=== PATIENT | female | born 1965 | race Caucasian/White ===

== ENCOUNTER 2020-03-31 13:23 | Outpatient (REF) | payer OTHER, SELFPAY ==
--- NOTE | 2020-03-31 13:31 | MM_ITS ---
EXAMINATION: MM DIAGNOSTIC DIGITAL BREAST TOMOSYNTHESIS, BILATERAL CLINICAL INFORMATION: Left breast cancer status post lumpectomy 03/06/2018. Radiation completed in 2019. Due for yearly. COMPARISON: Mammography: 03/27/2019, 04/05/2018, 03/16/2018 TECHNIQUE: Digital breast tomosynthesis is performed in both the craniocaudal and mediolateral oblique views along with computer-aided detection (CAD). Synthesized 2D images are generated from the tomosynthesis. Additional magnification left CC and magnification left ML views are obtained. FINDINGS: There are scattered areas of fibroglandular density (ACR BI-RADS breast composition Category b). There are post therapy changes on the left with mild reduced breast size and scarring similar to prior study. Neither breast shows interval mass or architectural abnormality or abnormal calcifications. No significant changes. Results are provided to the patient at time of visit by the technologist. IMPRESSION: No mammographic evidence of malignancy. Post therapy changes left breast. ASSESSMENT: BI-RADS 2: Benign RECOMMENDATION: Annual bilateral mammography. This patient's information was entered into a reminder system with a target due date for their next mammogram.
== END 2020-03-31 13:24 | disposition home or self-care (01) ==
LOC: HO.MAMMO 13:23
PROVIDERS: PCP Internal Medicine; Visit Provider Surgery
DX: C50.912 Malignant neoplasm of unspecified site of left female breast (principal); Z92.3 Personal history of irradiation
CPT/HCPCS: 77062; 77066

== ENCOUNTER → 2020-04-08 13:05 | Outpatient (BNVA) | payer OTHER, SELFPAY | PROVIDERS: PCP Internal Medicine; Referring Provider Internal Medicine; Visit Provider Surgery | DX: Z85.3 Personal history of malignant neoplasm of breast (principal); Z92.21 Personal history of antineoplastic chemotherapy; Z92.3 Personal history of irradiation | CPT/HCPCS: 99213 ==

== ENCOUNTER → 2020-04-09 13:30 | Outpatient (BNV) | payer MEDICARE, OTHER, MEDICAID, SELFPAY | PROVIDERS: PCP Internal Medicine; Visit Provider Internal Medicine | DX: Z85.3 Personal history of malignant neoplasm of breast (principal); I89.0 Lymphedema, not elsewhere classified | CPT/HCPCS: 99212; 99213; 99214; G2211 ==

== ENCOUNTER 2020-07-24 11:19 | Outpatient (REF) | payer OTHER, SELFPAY ==
[2020-07-24 11:47] LABS: MANUAL DIFF FLAG NO
[2020-07-24 11:52] LABS: Basophils Percent Auto 0.5 % (0-2); Eosinophils Absolute Auto 0.1 X10*3/uL (0.0-0.4); Eosinophils Percent Auto 1.3 % (0-4); Hematocrit 40.7 % (37-47); Hemoglobin 13.3 g/dl (12.0-16.0); Imm Gran Abs Auto 0.02 X10*3/uL (0.00-0.03); Imm Gran Pct Auto 0.3 % (0.0-0.4); Lymphocytes Absolute Auto 1.4 X10*3/uL (1.2-4.9); Lymphocytes Percent Auto 21.5 % (20-40); Mean Corpuscular HGB Conc 32.7 g/dl (31.0-35.0); Mean Corpuscular Hemoglobin 30.6 pg (27.0-33.0); Mean Corpuscular Volume 93.8 fL (80-98); Mean Platelet Volume 10.8 fL (9.4-12.3); Monocytes Absolute Auto 0.4 X10*3/uL (0.1-1.2); Monocytes Percent Auto 6.9 % (2-11); Neutrophils Absolute Auto 4.4 X10*3/uL (2.0-8.3); Neutrophils Percent Auto 69.5 % (45-73); Platelet Count 272 X10*3/uL (160-400); Red Blood Count 4.34 X10*6/uL (4.20-5.50); Red Cell Distribution Width 12.8 % (11.0-16.0); White Blood Count 6.4 X10*3/uL (4.8-10.8)
[2020-07-24 12:30] LABS: Alanine Aminotransferase 29 U/L (0-31); Albumin Level 4.4 g/dL (3.5-5.0); Alkaline Phosphatase 90 U/L (39-117); Anion Gap 12 (12-20); Aspartate Amino Transferase 19 U/L (5-31); Bilirubin Total 0.8 mg/dL (0.0-1.0); Blood Urea Nitrogen 20 mg/dL (9-16); Calcium 9.7 mg/dL (8.4-10.2); Carbon Dioxide 31 mmol/L (22-29); Chloride 101 mmol/L (96-108); Cholesterol 186 mg/dL; Estimated Glomerular Filt Rate > 60; Glucose Fasting 95 mg/dL (60-99); HDL Cholesterol 64 mg/dL; LDL Cholesterol Calculated 101 mg/dl; Potassium 4.9 mmol/L (3.3-5.1); Sodium 139 mmol/L (135-145); Total Protein 7.1 g/dL (6.5-8.0); Triglycerides 106 mg/dL
[2020-07-24 12:31] LABS: Glucose Urine UA NEG (NEG); Leukocyte Esterase Urine TRACE (NEG); Nitrite Urine NEG (NEG); UACC Culture Trigger YES; Urine Blood 2+ (NEG); Urine Ketones NEG (NEG); Urine Protein NEG (NEG-TRACE)
[2020-07-24 12:46] LABS: TSH reflex Free T4 1.37 uIU/mL (0.32-4.0)
[2020-07-24 12:46] LABS: Appearance Urine HAZY; Color Urine YELLOW
[2020-07-24 14:22] LABS: Renal Epithelial Cells Urine 1+ /LPF; Squamous Epithelial Cell Urine 1+ /LPF
== END 2020-07-24 11:20 | disposition home or self-care (01) ==
LOC: HO.LAB 11:19
PROVIDERS: PCP Internal Medicine; Visit Provider Internal Medicine
DX: I10 Essential (primary) hypertension (principal); C50.912 Malignant neoplasm of unspecified site of left female breast; Z17.0 Estrogen receptor positive status [ER+]; D64.9 Anemia, unspecified; E78.00 Pure hypercholesterolemia, unspecified; E66.9 Obesity, unspecified
CPT/HCPCS: 36415; 80053; 80061; 81001; 81003; 84443; 85025; 87086

== ENCOUNTER 2020-07-28 16:36 | Outpatient (REF) | payer OTHER, SELFPAY ==
--- NOTE | ~2020-07-28 | XR_ITS ---
EXAMINATION: XR HIP, RIGHT CLINICAL INFORMATION: Right hip COMPARISON: CT abdomen pelvis 05/08/2018 TECHNIQUE: Two views of the right hip. FINDINGS: Severe degenerative changes are noted involving the right hip joint with severe superior narrowing sclerosis and osteophyte formation. There is some mild deformity of the superior femoral head which could even represent some possible osteonecrosis. No fractures are seen. XR/XR hip RT min 2V IMPRESSION: Severe degenerative changes right hip.
== END 2020-07-28 16:37 | disposition home or self-care (01) ==
LOC: HO.XRAY 16:36
PROVIDERS: PCP Internal Medicine; Visit Provider Internal Medicine
DX: M25.551 Pain in right hip (principal)
CPT/HCPCS: 73502

== ENCOUNTER → 2020-09-23 13:19 | Outpatient (BNVA) | payer MEDICARE, MEDICAID, SELFPAY | PROVIDERS: PCP Internal Medicine; Visit Provider Surgery | DX: C50.912 Malignant neoplasm of unspecified site of left female breast (principal) | CPT/HCPCS: 99212 ==

== ENCOUNTER 2020-10-06 07:36 | Outpatient (REF) | payer MEDICARE, MEDICAID, SELFPAY ==
--- NOTE | ~2020-10-06 | XR_ITS ---
EXAMINATION: XR PELVIS CLINICAL INFORMATION: Right hip osteoarthritis. COMPARISON: 07/28/2020 TECHNIQUE: AP view of the pelvis. FINDINGS: There is no evidence of acute fracture or diastasis of the pelvis. There is loss of the superior joint space of the right hip with marginal sclerosis and some flattening of the femoral head. No acute fractures identified on this single view. There is severe narrowing of the superior joint space of the left hip without fracture or flattening of the femoral head. There is some mild spurring seen involving the sacroiliac joints bilaterally. Facet arthropathy is seen at the L5-S1 level bilaterally, left greater than right. XR/XR pelvis 1-2V IMPRESSION: Bilateral degenerative change of the hips, right greater than left.
== END 2020-10-06 07:37 | disposition home or self-care (01) ==
LOC: HO.HOSX 07:36
PROVIDERS: Visit Provider Physician Assistant
DX: M16.11 Unilateral primary osteoarthritis, right hip (principal)
CPT/HCPCS: 72170; 99202

== ENCOUNTER → 2020-10-21 14:06 | Outpatient (BNVA) | payer MEDICARE, MEDICAID, SELFPAY | PROVIDERS: Visit Provider Orthopaedic Surgery | DX: M16.11 Unilateral primary osteoarthritis, right hip (principal) | CPT/HCPCS: 99212 ==

== ENCOUNTER 2020-11-18 10:59 | Outpatient (REF) | payer MEDICARE, MEDICAID, SELFPAY ==
[2020-11-18 12:01] LABS: MANUAL DIFF FLAG NO
[2020-11-18 12:08] LABS: Basophils Percent Auto 0.6 % (0-2); Eosinophils Absolute Auto 0.1 X10*3/uL (0.0-0.4); Eosinophils Percent Auto 2.3 % (0-4); Hematocrit 38.6 % (37-47); Hemoglobin 12.6 g/dl (12.0-16.0); Imm Gran Abs Auto 0.01 X10*3/uL (0.00-0.03); Imm Gran Pct Auto 0.2 % (0.0-0.4); Lymphocytes Absolute Auto 1.3 X10*3/uL (1.2-4.9); Lymphocytes Percent Auto 21.2 % (20-40); Mean Corpuscular HGB Conc 32.6 g/dl (31.0-35.0); Mean Corpuscular Hemoglobin 30.7 pg (27.0-33.0); Mean Corpuscular Volume 93.9 fL (80-98); Mean Platelet Volume 11.1 fL (9.4-12.3); Monocytes Absolute Auto 0.5 X10*3/uL (0.1-1.2); Monocytes Percent Auto 7.6 % (2-11); Neutrophils Absolute Auto 4.2 X10*3/uL (2.0-8.3); Neutrophils Percent Auto 68.1 % (45-73); Platelet Count 227 X10*3/uL (160-400); Red Blood Count 4.11 X10*6/uL (4.20-5.50); White Blood Count 6.2 X10*3/uL (4.8-10.8)
[2020-11-18 12:26] LABS: Glucose Urine UA NEG (NEG); Leukocyte Esterase Urine NEG (NEG); Nitrite Urine NEG (NEG); Specific Gravity - Urine 1.025 (1.005-1.025); Urine Blood 1+ (NEG); Urine Ketones NEG (NEG); Urine Protein NEG (NEG-TRACE)
[2020-11-18 12:28] LABS: Appearance Urine CLEAR; Color Urine YELLOW
[2020-11-18 12:44] LABS: TSH reflex Free T4 1.03 uIU/mL (0.32-4.0)
[2020-11-18 13:10] LABS: RBC Urine 0 /HPF (0); Squamous Epithelial Cell Urine TRACE /LPF; WBC Urine 0-2 /HPF (0-4)
[2020-11-18 13:16] LABS: Alanine Aminotransferase 28 U/L (0-31); Albumin Level 4.3 g/dL (3.5-5.0); Alkaline Phosphatase 76 U/L (39-117); Anion Gap 13 (12-20); Aspartate Amino Transferase 21 U/L (5-31); Bilirubin Total 0.9 mg/dL (0.0-1.0); Blood Urea Nitrogen 19 mg/dL (9-16); Calcium 9.4 mg/dL (8.4-10.2); Carbon Dioxide 26 mmol/L (22-29); Chloride 105 mmol/L (96-108); Cholesterol 188 mg/dL; Estimated Glomerular Filt Rate > 60; Glucose Fasting 95 mg/dL (60-99); HDL Cholesterol 64 mg/dL; LDL Cholesterol Calculated 98 mg/dl; Potassium 4.6 mmol/L (3.3-5.1); Sodium 139 mmol/L (135-145); Total Protein 6.8 g/dL (6.5-8.0); Triglycerides 131 mg/dL
== END 2020-11-18 11:00 | disposition home or self-care (01) ==
LOC: HO.LAB 10:59
PROVIDERS: PCP Internal Medicine; Visit Provider Internal Medicine
DX: I10 Essential (primary) hypertension (principal); D64.9 Anemia, unspecified; E78.00 Pure hypercholesterolemia, unspecified; E66.9 Obesity, unspecified
CPT/HCPCS: 36415; 80053; 80061; 81001; 84443; 85025

== ENCOUNTER → 2020-11-26 13:01 | Outpatient (BNVA) | payer MEDICARE, MEDICAID, SELFPAY | PROVIDERS: PCP Internal Medicine; Visit Provider Orthopaedic Surgery ==

== ENCOUNTER → 2020-12-17 13:43 | Outpatient (BNVA) | payer MEDICARE, MEDICAID, SELFPAY | PROVIDERS: PCP Internal Medicine; Visit Provider Physician Assistant | DX: M16.11 Unilateral primary osteoarthritis, right hip (principal) | CPT/HCPCS: 99212 ==

== ENCOUNTER 2020-12-22 06:40 | Inpatient (IN) | payer MEDICARE, MEDICAID, SELFPAY ==
--- NOTE | 2020-11-26 14:46 | ECG_ITS ---
Test Reason : PREOP Blood Pressure : / mmHG Vent. Rate : 066 BPM Atrial Rate : 066 BPM P-R Int : 168 ms QRS Dur : 072 ms QT Int : 404 ms P-R-T Axes : 033 -03 027 degrees QTc Int : 423 ms Normal sinus rhythm cannot exclude old Inferior infarct , age undetermined ; possible normal variant. otherwise normal EKG No previous ECGs available Referred By: Brijesh Pineda Electronically Signed By:CHERYL MORRIS
--- NOTE | 2020-12-18 12:01 | HO.ANESPROP2 ---
Documented by User: Yun Galdamez 12/19/20 09:07 HPI - Anesthesia Eval Consult details Narrative: 55yo F for Right Hip Total Replacement PONV and N/V with opioids. Did well with Fentanyl for hernia surgery. [facility] Active Problems Active Problems: All Active Problems (Updated 12/17/20 @ 16:28 by Pauly Saldivar) Invasive ductal carcinoma of left breast (Acute) Pre-op evaluation (Acute) Osteoarthritis of right hip (Acute) Right hip pain (Acute) Insomnia (Acute) Obesity (BMI 30-39.9) (Acute) Depression (Acute) Secondary and unspecified malignant neoplasm of axilla and upper limb lymph nodes (Acute) Anemia (Acute) Malignant neoplasm of left breast (Chronic) Pure hypercholesterolemia (Acute) Benign essential hypertension (Acute) Past Medical History Medical History Anemia Arthritis Benign essential hypertension Chronic osteoarthritis Depression Hx of cardiac murmur Insomnia Malignant neoplasm of left breast Numbness of fingers of both hands Obesity (BMI 30-39.9) Osteoarthritis of right hip PONV (postoperative nausea and vomiting) Pure hypercholesterolemia Right hip pain Secondary and unspecified malignant neoplasm of axilla and upper limb lymph nodes Family History Family History Father Diabetes Cancer Mother Cancer Chronic mental illness Maternal Grandmother Stomach cancer Maternal Grandfather Stomach cancer Other Mental health problem Substance abuse Family history of problems with anesthesia: No Surgical History Surgical History History of axillary surgery History of hernia surgery History of left breast biopsy History of left mastectomy Hx of colonoscopy History of Problems with Anesthesia: No (PONV) Social History Social History Housing: House Are you a primary care trainer to a significant other at home: No Do you presently have visiting nurse or other home services: No Alcohol intake: current Alcohol intake frequency: holidays/special occasions only Alcohol type: wine Patient Tobacco Use Status: Never used Tobacco e-Cigarette/Vaping Use: Never Used Second Hand Smoke Exposure: Yes Use of substances other than those prescribed or required for medical reasons: No Have you been hit, kicked, punched, or otherwise hurt by someone within the past year? If so, by whom?: No Spiritual Healthcare Practices: none Restorationist Healthcare Practices: Buddhist Cultural Healthcare Practices: None Are you DNR?: No Advance Directives: No Advance Directives Information Provided: No Advance Directives on File: No Recently lost weight without trying: No Patient : No : No Poor oral hygiene: No service: No Current occupational status: unemployed Gender identity: female Meds Allergies Allergy/AdvReac Type Severity Reaction Status Date / Time Penicillins [PENICILLINS] Allergy Unknown CHILDHOOD Verified 12/17/20 16:23 RXN codeine [CODEINE] AdvReac Intermediate NAUSEA & Verified 12/17/20 16:23 VOMITING morphine [MORPHINE] AdvReac Intermediate Bad Verified 12/17/20 16:23 headache, N/V oxycodone [From PERCOCET] AdvReac Intermediate NAUSEA & Verified 12/17/20 16:23 VOMITING Home Medications Medication Instructions Recorded Confirmed Last Taken Type fluoxetine 40 mg PO BEDTIME 12/17/20 12/17/20 Unknown History metoprolol tartrate 50 mg PO BEDTIME 12/17/20 12/17/20 Unknown History Exam Exam Date and Time: December 18, 2020 1201 Pertinent Lab Results Pertinent Lab Results: Laboratory Tests 11/18/20 11/18/20 11:18 11:18 WBC 6.2 Hgb 12.6 Hct 38.6 Plt Count 227 Sodium 139 Potassium 4.6 Chloride 105 Carbon Dioxide 26 BUN 19 H Creatinine 0.72 Laboratory Tests 12/18/20 13:05 Blood Type A Positive Antibody Screen NEGATIVE Narrative Narrative: EKG 11/2020 Vent. Rate : 066 BPM Atrial Rate : 066 BPM P-R Int : 168 ms QRS Dur : 072 ms QT Int : 404 ms P-R-T Axes : 033 -03 027 degrees QTc Int : 423 ms Normal sinus rhythm cannot exclude old Inferior infarct , age undetermined ; possible normal variant. otherwise normal EKG No previous ECGs available Airway Mallampati Class: II TM Dist: >3cm Neck ROM: Full Loose/Missing/Broken Teeth: No (Crowned molars) Heart: RRR Lungs: CTAB Assessment and Plan Assessment Anesthesia Assessment: Anesthesia Plan Discussed and PAT Visit Documented by User: Erum Mast 12/22/20 07:21 [facility] Past Medical History Medical History Anemia Arthritis Benign essential hypertension Chronic osteoarthritis Depression Hx of cardiac murmur Insomnia Malignant neoplasm of left breast Numbness of fingers of both hands Obesity (BMI 30-39.9) Osteoarthritis of right hip PONV (postoperative nausea and vomiting) Pure hypercholesterolemia Right hip pain Secondary and unspecified malignant neoplasm of axilla and upper limb lymph nodes Family History Family History Father Diabetes Cancer Mother Cancer Chronic mental illness Maternal Grandmother Stomach cancer Maternal Grandfather Stomach cancer Other Mental health problem Substance abuse Surgical History Surgical History History of axillary surgery History of hernia surgery History of left breast biopsy History of left mastectomy Hx of colonoscopy Social History Social History Housing: House Are you a primary care trainer to a significant other at home: No Do you presently have visiting nurse or other home services: No Alcohol intake: current Alcohol intake frequency: holidays/special occasions only Alcohol type: wine Patient Tobacco Use Status: Never used Tobacco e-Cigarette/Vaping Use: Never Used Second Hand Smoke Exposure: Yes Use of substances other than those prescribed or required for medical reasons: No Have you been hit, kicked, punched, or otherwise hurt by someone within the past year? If so, by whom?: No Spiritual Healthcare Practices: none Restorationist Healthcare Practices: Buddhist Cultural Healthcare Practices: None Are you DNR?: No Advance Directives: No Advance Directives Information Provided: No Advance Directives on File: No Recently lost weight without trying: No Patient : No : No Poor oral hygiene: No service: No Current occupational status: unemployed Gender identity: female Meds Allergies Allergy/AdvReac Type Severity Reaction Status Date / Time Penicillins [PENICILLINS] Allergy Unknown CHILDHOOD Verified 12/17/20 16:23 RXN codeine [CODEINE] AdvReac Intermediate NAUSEA & Verified 12/17/20 16:23 VOMITING morphine [MORPHINE] AdvReac Intermediate Bad Verified 12/17/20 16:23 headache, N/V oxycodone [From PERCOCET] AdvReac Intermediate NAUSEA & Verified 12/17/20 16:23 VOMITING Home Medications Medication Instructions Recorded Confirmed Last Taken Type fluoxetine 40 mg PO BEDTIME 12/17/20 12/17/20 Unknown History metoprolol tartrate 50 mg PO BEDTIME 12/17/20 12/17/20 Unknown History Assessment and Plan Assessment Anesthesia Assessment: Anesthesia Plan Discussed and Chart Reviewed Final Anesthetic Review NPO: Yes ASA Class: III Final Preanesthetic Review: No Changes in Pt Med Stat, Meds/Allgs Chart Reviewed, Consent Obtained/Reviewed and Anes Risks/Benef Reviewed Patient Risk: Intermediate Procedure Risk: Intermediate Assessment/Block/Sedation in SS: Assess/Block/Sedation-SS Anesthetic Plan Anesthetic Plan: GA Disposition: Standard PACU
[2020-12-18 12:08] VITALS: BP 132/72; PULSE 80; RESP 16; O2SAT 97; BMI 39.4
[2020-12-18 14:12] LABS: MRSA Nasal PCR NEGATIVE (Negative); SA Nasal PCR NEGATIVE (Negative)
[2020-12-22] VITALS (19 sets, daily range): BP systolic 134–190; BP diastolic 65–96; PULSE 68–100; RESP 14–20; TEMP 36.2–36.8; O2SAT 95–100
--- NOTE | ~2020-12-22 | XR_ITS ---
EXAMINATION: XR HIP, RIGHT CLINICAL INFORMATION: Postop COMPARISON: Previous x-ray September 2020 TECHNIQUE: One view of the pelvis and 2 views of the right hip of the right hip. FINDINGS: There is a new right hip replacement in satisfactory position. No fracture or dislocation is seen. There is arthritis at the left hip joint. There are postoperative changes to the soft tissues. XR/XR hip RT w PEL1V IMPRESSION: Satisfactory appearance of right hip replacement.
[2020-12-22] MEDS: Scopolamine 1.5 MG PATCH.TD.3 TRANSDERMA (06:40)
[2020-12-22 07:00] LABS: COVID-19 Test Negative (Negative)
[2020-12-22] MEDS: Lactated Ringers 1,000 ML 80 ML IVCONT ×2 (07:07→13:45)
--- NOTE | 2020-12-22 07:24 | MHC.SHP ---
Pre-Procedural Eval Section A Date of Service: 12/22/20 The patient is an INPATIENT: No Changes since office visit: No Cold of Flu in the past 2 weeks, No New Medical Problems, No Changes in Medication and No Patient answered all questions The History & Physical has been completed within 30 days and I have reviewed it.: Yes Section B Chief Complaint: Right Hip Osteoarthritis Allergies: Allergies Allergy/AdvReac Type Severity Reaction Status Date / Time Penicillins [PENICILLINS] Allergy Unknown CHILDHOOD Verified 12/17/20 16:23 RXN codeine [CODEINE] AdvReac Intermediate NAUSEA & Verified 12/17/20 16:23 VOMITING morphine [MORPHINE] AdvReac Intermediate Bad Verified 12/17/20 16:23 headache, N/V oxycodone [From PERCOCET] AdvReac Intermediate NAUSEA & Verified 12/17/20 16:23 VOMITING Plan I have reviewed the history and physical and performed a pertinent physical examination on my patient. No changes have occurred unless specified.
--- NOTE | 2020-12-22 09:28 | W.PM.OPN ---
Operative Note Operative Note Date of Service: 12/22/20 Narrative: OPERATIVE PROCEDURE SURGEON: Dr Kelley(Claudine) [employer] CORPORATE TRAVEL COORDINATOR: Kashmir Ruiz PAC PREOP DIAGNOSIS: osteoarthritis right hip POSTOP DIAGNOSIS: Same OPERATIVE PROCEDURE: right Total hip arthroplasty- Accolade II size 3 x 132 degree, 52 mm trident acetabular component, 0 degree x 36 mm acetabular liner, 36 x 2.5 mm Biolox head CLINICAL NOTE: This very pleasant individual comes in today in regards to their right hip. That evidence of osteoarthritis. This failed operative management. Therefore after explaining the risks benefits and alternatives and answering all the questions it was mutually agreed upon to carry following procedure. OPERATIVE DETAILS Under a general anesthetic the patient was placed in the left lateral decubitus position. The leg was then prepped and draped in standard fashion. Surgical time-out was then performed. Patient is identified. Procedure confirmed. Site confirmed. Medical and allergy history was reviewed. Preoperative antibiotics were given. Standard DVT prophylaxis in place. Trans E make acid was given as well. All was discussed and agreed upon. Standard anterolateral approach to the hip was carried out. Hemostasis was achieved along the way at all points with electrocautery. This brought us down to the level of the fascia marcia. This was divided along the length of the incision. The abductor musculature was identified. The anterior 2/3 were divided through tendon directly onto the greater trochanter. Muscle was then elevated off the capsule down to the level of the acetabulum. At this point a capsulectomy was then performed. The hip was then dislocated. Obvious evidence of osteoarthritis. The head and neck was then resected according to preoperative templating. We then turned our attention to the acetabulum. The remainder of the capsule and acetabular look labrum was removed. The soft tissue within the fovea was excised as well. the bowl curette was used to remove any remaining cartilage. Starting with the 50 mm Reamer the acetabulum was sequentially reamed up to a size 52 mm. The trial acetabulum was placed at this point. It demonstrated appropriate fit fill and alignment. Therefore the 52 mm acetabulum was selected and brought up the table. The acetabulum was then thoroughly irrigated. The permanent component was brought up on the table. It was then Press-Fit into place with excellent fit and alignment. A trial liner for the 36 mm head was selected. It was placed and we turned our attention to the femur. Box osteotome was used to lateralize the canal. T Reamer was then used to sound the canal. The canal was then sequentially broached from a 0 to a size 3. It had excellent medial lateral fit and rotational stability. A trial reduction was then performed using the 132 degree collar and the 2.5 mm x 36 mm head. The hip was reduced. It was placed through range of motion. It demonstrated excellent leg lengths. Full range of motion. Stable in all positions. And therefore the Accolade II, size 3 femoral component along with the 0 degree by 36 mm acetabular liner, and the 2.5 mm x 36 mm a head were selected and brought up to the table. The hip was redislocated. The trial components were then all removed. The acetabular was thoroughly irrigated. The permanent liner was tapped into place. Turning our attention back to the femur, it was thoroughly irrigated. The permanent component was brought up to the table. It was then tapped into place with the same fit and fill as the broach had been. The head was brought up. The Handley taper was cleaned and dried. The head tapped into place. Final reduction was then performed which again demonstrated excellent leg length is. Full range of motion. And excellent stability. Therefore proceeded closure. The wound was thoroughly irrigated. The abductor musculature was repaired with 2. Dexon. The fascia marcia was closed with 2. Quill suture. The skin was approximated using interrupted 2-0 Dexon. The skin was then closed with randall. Sterile dressing was then applied. The patient then had the anesthesia reversed. They were transferred supine to the room bed then taken to recovery room in good condition. Intraoperatively a 2nd unit trans of mac acid was given. There was approximately 100 cc of blood loss. No intraop transfusions or complications.
[2020-12-22] MEDS: fentaNYL citrate/PF 100 MCG/2 ML VIAL 50 MCG IVPUSH ×2 (09:53→10:12)
[2020-12-22] MEDS: HYDROmorphone HCl 2 MG TABLET PO (10:10)
--- NOTE | 2020-12-22 13:56 | P.CONIM_ITS ---
History of Present Illness Data of Consult Service Date: 12/22/20 Primary Care Provider: Brijesh Pineda MD HPI Reason for consult: htn 55F presented for elective left hip arthroplasty. patient has been having right hip pain for a couple of years, no longer manageable with pain medications, xray showed bone on bone OA. patient has some pain currently at surgical site, denies shortness of breath, chest pain, fever, chills. Review of Systems Cardiovascular: Cardiovascular: Reports no additional cardiovascular complaints Respiratory: Respiratory: Reports no additional respiratory complaints Gastrointestinal: Gastrointestinal: Reports no additional gastrointestinal complaints [facility] Medical History Anemia Arthritis Benign essential hypertension Chronic osteoarthritis Depression Hx of cardiac murmur Insomnia Malignant neoplasm of left breast Numbness of fingers of both hands Obesity (BMI 30-39.9) Osteoarthritis of right hip PONV (postoperative nausea and vomiting) Pure hypercholesterolemia Right hip pain Secondary and unspecified malignant neoplasm of axilla and upper limb lymph nodes Family History Father Diabetes Cancer Mother Cancer Chronic mental illness Maternal Grandmother Stomach cancer Maternal Grandfather Stomach cancer Other Mental health problem Substance abuse Surgical History History of axillary surgery History of hernia surgery History of left breast biopsy History of left mastectomy Hx of colonoscopy Social History Housing: House Are you a primary career services manager to a significant other at home: No Do you presently have visiting nurse or other home services: No Alcohol intake: current Alcohol intake frequency: holidays/special occasions only Alcohol type: wine Patient Tobacco Use Status: Never used Tobacco e-Cigarette/Vaping Use: Never Used Second Hand Smoke Exposure: Yes Use of substances other than those prescribed or required for medical reasons: No Have you been hit, kicked, punched, or otherwise hurt by someone within the past year? If so, by whom?: No Spiritual Healthcare Practices: none Evangelical Healthcare Practices: Temple Cultural Healthcare Practices: None Are you DNR?: No Advance Directives: No Advance Directives Information Provided: No Advance Directives on File: No Recently lost weight without trying: No Patient : No : No Poor oral hygiene: No service: No Current occupational status: unemployed Gender identity: female Meds Allergies Allergy/AdvReac Type Severity Reaction Status Date / Time Penicillins [PENICILLINS] Allergy Unknown CHILDHOOD Verified 12/17/20 16:23 RXN codeine [CODEINE] AdvReac Intermediate NAUSEA & Verified 12/17/20 16:23 VOMITING morphine [MORPHINE] AdvReac Intermediate Bad Verified 12/17/20 16:23 headache, N/V oxycodone [From PERCOCET] AdvReac Intermediate NAUSEA & Verified 12/17/20 16:23 VOMITING Active Medications: Current Medications Generic Name Dose Route Start Last Admin Trade Name Freq PRN Reason Stop Dose Admin Acetaminophen 650 mg 12/22/20 13:43 Acetaminophen 325 Mg Tablet PO Q6H [facility] Anastrozole 1 mg 12/23/20 09:00 Anastrozole 1 Mg Tablet PO DAILY [facility] Aspirin 325 mg 12/23/20 10:00 Aspirin 325 Mg Tablet PO BID [facility] Atorvastatin Calcium 80 mg 12/23/20 09:00 Atorvastatin Calcium 80 Mg Tablet PO DAILY [facility] Ezetimibe 10 mg 12/23/20 09:00 Ezetimibe 10 Mg Tablet PO DAILY [facility] Fluoxetine HCl 40 mg 12/22/20 21:00 Fluoxetine Hcl 20 Mg Capsule PO BEDTIME [facility] Cefazolin Sodium/Dextrose 2 gm in 50 mls @ 100 mls/hr 12/22/20 13:40 Ancef IV 12/22/20 14:09 POSTOP ONE Ketorolac Tromethamine 15 mg 12/22/20 13:43 Ketorolac Tromethamine 15 Mg/Ml Vial IVPUSH Q6H [facility] Metoprolol Tartrate 50 mg 12/22/20 21:00 Metoprolol Tartrate 50 Mg Tablet PO BEDTIME [facility] Protocol Morphine Sulfate 2 mg 12/22/20 13:43 Morphine Sulfate 2 Mg/Ml Cartridge IVPUSH Q2H PRN Pain, Severe (Pain Scale 7-10) Naloxone HCl 0.2 mg 12/22/20 13:43 Naloxone Hcl 0.4 Mg/Ml Vial IVPUSH Q2M PRN Excessive sedation or RR < 8 Ondansetron HCl 4 mg 12/22/20 13:43 Ondansetron Hcl 4 Mg/2 Ml Vial IVPUSH Q8H PRN Nausea and Vomiting Oxycodone HCl 10 mg 12/22/20 13:43 Oxycodone Hcl Immed Release 5 Mg Tablet PO Q6H [facility] Sodium Chloride 3 ml 12/22/20 16:00 0.9 % Sodium Chloride Flush 3 Ml Syringe IVFLUSH QSHIFT [facility] Home Medications Medication Instructions Recorded Confirmed Last Taken Type fluoxetine 40 mg PO BEDTIME 12/17/20 12/17/20 Unknown History metoprolol tartrate 50 mg PO BEDTIME 12/17/20 12/17/20 Unknown History Physical Exam Vital Signs and Narrative: Vital Signs: Last Vital Signs Temp 98 F 12/22/20 13:43 Pulse 68 12/22/20 13:43 Resp 18 12/22/20 13:43 BP 190/96 H 12/22/20 13:43 Pulse Ox 98 12/22/20 13:43 Body Mass Index 39.4 General: AO X 3, no acute distress Resp: CTA bilateral CVS: S1,S2,RRR GI: soft, non tender, non distended Neuro: motor grossly intact Psych: appropriate affect Results Labs Labs: Laboratory Results - last 24 hr 12/22/20 06:15 COVID-19 ([facility]) Negative COVID-19 Clin Com See Note Assessment and Plan (1) Right hip pain: Status: Acute 55F presented for right hip arthroplasty s/p right hip arhtroplasty management per ortho HTN metoprolol currently elevated, likely due to pain, monitor for now, if persistently elevated will add more antihypertensives hld statin, ezetimibe history of breast ca anastrazole mood disorder fluoexitine
[2020-12-22] MEDS: ceFAZolin Sodium/Dextrose,Iso 2 GM/50 ML PIGGYBACK IV (13:58)
[2020-12-22] MEDS: Ketorolac Tromethamine 15 MG/ML VIAL IVPUSH ×2 (14:05→20:52)
[2020-12-22] MEDS: Acetaminophen 325 MG TABLET 650 MG PO ×2 (14:05→20:51)
[2020-12-22] MEDS: Metoprolol Tartrate 50 MG TABLET PO (20:51)
[2020-12-22] MEDS: FLUoxetine HCl 20 MG CAPSULE 40 MG PO (20:52)
[2020-12-22] MEDS: 0.9 % Sodium Chloride Flush 3 ML SYRINGE IVFLUSH (20:52)
[2020-12-23] VITALS (9 sets, daily range): BP systolic 96–128; BP diastolic 50–68; PULSE 71–84; RESP 15–18; TEMP 36.1–36.7; O2SAT 95–98
[2020-12-23] MEDS: Ketorolac Tromethamine 15 MG/ML VIAL IVPUSH ×4 (03:43→20:08)
[2020-12-23] MEDS: HYDROcodone Bit/Acetam 5/325 TABLET 2 TAB PO ×3 (03:43→22:27)
[2020-12-23 06:47] LABS: Hematocrit 33.3 % (37-47); Hemoglobin 10.9 g/dl (12.0-16.0)
[2020-12-23] MEDS: 0.9 % Sodium Chloride Flush 3 ML SYRINGE IVFLUSH ×3 (08:11→20:08)
[2020-12-23] MEDS: Ezetimibe 10 MG TABLET PO (09:31)
[2020-12-23] MEDS: Atorvastatin Calcium 80 MG TABLET PO (09:31)
[2020-12-23] MEDS: Anastrozole 1 MG TABLET PO (09:32)
[2020-12-23] MEDS: Aspirin 325 MG TABLET PO ×2 (09:33→20:07)
--- NOTE | 2020-12-23 09:33 | HO.PM.IMPN ---
Subjective Subjective Date of Service: 12/23/20 Interval History: pian at surgical site Cardiovascular Cardiovascular: Reports no additional cardiovascular complaints Respiratory Respiratory: Reports no additional respiratory complaints Physical Exam Vital Signs: Vital Signs: Last Vital Signs Temp 98.0 F 12/23/20 08:00 Pulse 73 12/23/20 08:07 Resp 17 12/23/20 08:00 BP 125/64 12/23/20 08:07 Pulse Ox 95 12/23/20 08:07 Body Mass Index 39.4 General: AO X 3, no acute distress Resp: CTA bilateral CVS: S1,S2,RRR GI: soft, non tender, non distended Neuro: motor grossly intact Psych: appropriate affect Objective Data Current Medications Generic Name Dose Route Start Last Admin Trade Name Freq PRN Reason Stop Dose Admin Hydrocodone Bitart/Acetaminophen 2 tab 12/22/20 21:46 12/23/20 03:43 Hydrocodone Bit/Acetam 5/325 Tablet PO 2 tab Q6H PRN Administration Pain, Moderate (Pain Scale 4-6 Anastrozole 1 mg 12/23/20 09:00 Anastrozole 1 Mg Tablet PO DAILY JASWANT Aspirin 325 mg 12/23/20 10:00 Aspirin 325 Mg Tablet PO BID [facility] Atorvastatin Calcium 80 mg 12/23/20 09:00 Atorvastatin Calcium 80 Mg Tablet PO DAILY JASWANT Ezetimibe 10 mg 12/23/20 09:00 Ezetimibe 10 Mg Tablet PO DAILY JASWANT Fluoxetine HCl 40 mg 12/22/20 21:00 12/22/20 20:52 Fluoxetine Hcl 20 Mg Capsule PO 40 mg BEDTIME JASWANT Administration Ketorolac Tromethamine 15 mg 12/22/20 13:43 12/23/20 08:08 Ketorolac Tromethamine 15 Mg/Ml Vial IVPUSH 15 mg Q6H JASWANT Administration Metoprolol Tartrate 50 mg 12/22/20 21:00 12/22/20 20:51 Metoprolol Tartrate 50 Mg Tablet PO 50 mg BEDTIME JASWANT Administration Protocol Naloxone HCl 0.2 mg 12/22/20 13:43 Naloxone Hcl 0.4 Mg/Ml Vial IVPUSH Q2M PRN Excessive sedation or RR < 8 Ondansetron HCl 4 mg 12/22/20 13:43 Ondansetron Hcl 4 Mg/2 Ml Vial IVPUSH Q8H PRN Nausea and Vomiting Sodium Chloride 3 ml 12/22/20 16:00 12/23/20 08:11 0.9 % Sodium Chloride Flush 3 Ml Syringe IVFLUSH 3 ml QSHIFT JASWANT Administration Labs CBC & Chem 7: 12/23/20 06:38 Labs: Laboratory Results - last 24 hr 12/23/20 06:38 Hgb 10.9 L Hct 33.3 L Quality Stroke Does the patient have a stroke diagnosis?: No VTE Prior VTE?: No VTE Risk Level:: Surgical - very high VTE Device Contraindication: N/A - Device Ordered VTE Drug Contraindication: N/A - Med Ordered Assessment and Plan (1) Right hip pain: Status: Acute Assessment and Plan: 55F presented for right hip arthroplasty s/p right hip arthroplasty POD 1 management per ortho HTN metoprolol much improved today hld statin, ezetimibe history of breast ca anastrazole mood disorder fluoexitine
--- NOTE | 2020-12-23 11:37 | HO.POSTANES ---
Post Anesthesia Evaluation Post Anesthesia Evaluation Vital Signs: Vital Signs Temp Pulse Resp BP Pulse Ox 12/23/20 11:15 97.9 F 84 18 124/66 96 12/23/20 08:07 73 125/64 95 12/23/20 08:00 98.0 F 73 17 125/64 95 12/23/20 04:21 97.9 F 81 16 128/65 96 12/23/20 00:08 97 F 84 15 120/68 96 Anesthesia: General Mental Status: Awake Pain Control: Satisfactory Nausea/Vomiting: None Hydration: Adequate Anesthesia-Related Issues: No Anes. Related Issues
--- NOTE | 2020-12-23 11:45 | P.PNOP_ITS ---
Subjective Subjective Date of Service: 12/23/20 Interval history: POD 1 s/p RT LYDIA No overnight events Resting in bed, has been out of bed to use commode Denies cp, sob, palpitations Physical Exam Vital Signs: Vital Signs: Last Vital Signs Temp 97.9 F 12/23/20 11:15 Pulse 84 12/23/20 11:15 Resp 18 12/23/20 11:15 BP 124/66 12/23/20 11:15 Pulse Ox 96 12/23/20 11:15 Body Mass Index 39.4 Const: General: cooperative, healthy appearing and no acute distress Resp: Effort & Inspection: normal respiratory effort and able to speak in complete sentences Cardio: Rate: regular rate Peripheral pulses: Peripheral pulses 2+ throughout GI: Palpation (GI): Soft to palpation Skin: General skin exam: no rashes or lesions noted Extrem: Other: incision clean dry and intact. Iván intact. No erythema or effusion. Calf supple nontender. Neurovascularly intact. Progress Note: A&P Assessment and plan (1) History of total right hip replacement: Status: Acute Assessment and Plan: * Continue pain mgmnt * Begin Aspirin for dvt ppx * begin PT for RT LYDIA * Dispo planning-Pending PT eval, pain mgmnt Fall Risk Details Current Medications: Current Medications Generic Name Dose Route Start Last Admin Trade Name Freq PRN Reason Stop Dose Admin Hydrocodone Bitart/Acetaminophen 2 tab 12/22/20 21:46 12/23/20 03:43 Hydrocodone Bit/Acetam 5/325 Tablet PO 2 tab Q6H PRN Administration Pain, Moderate (Pain Scale 4-6 Anastrozole 1 mg 12/23/20 09:00 12/23/20 09:32 Anastrozole 1 Mg Tablet PO 1 mg DAILY JASWANT Administration Aspirin 325 mg 12/23/20 10:00 12/23/20 09:33 Aspirin 325 Mg Tablet PO 325 mg BID JASWANT Administration Atorvastatin Calcium 80 mg 12/23/20 09:00 12/23/20 09:31 Atorvastatin Calcium 80 Mg Tablet PO 80 mg DAILY JASWANT Administration Ezetimibe 10 mg 12/23/20 09:00 12/23/20 09:31 Ezetimibe 10 Mg Tablet PO 10 mg DAILY JASWANT Administration Fluoxetine HCl 40 mg 12/22/20 21:00 12/22/20 20:52 Fluoxetine Hcl 20 Mg Capsule PO 40 mg BEDTIME JASWANT Administration Ketorolac Tromethamine 15 mg 12/22/20 13:43 12/23/20 08:08 Ketorolac Tromethamine 15 Mg/Ml Vial IVPUSH 15 mg Q6H JASWANT Administration Metoprolol Tartrate 50 mg 12/22/20 21:00 12/22/20 20:51 Metoprolol Tartrate 50 Mg Tablet PO 50 mg BEDTIME JASWANT Administration Protocol Naloxone HCl 0.2 mg 12/22/20 13:43 Naloxone Hcl 0.4 Mg/Ml Vial IVPUSH Q2M PRN Excessive sedation or RR < 8 Ondansetron HCl 4 mg 12/22/20 13:43 Ondansetron Hcl 4 Mg/2 Ml Vial IVPUSH Q8H PRN Nausea and Vomiting Sodium Chloride 3 ml 12/22/20 16:00 12/23/20 08:11 0.9 % Sodium Chloride Flush 3 Ml Syringe IVFLUSH 3 ml QSHIFT JASWANT Administration Time Spent With Patient Time: Total time spent is greater than 50% in coordination of care (as documented) at patient's floor/unit and/or counseling patient: Time with patient: less than 15 minutes Procedures Date of Service Date of Service: 12/23/20 Quality Stroke Does the patient have a stroke diagnosis?: No VTE Prior VTE?: No VTE Risk Level:: Surgical - high VTE Device Contraindication: N/A - Device Ordered VTE Drug Contraindication: N/A - Med Ordered
--- NOTE | 2020-12-23 12:02 | MHC.CLN ---
ADDED LEXIS PER PT REQUEST
--- NOTE | 2020-12-23 12:41 | MHC.CM.PN ---
PATIENT LIVES ALONE AND IS INDEPENDENT WITH HER ADLS. HER BROTHER HAS A WALKER THAT HE WILL GIVE TO HER, AND PATIENT ALSO HAS A WALKER READY AT [facility] HCP ON FILE AND VERIFIED. [facility] IMM 12/23 IN CHART.
[2020-12-23] MEDS: Metoprolol Tartrate 50 MG TABLET PO (20:07)
[2020-12-23] MEDS: FLUoxetine HCl 20 MG CAPSULE 40 MG PO (20:07)
[2020-12-24] MEDS: Ketorolac Tromethamine 15 MG/ML VIAL IVPUSH ×2 (00:36→07:45)
[2020-12-24 03:36] VITALS: BP 114/60; PULSE 64; RESP 15; TEMP 36.6; O2SAT 98
[2020-12-24 06:57] LABS: Hematocrit 33.7 % (37-47); Hemoglobin 10.6 g/dl (12.0-16.0)
[2020-12-24] MEDS: Atorvastatin Calcium 80 MG TABLET PO (07:46)
[2020-12-24] MEDS: Aspirin 325 MG TABLET PO (07:46)
[2020-12-24] MEDS: Ezetimibe 10 MG TABLET PO (07:47)
[2020-12-24] MEDS: Anastrozole 1 MG TABLET PO (07:47)
[2020-12-24] MEDS: 0.9 % Sodium Chloride Flush 3 ML SYRINGE IVFLUSH (07:48)
[2020-12-24 07:59] VITALS: BP 125/58; PULSE 67; RESP 17; TEMP 36.4; O2SAT 99
--- NOTE | 2020-12-24 08:13 | PM.DS ---
DS: Providers Provider Date of Service: 12/24/20 Date of admission: 12/22/20 06:40 Primary care physician: Brijesh Pineda MD Consults: 12/22/20 13:43 Consult to Hospitalist Routine Consulting Provider: Hospitalist Reason For Exam: medical issues DS: Diagnosis Discharge Diagnosis (1) Right hip pain: Status: Acute DS: Medications Discharge Medications Home Medications: Home Medications Medication Instructions Recorded Confirmed fluoxetine 40 mg PO BEDTIME 12/17/20 12/17/20 metoprolol tartrate 50 mg PO BEDTIME 12/17/20 12/17/20 Previous Rx's Medication Instructions Recorded anastrozole 1 mg PO DAILY #90 tab 09/10/20 atorvastatin 80 mg PO DAILY #30 tab 09/12/20 ezetimibe 10 mg tablet 10 mg PO DAILY 90 Days #90 tab 09/12/20 walker #1 ea 12/17/20 aspirin 325 mg PO BID 42 Days #84 tab 12/24/20 docusate sodium [Colace] 100 mg PO BID 30 Days #60 cap 12/24/20 hydrocodone-acetaminophen 2 tab PO Q6H PRN 7 Days #56 tab 12/24/20 DS: Summary Hospital Course Hospital Course: The patient underwent a successful right total hip arthroplasty, they were transferred to PACU and then to the floor to recover. During their stay, their vitals were stable, afebrile at 97.8. Labs were unremarkable, H/H 10.6/33.7. POD 1 they were started on Aspirin 325mg po bid for DVT ppx, they also received Physical Therapy services twice a day. Prior to discharge, their dressing was changed, incision clean dry and intact, new Aquacel dressing applied and the plan was to be discharged home with VNA services. Time Spent with Patient Time attestation: Total time spent providing and/or coordinating discharge services: Discharge coordination time: Less than 30 minutes Quality: Stroke Does the patient have a stroke diagnosis?: No Physical Exam Vital Signs: Vital Signs: Last Vital Signs Temp 97.5 F 12/24/20 07:59 Pulse 67 12/24/20 07:59 Resp 17 12/24/20 07:59 BP 125/58 L 12/24/20 07:59 Pulse Ox 99 12/24/20 07:59 Body Mass Index 39.4 Const: General: cooperative, healthy appearing and no acute distress Resp: Effort & Inspection: normal respiratory effort and able to speak in complete sentences Cardio: Rate: regular rate Peripheral pulses: Peripheral pulses 2+ throughout GI: Palpation (GI): Soft to palpation Skin: Lesions: no lesions Rashes: no rashes Extrem: Other: Right hip no ecchymosis, redness, drainage. Aquacel dressing was clean dry and intact however a new 1 was applied. Iván are intact. Wound is well approximated. NVI. DS: Data Data Completed and Pending Pending studies at discharge: Pending at discharge 12/22/20 09:00 Surgical [PTH] Routine Labs on day of discharge: Laboratory Results - last 24 hr 12/24/20 06:22 Hgb 10.6 L Hct 33.7 L Discharge Plan Discharge Patient Disposition: Home Health Service Discharge Diagnosis: s/p rt total hip arthroplasty Referrals: Mehran CARRILLO [Outside] - 1 Week Kashmir Ruiz PA-C [Physician [employer]] - 2 Weeks (01/07/21 at 2:30 ) Discharge Medications: New aspirin 325 mg Tablet 325 mg PO BID 42 Days Qty: 84 RF: 0 hydrocodone-acetaminophen 5-325 mg Tablet 2 tab PO Q6H PRN (Reason: Pain, Moderate (Pain Scale 4-6) 7 Days Qty: 56 RF: 0 docusate sodium [Colace] 100 mg capsule 100 mg PO BID 30 Days Qty: 60 RF: 0 Continued ezetimibe 10 mg tablet 10 mg PO DAILY 90 Days Qty: 90 RF: 1 atorvastatin 80 mg tablet 80 mg PO DAILY Qty: 30 RF: 11 fluoxetine 40 mg capsule 40 mg PO BEDTIME RF: 0 metoprolol tartrate 50 mg tablet 50 mg PO BEDTIME RF: 0 anastrozole 1 mg tablet 1 mg PO DAILY Qty: 90 RF: 3 (DME) walker Misc See Rx Instructions .MEDSUPPLY Qty: 1 RF: 0 Discharge Orders: Discharge Order (Routine); Ordered 12/24/20 Ordered By: Jaky Neff Diet: regular diet Activity on Discharge: Use cane or walker Stand Alone Forms: Patient Portal Discharge page Care Plan Goals: Restore fxn or right hip Health Concerns: none Plan of Treatment: Physical Therapy for total hip arthroplasty: posterior precautions, gait training, ROM, strength Limit stair climbing No showering, no tub bath-keep dressing clean, dry and intact No driving x6 weeks Continue ASA tabs once a day x 6 weeks Follow up with [facility] Orth[facility]ics in 2 weeks Assessment: stable for discharge
[2020-12-24 08:22] VITALS: BP 125/58; PULSE 67; O2SAT 99
--- NOTE | 2020-12-24 08:33 | MHC.CM.PN ---
PATIENT IS DISCHARGING HOME WITH [facility] FOR P.T. AND O.T. FAMILY TO TRANSPORT. RN AWARE OF PLAN.
--- NOTE | 2020-12-24 08:36 | P.F2F_ITS ---
Service Date Service Date: 12/24/20 Reasons for Services Reason for physical therapy: home safety and mobility, therapeutic exercises, restore joint function, gait/transfer training and ADL training Reason for occupational therapy: home safety and mobility, therapeutic exercises, restore joint function, gait/transfer training and ADL training Homebound: Leaving the home is medically contraindicated at this time without the asist of a device and/or another person due th the listed conditions above and below. Homebound supporting statement: Pt. is considered homebound due to recent surgery. Unable to drive, poor balance, poor gait mechanics. Certification: Based on the above findings, I certify that this patient is confined to the home and needs intermittent half-way care, physical therapy and/or speech therapy, or continues to need occupational therapy. The patient is under my care, and I have initiated the establishment of the plan of care. The patient will be followed by a physician who will periodically review the plan of care.
--- NOTE | 2020-12-24 09:33 | P.PNIM_ITS ---
Subjective Subjective Date of Service: 12/30/20 Interval History: pian at surgical site Cardiovascular Cardiovascular: Reports no additional cardiovascular complaints Respiratory Respiratory: Reports no additional respiratory complaints Gastrointestinal Gastrointestinal: Reports no additional gastrointestinal complaints Physical Exam Vital Signs: Vital Signs: Last Vital Signs Temp 97.5 F 12/24/20 07:59 Pulse 67 12/24/20 08:22 Resp 17 12/24/20 07:59 BP 125/58 L 12/24/20 08:22 Pulse Ox 99 12/24/20 08:22 Body Mass Index 39.4 Const: General: cooperative, healthy appearing and no acute distress Limitations: No language barrier Resp: Effort & Inspection: normal respiratory effort and able to speak in complete sentences Cardio: Rate: regular rate Peripheral pulses: Peripheral pulses 2+ throughout GI: Palpation (GI): Soft to palpation Skin: General skin exam: no rashes or lesions noted Lesions: no lesions Rashes: no rashes Extrem: Other: Right hip no ecchymosis, redness, drainage. Aquacel dressing was clean dry and intact however a new 1 was applied. Ferguson are intact. Wound is well approximated. NVI. Objective Data Current Medications Generic Name Dose Route Start Last Admin Trade Name Freq PRN Reason Stop Dose Admin Hydrocodone Bitart/Acetaminophen 2 tab 12/22/20 21:46 12/23/20 22:27 Hydrocodone Bit/Acetam 5/325 Tablet PO 2 tab Q6H PRN Administration Pain, Moderate (Pain Scale 4-6 Anastrozole 1 mg 12/23/20 09:00 12/24/20 07:47 Anastrozole 1 Mg Tablet PO 1 mg DAILY JASWANT Administration Aspirin 325 mg 12/23/20 10:00 12/24/20 07:46 Aspirin 325 Mg Tablet PO 325 mg BID JASWANT Administration Atorvastatin Calcium 80 mg 12/23/20 09:00 12/24/20 07:46 Atorvastatin Calcium 80 Mg Tablet PO 80 mg DAILY JASWANT Administration Ezetimibe 10 mg 12/23/20 09:00 12/24/20 07:47 Ezetimibe 10 Mg Tablet PO 10 mg DAILY JASWANT Administration Fluoxetine HCl 40 mg 12/22/20 21:00 12/23/20 20:07 Fluoxetine Hcl 20 Mg Capsule PO 40 mg BEDTIME JASWANT Administration Ketorolac Tromethamine 15 mg 12/22/20 13:43 12/24/20 07:45 Ketorolac Tromethamine 15 Mg/Ml Vial IVPUSH 15 mg Q6H JASWANT Administration Metoprolol Tartrate 50 mg 12/22/20 21:00 12/23/20 20:07 Metoprolol Tartrate 50 Mg Tablet PO 50 mg BEDTIME JASWANT Administration Protocol Naloxone HCl 0.2 mg 12/22/20 13:43 Naloxone Hcl 0.4 Mg/Ml Vial IVPUSH Q2M PRN Excessive sedation or RR < 8 Ondansetron HCl 4 mg 12/22/20 13:43 Ondansetron Hcl 4 Mg/2 Ml Vial IVPUSH Q8H PRN Nausea and Vomiting Sodium Chloride 3 ml 12/22/20 16:00 12/24/20 07:48 0.9 % Sodium Chloride Flush 3 Ml Syringe IVFLUSH 3 ml QSHIFT JASWANT Administration Labs CBC & Chem 7: 12/24/20 06:22 Labs: Laboratory Results - last 24 hr 12/24/20 06:22 Hgb 10.6 L Hct 33.7 L Quality Stroke Does the patient have a stroke diagnosis?: No VTE Prior VTE?: No VTE Risk Level:: Surgical - very high VTE Device Contraindication: N/A - Device Ordered VTE Drug Contraindication: N/A - Med Ordered Assessment and Plan (1) Right hip pain: Assessment and Plan: 55F presented for right hip arthroplasty s/p right hip arthroplasty POD 2 management per ortho HTN--controlled, continue Metoproll hld statin, ezetimibe history of breast ca anastrazole mood disorder fluoexitine PT/OT DVT with ASA
== END 2020-12-24 14:50 | disposition home health service (06) | DRG 470 ==
LOC: HO.SSSA 08:20 → HO.S3 12:13
PROVIDERS: Admitting Provider Physician Assistant; PCP Internal Medicine; Visit Provider Orthopaedic Surgery
PROC: 0SR90JA Replacement of Right Hip Joint with Synthetic Substitute, Uncemented, Open Approach (ICD-10-PCS; CPT 27130; principal; 2020-12-22 07:30)
DX: M16.11 Unilateral primary osteoarthritis, right hip (principal); E78.5 Hyperlipidemia, unspecified; F39 Unspecified mood [affective] disorder; I10 Essential (primary) hypertension; C50.919 Malignant neoplasm of unspecified site of unspecified female breast; Z20.822 Contact with and (suspected) exposure to COVID-19; Z88.0 Allergy status to penicillin; Z88.5 Allergy status to narcotic agent; Z79.82 Long term (current) use of aspirin; Z79.899 Other long term (current) drug therapy
CPT/HCPCS: 27130; 36415; 73502; 85014; 85018; 86850; 86900; 86901; 87635; 87640; 87641; 88304; 88307; 88311; 93005; 97110; 97116; 97162; 97166; 97535; C1729; C1776; J0131; J0690; J1100; J1170; J1885; J2250; J2405; J3010

== ENCOUNTER → 2021-01-07 14:30 | Outpatient (BNVA) | payer MEDICARE, MEDICAID, SELFPAY | PROVIDERS: PCP Internal Medicine; Visit Provider Physician Assistant | DX: Z47.1 Aftercare following joint replacement surgery (principal); Z96.641 Presence of right artificial hip joint | CPT/HCPCS: 99212 ==

== ENCOUNTER → 2021-02-04 13:10 | Outpatient (BNVA) | payer MEDICARE, MEDICAID, SELFPAY | PROVIDERS: Visit Provider Orthopaedic Surgery | DX: Z96.641 Presence of right artificial hip joint (principal); M16.11 Unilateral primary osteoarthritis, right hip; I10 Essential (primary) hypertension; E66.9 Obesity, unspecified; Z88.5 Allergy status to narcotic agent; Z88.0 Allergy status to penicillin; Z88.8 Allergy status to other drugs, medicaments and biological substances | CPT/HCPCS: 99212 ==

== ENCOUNTER → 2021-03-04 12:25 | Outpatient (BNVA) | payer MEDICARE, MEDICAID, SELFPAY | PROVIDERS: Visit Provider Physician Assistant | DX: Z47.1 Aftercare following joint replacement surgery (principal); M16.12 Unilateral primary osteoarthritis, left hip; Z96.641 Presence of right artificial hip joint | CPT/HCPCS: 99212 ==

== ENCOUNTER 2021-03-05 13:00 | Outpatient (RCR) | payer MEDICARE, MEDICAID, SELFPAY ==
--- NOTE | 2021-01-16 15:23 | MHC.PT.EP ---
[facility] Office [place] Office [place] Office [address] Esperanza Haines [address] [phone] F: [phone] F: [phone] F: [phone] F: [phone] Physical Therapy Plan of Care Date of Evaluation: Date of Surgery: 12/22/2020 Diagnosis: This is a 55 yo female presenting to skilled PT with a script for s/p R LYDIA Assessment: This is a 55 yo female presenting to skilled PT with a script for s/p R LYDIA. The patient underwent an anterolateral R LYDIA with Dr. Clark after failed conservative management of hip OA on 12/22/20. Following surgery she was DC'd home from [facility] inpatient on 12/24/20. From there she had home PT until 01/09. At her last ortho appointment the randall were removed and steri strips applied (01/07). Today at her outpatient eval pain is located at the incision and described as achy. She continues to have difficulties with housework, walking, LB adls and stairs. Assessment reveals pain that ranges up to a 3/10. She demos decreased ROM, decreased strength, impaired gait, TTP along ITB and incision as well as gross functional decline with ambulation, stairs and general housework/ADLs. She is a good candidate for skilled PT 2x/wk for 6wks. Frequency and Duration: The patient will be seen 2x/wk for 6wks Short Term Goals: I in HEP Demo good squat mechanics without cuing from PT Demo I gait without AD Fpc Goals: Demos functional ROM and strength Improve LEFs by at least 10 points. Improve pain at the worst to no more than 1/10 Demo proper lifting techniques without increase in pain or radiating symptoms Patient will report sleeping through the night without waking from pain Treatment Plan: Modalities to reduce pain, spasms and effusion. Manual therapy to restore motion and function. Therapeutic exercise to improve strength and flexibility. Neuromuscular re-education for posture and balance. Therapeutic activities to return to functional activities of daily living. Electronically signed by: Kristin De La Cruz, PT Please sign and return to therapist. Thank you for your referral.
--- NOTE | 2021-03-06 08:31 | MHC.PT.DC ---
[facility] [place] Office [place] Office [place] Office [address] Esperanza Haines [address] [phone] F: [phone] F: [phone] F: [phone] F: [phone] Physical Therapy Discharge Report Diagnosis: This is a 55 yo female presenting to skilled PT with a script for s/p R LYDIA Date of Surgery: 12/22/2020 Date of Evaluation: 01/16/21 Date of Discharge: 03/05/21 Treatments to Date: 15 Cancellations to Date: 0 No Shows to Date: 0 Discharge Status: Achieved Goals Improved Function Independent with HEP Discharge Summary: 03/05: Patient has progressed well with therapy. She has a good HEP to continue on own, provided her another heel lift as well. She has no R hip pain anymore and demos good strength and ROM. She does complain of L hip pain now and has plans to have this assessed by an orthopedic soon. DC to HEP. Electronically signed by: Kristin De La Cruz PT Please sign and return to therapist. Thank you for your referral.
== END 2021-03-06 08:31 | disposition home or self-care (01) ==
LOC: HO.PTCHIC 13:00
PROVIDERS: PCP Internal Medicine; Visit Provider Physician Assistant
DX: Z96.641 Presence of right artificial hip joint (principal)
CPT/HCPCS: 97110; 97112; 97140; 97163; 97530

== ENCOUNTER 2021-03-23 11:23 | Outpatient (REF) | payer MEDICARE, MEDICAID, SELFPAY ==
[2021-03-23 11:31] LABS: MANUAL DIFF FLAG NO
[2021-03-23 12:15] LABS: Basophils Percent Auto 0.6 % (0-2); Eosinophils Absolute Auto 0.1 X10*3/uL (0.0-0.4); Eosinophils Percent Auto 2.7 % (0-4); Hematocrit 39.4 % (37-47); Hemoglobin 12.5 g/dl (12.0-16.0); Imm Gran Abs Auto 0.01 X10*3/uL (0.00-0.03); Imm Gran Pct Auto 0.2 % (0.0-0.4); Lymphocytes Absolute Auto 1.3 X10*3/uL (1.2-4.9); Lymphocytes Percent Auto 26.2 % (20-40); Mean Corpuscular HGB Conc 31.7 g/dl (31.0-35.0); Mean Corpuscular Hemoglobin 29.2 pg (27.0-33.0); Mean Corpuscular Volume 92.1 fL (80-98); Mean Platelet Volume 10.9 fL (9.4-12.3); Monocytes Absolute Auto 0.6 X10*3/uL (0.1-1.2); Monocytes Percent Auto 11.3 % (2-11); Neutrophils Absolute Auto 2.9 X10*3/uL (2.0-8.3); Platelet Count 229 X10*3/uL (160-400); Red Blood Count 4.28 X10*6/uL (4.20-5.50); Red Cell Distribution Width 13.5 % (11.0-16.0); White Blood Count 4.9 X10*3/uL (4.8-10.8)
[2021-03-23 12:34] LABS: Alanine Aminotransferase 24 U/L (0-31); Albumin Level 4.3 g/dL (3.5-5.0); Alkaline Phosphatase 83 U/L (39-117); Anion Gap 12 (12-20); Aspartate Amino Transferase 19 U/L (5-31); Bilirubin Total 0.6 mg/dL (0.0-1.0); Blood Urea Nitrogen 19 mg/dL (9-16); Calcium 9.5 mg/dL (8.4-10.2); Carbon Dioxide 26 mmol/L (22-29); Chloride 107 mmol/L (96-108); Cholesterol 177 mg/dL; Estimated Glomerular Filt Rate > 60; Glucose Fasting 92 mg/dL (60-99); HDL Cholesterol 64 mg/dL; LDL Cholesterol Calculated 91 mg/dl; Potassium 4.8 mmol/L (3.3-5.1); Sodium 140 mmol/L (135-145); Total Protein 6.8 g/dL (6.5-8.0); Triglycerides 114 mg/dL
[2021-03-23 12:55] LABS: TSH reflex Free T4 1.47 uIU/mL (0.32-4.0); Vitamin D 25-OH Total 31.6 ng/mL (>30)
[2021-03-23 13:57] LABS: Appearance Urine CLEAR; Color Urine YELLOW; Glucose Urine UA NEG (NEG); Leukocyte Esterase Urine NEG (NEG); Nitrite Urine NEG (NEG); PH 5.5 (5.0-8.0); Specific Gravity - Urine 1.015 (1.005-1.025); UACC Culture Trigger NO; Urine Blood 1+ (NEG); Urine Ketones NEG (NEG); Urine Protein NEG (NEG-TRACE)
[2021-03-23 14:19] LABS: RBC Urine 0-2 /HPF (0); Squamous Epithelial Cell Urine TRACE /LPF; WBC Urine 0 /HPF (0-4)
== END 2021-03-23 11:24 | disposition home or self-care (01) ==
LOC: HO.LAB 11:23
PROVIDERS: PCP Internal Medicine; Visit Provider Internal Medicine
DX: I10 Essential (primary) hypertension (principal); E78.00 Pure hypercholesterolemia, unspecified; E66.9 Obesity, unspecified; D64.9 Anemia, unspecified; E55.9 Vitamin D deficiency, unspecified
CPT/HCPCS: 36415; 80053; 80061; 81001; 81003; 82306; 84443; 85025

== ENCOUNTER 2021-03-30 13:01 | Outpatient (REF) | payer MEDICARE, MEDICAID, SELFPAY ==
--- NOTE | ~2021-03-30 | XR_ITS ---
EXAMINATION: XR SHOULDER, LEFT CLINICAL INFORMATION: Left shoulder pain. COMPARISON: None TECHNIQUE: Three views of the left shoulder. FINDINGS: Mild left acromioclavicular and glenohumeral degenerative joint changes are seen. A tiny spur seen at the insertion of the rotator cuff. There is no acute fracture or dislocation. The soft tissues are unremarkable. XR/XR shoulder LT min 2V IMPRESSION: Mild degenerative changes without acute fracture.
--- NOTE | ~2021-03-30 | XR_ITS ---
EXAMINATION: XR PELVIS CLINICAL INFORMATION: Pelvic and right hip pain. COMPARISON: 10/06/2020 pelvic radiograph. TECHNIQUE: AP view of the pelvis. FINDINGS: The patient is status post right hip arthroplasty showing good anatomic alignment and no evidence for hardware malfunction. Moderate to severe left hip degenerative joint changes are seen. There is no acute fracture or dislocation. The soft tissues are unremarkable. XR/XR pelvis 1-2V IMPRESSION: 1. No right hip hardware abnormality. No acute fracture. 2. Moderate to severe left hip osteoarthritis without significant change.
== END 2021-03-30 13:02 | disposition home or self-care (01) ==
LOC: HO.HOSX 13:01
PROVIDERS: Visit Provider Orthopaedic Surgery
DX: M75.102 Unspecified rotator cuff tear or rupture of left shoulder, not specified as traumatic (principal); M16.12 Unilateral primary osteoarthritis, left hip; Z96.641 Presence of right artificial hip joint
CPT/HCPCS: 20610; 72170; 73030; 99212; J1100

== ENCOUNTER 2021-04-02 13:02 | Outpatient (REF) | payer MEDICARE, MEDICAID, SELFPAY ==
--- NOTE | ~2021-04-02 | MM_ITS ---
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 Radiation completed 04/01/2019. Due for yearly exam. COMPARISON: Mammography: 03/31/2020, 03/27/2019, 04/05/2018, 03/16/2018 TECHNIQUE: Digital breast tomosynthesis is performed in both the craniocaudal and mediolateral oblique views along with computer-aided detection (CAD). Synthesized 2D images are generated from the tomosynthesis. Additional magnification left CC and magnification left ML views are obtained. FINDINGS: There are scattered areas of fibroglandular density (ACR BI-RADS breast composition Category b). Left breast post therapy changes are similar to prior exams. There is scarring upper outer breast and mild reduced breast size. Neither breast shows interval mass or architectural abnormality or abnormal calcifications the axilla are unremarkable. There are no significant changes. Results are provided to the patient at time of visit by the technologist. MM/MM tomosynthesis diagnostic BI IMPRESSION: No mammographic evidence of malignancy. Post therapy changes left breast. ASSESSMENT: BI-RADS 2: Benign RECOMMENDATION: Annual bilateral mammography. This patient's information was entered into a reminder system with a target due date for their next mammogram.
== END 2021-04-02 13:03 | disposition home or self-care (01) ==
LOC: HO.MAMMO 13:02
PROVIDERS: PCP Internal Medicine; Visit Provider Surgery
DX: Z85.3 Personal history of malignant neoplasm of breast (principal); Z92.3 Personal history of irradiation; Z98.890 Other specified postprocedural states
CPT/HCPCS: 77062; 77066

== ENCOUNTER → 2021-04-14 14:00 | Outpatient (BNVA) | payer MEDICARE, MEDICAID, SELFPAY | PROVIDERS: PCP Internal Medicine; Referring Provider Internal Medicine; Visit Provider Surgery | DX: C50.912 Malignant neoplasm of unspecified site of left female breast (principal); Z87.19 Personal history of other diseases of the digestive system | CPT/HCPCS: 99212 ==

== ENCOUNTER 2021-05-04 11:04 | Outpatient (REF) | payer MEDICARE, MEDICAID, SELFPAY ==
--- NOTE | ~2021-05-04 | XR_ITS ---
EXAMINATION: XR KNEES, STANDING AP XR KNEE, LEFT CLINICAL INFORMATION: M25.562 - Pain in left knee COMPARISON: Radiographs left knee 11/08/2018 TECHNIQUE: Standing AP view of both knees is performed along with lateral and axial patella views of the left knee. FINDINGS: Left: No fracture, dislocation, or destructive process. No suprapatellar effusion. No definite joint space narrowing and no erosive change or chondrocalcinosis. Patellofemoral joint shows no narrowing or erosive change. No lateralization patella. Serpiginous soft tissue densities are consistent with varicose veins. Right: No fracture or dislocation. There is mild narrowing medial knee joint compartment. No erosive change or chondrocalcinosis. There are some scattered surgical clips medial soft tissues proximal lower leg. Serpiginous soft tissue densities are consistent with varicose veins. XR/XR knee standing BI IMPRESSION: 1. Bilateral varicose veins. 2. No fracture or dislocation. Mild narrowing right medial knee joint compartment.
--- NOTE | ~2021-05-04 | XR_ITS ---
EXAMINATION: XR KNEES, STANDING AP XR KNEE, LEFT CLINICAL INFORMATION: M25.562 - Pain in left knee COMPARISON: Radiographs left knee 11/08/2018 TECHNIQUE: Standing AP view of both knees is performed along with lateral and axial patella views of the left knee. FINDINGS: Left: No fracture, dislocation, or destructive process. No suprapatellar effusion. No definite joint space narrowing and no erosive change or chondrocalcinosis. Patellofemoral joint shows no narrowing or erosive change. No lateralization patella. Serpiginous soft tissue densities are consistent with varicose veins. Right: No fracture or dislocation. There is mild narrowing medial knee joint compartment. No erosive change or chondrocalcinosis. There are some scattered surgical clips medial soft tissues proximal lower leg. Serpiginous soft tissue densities are consistent with varicose veins. XR/XR knee LT 2V IMPRESSION: 1. Bilateral varicose veins. 2. No fracture or dislocation. Mild narrowing right medial knee joint compartment.
== END 2021-05-04 11:05 | disposition home or self-care (01) ==
LOC: HO.HOSX 11:04
PROVIDERS: Visit Provider Physician Assistant
DX: M25.561 Pain in right knee (principal); M25.562 Pain in left knee
CPT/HCPCS: 73560; 73565; J1040

== ENCOUNTER 2021-05-04 13:26 | Outpatient (REF) | payer MEDICARE, MEDICAID, SELFPAY ==
--- NOTE | ~2021-05-04 | CT_ITS ---
EXAMINATION: CT ABDOMEN AND PELVIS WITH CONTRAST CLINICAL INFORMATION: Incisional hernia without obstruction COMPARISON: Previous CT of the abdomen and pelvis April 2018 TECHNIQUE: Multidetector volumetric images were obtained from the superior aspect of the liver through the pubic symphysis following administration 85 mL of Omnipaque 350 intravenous contrast. Sagittal and coronal reformatted images were obtained on the technologist's workstation. Oral contrast: Yes This CT examination was performed using dose optimization techniques as appropriate, variously including the following: *Automated exposure control *Adjustment of mA and/or kV according to patient size (this includes techniques or standardized protocols for targeted exams where dose is matched to indication/reason for exam; i.e. extremities or head) *Use of iterative reconstruction technique DLP: 1081 mGy-cm FINDINGS: LUNG BASES: The visualized lung bases are unremarkable. LIVER, GALLBLADDER, AND BILIARY TREE: There is a 2.2 x 3 Cm low-attenuation lesion in the left lobe of the liver. Hounsfield units following contrast measure less than 10 suggestive of a cyst. This is increased in size from 1 x 1.5 cm April 2018 exam. There is a 4 mm low-attenuation lesion in the right lobe axial image 18 series 3 and 6 mm low-attenuation lesion in the posterior segment of the right lobe axial image 29 series 3 that are too small to adequately characterize but are stable. The gallbladder is normal. There is no biliary duct dilatation. PANCREAS: Unremarkable. SPLEEN: Unremarkable. ADRENAL GLANDS: Unremarkable. KIDNEYS AND URETERS: The kidneys are normal in size, shape, and attenuation. No hydronephrosis, hydroureter, or calculi seen. No perinephric stranding. BLADDER: Unremarkable. GASTROINTESTINAL TRACT: There is diverticulosis of the colon. There is a ventral hernia containing transverse colon. There is no evidence of obstruction. Small and large bowel are otherwise unremarkable. The appendix is unremarkable. The stomach is unremarkable. ABDOMINAL WALL: There is a large ventral or supraumbilical hernia measuring 5 x 7 cm in longitudinal and transverse dimension that has a wide neck. There are 2 adjacent more lateral left abdominal wall hernias containing fat measuring approximately 2.5 cm and 5 x 6 cm. Along the right side of the hernia and along the bordering right abdominal wall there is likely a piece of buckled mesh with peripheral calcification. There is a small umbilical hernia containing fat. This does not appear appreciably changed from April 2018 exam.. LYMPH NODES: Normal. VASCULAR: Unremarkable. PELVIC VISCERA: There is right hip replacement. There is severe arthritis at the left hip joint. There are degenerative changes of the spine. OSSEOUS STRUCTURES: Unremarkable. CT/CT abdomen pelvis w con IMPRESSION: Complex ventral or supraumbilical hernias containing transverse colon and fat and mesh. Small umbilical hernia containing fat. Findings are similar to 2018 exam. Diverticulosis of the colon. 3 small liver lesions, largest lesion compatible with a cyst. Fleischner guidelines were followed.
[2021-05-04] MEDS: iohexoL 350 MG/ML 100 ML INFUS..BTL 85 ML IV (16:10)
== END 2021-05-04 13:27 | disposition home or self-care (01) ==
LOC: HO.CT 13:26
PROVIDERS: PCP Internal Medicine; Visit Provider Surgery
DX: K43.2 Incisional hernia without obstruction or gangrene (principal)
CPT/HCPCS: 20610; 74177; 99212; Q9967

== ENCOUNTER → 2021-06-11 11:02 | Outpatient (BNVA) | payer MEDICARE, MEDICAID, SELFPAY | PROVIDERS: Visit Provider Physician Assistant | DX: Z01.818 Encounter for other preprocedural examination (principal); M16.12 Unilateral primary osteoarthritis, left hip | CPT/HCPCS: 99212 ==

== ENCOUNTER 2021-06-17 06:06 | Day surgery (SDC) | payer MEDICARE, MEDICAID, SELFPAY ==
--- NOTE | 2021-05-22 14:33 | ECG_ITS ---
Test Reason : cardiac evaluation Blood Pressure : / mmHG Vent. Rate : 064 BPM Atrial Rate : 064 BPM P-R Int : 166 ms QRS Dur : 072 ms QT Int : 388 ms P-R-T Axes : 015 -03 022 degrees QTc Int : 400 ms Normal sinus rhythm Normal ECG When compared with ECG of 26-NOV-2020 14:50, No significant change was found Referred By: Abhay Pulido Electronically Signed By:Jeb Greene
[2021-05-22 14:35] LABS: MANUAL DIFF FLAG NO
[2021-05-22 15:01] LABS: Basophils Percent Auto 0.5 % (0-2); Eosinophils Absolute Auto 0.2 X10*3/uL (0.0-0.4); Eosinophils Percent Auto 1.9 % (0-4); Hematocrit 39.9 % (37.0-47.0); Hemoglobin 12.8 g/dl (12.0-16.0); Imm Gran Abs Auto 0.03 X10*3/uL (0.00-0.03); Imm Gran Pct Auto 0.4 % (0.0-0.4); Lymphocytes Absolute Auto 1.6 X10*3/uL (1.2-4.9); Lymphocytes Percent Auto 20.7 % (20-40); Mean Corpuscular HGB Conc 32.1 g/dl (31.0-35.0); Mean Corpuscular Hemoglobin 29.7 pg (27.0-33.0); Mean Corpuscular Volume 92.6 fL (80.0-98.0); Mean Platelet Volume 10.7 fL (9.4-12.3); Monocytes Absolute Auto 0.6 X10*3/uL (0.1-1.2); Monocytes Percent Auto 7.2 % (2-11); Neutrophils Absolute Auto 5.5 x10*3/uL (2.0-8.3); Neutrophils Percent Auto 69.3 % (45-73); Platelet Count 238 X10*3/uL (160-400); Red Blood Count 4.31 X10*6/uL (4.20-5.50); Red Cell Distribution Width 14.5 % (11.0-16.0); White Blood Count 7.9 X10*3/uL (4.8-10.8)
[2021-05-22 15:20] LABS: Anion Gap 15 (12-20); Blood Urea Nitrogen 20 mg/dL (9-16); Carbon Dioxide 26 mmol/L (22-29); Chloride 102 mmol/L (96-108); Estimated Glomerular Filt Rate > 60; Glucose Random 82 mg/dL (60-115); Potassium 4.9 mmol/L (3.3-5.1); Sodium 138 mmol/L (135-145)
[2021-05-28 15:29] VITALS: BMI 39.8
[2021-06-01 13:10] VITALS: BP 136/74; PULSE 71; RESP 16; O2SAT 97
--- NOTE | 2021-06-01 13:26 | HO.ANESPROP2 ---
Documented by User: Yun Galdamez NP 06/01/21 13:36 HPI - Anesthesia Eval Consult details Narrative: 56yo F for Left Hip Total Replacement PCP cleared s/p Right LYDIA 12/2020 with GA-ETT 7 - did well PONV - scop patch works well PMFSH Active Problems Active Problems: All Active Problems (Updated 06/01/21 @ 13:21 by Pauly Saldivar, RN) Invasive ductal carcinoma of left breast (Acute) Pre-op evaluation (Acute) History of total right hip replacement (Acute) Acute sinusitis (Acute) Osteoarthritis of left hip (Acute) Respiratory tract infection (Acute) Painful arc syndrome of left shoulder (Acute) Incisional hernia (Acute) Osteoarthritis of left knee (Acute) Preoperative examination (Acute) Impacted cerumen of both ears (Acute) Osteoarthritis of right hip (Acute) Insomnia (Acute) Obesity (BMI 30-39.9) (Acute) Depression (Acute) Secondary and unspecified malignant neoplasm of axilla and upper limb lymph nodes (Acute) Anemia (Acute) Malignant neoplasm of left breast (Chronic) Pure hypercholesterolemia (Acute) Benign essential hypertension (Acute) Past Medical History Medical History Anemia Anxiety Arthritis Benign essential hypertension Chronic osteoarthritis Depression Hx of cardiac murmur Impacted cerumen of both ears Insomnia Low back pain Malignant neoplasm of left breast Numbness of fingers of both hands Obesity (BMI 30-39.9) Osteoarthritis of right hip PONV (postoperative nausea and vomiting) Pure hypercholesterolemia Right hip pain Secondary and unspecified malignant neoplasm of axilla and upper limb lymph nodes Family History Family History Father Diabetes Cancer Mother Cancer Chronic mental illness Maternal Grandmother Stomach cancer Maternal Grandfather Stomach cancer Other Mental health problem Substance abuse Family history of problems with anesthesia: No Surgical History Surgical History History of axillary surgery History of hernia surgery History of left breast biopsy History of left mastectomy History of total right hip replacement Hx of colonoscopy History of Problems with Anesthesia: No Social History Social History Household Members: None Housing: House Are you a primary child care center assistant director to a significant other at home: No Do you presently have visiting nurse or other home services: No Alcohol intake: current Alcohol intake frequency: holidays/special occasions only Alcohol type: wine Patient Tobacco Use Status: Never used Tobacco e-Cigarette/Vaping Use: Never Used Second Hand Smoke Exposure: Yes Use of substances other than those prescribed or required for medical reasons: No Have you been hit, kicked, punched, or otherwise hurt by someone within the past year? If so, by whom?: No Advance Directives: Yes Advance Directives Information Provided: No Advance Directives on File: Yes Advance Directives Date on File: 12/22/20 Recently lost weight without trying: No service: No Current occupational status: unemployed Gender identity: Female Narrative Narrative: No recent illness No chest pain/SOB within limits of pain Meds Allergies Allergy/AdvReac Type Severity Reaction Status Date / Time Penicillins [PENICILLINS] Allergy Unknown CHILDHOOD Verified 06/17/21 06:08 RXN codeine [CODEINE] AdvReac Intermediate NAUSEA & Verified 06/17/21 06:08 VOMITING morphine [MORPHINE] AdvReac Intermediate Bad Verified 06/17/21 06:08 headache, N/V oxycodone [From PERCOCET] AdvReac Intermediate NAUSEA & Verified 06/17/21 06:08 VOMITING Home Medications Medication Instructions Recorded Confirmed Last Taken Type metoprolol tartrate 50 mg tablet 50 mg PO .QEVENING 12/17/20 06/01/21 Unknown History multivitamin 1 tab PO DAILY 01/09/21 05/28/21 Unknown History acetaminophen 325 mg tablet 650 mg PO Q6H PRN 05/28/21 05/28/21 Unknown History ferrous sulfate 325 mg (65 mg 325 mg PO DAILY 06/01/21 06/01/21 Unknown History iron) tablet (Iron (ferrous sulfate)) ibuprofen 600 mg tablet 600 mg PO BID PRN 06/01/21 06/01/21 Unknown History Exam Exam Date and Time: June 01, 2021 132 Height,Weight and Vital Signs: Height 5 ft 4 in Weight 105.233 kg Last Vital Signs Pulse 71 06/01/21 13:10 Resp 16 06/01/21 13:10 BP 136/74 06/01/21 13:10 Pulse Ox 97 06/01/21 13:10 Pertinent Lab Results Pertinent Lab Results: Laboratory Tests 05/22/21 05/22/21 14:33 14:33 WBC 7.9 RBC 4.31 Hgb 12.8 Hct 39.9 MCV 92.6 MCH 29.7 MCHC 32.1 RDW 14.5 Plt Count 238 MPV 10.7 Immature Gran % (Auto) 0.4 Neut % (Auto) 69.3 Lymph % (Auto) 20.7 [place] % (Auto) 7.2 Eos % (Auto) 1.9 Baso % (Auto) 0.5 Lymph # (Auto) 1.6 [place] # (Auto) 0.6 Eos # (Auto) 0.2 Baso # (Auto) 0.0 Abs Immat Gran (auto) 0.03 Absolute Neuts (auto) 5.5 Absolute Nucleated RBC 0.000 Nucleated RBC % (auto) 0.0 Sodium 138 Potassium 4.9 Chloride 102 Carbon Dioxide 26 Anion Gap 15 BUN 20 H Creatinine 0.83 Estim Creat Clear Calc TNP Estimated GFR > 60 Random Glucose 82 Calcium 10.0 Narrative Narrative: EKG 05/2021 Vent. Rate : 064 BPM ? ? Atrial Rate : 064 BPM ?? P-R Int : 166 ms? QRS Dur : 072 ms ? ? QT Int : 388 ms ? ? ? P-R-T Axes : 015 -03 022 degrees ?? QTc Int : 400 ms ? Normal sinus rhythm Normal ECG When compared with ECG of 26-NOV-2020 14:50, No significant change was found Airway Mallampati Class: I TM Dist: >3cm Neck ROM: Full Loose/Missing/Broken Teeth: No (Multiple crowns in molars) Heart: RRR Lungs: CTAB Assessment and Plan Assessment Anesthesia Assessment: Anesthesia Plan Discussed and PAT Visit Final Anesthetic Review Family History of Problems with Anesthesia: No History of Problems with Anesthesia: No Documented by User: Harman Radfodr MD 06/17/21 07:09 [facility] Past Medical History Medical History Anemia Anxiety Arthritis Benign essential hypertension Chronic osteoarthritis Depression Hx of cardiac murmur Impacted cerumen of both ears Insomnia Low back pain Malignant neoplasm of left breast Numbness of fingers of both hands Obesity (BMI 30-39.9) Osteoarthritis of right hip PONV (postoperative nausea and vomiting) Pure hypercholesterolemia Right hip pain Secondary and unspecified malignant neoplasm of axilla and upper limb lymph nodes Family History Family History Father Diabetes Cancer Mother Cancer Chronic mental illness Maternal Grandmother Stomach cancer Maternal Grandfather Stomach cancer Other Mental health problem Substance abuse Surgical History Surgical History History of axillary surgery History of hernia surgery History of left breast biopsy History of left mastectomy History of total right hip replacement Hx of colonoscopy Social History Social History Household Members: None Housing: House Are you a primary child care center assistant director to a significant other at home: No Do you presently have visiting nurse or other home services: No Alcohol intake: current Alcohol intake frequency: holidays/special occasions only Alcohol type: wine Patient Tobacco Use Status: Never used Tobacco e-Cigarette/Vaping Use: Never Used Second Hand Smoke Exposure: Yes Use of substances other than those prescribed or required for medical reasons: No Have you been hit, kicked, punched, or otherwise hurt by someone within the past year? If so, by whom?: No Advance Directives: Yes Advance Directives Information Provided: No Advance Directives on File: Yes Advance Directives Date on File: 12/22/20 Recently lost weight without trying: No service: No Current occupational status: unemployed Gender identity: Female Meds Allergies Allergy/AdvReac Type Severity Reaction Status Date / Time Penicillins [PENICILLINS] Allergy Unknown CHILDHOOD Verified 06/17/21 06:08 RXN codeine [CODEINE] AdvReac Intermediate NAUSEA & Verified 06/17/21 06:08 VOMITING morphine [MORPHINE] AdvReac Intermediate Bad Verified 06/17/21 06:08 headache, N/V oxycodone [From PERCOCET] AdvReac Intermediate NAUSEA & Verified 06/17/21 06:08 VOMITING Home Medications Medication Instructions Recorded Confirmed Last Taken Type metoprolol tartrate 50 mg tablet 50 mg PO .QEVENING 12/17/20 06/01/21 Unknown History multivitamin 1 tab PO DAILY 01/09/21 05/28/21 Unknown History acetaminophen 325 mg tablet 650 mg PO Q6H PRN 05/28/21 05/28/21 Unknown History ferrous sulfate 325 mg (65 mg 325 mg PO DAILY 06/01/21 06/01/21 Unknown History iron) tablet (Iron (ferrous sulfate)) ibuprofen 600 mg tablet 600 mg PO BID PRN 06/01/21 06/01/21 Unknown History Exam Airway Mallampati Class: II Assessment and Plan Final Anesthetic Review NPO: Yes ASA Class: III Final Preanesthetic Review: No Changes in Pt Med Stat, Meds/Allgs Chart Reviewed, Consent Obtained/Reviewed and Anes Risks/Benef Reviewed Patient Risk: Intermediate Procedure Risk: Intermediate Assessment/Block/Sedation in SS: Assess/Block/Sedation-SS Anesthetic Plan Anesthetic Plan: GA and Agree w/ Assess. and Plan Disposition: Standard PACU
[2021-06-01 15:51] LABS: MRSA Nasal PCR NEGATIVE (Negative); SA Nasal PCR NEGATIVE (Negative)
[2021-06-17] VITALS (20 sets, daily range): BP systolic 114–147; BP diastolic 53–78; PULSE 66–99; RESP 16–19; TEMP 36–36.9; O2SAT 90–100
--- NOTE | ~2021-06-17 | XR_ITS ---
EXAMINATION: XR PELVIS CLINICAL INFORMATION: Post left hip replacement COMPARISON: Previous pelvic x-ray March 2021 TECHNIQUE: AP view of the pelvis. FINDINGS: There are bilateral hip replacements in satisfactory position. No fracture, dislocation or x-ray evidence of loosening is seen. Left hip replacement is new in the interval from March 2021 exam. There are soft tissue surgical clips inferior to the left pubic ramus. Soft tissues are otherwise unremarkable. Bones of the pelvis are unremarkable. XR/XR pelvis 1-2V IMPRESSION: Satisfactory appearance of bilateral hip replacements.
[2021-06-17] MEDS: Scopolamine 1.5 MG PATCH.TD.3 TRANSDERMA (06:40)
[2021-06-17 06:49] LABS: COVID-19 Test Negative (Negative); IDNOW Serial# 9DD0AD1C
[2021-06-17] MEDS: Lactated Ringers 1,000 ML 100 ML IVCONT (06:56)
--- NOTE | 2021-06-17 07:34 | MHC.SHP ---
Pre-Procedural Eval Section A Date of Service: 06/17/21 The patient is an INPATIENT: No Changes since office visit: Yes Patient answered all questions; No Cold of Flu in the past 2 weeks, No New Medical Problems and No Changes in Medication The History & Physical has been completed within 30 days and I have reviewed it.: Yes Section B Chief Complaint: S/p LT LYDIA Allergies: Allergies Allergy/AdvReac Type Severity Reaction Status Date / Time Penicillins [PENICILLINS] Allergy Unknown CHILDHOOD Verified 06/17/21 06:08 RXN codeine [CODEINE] AdvReac Intermediate NAUSEA & Verified 06/17/21 06:08 VOMITING morphine [MORPHINE] AdvReac Intermediate Bad Verified 06/17/21 06:08 headache, N/V oxycodone [From PERCOCET] AdvReac Intermediate NAUSEA & Verified 06/17/21 06:08 VOMITING Plan I have reviewed the history and physical and performed a pertinent physical examination on my patient. No changes have occurred unless specified.
[2021-06-17] MEDS: ceFAZolin Sodium/Dextrose,Iso 2 GM/50 ML PIGGYBACK IV ×2 (07:50→14:37)
--- NOTE | 2021-06-17 10:08 | P.BOP_ITS ---
Brief Operative Note Date of Service: 06/17/21 Pre-op diagnosis: left hip OA Post-op diagnosis: same Procedure: Left LYDIA Implants: [place] trident 2 52/ 20 deg liner Tyler accolade 2 #3 132 deg with + 5 36 ceramic Surgeon: Abhay Pulido MD Anesthesia: GETA and local Was an Hospice Executive Director used for this Procedure?: Yes Hospice Executive Director: Jaky Neff Estimated blood loss (mL): 250 IV fluids (mL): 1,000 Pathology: other Condition: stable Disposition: PACU
[2021-06-17] MEDS: HYDROmorphone HCl 0.5 MG/0.5 ML SYRINGE IVPUSH ×2 (10:15→13:04)
--- NOTE | 2021-06-17 10:38 | W.PM.OPN ---
Operative Note Operative Note Date of Service: 06/17/21 Narrative: Date of Service: 06/17/21 Pre-op diagnosis: left hip OA Post-op diagnosis: same Procedure: Left LYDIA Implants: [place] trident 2 52/ 20 deg liner Cesar accolade 2 #3 132 deg with + 5 36 ceramic Surgeon: Abhay Pulido MD Anesthesia: GETA and local Was an Professor Of Communication And Writing used for this Procedure?: Yes Professor Of Communication And Writing: Jaky Neff Estimated blood loss (mL): 250 IV fluids (mL): 1,000 Pathology: other Condition: stable Disposition: PACU Procedure in detail: Patient was brought into the operating room and placed in the left lateral decubitus position. All bony prominences were well padded and the limb was prepped and draped in standard sterile fashion. Time-out was called to identify proper site procedure proper surgeon IV antibiotics and 1 g of transaxemic acid were administered. I began by making a curvilinear incision over the posterolateral aspect of the greater trochanter. Dissection was taken down to the tensor fascia which was incised in line with the incision and a Charnley retractor was placed. Cautery was used to maintain hemostasis. A werewolf device was also used. The hip was internally rotated and the external rotators were identified. The vessels were cauterized and a full-thickness capsular/external rotator layer was developed starting just proximal to the piriformis. This layer was tagged and a dull Hohmann retractor was placed underneath the neck in the hip was dislocated. The head was eburnated. A neck cut was made 1 cm proximal to the lesser trochanter and the head and neck were removed and measured as a 49mm on the back table. I started with a 45 and sequentially reamed up to a size 51 and impacted a 52mm cep at approximately 45 degrees of inclination and 25 degrees of version. I then placed a 20 deg posterior lipped liner and turned my attention to the femur. I identified the piriformis insertion and used this as a starting point for my staciaie cutter. The medius tendon was protected with a Hibs retractor. I then used a Charnley awl to identify the canal and a curved curette to remove the lateral bone. I irrigated copiously. I then sequentially broached in the patient's natural version to a size #3 and placed my trial implants. Using a trail head I took the hip through range of motion. I was very satisfied with the stability and length. The contralateral hip was approximately 8 mm long so I placed a +5 mm head and re-trialted. Again I was satisfied with the stability and range. Therefore I removed all instrumentation and copiously irrigated. I placed my final femoral implant and + 5 mm ceramic head and again took the hip through range of motion and was satisfied with the stability and length. I then irrigated for 3 minutes with iodine and placed 1 g of local tranaxemic acid. I then performed a capsular closure with 2.0 fiberwire, Gab's fascia with 0 Vicryl, subcuticular with 2-0 Vicryl and the skin with randall. Patient was placed into a sterile dressing. Radiographs were obtained at the completion of the case and I was satisfied with the component position. Patient was extubated brought to the recovery room in stable condition.
[2021-06-17] MEDS: Dextrose 5 % and 0.45 % NaCl 1,000 ML 80 ML IVCONT (14:35)
[2021-06-17] MEDS: FLUoxetine HCl 20 MG CAPSULE 40 MG PO (16:54)
[2021-06-17] MEDS: Atorvastatin Calcium 80 MG TABLET PO (16:54)
[2021-06-17] MEDS: Metoprolol Tartrate 50 MG TABLET PO (16:54)
[2021-06-17] MEDS: Ezetimibe 10 MG TABLET PO (16:54)
[2021-06-17] MEDS: oxyCODONE HCl ER 10 MG TAB.ER.12H PO (16:54)
[2021-06-17] MEDS: Celecoxib 200 MG CAPSULE PO (16:54)
--- NOTE | 2021-06-17 16:58 | P.CONIM_ITS ---
History of Present Illness Data of Consult Service Date: 06/17/21 Primary Care Provider: Brijesh Pineda MD HPI Reason for consult: hld 56-year-old female presented for elective left hip arthroplasty. She has been having bilateral hip osteoarthritis for several years not managed with conservative management. She underwent right hip arthroplasty in December 2020, and left hip arthroplasty today. Medicine consulted for comorbidities of history of breast cancer, hyperlipidemia, hypertension, mood disorder. Patient is feeling well postop, denies chest pain, shortness of breath, fever, chills. Review of Systems Review of Systems: Constitutional: Denies fever, denies Chills Eyes: denies blurry vision ENT: denies sore throat CVS: denies chest pain Respiratory: Denies dyspnea GI: no abdominal pain : denies dysuria MSK: denies neck pain Skin: denies rash Neuro: denies specific motor weakness Psych: denies suicidal ideation Endocrine: denies heat/cold intolerance Hematologic: denies easy bleeding Allergy: denies hives [facility] Medical History Anemia Anxiety Arthritis Benign essential hypertension Chronic osteoarthritis Depression Hx of cardiac murmur Impacted cerumen of both ears Insomnia Low back pain Malignant neoplasm of left breast Numbness of fingers of both hands Obesity (BMI 30-39.9) Osteoarthritis of right hip PONV (postoperative nausea and vomiting) Pure hypercholesterolemia Right hip pain Secondary and unspecified malignant neoplasm of axilla and upper limb lymph nod es Family History Father Diabetes Cancer Mother Cancer Chronic mental illness Maternal Grandmother Stomach cancer Maternal Grandfather Stomach cancer Other Mental health problem Substance abuse Surgical History History of axillary surgery History of hernia surgery History of left breast biopsy History of left mastectomy History of total right hip replacement Hx of colonoscopy Social History Household Members: None Housing: House Are you a primary critical care educator to a significant other at home: No Do you presently have visiting nurse or other home services: No Alcohol intake: current Alcohol intake frequency: holidays/special occasions only Alcohol type: wine Patient Tobacco Use Status: Never used Tobacco e-Cigarette/Vaping Use: Never Used Second Hand Smoke Exposure: Yes Use of substances other than those prescribed or required for medical reasons: No Have you been hit, kicked, punched, or otherwise hurt by someone within the past year? If so, by whom?: No Advance Directives: Yes Advance Directives Information Provided: No Advance Directives on File: Yes Advance Directives Date on File: 12/22/20 Recently lost weight without trying: No service: No Current occupational status: unemployed Gender identity: Female Meds Allergies Allergy/AdvReac Type Severity Reaction Status Date / Time Penicillins [PENICILLINS] Allergy Unknown CHILDHOOD Verified 06/17/21 06:08 RXN codeine [CODEINE] AdvReac Intermediate NAUSEA & Verified 06/17/21 06:08 VOMITING morphine [MORPHINE] AdvReac Intermediate Bad Verified 06/17/21 06:08 headache, N/V oxycodone [From PERCOCET] AdvReac Intermediate NAUSEA & Verified 06/17/21 06:08 VOMITING Active Medications: Current Medications Acetaminophen (Acetaminophen 325 Mg Tablet) 650 mg PO Q6H PRN PRN Reason: Pain, Mild (Pain Scale 1-3) Anastrozole (Anastrozole 1 Mg Tablet) 1 mg PO DAILY COUNTS INCLUDE 234 BEDS AT THE [facility] Last Admin: 06/17/21 16:53 Dose: Not Given Documented by: Atorvastatin Calcium (Atorvastatin Calcium 80 Mg Tablet) 80 mg PO DAILY COUNTS INCLUDE 234 BEDS AT THE [facility] Last Admin: 06/17/21 16:54 Dose: 80 mg Documented by: Celecoxib (Celecoxib 200 Mg Capsule) 200 mg PO BID COUNTS INCLUDE 234 BEDS AT THE [facility] Last Admin: 06/17/21 16:54 Dose: 200 mg Documented by: Ezetimibe (Ezetimibe 10 Mg Tablet) 10 mg PO DAILY COUNTS INCLUDE 234 BEDS AT THE [facility] Last Admin: 06/17/21 16:54 Dose: 10 mg Documented by: Ferrous Sulfate (Ferrous Sulfate 324 Mg Tablet.Dr) 324 mg PO DAILY COUNTS INCLUDE 234 BEDS AT THE [facility] Fluoxetine HCl (Fluoxetine Hcl 20 Mg Capsule) 40 mg PO DAILY COUNTS INCLUDE 234 BEDS AT THE [facility] Last Admin: 06/17/21 16:54 Dose: 40 mg Documented by: Hydromorphone HCl (Hydromorphone Hcl 0.5 Mg/0.5 Ml Syringe) 0.25 mg IVPUSH Q4H PRN; Protocol PRN Reason: Pain, Severe (Pain Scale 7-10) Dextrose/Sodium Chloride (D51/2ns) 1,000 mls @ 80 mls/hr IVCONT .[id number] COUNTS INCLUDE 234 BEDS AT THE [facility] Last Admin: 06/17/21 14:35 Dose: 80 mls/hr Documented by: Cefazolin Sodium/Dextrose (Ancef) 2 gm in 50 mls @ 100 mls/hr IV POSTOP COUNTS INCLUDE 234 BEDS AT THE [facility] Last Infusion: 06/17/21 16:12 Dose: Infused Documented by: Metoprolol Tartrate (Metoprolol Tartrate 50 Mg Tablet) 50 mg PO DAILY@1800 JASWANT; Protocol Last Admin: 06/17/21 16:54 Dose: 50 mg Documented by: Oxycodone HCl (Oxycodone Hcl Immed Release 5 Mg Tablet) 5 mg PO Q4H PRN PRN Reason: Pain, Moderate (Pain Scale 4-6 Oxycodone HCl (Oxycodone Hcl Er 10 Mg Tab.Er.12h) 10 mg PO BID COUNTS INCLUDE 234 BEDS AT THE [facility] Last Admin: 06/17/21 16:54 Dose: 10 mg Documented by: Sodium Chloride (0.9 % Sodium Chloride Flush 3 Ml Syringe) 3 ml IVFLUSH QSHIFT COUNTS INCLUDE 234 BEDS AT THE [facility] Last Admin: 06/17/21 16:47 Dose: Not Given Documented by: Home Medications Medication Instructions Recorded Confirmed Last Taken Type metoprolol tartrate 50 mg tablet 50 mg PO .QEVENING 12/17/20 06/01/21 Unknown History multivitamin 1 tab PO DAILY 01/09/21 05/28/21 Unknown History acetaminophen 325 mg tablet 650 mg PO Q6H PRN 05/28/21 05/28/21 Unknown History ferrous sulfate 325 mg (65 mg 325 mg PO DAILY 06/01/21 06/01/21 Unknown History iron) tablet (Iron (ferrous sulfate)) ibuprofen 600 mg tablet 600 mg PO BID PRN 06/01/21 06/01/21 Unknown History Physical Exam Vital Signs and Narrative: Vital Signs: Last Vital Signs Temp 97.0 F 06/17/21 16:33 Pulse 96 06/17/21 16:33 Resp 16 06/17/21 16:33 BP 132/78 06/17/21 16:33 Pulse Ox 97 06/17/21 16:33 BMI result Body Mass Index 39.8 General: no acute distress HEENT: atraumatic Neck: normal to visual inspection CVS: S1, S2, RRR Resp: CTA bilateral Chest: non tender GI: soft, non tender, non distended : no CVA tenderness Skin: no rashes Extremities: no edema Neuro: Oriented X3, grossly intact Psych: cooperative Results Labs CBC and Chem 7: 05/22/21 14:33 05/22/21 14:33 Labs: Laboratory Results - last 24 hr 06/17/21 06:10 COVID-19 (BRITTANY) Negative COVID-19 Clin Com See Note Imaging Radiologist's Impressions: Impressions Pelvis X-Ray 06/17/21 09:45 IMPRESSION: Satisfactory appearance of bilateral hip replacements. Assessment and Plan (1) Osteoarthritis of left hip: Qualifiers: Osteoarthritis type: primary Qualified Code(s): M16.12 - Unilateral primary osteoarthritis, left hip Status: Acute 56F presented for left hip arthroplasty s/p left hip arhtroplasty management per ortho HTN metoprolol hld statin, ezetimibe history of breast ca anastrazole mood disorder fluoexitine
[2021-06-17] MEDS: HYDROmorphone HCl 0.5 MG/0.5 ML SYRINGE 0.25 MG IVPUSH (17:53)
[2021-06-17] MEDS: Acetaminophen 325 MG TABLET 650 MG PO (20:24)
[2021-06-17] MEDS: oxyCODONE HCl Immed Release 5 MG TABLET PO (20:24)
[2021-06-17] MEDS: 0.9 % Sodium Chloride Flush 3 ML SYRINGE IVFLUSH (20:24)
[2021-06-18] MEDS: Acetaminophen 325 MG TABLET 650 MG PO (03:12)
[2021-06-18] MEDS: oxyCODONE HCl Immed Release 5 MG TABLET PO ×3 (03:13→15:53)
[2021-06-18 03:16] VITALS: BP 114/58; PULSE 69; RESP 18; TEMP 36.4; O2SAT 92
[2021-06-18] MEDS: Dextrose 5 % and 0.45 % NaCl 1,000 ML 80 ML IVCONT (05:43)
[2021-06-18 05:56] LABS: MANUAL DIFF FLAG NO
[2021-06-18 06:15] LABS: Anion Gap 11 (12-20); Blood Urea Nitrogen 22 mg/dL (9-16); Carbon Dioxide 28 mmol/L (22-29); Chloride 103 mmol/L (96-108); Creatinine Clr Calc Pharmacy 90.6; Estimated Glomerular Filt Rate > 60; Glucose Fasting 131 mg/dL (60-99); Potassium 4.8 mmol/L (3.3-5.1); Sodium 137 mmol/L (135-145)
[2021-06-18 06:38] LABS: Basophils Percent Auto 0.1 % (0-2); Hematocrit 33.1 % (37.0-47.0); Hemoglobin 10.7 g/dl (12.0-16.0); Imm Gran Abs Auto 0.07 X10*3/uL (0.00-0.03); Imm Gran Pct Auto 0.6 % (0.0-0.4); Mean Corpuscular HGB Conc 32.3 g/dl (31.0-35.0); Mean Corpuscular Hemoglobin 30.3 pg (27.0-33.0); Mean Corpuscular Volume 93.8 fL (80.0-98.0); Mean Platelet Volume 10.6 fL (9.4-12.3); Monocytes Absolute Auto 1.5 X10*3/uL (0.1-1.2); Monocytes Percent Auto 11.6 % (2-11); Neutrophils Percent Auto 79.7 % (45-73); Platelet Count 214 X10*3/uL (160-400); Red Blood Count 3.53 X10*6/uL (4.20-5.50); Red Cell Distribution Width 14.6 % (11.0-16.0); White Blood Count 12.5 X10*3/uL (4.8-10.8)
[2021-06-18 08:00] VITALS: BP 109/51; PULSE 76; RESP 18; TEMP 36.6; O2SAT 95
[2021-06-18] MEDS: Ezetimibe 10 MG TABLET PO (08:41)
[2021-06-18] MEDS: Atorvastatin Calcium 80 MG TABLET PO (08:41)
[2021-06-18] MEDS: oxyCODONE HCl ER 10 MG TAB.ER.12H PO (08:42)
[2021-06-18] MEDS: Celecoxib 200 MG CAPSULE PO (08:42)
[2021-06-18] MEDS: Multivitamin TABLET 1 TAB PO (08:42)
[2021-06-18] MEDS: Anastrozole 1 MG TABLET PO (08:42)
[2021-06-18] MEDS: Ferrous Sulfate 324 MG TABLET.DR PO (08:42)
[2021-06-18] MEDS: FLUoxetine HCl 20 MG CAPSULE 40 MG PO (08:42)
--- NOTE | 2021-06-18 09:03 | P.PNOP_ITS ---
Subjective Subjective Date of Service: 06/18/21 Interval history: POD1 s/p LTHA with Dr. Pulido. No overnight events. Pain is well managed. No additional complaints. Physical Exam Vital Signs: Vital Signs: Last Vital Signs Temp 97.8 F 06/18/21 08:00 Pulse 76 06/18/21 08:00 Resp 18 06/18/21 08:00 BP 109/51 L 06/18/21 08:00 Pulse Ox 95 06/18/21 08:00 BMI result Body Mass Index 39.8 Const: General: cooperative, healthy appearing and no acute distress Resp: Effort & Inspection: normal respiratory effort and able to speak in complete sentences Cardio: Rate: regular rate Peripheral pulses: Peripheral pulses 2+ throughout GI: Palpation (GI): Soft to palpation Skin: Lesions: no lesions Rashes: no rashes Extrem: Other: Left hip dressing is clean, dry, and intact. Patient is able to dorsiflex and plantarflex. NVI. Procedures Date of Service Date of Service: 06/18/21 Progress Note: A&P Assessment and plan (1) History of total left hip arthroplasty: Status: Acute Assessment and Plan: Continue pain mgmnt Begin ASA for dvt ppx begin PT for LTHA Dispo planning-Pending PT eval, pain mgmnt Fall Risk Details Current Medications: Current Medications Acetaminophen (Acetaminophen 325 Mg Tablet) 650 mg PO Q6H PRN PRN Reason: Pain, Mild (Pain Scale 1-3) Last Admin: 06/18/21 03:12 Dose: 650 mg Documented by: Anastrozole (Anastrozole 1 Mg Tablet) 1 mg PO DAILY [facility] Last Admin: 06/18/21 08:42 Dose: 1 mg Documented by: Aspirin (Aspirin 325 Mg Tablet) 325 mg PO BID [facility] Atorvastatin Calcium (Atorvastatin Calcium 80 Mg Tablet) 80 mg PO DAILY [facility] Last Admin: 06/18/21 08:41 Dose: 80 mg Documented by: Celecoxib (Celecoxib 200 Mg Capsule) 200 mg PO BID [facility] Last Admin: 06/18/21 08:42 Dose: 200 mg Documented by: Ezetimibe (Ezetimibe 10 Mg Tablet) 10 mg PO DAILY [facility] Last Admin: 06/18/21 08:41 Dose: 10 mg Documented by: Ferrous Sulfate (Ferrous Sulfate 324 Mg Tablet.) 324 mg PO DAILY [facility] Last Admin: 06/18/21 08:42 Dose: 324 mg Documented by: Fluoxetine HCl (Fluoxetine Hcl 20 Mg Capsule) 40 mg PO DAILY [facility] Last Admin: 06/18/21 08:42 Dose: 40 mg Documented by: Hydromorphone HCl (Hydromorphone Hcl 0.5 Mg/0.5 Ml Syringe) 0.25 mg IVPUSH Q4H PRN; Protocol PRN Reason: Pain, Severe (Pain Scale 7-10) Last Admin: 06/17/21 17:53 Dose: 0.25 mg Documented by: Dextrose/Sodium Chloride (D51/2ns) 1,000 mls @ 80 mls/hr IVCONT .[id number] [facility] Last Admin: 06/18/21 05:43 Dose: 80 mls/hr Documented by: Cefazolin Sodium/Dextrose (Ancef) 2 gm in 50 mls @ 100 mls/hr IV POSTOP [facility] Last Infusion: 06/17/21 16:12 Dose: Infused Documented by: Metoprolol Tartrate (Metoprolol Tartrate 50 Mg Tablet) 50 mg PO DAILY@1800 JASWANT; Protocol Last Admin: 06/17/21 16:54 Dose: 50 mg Documented by: Multivitamins/Vitamin C (Multivitamin Tablet) 1 tab PO DAILY [facility] Last Admin: 06/18/21 08:42 Dose: 1 tab Documented by: Oxycodone HCl (Oxycodone Hcl Immed Release 5 Mg Tablet) 5 mg PO Q4H PRN PRN Reason: Pain, Moderate (Pain Scale 4-6 Last Admin: 06/18/21 03:13 Dose: 5 mg Documented by: Oxycodone HCl (Oxycodone Hcl Er 10 Mg Tab.Er.12h) 10 mg PO BID [facility] Last Admin: 06/18/21 08:42 Dose: 10 mg Documented by: Sodium Chloride (0.9 % Sodium Chloride Flush 3 Ml Syringe) 3 ml IVFLUSH QSHIFT [facility] Last Admin: 06/18/21 08:45 Dose: Not Given Documented by: Time Spent With Patient Time: Total time spent is greater than 50% in coordination of care (as documented) at patient's floor/unit and/or counseling patient: Time with patient: less than 15 minutes Quality Stroke Does the patient have a stroke diagnosis?: No VTE Prior VTE?: No VTE Risk Level:: Surgical - very high VTE Device Contraindication: N/A - Device Ordered VTE Drug Contraindication: N/A - Med Ordered
[2021-06-18] MEDS: Aspirin 325 MG TABLET PO (09:54)
[2021-06-18 11:26] VITALS: BP 124/64; PULSE 75; RESP 20; TEMP 36.5; O2SAT 94
--- NOTE | 2021-06-18 11:41 | P.PNIM_ITS ---
Subjective Subjective Date of Service: 06/18/21 Interval History: cc: hip pain interval history: Cardiovascular Cardiovascular: Reports no additional cardiovascular complaints Respiratory Respiratory: Reports no additional respiratory complaints Physical Exam Vital Signs: Vital Signs: Last Vital Signs Temp 97.7 F 06/18/21 11:26 Pulse 75 06/18/21 11:26 Resp 20 06/18/21 11:26 BP 124/64 06/18/21 11:26 Pulse Ox 94 06/18/21 11:26 BMI result Body Mass Index 39.8 General: AO X 3, no acute distress Resp: CTA bilateral, no accessory muscles used CVS: S1,S2,RRR GI: soft, non tender, non distended Neuro: motor grossly intact, alert Psych: appropriate affect, appropriate insight Objective Data Active Medications Acetaminophen (Acetaminophen 325 Mg Tablet) 650 mg PO Q6H PRN PRN Reason: Pain, Mild (Pain Scale 1-3) Last Admin: 06/18/21 03:12 Dose: 650 mg Documented by: SERENE Anastrozole (Anastrozole 1 Mg Tablet) 1 mg PO DAILY [facility] Last Admin: 06/18/21 08:42 Dose: 1 mg Documented by: DANIEL Aspirin (Aspirin 325 Mg Tablet) 325 mg PO BID [facility] Last Admin: 06/18/21 09:54 Dose: 325 mg Documented by: DANIEL Atorvastatin Calcium (Atorvastatin Calcium 80 Mg Tablet) 80 mg PO DAILY [facility] Last Admin: 06/18/21 08:41 Dose: 80 mg Documented by: DANIEL Celecoxib (Celecoxib 200 Mg Capsule) 200 mg PO BID [facility] Last Admin: 06/18/21 08:42 Dose: 200 mg Documented by: DANIEL Ezetimibe (Ezetimibe 10 Mg Tablet) 10 mg PO DAILY [facility] Last Admin: 06/18/21 08:41 Dose: 10 mg Documented by: DANIEL Ferrous Sulfate (Ferrous Sulfate 324 Mg Tablet.) 324 mg PO DAILY [facility] Last Admin: 06/18/21 08:42 Dose: 324 mg Documented by: DANIEL Fluoxetine HCl (Fluoxetine Hcl 20 Mg Capsule) 40 mg PO DAILY [facility] Last Admin: 06/18/21 08:42 Dose: 40 mg Documented by: DANIEL Hydromorphone HCl (Hydromorphone Hcl 0.5 Mg/0.5 Ml Syringe) 0.25 mg IVPUSH Q4H PRN; Protocol PRN Reason: Pain, Severe (Pain Scale 7-10) Last Admin: 06/17/21 17:53 Dose: 0.25 mg Documented by: DANIEL Dextrose/Sodium Chloride (D51/2ns) 1,000 mls @ 80 mls/hr IVCONT .[id number] [facility] Last Admin: 06/18/21 05:43 Dose: 80 mls/hr Documented by: SERENE Cefazolin Sodium/Dextrose (Ancef) 2 gm in 50 mls @ 100 mls/hr IV POSTOP [facility] Last Infusion: 06/17/21 16:12 Dose: 0 mls/hr Documented by: DANIEL Metoprolol Tartrate (Metoprolol Tartrate 50 Mg Tablet) 50 mg PO DAILY@1800 [facility]; Protocol Last Admin: 06/17/21 16:54 Dose: 50 mg Documented by: DANIEL Multivitamins/Vitamin C (Multivitamin Tablet) 1 tab PO DAILY [facility] Last Admin: 06/18/21 08:42 Dose: 1 tab Documented by: DANIEL Oxycodone HCl (Oxycodone Hcl Immed Release 5 Mg Tablet) 5 mg PO Q4H PRN PRN Reason: Pain, Moderate (Pain Scale 4-6 Last Admin: 06/18/21 09:54 Dose: 5 mg Documented by: DANIEL Oxycodone HCl (Oxycodone Hcl Er 10 Mg Tab.Er.12h) 10 mg PO BID [facility] Last Admin: 06/18/21 08:42 Dose: 10 mg Documented by: DANIEL Sodium Chloride (0.9 % Sodium Chloride Flush 3 Ml Syringe) 3 ml IVFLUSH QSHIFT [facility] Last Admin: 06/18/21 08:45 Dose: Not Given Documented by: DANIEL Non-Admin Reason: No Access Labs CBC & Chem 7: 06/18/21 05:25 06/18/21 05:25 Labs: Laboratory Results - last 24 hr 06/18/21 06/18/21 05:25 05:25 MCV 93.8 MCH 30.3 MCHC 32.3 RDW 14.6 Plt Count 214 MPV 10.6 Immature Gran % (Auto) 0.6 H Neut % (Auto) 79.7 H Lymph % (Auto) 8.0 L [place] % (Auto) 11.6 H Eos % (Auto) 0.0 Baso % (Auto) 0.1 Lymph # (Auto) 1.0 L [place] # (Auto) 1.5 H Eos # (Auto) 0.0 Baso # (Auto) 0.0 Abs Immat Gran (auto) 0.07 H Absolute Neuts (auto) 10.0 H Absolute Nucleated RBC 0.000 Nucleated RBC % (auto) 0.0 Anion Gap 11 L Estim Creat Clear Calc 90.6 Estimated GFR > 60 Fasting Glucose 131 H Calcium 9.0 D Assessment and Plan (1) Right hip pain: Assessment and Plan: 55F presented for right hip arthroplasty s/p left hip arthroplasty POD 1 management per ortho HTN--controlled, continue Metoprolol hld statin, ezetimibe history of breast ca anastrazole mood disorder fluoexitine will sign off, please recall if needed Quality Stroke Does the patient have a stroke diagnosis?: No VTE Prior VTE?: No VTE Risk Level:: Surgical - very high VTE Device Contraindication: N/A - Device Ordered VTE Drug Contraindication: N/A - Med Ordered
--- NOTE | 2021-06-18 12:23 | MHC.CM.PN ---
NURSE CASE MANAGEMENT NOTE ELECTRONIC MEDICAL RECORD REVIEWED ALONG WITH CASE DISCUSSED WITH STAFF NURSE MET WITH PATIENT SHE IS ACTIVE INDEPENDENT IN HER ADLS AND MOBILITY SHE HAS A CAN , WALKER FROM OTHER ORTHOPEDIC SURGERIES AT HOME , [place] SHE DOES NOT FEEL SHE WILL NEED ANY VNA FOR NURSING BUT ACCEPTING FOR HOME PHYSICAL THERAPY , INIATED REFERRALS TO [facility] FOR HOME PT DISCHARGE PLAN HOME WITH NEW REFERRAL TO THE [facility] FOR HOME PHYSICAL THERPAY-THEY WILL CALL WITH START DATE TRANSPORTATION FAMILY PCP DR CHINTAN FAJARDO PATIENT INSTRUCTED TO CALL FOR POST HOSPTIAL DISCHARGE FOLLOW UP SR DEEJAY DEMPSEY UP PER DISCHARGE INSTRUCTIONS HEALTH CARE PROXY COPY REQUESTED MEDICARE IMMM COMPLETED
--- NOTE | 2021-06-18 13:33 | P.F2F_ITS ---
Service Date Service Date: 06/18/21 Encounter Date of encounter: 06/18/21 Reasons for Services Signs and symptoms assessed: Pt. is considered homebound due to recent surgery. Unable to drive, poor balance, poor gait mechanics. Reason for senior living: medication management Reason for physical therapy: home safety and mobility, therapeutic exercises, r estore joint function, gait/transfer training and ADL training Homebound: Leaving the home is medically contraindicated at this time without the asist of a device and/or another person due th the listed conditions above and below. Reason homebound: unsteady gait / fall risk, leg weakness, pain with ambulation, pain with transfers, poor balance / fall risk and unable to drive Homebound supporting statement: Pt. is considered homebound due to recent surgery. Unable to drive, poor balance, poor gait mechanics. Certification: Based on the above findings, I certify that this patient is confined to the home and needs intermittent senior living care, physical therapy and/or speech therapy, or continues to need occupational therapy. The patient is under my care, and I have initiated the establishment of the plan of care. The patient will be followed by a physician who will periodically review the plan of care.
--- NOTE | 2021-06-18 13:34 | P.DS_ITS ---
DS: Providers Provider Date of Service: 06/18/21 Primary care physician: Brijesh Pineda MD Consults: 06/17/21 16:11 Consult to Hospitalist Routine Consulting Provider: Hospitalist Reason For Exam: Routine Medical management DS: Summary Hospital Course Hospital Course: The patient underwent a successful left total hip arthroplasty, they were transferred to PACU and then to the floor to recover. During their stay, their vitals were stable, afebrile at 97.5. Labs were unremarkable, H/H 10.7/33.1. POD 1 they were started on Aspirin 325mg po bid for DVT ppx, they also received Physical Therapy services. Prior to discharge, their dressing and incision was clean dry and intact, and the plan was to be discharged home with VNA services. Time Spent with Patient Time attestation: Total time spent providing and/or coordinating discharge services: Discharge coordination time: Less than 30 minutes Quality: Stroke Does the patient have a stroke diagnosis?: No Physical Exam Vital Signs: Vital Signs: Last Vital Signs Temp 97.7 F 06/18/21 11:26 Pulse 75 06/18/21 11:26 Resp 20 06/18/21 11:26 BP 124/64 06/18/21 11:26 Pulse Ox 94 06/18/21 11:26 BMI result Body Mass Index 39.8 Const: General: cooperative, healthy appearing and no acute distress Resp: Effort & Inspection: normal respiratory effort and able to speak in complete sentences Cardio: Rate: regular rate Peripheral pulses: Peripheral pulses 2+ throughout GI: Palpation (GI): Soft to palpation Skin: Lesions: no lesions Rashes: no rashes Extrem: Other: Left hip dressing is clean, dry, and intact. Patient is able to dorsiflex and plantarflex. NVI. DS: Data Data Completed and Pending Completed studies during hospitalization [Text1]: Procedures Replacement of Right Hip Joint with Synthetic Substitute, Uncemented, Open Approach (12/22/20) Pending studies at discharge: Pending at discharge 06/17/21 09:18 Surgical [PTH] Routine Labs on day of discharge: Laboratory Results - last 24 hr 06/18/21 06/18/21 05:25 05:25 WBC 12.5 H RBC 3.53 L Hgb 10.7 L Hct 33.1 L MCV 93.8 MCH 30.3 MCHC 32.3 RDW 14.6 Plt Count 214 MPV 10.6 Immature Gran % (Auto) 0.6 H Neut % (Auto) 79.7 H Lymph % (Auto) 8.0 L [place] % (Auto) 11.6 H Eos % (Auto) 0.0 Baso % (Auto) 0.1 Lymph # (Auto) 1.0 L [place] # (Auto) 1.5 H Eos # (Auto) 0.0 Baso # (Auto) 0.0 Abs Immat Gran (auto) 0.07 H Absolute Neuts (auto) 10.0 H Absolute Nucleated RBC 0.000 Nucleated RBC % (auto) 0.0 Sodium 137 Potassium 4.8 Chloride 103 Carbon Dioxide 28 Anion Gap 11 L BUN 22 H Creatinine 0.81 Estim Creat Clear Calc 90.6 Estimated GFR > 60 Fasting Glucose 131 H Calcium 9.0 D Discharge Plan Discharge Patient Disposition: Home Health Service Referrals: [facility] [Outside[facility] THEY WILL CALL YOU WITH START NATE PCP PATIENT TO CALL FOR POST HOSPITAL DISCAHRGE FIOLLOW UP DR VILLALBA FOLLOW UP PER DISCHARGE INSTRUCTIONS TRANSPORTATION FAMILY ) Kashmir Ruiz PA-C [Physician [employer] Project Manager] - 1 Week (07/02/20 at 12:30) Discharge Medications: New celecoxib 200 mg Capsule 200 mg PO BID 30 Days Qty: 60 RF: 0 aspirin 325 mg Tablet 325 mg PO BID 42 Days Qty: 84 RF: 0 oxycodone 5 mg Tablet 5 mg PO Q4H PRN (Reason: Pain, Moderate (Pain Scale 4-6) 7 Days Qty: 42 RF: 0 Continued fluoxetine 40 mg capsule 40 mg PO DAILY Qty: 90 RF: 3 clindamycin HCl 300 mg capsule 600 mg PO ONCE 1 Days Qty: 2 RF: 0 atorvastatin 80 mg tablet 80 mg PO DAILY Qty: 30 RF: 11 multivitamin Tablet 1 tab PO DAILY RF: 0 metoprolol tartrate 50 mg tablet 50 mg PO .QEVENING RF: 0 ferrous sulfate [Iron (ferrous sulfate)] 325 mg (65 mg iron) Tablet 325 mg PO DAILY RF: 0 acetaminophen 325 mg Tablet 650 mg PO Q6H PRN (Reason: Pain) 30 Days Qty: 240 RF: 0 anastrozole 1 mg tablet 1 mg PO DAILY Qty: 90 RF: 4 ezetimibe 10 mg tablet 10 mg PO DAILY 90 Days Qty: 90 RF: 3 Discontinued ibuprofen 600 mg Tablet 600 mg PO BID PRN (Reason: Pain) RF: 0 Discharge Orders: Discharge Order (Routine); Ordered 06/18/21 Ordered By: Jaky Neff Activity Restrictions/Additional Instructions: Physical Therapy for total hip arthroplasty: posterior precautions, gait training, ROM, strength Limit stair climbing No showering, no tub bath-keep dressing clean, dry and intact No driving x6 weeks Continue Aspirin tabs tiwce a day x 6 weeks Follow up with [facility] in 2 weeks
--- NOTE | 2021-06-18 14:25 | P.F2F_ITS ---
Service Date Service Date: 06/18/21 Encounter Date of encounter: 06/18/21 Reasons for Services Signs and symptoms assessed: Pt. is considered homebound due to recent surgery. Unable to drive, poor balance, poor gait mechanics. Reason for physical therapy: home safety and mobility, therapeutic exercises, restore joint function, gait/transfer training, assess need for DME and ADL training Homebound: Leaving the home is medically contraindicated at this time without the asist of a device and/or another person due th the listed conditions above and below. Reason homebound: unsteady gait / fall risk, leg weakness, pain with transfers, poor balance / fall risk and unable to drive Homebound supporting statement: Pt. is considered homebound due to recent surgery. Unable to drive, poor balance, poor gait mechanics. Certification: Based on the above findings, I certify that this patient is confined to the home and needs intermittent [facility] care, physical therapy and/or speech therapy, or continues to need occupational therapy. The patient is under my care, and I have initiated the establishment of the plan of care. The patient will be followed by a physician who will periodically review the plan of care.
--- NOTE | 2021-06-18 16:27 | HO.POSTANES ---
Post Anesthesia Evaluation Post Anesthesia Evaluation Vital Signs: Vital Signs Temp Pulse Resp BP Pulse Ox 06/18/21 11:26 97.7 F 75 20 124/64 94 06/18/21 08:00 97.8 F 76 18 109/51 L 95 Anesthesia: General Mental Status: Awake Pain Control: Satisfactory Nausea/Vomiting: None Hydration: Adequate Anesthesia-Related Issues: No Anes. Related Issues
== END 2021-06-18 16:07 | disposition home health service (06) ==
LOC: HO.S3 06-18 07:26 → HO.SSS 06-18 08:39 → HO.S3 06-18 08:40
PROVIDERS: Nurse Practitioner; Physician Assistant; PCP Internal Medicine; Visit Provider Orthopaedic Surgery
PROC: (CPT 27130; principal; 2021-06-17 07:30)
DX: M16.12 Unilateral primary osteoarthritis, left hip (principal); M25.552 Pain in left hip; Z96.641 Presence of right artificial hip joint; F41.1 Generalized anxiety disorder; I10 Essential (primary) hypertension; D64.9 Anemia, unspecified; E78.5 Hyperlipidemia, unspecified; C50.912 Malignant neoplasm of unspecified site of left female breast; Z79.811 Long term (current) use of aromatase inhibitors; Z79.899 Other long term (current) drug therapy; G47.00 Insomnia, unspecified; M54.50 Low back pain, unspecified; Z20.822 Contact with and (suspected) exposure to COVID-19; Z88.0 Allergy status to penicillin; Z88.8 Allergy status to other drugs, medicaments and biological substances
CPT/HCPCS: 27130; 36415; 72170; 80048; 85025; 86850; 86900; 86901; 87635; 87640; 87641; 88304; 88311; 93005; 97110; 97116; 97161; 97165; C1776; J0131; J0690; J1100; J1170; J2250; J2405; J3010

== ENCOUNTER → 2021-06-25 11:08 | Outpatient (BNVA) | payer MEDICARE, MEDICAID, SELFPAY | PROVIDERS: PCP Internal Medicine; Visit Provider Orthopaedic Surgery ==

== ENCOUNTER → 2021-07-02 12:32 | Outpatient (BNVA) | payer MEDICARE, MEDICAID, SELFPAY | PROVIDERS: PCP Internal Medicine; Visit Provider Physician Assistant | DX: Z47.1 Aftercare following joint replacement surgery (principal); Z96.642 Presence of left artificial hip joint | CPT/HCPCS: 99212 ==

== ENCOUNTER 2021-07-23 11:10 | Outpatient (REF) | payer MEDICARE, MEDICAID, SELFPAY ==
[2021-07-23 11:39] LABS: MANUAL DIFF FLAG NO
[2021-07-23 13:02] LABS: Basophils Absolute Auto 0.1 X10*3/uL (0.0-0.2); Basophils Percent Auto 0.7 % (0-2); Eosinophils Absolute Auto 0.4 X10*3/uL (0.0-0.4); Eosinophils Percent Auto 5.2 % (0-4); Hematocrit 38.1 % (37.0-47.0); Hemoglobin 12.1 g/dl (12.0-16.0); Imm Gran Abs Auto 0.02 X10*3/uL (0.00-0.03); Imm Gran Pct Auto 0.3 % (0.0-0.4); Lymphocytes Absolute Auto 1.3 X10*3/uL (1.2-4.9); Lymphocytes Percent Auto 18.9 % (20-40); Mean Corpuscular HGB Conc 31.8 g/dl (31.0-35.0); Mean Corpuscular Hemoglobin 30.1 pg (27.0-33.0); Mean Corpuscular Volume 94.8 fL (80.0-98.0); Mean Platelet Volume 10.8 fL (9.4-12.3); Monocytes Absolute Auto 0.6 X10*3/uL (0.1-1.2); Monocytes Percent Auto 9.1 % (2-11); Neutrophils Absolute Auto 4.4 x10*3/uL (2.0-8.3); Neutrophils Percent Auto 65.8 % (45-73); Platelet Count 262 X10*3/uL (160-400); Red Blood Count 4.02 X10*6/uL (4.20-5.50); Red Cell Distribution Width 13.9 % (11.0-16.0); White Blood Count 6.7 X10*3/uL (4.8-10.8)
[2021-07-23 13:08] LABS: Appearance Urine CLEAR; Color Urine YELLOW; Glucose Urine UA NEG (NEG); Leukocyte Esterase Urine NEG (NEG); Nitrite Urine NEG (NEG); UACC Culture Trigger NO; Urine Blood 1+ (NEG); Urine Ketones NEG (NEG); Urine Protein NEG (NEG-TRACE)
[2021-07-23 13:33] LABS: Alanine Aminotransferase 21 U/L (0-31); Albumin Level 4.3 g/dL (3.5-5.0); Alkaline Phosphatase 93 U/L (39-117); Anion Gap 14 (12-20); Aspartate Amino Transferase 18 U/L (5-31); Bilirubin Total 0.6 mg/dL (0.0-1.0); Blood Urea Nitrogen 19 mg/dL (9-16); Calcium 9.9 mg/dL (8.4-10.2); Carbon Dioxide 28 mmol/L (22-29); Chloride 101 mmol/L (96-108); Cholesterol 202 mg/dL; Estimated Glomerular Filt Rate > 60; Glucose Fasting 91 mg/dL (60-99); HDL Cholesterol 72 mg/dL; Sodium 138 mmol/L (135-145)
[2021-07-23 13:36] LABS: LDL Cholesterol Calculated 106 mg/dl; Triglycerides 122 mg/dL
[2021-07-23 13:55] LABS: Vitamin D 25-OH Total 31.3 ng/mL (>30)
[2021-07-23 14:07] LABS: Squamous Epithelial Cell Urine TRACE /LPF; WBC Urine 0 /HPF (0-4)
== END 2021-07-23 11:11 | disposition home or self-care (01) ==
LOC: HO.LAB 11:10
PROVIDERS: PCP Internal Medicine; Visit Provider Internal Medicine
DX: E78.00 Pure hypercholesterolemia, unspecified (principal); E55.9 Vitamin D deficiency, unspecified; I10 Essential (primary) hypertension
CPT/HCPCS: 36415; 80053; 80061; 81001; 81003; 82306; 84443; 85025

== ENCOUNTER → 2021-07-31 12:58 | Outpatient (BNVA) | payer MEDICARE, MEDICAID, SELFPAY | PROVIDERS: PCP Internal Medicine; Visit Provider Physician Assistant | DX: Z47.1 Aftercare following joint replacement surgery (principal); Z96.642 Presence of left artificial hip joint | CPT/HCPCS: 99212 ==

== ENCOUNTER → 2021-08-04 14:59 | Outpatient (REF) | payer MEDICARE, MEDICAID, SELFPAY ==
--- NOTE | 2021-08-04 15:01 | HM_ITS ---
Conclusion: 1. Patient was monitored for total period of 2 days and 23 hours 2. Baseline was normal sinus with average heart rate 72 beats per minute 3. No significant bradycardia or pauses noted 4. Total of 9835 PVCs accounting for 3.14% of total burden account for frequent PVCs 5. Occasional PACs noted 6. No patient reported events MTDD
== END ==
LOC: HO.CARD 14:59
PROVIDERS: PCP Internal Medicine; Visit Provider Internal Medicine
DX: R00.2 Palpitations (principal)
CPT/HCPCS: 93242

== ENCOUNTER 2021-08-07 14:00 | Outpatient (RCR) | payer MEDICARE, MEDICAID, SELFPAY ==
--- NOTE | 2021-07-02 14:56 | MHC.PT.EP ---
[facility] [place] Office [place] Office [place] Office [address] Esperanza Haines [address] [phone] F: [phone] F: [phone] F: [phone] F: [phone] Physical Therapy Plan of Care Date of Evaluation: Date of Surgery: 06/17/21 Diagnosis: LEFT LYDIA Assessment: 56 YO FEMALE REF TO PT S/P LEFT POSTERIOR THR ON 06/17/21 (HOME PT THRU 07/01/21) AND Rt ANTERIOR APPROACH THR (APPROX 12/22/2020)- SHE IS CURRENTLY AMB W A STRAIGHT CANE, SHE RESIDES ALONE IN A RANCH HOME W LAUNDRY ON MAIN FLOOR- HER SHEFALI WERE REMOVED 07/02/21. OBJECTIVE FINDINGS: HEALING INCISION Lt LAT HIP, ROM DEFICITS IN TRUNK/ HIP/ EXT/ ANKLE; MUSCLE/ SOFT TISSUE IMBALANCE CREATING ASSYM IN LUMBOPELVIC COMPLEX -> LLI, AND WEAKNESS IN HER PROX LEs/ CORE REGION-(H/O SEVERAL HERNIA REPAIRS AND SHE NOTES CURRENT ABDOMINAL HERNIA). FUNCTIONAL LIMITIATIONS INCLUDE DIFFIC W INCR AMB, STANDING, SLEEPING- SHE DEMON INCR UEs EFFORT W TRANSFERS AND COMPENSATORY GAIT. Pt IS A WONDERFUL PT CANDIDATE S/P THR WITHIN 6 MOS AND ADDRESSING ABOVE FINDINGS AND SOFT TISSUE IMBALANCE , WELL DEV A HEP AND GUIDING Pt TO IMPROVE HER FUNCTIONAL INDEP IN HER POST OP COURSEAS SHE RESIDES ALONE. Frequency and Duration: The patient will be seen 2 x WK x 5 WKS Short Term Goals: Pt DEMON PROPER GLUTE AND QUAD SETTING W/O COMPENSATORY VALSALVA STRESS ON ABDOMINALS -> Pt DEMON MORE NEUTRAL / SYMM STANDING POSTURE IN 1 WK Pt'S LEFT HIP COMPLEX PAIN DECREASED TO 2-3/10 IN 2 WKS Pt DEMON WFL AROM HIP (EXT) AND ANKLE DF/PF W RESPECT TO HIP PRECAUTIONS IN 3 WKS Pt DEMO IMPROVED GAIT MECH W LEAST REST AD (CURRENTLY A CANE) ON LEVEL GROUND AND STAIRS IN 2 WKS Retirement Goals: Pt INDEP W HEP PROGRESSION AND SELF-SX MGMT STRATEGIES IN 5 WKS Pt RESUME REG ADLs EVIDENT W IMPROVED LEFI SCORE BY 8-10 POINTS (AT EVAL 31/50 ) IN 5 WKS Pt INCR LEFT LE STRENGTH BY 1 GRADE IN 5 WKS Treatment Plan: Modalities to reduce pain, spasms and effusion. Manual therapy to restore motion and function. Therapeutic exercise to improve strength and flexibility. Neuromuscular re-education for posture and balance. Therapeutic activities to return to functional activities of daily living. Electronically signed by: Claudine Lock,PT Please sign and return to therapist. Thank you for your referral.
--- NOTE | 2022-03-04 08:27 | MHC.PT.DC ---
[facility] [place] Office [place] Office [place] Office [address] Esperanza Haines [address] [phone] F: [phone] F: [phone] F: [phone] F: [phone] Physical Therapy Discharge Report Diagnosis: LEFT LYDIA Date of Surgery: 06/17/21 Date of Evaluation: 07/02/21 Date of Discharge: 09/25/21 Treatments to Date: 10 Cancellations to Date: 0 No Shows to Date: 0 Discharge Status: Improved Function Independent with HEP Discharge Summary: Pt has progressed wonderfully over the course of physical therapy. She is amb symmetrical without AD. She has improved strength and function. LEFS is 52/80 on discharge. She is I with HEP and motivated to continued exclusively with HEP. All of her questions have been answered and I encouraged her to call and ask should any more questions arise. She is appropriate to d/c to HEP at this time. Electronically signed by: Patrick Rodríguez PT Please sign and return to therapist. Thank you for your referral.
== END 2022-03-04 08:27 | disposition home or self-care (01) ==
LOC: HO.PTCHIC 14:00
PROVIDERS: Visit Provider Physician Assistant
DX: Z96.642 Presence of left artificial hip joint (principal)
CPT/HCPCS: 97110; 97112; 97162; 97530

== ENCOUNTER → 2021-09-08 12:59 | Outpatient (REF) | payer MEDICARE, MEDICAID, SELFPAY ==
--- NOTE | 2021-09-08 13:03 | CA_ITS ---
Transthoracic Echocardiogram Patient (Last, First, Middle): Keyana De Jesus, Gender: Female Date of : 1965 Age: 56 Procedure Date: 09/08/2021 Procedure Type: Transthoracic Echocardiogram Location: OP Height: 162.56 cm Weight: 104.33 kg BSA: 2.08 m2 Heart Rate: bpm BP: 120 / 80 mmHg Deportation Examiner: GEORGE Referring MD: Brijesh Pineda MD Symptoms: R00.2 - Palpitations Study Quality: Good ECG Rhythm: Sinus Conclusions: - The left ventricular systolic function is normal. The calculated ejection fraction is 62% by biplane method. - There is mild septal and mild basal asymmetric hypertrophy. - No obvious valvular pathology seen on this study. Findings Left Ventricle Normal left ventricular cavity size. The left ventricular systolic function is normal. The calculated ejection fraction is 62% by biplane method. There is no evidence of regional wall motion abnormalities. Diastolic function is normal for age. There is mild septal and mild basal asymmetric hypertrophy. Right Ventricle Normal right ventricular cavity size and systolic function. Atria Both atria are normal in size. Aortic Valve There is a normal trileaflet aortic valve. There is no aortic valve stenosis. There is no aortic valve regurgitation. Mitral Valve The mitral valve appears normal. There is trace mitral valve regurgitation. There is no mitral valve stenosis. Pulmonic Valve The pulmonic valve was not well visualized. Tricuspid Valve There is trace tricuspid valve regurgitation. The pulmonary artery systolic pressure is normal. Great Vessels The aortic annulus, sinuses of valsalva, asc aorta, and aortic arch are normal in size. Venous The inferior vena cava is normal in size and collapses greater than 50% with inspiration. Pericardium/Pleural There is no evidence of pericardial effusion. Prior Study Comparison No prior study available for comparison. Recommendations, Care & Conclusions No obvious valvular pathology seen on this study. Measurements 2D Linear Measurements IVSd: 1.11 0.6-0.9/0.6-1.0 cm LVIDd: 4.80 3.9-5.3/4.2-5.9 cm LVIDd Index: 2.31 2.4-3.2/2.2-3.1 cm/m2 LVIDs: 3.23 2.0-3.6 cm LVPWd: 0.96 0.7-1.1 cm LA Diam: 3.40 2.7-3.8/3.0-4.0 cm LAIDs Index: 1.63 1.5-2.3 cm/m2 LV Mass: 222.79 67-162/88-224 g LV Mass Index: 107.11 43-95/49-115 g/m2 LVOT Diam: 2.10 3.0+(-)1.3 cm 2D Systolic Function EF 4C: 65.60 >55% EF 2C: 59.10 >55% EF BiP: 61.80 >55% Mitral Valve MV Pk E: 0.71 MV PK A: 0.99 MV Decel Time: 147.00 E/A: 0.70 E'Lateral: 9.36 E'Medial: 7.29 E/E' Med: 9.70 E/E' Lat: 7.60 PHT: 43.00 MVA PHT: 5.12 Decel [place]: 4.81 Aortic Valve AoV Pk David: 1.26 AoV Pk Grad: 6.00 LVOT LVOT Pk David: 1.06 LVOT Mn David: 0.79 LVOT VTI: 0.26 LVOT Pk Grad: 4.00 LVOT Mn Grad: 3.00 LVOT Diam: 2.10 LVOT Area: 3.46 Diastolic Function MV Pk E: 0.71 MV Pk A: 0.99 E/A: 0.70 E'Medial: 7.29 E/E' Med: 9.70 E' Laterial: 9.36 E/E' Lat: 7.60 Right Ventricle TAPSE (mm): 2.24 TVS' David: 13.40 Tricuspid Valve TR Pk David: 2.04 TR Pk Grad: 17.00 Great Vessels Aorta Ao Annulus: 2.94 1.4-2.6 cm Ao Asc: 3.50 2.1-3.4 cm Ao Arch: 3.00 Updated in Other Vendor System with Status of Final Alonso Verdugo MD electronically signed on 09/09/2021 11:33:33 AM with status of Final
== END ==
LOC: HO.CARD 12:59
PROVIDERS: Visit Provider Internal Medicine
DX: R00.2 Palpitations (principal)
CPT/HCPCS: 93306

== ENCOUNTER 2021-09-14 12:14 | Outpatient (REF) | payer MEDICARE, MEDICAID, SELFPAY ==
--- NOTE | ~2021-09-14 | XR_ITS ---
EXAMINATION: XR PELVIS CLINICAL INFORMATION: Pain in the hip. COMPARISON: 06/17/2021 TECHNIQUE: AP view of the pelvis. FINDINGS: Bilateral total hip arthroplasties are noted. The femoral head components articulate appropriately with the acetabular components. No periprosthetic lucency or fracture. Surgical clips in the left inguinal region. The pelvic rim is intact. The sacroiliac joints and pubic symphysis are intact. Normal bowel gas pattern. Evidence of prior ventral hernia repair. XR/XR pelvis 1-2V IMPRESSION: Bilateral total hip arthroplasties in typical positioning and alignment.
== END 2021-09-14 12:15 | disposition home or self-care (01) ==
LOC: HO.HOSX 12:14
PROVIDERS: Visit Provider Orthopaedic Surgery
DX: Z46.1 Encounter for fitting and adjustment of hearing aid (principal); Z96.642 Presence of left artificial hip joint
CPT/HCPCS: 72170; 99212

== ENCOUNTER → 2021-10-15 13:47 | Outpatient (BNVA) | payer MEDICARE, MEDICAID, SELFPAY | PROVIDERS: PCP Internal Medicine; Referring Provider Internal Medicine; Visit Provider Surgery | DX: C50.212 Malignant neoplasm of upper-inner quadrant of left female breast (principal) | CPT/HCPCS: 99212 ==

== ENCOUNTER 2021-10-20 11:36 | Outpatient (REF) | payer MEDICARE, MEDICAID, SELFPAY ==
[2021-10-20 13:13] LABS: Alanine Aminotransferase 21 U/L (0-31); Albumin Level 4.1 g/dL (3.5-5.0); Alkaline Phosphatase 86 U/L (39-117); Anion Gap 13 (12-20); Aspartate Amino Transferase 19 U/L (5-31); Bilirubin Total 0.6 mg/dL (0.0-1.0); Blood Urea Nitrogen 18 mg/dL (9-16); Calcium 9.7 mg/dL (8.4-10.2); Carbon Dioxide 28 mmol/L (22-29); Chloride 102 mmol/L (96-108); Cholesterol 165 mg/dL; Estimated Glomerular Filt Rate > 60; Glucose Fasting 92 mg/dL (60-99); HDL Cholesterol 70 mg/dL; LDL Cholesterol Calculated 72 mg/dl; Sodium 138 mmol/L (135-145); Total Protein 6.7 g/dL (6.5-8.0); Triglycerides 119 mg/dL
== END 2021-10-20 11:37 | disposition home or self-care (01) ==
LOC: HO.LAB 11:36
PROVIDERS: PCP Internal Medicine; Visit Provider Internal Medicine
DX: E78.00 Pure hypercholesterolemia, unspecified (principal)
CPT/HCPCS: 36415; 80053; 80061

== ENCOUNTER 2021-10-26 10:58 | Outpatient (REF) | payer MEDICARE, MEDICAID, SELFPAY ==
--- NOTE | ~2021-10-26 | MM_ITS ---
EXAMINATION: MM DIAGNOSTIC DIGITAL BREAST TOMOSYNTHESIS, RIGHT US DIAGNOSTIC ULTRASOUND BREAST, RIGHT CLINICAL INFORMATION: Intermittent outer right breast pain with questionable palpable area noted by patient. 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 COMPARISON: Mammography: 04/02/2021, 03/31/2020, 03/27/2019 TECHNIQUE: Digital breast tomosynthesis is performed in both the craniocaudal and mediolateral oblique views along with computer-aided detection (CAD). Synthesized 2D images are generated from the tomosynthesis. Ultrasound right breast is targeted to the area of clinical concern 7:00 through 11:00 position. Grayscale imaging and color Doppler are performed without and with harmonics. FINDINGS: There are scattered areas of fibroglandular density (ACR BI-RADS breast composition Category b). Parenchymal pattern is similar to prior studies. There is no developing density or interval mass or architectural abnormality. No interval duct ectasia. No skin thickening or coarsening of the Boom's ligaments. The axilla is unremarkable. Ultrasound demonstrates no cystic or solid mass or architectural abnormality. No focal duct ectasia. No skin thickening or edema tracking in soft tissue planes. Results are discussed with the patient at time of visit. MM/MM tomosynthesis diagnostic RT IMPRESSION: -No mammographic evidence of malignancy or inflammatory changes. -Unremarkable right breast ultrasound.. ASSESSMENT: BI-RADS 1: Negative RECOMMENDATION: 1. Patient should be managed based on the clinical impression. 2. Otherwise, routine annual screening mammography. This patient's information was entered into a reminder system with a target due date for their next mammogram.
== END 2021-10-26 10:59 | disposition home or self-care (01) ==
LOC: HO.MAMMO 10:58
PROVIDERS: PCP Internal Medicine; Visit Provider Surgery
DX: Z85.3 Personal history of malignant neoplasm of breast (principal); Z92.3 Personal history of irradiation
CPT/HCPCS: 76642; 77061; 77065

== ENCOUNTER 2021-12-31 15:02 | Outpatient (REF) | payer MEDICARE, MEDICAID, SELFPAY ==
--- NOTE | ~2021-12-31 | US_ITS ---
EXAMINATION: US VENOUS WITH DOPPLER UPPER EXTREMITY, LEFT CLINICAL INFORMATION: Left upper extremity pain and swelling COMPARISON: Ultrasound from 08/10/18 TECHNIQUE: Ultrasound of the upper extremity is performed using compression sonography and color and pulse Doppler flow with assessment of augmentation of flow. There is also imaging and Doppler assessment of the jugular and subclavian veins. Spectral analysis with color-flow imaging is performed. FINDINGS: Respiratory variation, normal compression, and augmented flow are noted throughout the upper extremity including the axillary, brachial, cubital, and radial and ulnar veins. There is normal flow in the internal jugular and subclavian veins. There is no visible deep or superficial thrombophlebitis. If the patient's symptoms progress, a followup ultrasound in 5 -7 days might be of value to exclude proximal propagation from a nonvisualized distal arm vein. US/US venous duplex UE LT IMPRESSION: No DVT demonstrated in the left upper extremity
== END 2021-12-31 15:03 | disposition home or self-care (01) ==
LOC: HO.US 15:02
PROVIDERS: Visit Provider Internal Medicine
DX: R60.0 Localized edema (principal)
CPT/HCPCS: 93971

== ENCOUNTER 2022-03-12 10:46 | Outpatient (REF) | payer OTHER, MEDICAID, SELFPAY ==
[2022-03-12 11:00] LABS: MANUAL DIFF FLAG NO
[2022-03-12 11:28] LABS: Basophils Percent Auto 0.5 % (0-2); Eosinophils Absolute Auto 0.1 X10*3/uL (0.0-0.4); Eosinophils Percent Auto 2.1 % (0-4); Hematocrit 41.9 % (37.0-47.0); Imm Gran Abs Auto 0.02 X10*3/uL (0.00-0.03); Imm Gran Pct Auto 0.3 % (0.0-0.4); Lymphocytes Absolute Auto 1.4 X10*3/uL (1.2-4.9); Lymphocytes Percent Auto 22.9 % (20-40); Mean Corpuscular HGB Conc 33.4 g/dl (31.0-35.0); Mean Corpuscular Hemoglobin 31.3 pg (27.0-33.0); Mean Corpuscular Volume 93.5 fL (80.0-98.0); Mean Platelet Volume 10.9 fL (9.4-12.3); Monocytes Absolute Auto 0.4 X10*3/uL (0.1-1.2); Neutrophils Absolute Auto 4.2 x10*3/uL (2.0-8.3); Neutrophils Percent Auto 67.2 % (45-73); Platelet Count 227 X10*3/uL (160-400); Red Blood Count 4.48 X10*6/uL (4.20-5.50); Red Cell Distribution Width 12.9 % (11.0-16.0); White Blood Count 6.3 X10*3/uL (4.8-10.8)
[2022-03-12 11:57] LABS: Alanine Aminotransferase 27 U/L (0-31); Albumin Level 4.5 g/dL (3.5-5.0); Alkaline Phosphatase 83 U/L (39-117); Anion Gap 14 (12-20); Aspartate Amino Transferase 20 U/L (5-31); Bilirubin Total 0.6 mg/dL (0.0-1.0); Blood Urea Nitrogen 15 mg/dL (9-16); Calcium 9.8 mg/dL (8.4-10.2); Carbon Dioxide 29 mmol/L (22-29); Chloride 100 mmol/L (96-108); Cholesterol 193 mg/dL; Estimated Glomerular Filt Rate > 60; Glucose Fasting 91 mg/dL (60-99); HDL Cholesterol 69 mg/dL; LDL Cholesterol Calculated 99 mg/dl; Potassium 4.9 mmol/L (3.3-5.1); Sodium 138 mmol/L (135-145); Triglycerides 128 mg/dL
[2022-03-12 12:05] LABS: Appearance Urine Clear; Color Urine Yellow; Glucose Urine UA Negative (Negative); Leukocyte Esterase Urine Negative (Negative); Nitrite Urine Negative (Negative); PH 6.5 (5.0-9.0); Specific Gravity - Urine 1.015 (1.005-1.025); UMIC TRIGGER UACC YES; Urine Blood Small (1+) (Negative); Urine Ketones Negative (Negative); Urine Protein Negative (Neg-Trace)
[2022-03-12 12:09] LABS: TSH reflex Free T4 1.16 uIU/mL (0.32-4.0); Vitamin D 25-OH Total 38.6 ng/mL (>30)
[2022-03-12 12:48] LABS: Bacteria Urine None Seen (None Seen); Hyaline Casts Urine 0-2 /LPF (0-2); Squamous Epithelial Cell Urine 0-2 /HPF (0-2); WBC Urine 0-5 /HPF (0-5)
== END 2022-03-12 10:47 | disposition home or self-care (01) ==
LOC: HO.LAB 10:46
PROVIDERS: PCP Internal Medicine; Visit Provider Internal Medicine
DX: E78.00 Pure hypercholesterolemia, unspecified (principal); E55.9 Vitamin D deficiency, unspecified; I10 Essential (primary) hypertension
CPT/HCPCS: 36415; 80053; 80061; 81001; 81003; 82306; 84443; 85025

== ENCOUNTER 2022-04-05 13:15 | Outpatient (REF) | payer OTHER, SELFPAY ==
--- NOTE | ~2022-04-05 | MM_ITS ---
EXAMINATION: MM SCREENING DIGITAL BREAST TOMOSYNTHESIS, BILATERAL CLINICAL INFORMATION: Screening. Asymptomatic. Status post left breast lumpectomy. COMPARISON: Mammography: 10/26/2021 and studies dating back to 06/28/2014. TECHNIQUE: Digital breast tomosynthesis is performed in both the craniocaudal and mediolateral oblique views along with computer-aided detection (CAD). Synthesized 2D images are generated from the tomosynthesis. FINDINGS: There are scattered areas of fibroglandular density (ACR BI-RADS breast composition Category b). There is a stable parenchymal pattern of the right breast without abnormal dominant mass or suspicious grouping of calcifications. Postsurgical and postradiation changes are noted about the left breast which are stable. MM/MM tomosynthesis screening BI IMPRESSION: No significant changes from prior exam. ASSESSMENT: BI-RADS 2: Benign. RECOMMENDATION: Routine annual mammography screening. This patient's information was entered into a reminder system with a target due date for their next mammogram.
== END 2022-04-05 13:16 | disposition home or self-care (01) ==
LOC: HO.MAMMO 13:15
PROVIDERS: PCP Internal Medicine; Visit Provider Internal Medicine
DX: Z12.31 Encounter for screening mammogram for malignant neoplasm of breast (principal)
CPT/HCPCS: 77063; 77067

== ENCOUNTER 2022-04-24 10:47 | Outpatient (REF) | payer OTHER, MEDICAID, SELFPAY ==
--- NOTE | ~2022-04-24 | XR_ITS ---
EXAMINATION: XR CHEST CLINICAL INFORMATION: Myalgia. COMPARISON: Chest CT 05/08/2018. TECHNIQUE: 2 views of the chest were obtained. FINDINGS: No significant abnormality is noted involving the heart, lungs, mediastinum, bony thorax or soft tissues. XR/XR chest 2V IMPRESSION: Unremarkable examination.
--- NOTE | ~2022-04-24 | XR_ITS ---
EXAMINATION: XR SINUSES CLINICAL INFORMATION: Fatigue COMPARISON: None TECHNIQUE: 3 views of the sinuses were obtained. FINDINGS: Paranasal sinuses appear clear without air-fluid levels. No fractures are identified. No radiodense foreign bodies. XR/XR sinus min 3V IMPRESSION: Unremarkable examination.
[2022-04-24 10:57] LABS: MANUAL DIFF FLAG NO
[2022-04-24 11:16] LABS: Basophils Absolute Auto 0.1 X10*3/uL (0.0-0.2); Basophils Percent Auto 0.9 % (0-2); Eosinophils Absolute Auto 0.2 X10*3/uL (0.0-0.4); Eosinophils Percent Auto 4.1 % (0-4); Hematocrit 36.9 % (37.0-47.0); Hemoglobin 12.2 g/dl (12.0-16.0); Imm Gran Abs Auto 0.01 X10*3/uL (0.00-0.03); Imm Gran Pct Auto 0.2 % (0.0-0.4); Lymphocytes Absolute Auto 1.4 X10*3/uL (1.2-4.9); Lymphocytes Percent Auto 26.1 % (20-40); Mean Corpuscular HGB Conc 33.1 g/dl (31.0-35.0); Mean Corpuscular Hemoglobin 31.8 pg (27.0-33.0); Mean Corpuscular Volume 96.1 fL (80.0-98.0); Mean Platelet Volume 10.6 fL (9.4-12.3); Monocytes Absolute Auto 0.4 X10*3/uL (0.1-1.2); Monocytes Percent Auto 7.6 % (2-11); Neutrophils Absolute Auto 3.3 x10*3/uL (2.0-8.3); Neutrophils Percent Auto 61.1 % (45-73); Platelet Count 213 X10*3/uL (160-400); Red Blood Count 3.84 X10*6/uL (4.20-5.50); Red Cell Distribution Width 13.5 % (11.0-16.0); White Blood Count 5.4 X10*3/uL (4.8-10.8)
[2022-04-24 11:18] LABS: Appearance Urine Clear; Color Urine Yellow; Glucose Urine UA Negative (Negative); Leukocyte Esterase Urine Trace (Negative); Nitrite Urine Negative (Negative); PH 5.5 (5.0-9.0); UMIC TRIGGER UACC YES; Urine Blood Trace (Negative); Urine Ketones Negative (Negative); Urine Protein Negative (Neg-Trace)
[2022-04-24 11:26] LABS: Bacteria Urine None Seen (None Seen); Hyaline Casts Urine 0-2 /LPF (0-2); RBC Urine 0-2 /HPF (0-2); Squamous Epithelial Cell Urine 0-2 /HPF (0-2); WBC Urine 0-5 /HPF (0-5)
[2022-04-24 11:32] LABS: Alanine Aminotransferase 25 U/L (0-31); Albumin Level 4.2 g/dL (3.5-5.0); Alkaline Phosphatase 69 U/L (39-117); Anion Gap 16 (12-20); Aspartate Amino Transferase 21 U/L (5-31); Bilirubin Total 0.6 mg/dL (0.0-1.0); Blood Urea Nitrogen 14 mg/dL (9-16); Calcium 9.4 mg/dL (8.4-10.2); Carbon Dioxide 27 mmol/L (22-29); Chloride 104 mmol/L (96-108); Estimated Glomerular Filt Rate > 60; Glucose Random 92 mg/dL (60-115); Sodium 142 mmol/L (135-145); Total Protein 6.5 g/dL (6.5-8.0)
[2022-04-24 11:54] LABS: TSH reflex Free T4 1.31 uIU/mL (0.32-4.0)
== END 2022-04-24 10:48 | disposition home or self-care (01) ==
LOC: HO.XRAY 10:47
PROVIDERS: PCP Internal Medicine; Visit Provider Internal Medicine
DX: R53.83 Other fatigue (principal); M79.10 Myalgia, unspecified site; R05.9 Cough, unspecified; R09.81 Nasal congestion; R30.0 Dysuria
CPT/HCPCS: 36415; 70220; 71046; 80053; 81001; 84443; 85025

== ENCOUNTER 2022-07-01 11:00 | Outpatient (REF) | payer OTHER, MEDICAID, MEDICARE, SELFPAY ==
[2022-07-01 11:25] LABS: MANUAL DIFF FLAG NO
[2022-07-01 11:49] LABS: Basophils Percent Auto 0.6 % (0-2); Eosinophils Absolute Auto 0.2 X10*3/uL (0.0-0.4); Eosinophils Percent Auto 3.2 % (0-4); Hemoglobin 13.1 g/dl (12.0-16.0); Imm Gran Abs Auto 0.01 X10*3/uL (0.00-0.03); Imm Gran Pct Auto 0.2 % (0.0-0.4); Lymphocytes Absolute Auto 1.4 X10*3/uL (1.2-4.9); Lymphocytes Percent Auto 21.5 % (20-40); Mean Corpuscular HGB Conc 33.6 g/dl (31.0-35.0); Mean Corpuscular Hemoglobin 31.8 pg (27.0-33.0); Mean Corpuscular Volume 94.7 fL (80.0-98.0); Mean Platelet Volume 10.4 fL (9.4-12.3); Monocytes Absolute Auto 0.5 X10*3/uL (0.1-1.2); Neutrophils Absolute Auto 4.3 x10*3/uL (2.0-8.3); Neutrophils Percent Auto 66.5 % (45-73); Platelet Count 224 X10*3/uL (160-400); Red Blood Count 4.12 X10*6/uL (4.20-5.50); Red Cell Distribution Width 12.2 % (11.0-16.0); White Blood Count 6.5 X10*3/uL (4.8-10.8)
[2022-07-01 12:20] LABS: Alanine Aminotransferase 24 U/L (0-31); Albumin Level 4.2 g/dL (3.5-5.0); Alkaline Phosphatase 79 U/L (39-117); Anion Gap 13 (12-20); Aspartate Amino Transferase 20 U/L (5-31); Bilirubin Total 0.7 mg/dL (0.0-1.0); Blood Urea Nitrogen 19 mg/dL (9-16); Calcium 9.6 mg/dL (8.4-10.2); Carbon Dioxide 29 mmol/L (22-29); Chloride 101 mmol/L (96-108); Cholesterol 191 mg/dL; Estimated Glomerular Filt Rate > 60; Glucose Fasting 93 mg/dL (60-99); HDL Cholesterol 69 mg/dL; LDL Cholesterol Calculated 98 mg/dl; Sodium 138 mmol/L (135-145); Total Protein 6.7 g/dL (6.5-8.0); Triglycerides 123 mg/dL
[2022-07-01 13:47] LABS: Appearance Urine Clear; Color Urine Yellow; Glucose Urine UA Negative (Negative); Leukocyte Esterase Urine Negative (Negative); Nitrite Urine Negative (Negative); PH 6.5 (5.0-9.0); Specific Gravity - Urine 1.015 (1.005-1.025); UMIC TRIGGER UACC YES; Urine Blood Trace (Negative); Urine Ketones Negative (Negative); Urine Protein Negative (Neg-Trace)
[2022-07-01 13:52] LABS: Bacteria Urine None Seen (None Seen); Hyaline Casts Urine 0-2 /LPF (0-2); Squamous Epithelial Cell Urine 0-2 /HPF (0-2); WBC Urine 0-5 /HPF (0-5)
== END 2022-07-01 11:01 | disposition home or self-care (01) ==
LOC: HO.LAB 11:00
PROVIDERS: PCP Internal Medicine; Visit Provider Internal Medicine
DX: E78.00 Pure hypercholesterolemia, unspecified (principal); I10 Essential (primary) hypertension; R30.0 Dysuria; R53.83 Other fatigue; R05.9 Cough, unspecified
CPT/HCPCS: 36415; 80053; 80061; 81001; 85025

== ENCOUNTER 2022-09-02 14:06 | Outpatient (REF) | payer OTHER, MEDICAID, SELFPAY ==
[2022-09-02 16:45] LABS: Urine Cytology See Pathology rpt
== END 2022-09-02 14:07 | disposition home or self-care (01) ==
LOC: HO.LAB 14:06
PROVIDERS: PCP Internal Medicine; Visit Provider Nurse Practitioner Family
DX: R31.29 Other microscopic hematuria (principal); R39.89 Other symptoms and signs involving the genitourinary system; R32 Unspecified urinary incontinence; Z79.899 Other long term (current) drug therapy
CPT/HCPCS: 51798; 88112

== ENCOUNTER 2022-09-27 15:00 | Outpatient (REF) | payer OTHER, MEDICAID, SELFPAY ==
--- NOTE | ~2022-09-27 | US_ITS ---
EXAMINATION: US RETROPERITONEAL COMPLETE (RENAL) CLINICAL INFORMATION: Other microscopic hematuria. COMPARISON: CT abdomen and pelvis 05/04/2021. TECHNIQUE: Real-time imaging of the kidneys and bladder. FINDINGS: RIGHT KIDNEY: 10.0 x 4.4 x 6.7 cm (SAG x AP x TRV). The kidney is normal in size, contour, and echogenicity. Renal cortical thickness is normal. No calculi or focal parenchymal lesions. No hydronephrosis. LEFT KIDNEY: 10.8 x 5.2 x 5.1 cm (SAG x AP x TRV). The kidney is normal in size, contour, and echogenicity. Renal cortical thickness is normal. No calculi or focal parenchymal lesions. No hydronephrosis. BLADDER: Well distended and normal. Bilateral ureteral jets are demonstrated. Prevoid bladder volume is 607 mL. Postvoid bladder volume is 43.1 mL. US/US retroperitoneal comp IMPRESSION: Normal bilateral renal ultrasound. Normal bilateral ureteral jets with small postvoid residual bladder volume.
== END 2022-09-27 15:01 | disposition home or self-care (01) ==
LOC: HO.US 15:00
PROVIDERS: PCP Internal Medicine; Visit Provider Nurse Practitioner Family
DX: R31.29 Other microscopic hematuria (principal)
CPT/HCPCS: 76770

== ENCOUNTER → 2022-10-13 13:32 | Outpatient (BNVA) | payer MEDICARE, MEDICAID, SELFPAY | PROVIDERS: PCP Internal Medicine; Visit Provider Urology | DX: R39.89 Other symptoms and signs involving the genitourinary system (principal); R31.29 Other microscopic hematuria; N32.89 Other specified disorders of bladder | CPT/HCPCS: 52000 ==

== ENCOUNTER → 2022-10-26 14:05 | Outpatient (BNVA) | payer MEDICARE, MEDICAID, SELFPAY | PROVIDERS: PCP Internal Medicine; Referring Provider Internal Medicine; Visit Provider Surgery | DX: C50.912 Malignant neoplasm of unspecified site of left female breast (principal); I89.0 Lymphedema, not elsewhere classified | CPT/HCPCS: 99212; Q3014 ==

== ENCOUNTER 2022-11-22 09:22 | Outpatient (REF) | payer OTHER, SELFPAY ==
[2022-11-22 09:37] LABS: MANUAL DIFF FLAG NO
[2022-11-22 10:50] LABS: Appearance Urine Clear; Color Urine Yellow; Glucose Urine UA Negative (Negative); Leukocyte Esterase Urine Small (1+) (Negative); Nitrite Urine Negative (Negative); PH 5.5 (5.0-9.0); UMIC TRIGGER UACC YES; Urine Blood Small (1+) (Negative); Urine Ketones Negative (Negative); Urine Protein Negative (Neg-Trace)
[2022-11-22 10:53] LABS: Basophils Percent Auto 0.7 % (0-2); Eosinophils Absolute Auto 0.2 X10*3/uL (0.0-0.4); Eosinophils Percent Auto 3.3 % (0-4); Hematocrit 40.7 % (37.0-47.0); Hemoglobin 13.1 g/dl (12.0-16.0); Imm Gran Abs Auto 0.02 X10*3/uL (0.00-0.03); Imm Gran Pct Auto 0.3 % (0.0-0.4); Lymphocytes Absolute Auto 1.6 X10*3/uL (1.2-4.9); Lymphocytes Percent Auto 26.8 % (20-40); Mean Corpuscular HGB Conc 32.2 g/dl (31.0-35.0); Mean Corpuscular Hemoglobin 30.9 pg (27.0-33.0); Mean Platelet Volume 10.9 fL (9.4-12.3); Monocytes Absolute Auto 0.5 X10*3/uL (0.1-1.2); Monocytes Percent Auto 7.8 % (2-11); Neutrophils Absolute Auto 3.7 x10*3/uL (2.0-8.3); Neutrophils Percent Auto 61.1 % (45-73); Platelet Count 240 X10*3/uL (160-400); Red Blood Count 4.24 X10*6/uL (4.20-5.50)
[2022-11-22 11:05] LABS: Bacteria Urine None Seen (None Seen); Hyaline Casts Urine 0-2 /LPF (0-2); RBC Urine 0-2 /HPF (0-2); Squamous Epithelial Cell Urine 0-2 /HPF (0-2); UACC Culture Trigger YES; WBC Urine 0-5 /HPF (0-5)
[2022-11-22 11:46] LABS: Alanine Aminotransferase 23 U/L (0-31); Albumin Level 4.4 g/dL (3.5-5.0); Alkaline Phosphatase 79 U/L (39-117); Anion Gap 13 (12-20); Aspartate Amino Transferase 21 U/L (5-31); Bilirubin Total 0.7 mg/dL (0.0-1.0); Blood Urea Nitrogen 19 mg/dL (9-16); Calcium 9.8 mg/dL (8.4-10.2); Carbon Dioxide 27 mmol/L (22-29); Chloride 106 mmol/L (96-108); Cholesterol 192 mg/dL; Estimated Glomerular Filt Rate > 60; Glucose Fasting 96 mg/dL (60-99); HDL Cholesterol 77 mg/dL; LDL Cholesterol Calculated 88 mg/dl; Potassium 5.2 mmol/L (3.3-5.1); Sodium 141 mmol/L (135-145); Total Protein 6.9 g/dL (6.5-8.0); Triglycerides 138 mg/dL
[2022-11-22 12:05] LABS: TSH reflex Free T4 1.07 uIU/mL (0.32-4.0); Vitamin D 25-OH Total 39.5 ng/mL (>30)
== END 2022-11-22 09:23 | disposition home or self-care (01) ==
LOC: HO.LAB 09:22
PROVIDERS: PCP Internal Medicine; Visit Provider Internal Medicine
DX: E78.00 Pure hypercholesterolemia, unspecified (principal); E55.9 Vitamin D deficiency, unspecified; I10 Essential (primary) hypertension; R82.90 Unspecified abnormal findings in urine
CPT/HCPCS: 36415; 80053; 80061; 81001; 82306; 84443; 85025; 87086

== ENCOUNTER → 2022-12-15 15:05 | Outpatient (BNVA) | payer OTHER, MEDICAID, SELFPAY | PROVIDERS: PCP Internal Medicine; Visit Provider Internal Medicine | DX: I49.3 Ventricular premature depolarization (principal); I49.1 Atrial premature depolarization; I10 Essential (primary) hypertension | CPT/HCPCS: 93005 ==

== ENCOUNTER → 2023-01-25 13:01 | Outpatient (REF) | payer OTHER, MEDICAID, SELFPAY | LOC: HO.SL 13:01 | PROVIDERS: PCP Internal Medicine; Visit Provider Internal Medicine | DX: G47.33 Obstructive sleep apnea (adult) (pediatric) (principal) | CPT/HCPCS: 95806 ==

== ENCOUNTER → 2023-01-25 13:08 | Outpatient (BNV) | payer OTHER, MEDICAID, SELFPAY | PROVIDERS: PCP Internal Medicine; Visit Provider Internal Medicine | DX: G47.33 Obstructive sleep apnea (adult) (pediatric) (principal) | CPT/HCPCS: 95806 ==

== ENCOUNTER 2023-02-21 11:30 | Outpatient (AMB) | payer OTHER, MEDICAID, SELFPAY ==
[2023-02-21 11:31] VITALS: BP 142/87; PULSE 70; O2SAT 94; BMI 39.4
--- NOTE | 2023-02-21 11:31 | A.OFFVIS_ITS ---
Intake Vital Signs 02/21/23 11:31 Height 5 ft 4 in Weight 229 lb 4.492 oz BMI 39.4 BP 142/87 H Blood Pressure Location Rt brachial Position Sitting Pulse 70 Pulse Source Doppler Pulse Oximetry (%) 94 Oxygen Delivery Method Room Air Intake Visit Reasons: Obstructive sleep apnea Allergies Penicillins [PENICILLINS] Allergy (Unknown, Verified 02/21/23 11:36) CHILDHOOD RXN transparent dressing [Tegaderm] Allergy (Verified 02/21/23 11:36) Rash codeine [CODEINE] Adverse Reaction (Intermediate, Verified 02/21/23 11:36) NAUSEA & VOMITING morphine [MORPHINE] Adverse Reaction (Intermediate, Verified 02/21/23 11:36) Bad headache, N/V oxycodone [From PERCOCET] Adverse Reaction (Intermediate, Verified 02/21/23 11:36) NAUSEA & VOMITING HPI Obstructive sleep apnea HPI Details 58-year-old lady with recent diagnosis o f mild obstructive sleep apnea on home sleep study ordered by her profiler referred for follow-up. Patient is interested in CPAP therapy. She does complain of morning headaches, unrestful sleep, and daytime somnolence. [facility] Medical History (Updated 02/02/23 @ 11:28 by Monika Guerra RN) Urinary incontinence Low back pain Anxiety Osteoarthritis of left hip Impacted cerumen of both ears Arthritis Numbness of fingers of both hands Hx of cardiac murmur PONV (postoperative nausea and vomiting) Osteoarthritis of right hip Right hip pain Insomnia Chronic osteoarthritis Obesity (BMI 30-39.9) Depression Secondary and unspecified malignant neoplasm of axilla and upper limb lymph nodes Anemia Malignant neoplasm of left breast Pure hypercholesterolemia Benign essential hypertension Surgical History History of total left hip replacement History of left hip replacement History of total right hip replacement Hx of colonoscopy History of axillary surgery History of left mastectomy History of left breast biopsy History of hernia surgery Family History Father Diabetes Bladder cancer Mother Chronic mental illness Brain cancer Lung cancer Maternal Grandmother Stomach cancer Maternal Grandfather Lung cancer Other Mental health problem Substance abuse Social History Household Members: None Housing: House Are you a primary health care sanitary technician to a significant other at home: No Do you presently have visiting nurse or other home services: No Alcohol intake: current Alcohol intake frequency: holidays/special occasions only Alcohol type: wine Patient Tobacco Use Status: Never used Tobacco e-Cigarette/Vaping Use: Never Used Second Hand Smoke Exposure: Yes Advance Directives Date on File: 12/22/20 service: No Current occupational status: disabled Gender identity: Female Cognitive needs: No Hearing needs: No Vision needs: Yes Review of Systems Const Reports daytime sleepiness, Denies excessive sweating, Reports fatigue, Denies fever(s), Denies lethargy, Denies malaise, Denies night sweats, Reports snoring and Denies weight loss Eyes Denies blurry vision and Denies itchy eyes ENT Denies nasal congestion, Denies post nasal drip, Denies sinus pain, Denies sinus pressure and Denies other ( Thrush) Card Denies chest pain, Denies pedal edema, Denies dyspnea, Denies orthopnea and Denies paroxysmal nocturnal dyspnea Resp Denies cough, Denies hemoptysis, Denies excessive phlegm production, Denies dyspnea, Reports snoring and Denies wheezing GI Denies abdominal pain and Denies heartburn Musc Denies myalgias, Denies arthralgias and Denies joint swelling Skin/Breast Denies rash Neuro Denies memory loss and Denies seizure-like activity Psych Denies abnormal sleep pattern, Denies anxiety and Denies memory loss Endo Denies excessive sweating, Reports fatigue and Denies heat intolerance Janak/Lymph Denies easy bruising Aller/Immun Denies itchy eyes, Denies seasonal rhinorrhea and Denies wheezing Physical Exam Vital Signs: Last Vital Signs Pulse 70 02/21/23 11:31 BP 142/87 H 02/21/23 11:31 Pulse Ox 94 02/21/23 11:31 Oxygen Delivery Method Room Air 02/21/23 11:31 BMI result Body Mass Index 39.4 Const General: no acute distress and alert Nutritional Appearance: obese Orientation/consciousness: Other orientation findings ( oriented) HEENT Head: Yes atraumatic Eyes General: appearance normal, both eyes and all related structures Sclerae: sclerae normal EOM: EOMs intact bilaterally Neck Neck: Yes supple Lymphatic: no lymphadenopathy noted Resp Effort & Inspection: normal respiratory effort and no use of accessory muscles Auscultation: clear to auscultation bilaterally Cardio Rate: regular rate Rhythm: regular rhythm Heart sounds: no gallops, no murmurs and no rubs Skin General skin exam: other ( warm) Extrem General: No clubbing and No cyanosis Assessment & Plan Assessment & Plan (1) DEEP (obstructive sleep apnea): Code(s): G47.33 - Obstructive sleep apnea (adult) (pediatric) Plan: Sleep study reviewed, AHI of 14. Will start on APAP of 6-16 cm of water. Coding Level of Care Code New Pt Level 3 (10041) Diagnoses DEEP (obstructive sleep apnea) G47.33
== END 2023-02-21 13:02 | disposition home or self-care (01) ==
PROVIDERS: PCP Internal Medicine; Visit Provider Internal Medicine Pulmonary Disease
DX: G47.33 Obstructive sleep apnea (adult) (pediatric) (principal)
CPT/HCPCS: 99203

== ENCOUNTER → 2023-02-21 11:30 | Outpatient (BNVA) | payer OTHER, MEDICAID, SELFPAY | PROVIDERS: PCP Internal Medicine; Visit Provider Internal Medicine Pulmonary Disease ==

== ENCOUNTER 2023-02-22 13:46 | Outpatient (AMB) | payer OTHER, MEDICAID, SELFPAY ==
--- NOTE | 2023-02-22 13:47 | A.OFFVIS_ITS ---
Intake Vital Signs 02/22/23 13:48 Height 5 ft 4 in Weight 228 lb 13.437 oz BMI 39.3 BP 140/82 H Blood Pressure Location Rt brachial Position Sitting Pulse 67 Pulse Source Pulse Oximeter Intake Visit Reasons: 2 mth f/up sleep study Intake Note: 2mnth f/u sleep study Spiritual Advisor Required: No Allergies Penicillins [PENICILLINS] Allergy (Unknown, Verified 02/22/23 13:53) CHILDHOOD RXN transparent dressing [Tegaderm] Allergy (Verified 02/22/23 13:53) Rash codeine [CODEINE] Adverse Reaction (Intermediate, Verified 02/22/23 13:53) NAUSEA & VOMITING morphine [MORPHINE] Adverse Reaction (Intermediate, Verified 02/22/23 13:53) Bad headache, N/V oxycodone [From PERCOCET] Adverse Reaction (Intermediate, Verified 02/22/23 13:53) NAUSEA & VOMITING Medication List - Last Reconciled 02/22/23 by Lilian Tolentino [employer] SET UP OPERATOR-C anastrozole 1 mg PO DAILY atorvastatin 80 mg PO DAILY compression sleeve and gauntlet (LympheDiva Arm Sleeve with Gauntlet) As Directed doxycycline hyclate 100 mg PO DAILY 1 day ezetimibe (Zetia) 10 mg PO DAILY ferrous sulfate (Iron (ferrous sulfate)) 325 mg PO DAILY fluoxetine 40 mg PO DAILY 30 days metoprolol tartrate 50 mg PO BID multivitamin 1 tab PO DAILY HPI 2 mth f/up sleep study HPI Details Keyana is a 58-year-old female past medical history [place], obesity who was recently evaluated for heart palpitations. She previously had a Holter monitor showing PVCs and echocardiogram which showed normal EF. On last visit home sleep study was ordered and now she presents for follow-up. Today she reports that overall she has been doing well. She is aware that her sleep study showed mild sleep apnea. She did see the director quality systems to discuss these results. He is ordering a nasal CPAP for her to use. She will feel an occasional heart palpitation but nothing concerning. No sustained rapid or irregular heart rates. No chest discomfort at rest or with activity. No shortness of breath, presyncope, syncope, PND, orthopnea or edema. She has been taking metoprolol 25 mg in the morning and 50 mg at night. She does have some daytime fatigue. Tries to remain active but no routine exercise. Home blood pressures are usually normal ranging 120-130 systolic over 60s to 70s. [facility] Medical History Urinary incontinence Low back pain Anxiety Osteoarthritis of left hip Impacted cerumen of both ears Arthritis Numbness of fingers of both hands Hx of cardiac murmur PONV (postoperative nausea and vomiting) Osteoarthritis of right hip Right hip pain Insomnia Chronic osteoarthritis Obesity (BMI 30-39.9) Depression Secondary and unspecified malignant neoplasm of axilla and upper limb lymph nodes Anemia Malignant neoplasm of left breast Pure hypercholesterolemia Benign essential hypertension Surgical History History of total left hip replacement History of left hip replacement History of total right hip replacement Hx of colonoscopy History of axillary surgery History of left mastectomy History of left breast biopsy History of hernia surgery Family History Father Diabetes Bladder cancer Mother Chronic mental illness Brain cancer Lung cancer Maternal Grandmother Stomach cancer Maternal Grandfather Lung cancer Other Mental health problem Substance abuse Social History Household Members: None Housing: House Are you a primary healthcare representative to a significant other at home: No Do you presently have visiting nurse or other home services: No Alcohol intake: current Alcohol intake frequency: holidays/special occasions only Alcohol type: wine Patient Tobacco Use Status: Never used Tobacco e-Cigarette/Vaping Use: Never Used Second Hand Smoke Exposure: Yes Advance Directives Date on File: 12/22/20 service: No Current occupational status: disabled Gender identity: Female Cognitive needs: No Hearing needs: No Vision needs: Yes Review of Systems Const All systems reviewed & are unremarkable except as noted in HPI and below Reports fatigue ENT Denies dizziness Card Denies chest pain, Denies chest pain at rest, Denies chest pain with activity, Denies rapid heart rate, Denies pedal edema, Denies edema, Denies leg edema, Denies lightheadedness, Denies palpitations, Denies dyspnea, Denies dyspnea on exertion and Denies orthopnea Resp Denies cough, Denies dyspnea and Denies dyspnea on exertion GI Denies hematochezia and Denies change in stool character Musc Denies abnormal gait, Denies limited range of motion, Denies muscle cramps, Denies muscle weakness, Denies numbness, Denies radiating pain into limb, Denies stiffness and Denies tingling Neuro Denies abnormal gait, Denies dizziness, Denies numbness and Denies tingling Endo Reports fatigue and Denies palpitations Physical Exam Vital Signs: Last Vital Signs Pulse 67 02/22/23 13:48 BP 140/82 H 02/22/23 13:48 BMI result Body Mass Index 39.3 Const General: cooperative, healthy appearing, comfortable and no acute distress Orientation/consciousness: patient oriented x3 Neck Neck: Yes normal visual inspection and Yes no JVD Resp Effort & Inspection: normal respiratory effort Auscultation: clear to auscultation bilaterally, no crackles, no rales, no rhonchi and no wheezes Cardio Jugular venous distension: no JVD Rate: regular rate Rhythm: regular rhythm Heart sounds: S1 normal heart sound present, S2 normal heart sound present, no g allops, no murmurs and no rubs Neuro General: patient oriented x3 Extrem General: Yes normal to inspection Psych Appearance: grossly normal Mental Status: mental status grossly normal Speech and movement: Normal speech and movement present Assessment & Plan Assessment & Plan (1) Palpitations: Code(s): R00.2 - Palpitations Plan: Brief heart palpitations likely related to extrasystoles. No sustained rapid or irregular rates. Holter monitor done 08/04/2021 for 3 days showed sinus rhythm with average heart rate 72 to, no significant Zhang or pauses, PVCs 3.4% of time, considered frequent, occasional PACs. Echocardiogram done 09/08/2021 showed EF 62%, mild septal and mild basal asymmetric hypertrophy, no valve abnormalities. She has been on metoprolol for heart rate control. She takes 25 mg in the a.m. and 50 mg in the p.m.. She was previously prescribed to have 50 mg b.i.d. which she feels it is too much. Suggested she try taking 50 mg in the morning and 25 mg in the evening to help control any daytime palpitations. She is concerned about daytime fatigue. She will be starting on CPAP therapy which may improve any daytime fatigue she is experience. She will try changing the metoprolol. Informed that if she does not feel well she can go back to her usual way of taking it. With her PVCs reviewed reduction in any caffeinated beverages, continue activity as tolerated. Cardiology follow-up 6 months, sooner if needed (2) PVC (premature ventricular contraction): Code(s): I49.3 - Ventricular premature depolarization (3) DEEP (obstructive sleep apnea): Code(s): G47.33 - Obstructive sleep apnea (adult) (pediatric) Plan: Recent sleep study showing mild obstructive sleep apnea. Report talks about conservative measures. She did see Dr. Marroquin for further evaluation. He has ordered a nasal CPAP for her which she will hopefully begin in the near future. (4) Obesity (BMI 30-39.9): Code(s): E66.9 - Obesity, unspecified Plan: Benefits of weight loss and increased physical activity reviewed (5) Benign essential hypertension: Code(s): I10 - Essential (primary) hypertension Plan: Office blood pressure 140/82. Home blood pressures reviewed, several readings noted with systolic range 120 to 130, diastolic 60s to 70s. Will have her continue on current metoprolol. If she is able to lose some weight this will help with blood pressure control. Coding Level of Care Code Est Pt Level 3 (73668) Diagnoses Palpitations R00.2 PVC (premature ventricular contraction) I49.3 DEEP (obstructive sleep apnea) G47.33 Obesity (BMI 30-39.9) E66.9 Benign essential hypertension I10 Time Spent (min) 24
[2023-02-22 13:48] VITALS: BP 140/82; PULSE 67; BMI 39.3
== END 2023-02-22 14:22 | disposition home or self-care (01) ==
PROVIDERS: PCP Internal Medicine; Referring Provider Internal Medicine; Visit Provider Nurse Practitioner Family
DX: R00.2 Palpitations (principal); I49.3 Ventricular premature depolarization; G47.33 Obstructive sleep apnea (adult) (pediatric); E66.9 Obesity, unspecified; I10 Essential (primary) hypertension
CPT/HCPCS: 99213

== ENCOUNTER → 2023-02-22 13:46 | Outpatient (BNVA) | payer OTHER, MEDICAID, SELFPAY | PROVIDERS: PCP Internal Medicine; Referring Provider Internal Medicine; Visit Provider Nurse Practitioner Family ==

== ENCOUNTER 2023-03-04 09:51 | Outpatient (REF) | payer OTHER, MEDICAID, SELFPAY ==
[2023-03-04 10:26] LABS: MANUAL DIFF FLAG NO
[2023-03-04 10:55] LABS: Basophils Percent Auto 0.4 % (0-2); Eosinophils Absolute Auto 0.2 X10*3/uL (0.0-0.4); Eosinophils Percent Auto 2.2 % (0-4); Hematocrit 40.1 % (37.0-47.0); Hemoglobin 13.4 g/dl (12.0-16.0); Imm Gran Abs Auto 0.01 X10*3/uL (0.00-0.03); Imm Gran Pct Auto 0.1 % (0.0-0.4); Lymphocytes Absolute Auto 1.6 X10*3/uL (1.2-4.9); Lymphocytes Percent Auto 23.1 % (20-40); Mean Corpuscular HGB Conc 33.4 g/dl (31.0-35.0); Mean Corpuscular Hemoglobin 31.4 pg (27.0-33.0); Mean Corpuscular Volume 93.9 fL (80.0-98.0); Mean Platelet Volume 10.6 fL (9.4-12.3); Monocytes Absolute Auto 0.5 X10*3/uL (0.1-1.2); Monocytes Percent Auto 7.6 % (2-11); Neutrophils Absolute Auto 4.5 x10*3/uL (2.0-8.3); Neutrophils Percent Auto 66.6 % (45-73); Platelet Count 219 X10*3/uL (160-400); Red Blood Count 4.27 X10*6/uL (4.20-5.50); Red Cell Distribution Width 13.2 % (11.0-16.0); White Blood Count 6.7 X10*3/uL (4.8-10.8)
[2023-03-04 12:39] LABS: Alanine Aminotransferase 24 U/L (0-31); Albumin Level 4.3 g/dL (3.5-5.0); Alkaline Phosphatase 68 U/L (39-117); Anion Gap 13 (12-20); Aspartate Amino Transferase 21 U/L (5-31); Bilirubin Total 0.7 mg/dL (0.0-1.0); Blood Urea Nitrogen 15 mg/dL (9-16); Calcium 9.7 mg/dL (8.4-10.2); Carbon Dioxide 29 mmol/L (22-29); Chloride 101 mmol/L (96-108); Cholesterol 184 mg/dL (<200); Estimated Glomerular Filt Rate > 60; Glucose Fasting 92 mg/dL (60-99); HDL Cholesterol 67 mg/dL (>40); LDL Cholesterol Calculated 89 mg/dL (<100); Potassium 4.3 mmol/L (3.3-5.1); Sodium 139 mmol/L (135-145); TSH reflex Free T4 1.33 uIU/mL (0.32-4.0); Triglycerides 142 mg/dL (<150)
[2023-03-04 13:39] LABS: Appearance Urine Clear; Color Urine Yellow; Glucose Urine UA Negative (Negative); Leukocyte Esterase Urine Trace (Negative); Nitrite Urine Negative (Negative); PH 6.5 (5.0-9.0); Specific Gravity - Urine 1.015 (1.005-1.025); UMIC TRIGGER UACC YES; Urine Blood Trace (Negative); Urine Ketones Negative (Negative); Urine Protein Negative (Neg-Trace)
[2023-03-04 13:44] LABS: Bacteria Urine None Seen (None Seen); Hyaline Casts Urine 0-2 /LPF (0-2); Squamous Epithelial Cell Urine 0-2 /HPF (0-2); WBC Urine 0-5 /HPF (0-5)
== END 2023-03-04 09:52 | disposition home or self-care (01) ==
LOC: HO.LAB 09:51
PROVIDERS: PCP Internal Medicine; Visit Provider Internal Medicine
DX: E78.00 Pure hypercholesterolemia, unspecified (principal); I10 Essential (primary) hypertension; E55.9 Vitamin D deficiency, unspecified
CPT/HCPCS: 36415; 80053; 80061; 81001; 82306; 84443; 85025

== ENCOUNTER 2023-03-08 14:11 | Outpatient (AMB) | payer OTHER, MEDICAID, SELFPAY ==
[2023-03-08 14:23] VITALS: BP 130/88; PULSE 65; O2SAT 97; BMI 38.5
--- NOTE | 2023-03-08 14:23 | MHC.PC.OV ---
Vital Signs 03/08/23 14:23 Height 5 ft 4 in Weight 224 lb 6 oz BMI 38.5 BP 130/88 Blood Pressure Location Lt brachial Position Sitting Pulse 65 Pulse Source Pulse Oximeter Pulse Oximetry (%) 97 Oxygen Delivery Method Room Air Intake Visit Reasons: hyperlipidemia, HTN, palpitations It Service Manager Required: No Accompanied by: Self / Same As Patient Allergies Penicillins [PENICILLINS] Allergy (Unknown, Verified 03/08/23 14:41) CHILDHOOD RXN transparent dressing [Tegaderm] Allergy (Verified 03/08/23 14:41) Rash codeine [CODEINE] Adverse Reaction (Intermediate, Verified 03/08/23 14:41) NAUSEA & VOMITING morphine [MORPHINE] Adverse Reaction (Intermediate, Verified 03/08/23 14:41) Bad headache, N/V oxycodone [From PERCOCET] Adverse Reaction (Intermediate, Verified 03/08/23 14:41) NAUSEA & VOMITING Medication List - Last Reconciled 03/08/23 by Brijesh Pineda MD anastrozole 1 mg PO DAILY atorvastatin 80 mg PO DAILY compression sleeve and gauntlet (LympheDiva Arm Sleeve with Gauntlet) As Directed doxycycline hyclate 100 mg PO DAILY 1 day ezetimibe (Zetia) 10 mg PO DAILY ferrous sulfate (Iron (ferrous sulfate)) 325 mg PO DAILY fluoxetine 40 mg PO DAILY 30 days metoprolol tartrate 50 mg PO BID multivitamin 1 tab PO DAILY Tobacco use date assessed: 03/08/23 Dental Screening Dental Screen Date: 03/08/23 Did you have a dental visit in the last 12 months?: Yes Did you have a dental problem in the last 6 months where you did not have access to dental care?: No Was dental information given to patient?: Patient has dentist HPI hyperlipidemia, HTN, palpitations HPI Details Patient comes in today for her follow up visit States that she feels okay She denies any headaches or dizziness Denies any chest pains, no SOB No nausea/vomiting, no abdominal pain No change in bowel habits noted Had her follow up labs done a few days ago - to discuss her results Patient also feels that she is slowly getting more and more forgetful and is wondering if an MRI of the brain or seeing neurology might help answer why she is losing her memory [facility] Medical History Urinary incontinence Low back pain Anxiety Osteoarthritis of left hip Impacted cerumen of both ears Arthritis Numbness of fingers of both hands Hx of cardiac murmur PONV (postoperative nausea and vomiting) Osteoarthritis of right hip Right hip pain Insomnia Chronic osteoarthritis Obesity (BMI 30-39.9) Depression Secondary and unspecified malignant neoplasm of axilla and upper limb lymph nodes Anemia Malignant neoplasm of left breast Pure hypercholesterolemia Benign essential hypertension Surgical History History of total left hip replacement History of left hip replacement History of total right hip replacement Hx of colonoscopy History of axillary surgery History of left mastectomy History of left breast biopsy History of hernia surgery Family History Father Diabetes Bladder cancer Mother Chronic mental illness Brain cancer Lung cancer Maternal Grandmother Stomach cancer Maternal Grandfather Lung cancer Other Mental health problem Substance abuse Social History Household Members: None Housing: House Are you a primary residential child care counselor to a significant other at home: No Do you presently have visiting nurse or other home services: No Alcohol intake: current Alcohol intake frequency: holidays/special occasions only Alcohol type: wine Patient Tobacco Use Status: Never used Tobacco e-Cigarette/Vaping Use: Never Used Second Hand Smoke Exposure: Yes Advance Directives Date on File: 12/22/20 service: No Current occupational status: disabled Gender identity: Female Cognitive needs: No Hearing needs: No Vision needs: Yes Questionnaire PHQ-9 Over the last 2 weeks, how often have you been bothered by any of the following problems? 1. Little interest or pleasure in doing things: not at all 2. Feeling down, depressed, or hopeless: not at all 3. Trouble falling or staying asleep, or sleeping too much: not at all 4. Feeling tired or having little energy: not at all 5. Poor appetite or overeating: not at all 6. Feeling bad about yourself - or that you are a failure or have let yourself or your family down: not at all 7. Trouble concentrating on things, such as reading the newspaper or watching television: not at all 8. Moving or speaking so slowly that other people could have noticed. Or the opposite - being so fidgety or restless that you have been moving around a lot more than usual: not at all 9. Thoughts that you would be better off or of hurting yourself in some way: not at all Total score: 0 Depression Screening Interpretation: Negative 15462 - PHQ-9 Billing: Yes Source: Developed by Drs. Jez Villagran, Daina Agustin, Quirino Hough and colleagues, with an educational fallon from [employer]. Thrive Questionnaire Date Thrive assessed: 03/08/23 I am a: Patient What is your living situation today?: I have a steady place to live Within the past 12 months, did the food you bought not last and you didn't have the money to get more?: Never true Within the past 12 months, did you worry whether your food would run out before you got money to buy more?: Never true Do you have trouble paying for medicines?: No Do you have trouble getting transportation to medical appointments?: No Do you have trouble paying your heating and electricity bill?: No Do you have trouble taking care of your child, family member or friend?: No Do you have trouble with day-to-day activities such as bathing, preparing meals, shopping, managing finances, etc.?: No Are you currently unemployed and looking for a job?: No Are you interested in more education?: No Please select the resources that you would like help with: None Currently or been in a relationship where the following occur: no concerns reported AUDIT C Alcohol Use Questionnaire (AUDIT-C) 1. How often do you have a drink containing alcohol?: Monthly or less 2. How many drinks containing alcohol do you have on a typical day when you are drinking?: 3 or 4 3. How often do you have six or more drinks on one occasion?: Never Total Score: 2 Score Reviewed/Action Taken: Yes FITZ-7 AMB Questionnaire FITZ-7 Date FITZ - 7 assessed: 03/08/23 Feeling nervous, anxious, or on edge: 0 = Not at all Not being able to stop or control worryin = Not at all Worrying too much about different things: 0 = Not at all Trouble relaxin = Not at all Being so restless that it is hard to sit still: 0 = Not at all Becoming easily annoyed or irritable: 0 = Not at all Feeling afraid as if something awful might happen: 0 = Not at all Total FITZ-7 score (0-4 normal; 5-9 mild; 10-14 moderate; 15-21 severe): 0 Source: Developed by Drs. Jez Villagran, Daina Agustin, Quirino Hough and colleagues, with an educational fallon from [employer]. FITZ-7 Assessment Billing FITZ-7 Assessment Tool: FITZ-7 Assessment 64081 Review of Systems Const Denies chills, Reports fatigue, Denies fever(s) and Denies headache(s) ENT Denies dysphagia, Denies dizziness, Denies otalgia, Denies headache(s), Denies neck pain, Denies odynophagia and Denies sore throat Card Denies chest pain, Denies rapid heart rate, Reports palpitations (intermittent) and Denies dyspnea Resp Denies chest congestion, Denies cough and Denies dyspnea GI Denies abdominal pain, Denies constipation, Denies dysphagia, Denies heartburn, Denies diarrhea, Denies nausea, Denies odynophagia and Denies vomiting Denies difficulty voiding, Denies nocturia, Denies dysuria, Reports urinary incontinence and Reports urinary urgency Musc Reports arthralgias (left knee, left shoulder) and Denies neck pain Neuro Denies dizziness, Denies headache(s) and Reports memory loss Psych Reports memory loss Endo Reports fatigue and Reports palpitations (intermittent) Janak/Lymph Details: (+) chronic swelling of the entire left upper extremity Physical exam (Primary Care) Vital Signs: Last Vital Signs Pulse 65 03/08/23 14:23 BP 130/88 03/08/23 14:23 Pulse Ox 97 03/08/23 14:23 Oxygen Delivery Method Room Air 03/08/23 14:23 BMI result Body Mass Index 38.5 Tobacco/Smoking Status: Tobacco use Status Tobacco use date assessed 03/08/23 03/08/23 14:30 Patient Tobacco Use Status Never used Tobacco 03/08/23 14:30 e-Cigarette/Vaping Use Never Used 03/08/23 14:30 PHQ-9: PHQ-9 Score PHQ-9: Total score 0 03/08/23 14:30 Depression Screening Interpretation: Negative Thrive Assessment: Date of Thrive Assessment Date Thrive assessed 03/08/23 03/08/23 14:30 Currently or been in a relationship where the following occur: no concerns reported Const General: no acute distress and alert HENMT Ears: TM's normal bilaterally and EAC's normal Throat: Yes posterior oropharynx normal and Yes tonsils normal (no TP congestion noted) Neck Neck: Yes no lymphadenopathy and Yes supple Resp Auscultation: no rales, rhonchi (occasional) and no wheezes Cardio Rate: regular rate Rhythm: regular rhythm Heart sounds: no murmurs GI Palpation (GI): Soft to palpation and nontender Auscultation: normal bowel sounds Skin Rashes: no rashes Extrem Other: (+) lymphedema of the left arm and hand General: Yes no clubbing, cyanosis or edema Left lower extremity: hip/thigh Details: tenderness Location: of the hip Results Reviewed Results Reviewed: Laboratory Tests 03/04/23 03/04/23 03/04/23 10:24 10:24 10:25 WBC 6.7 Hgb 13.4 Hct 40.1 Plt Count 219 Sodium 139 Potassium 4.3 Creatinine 0.73 Estimated GFR > 60 Fasting Glucose 92 Calcium 9.7 AST ALT Triglycerides 142 Cholesterol 184 LDL Cholesterol, Calc 89 HDL Cholesterol 67 25-OH Vitamin D Total 48.0 TSH 1.33 Ur Specific Spring 1.015 Urine Protein Negative Urine Glucose (UA) Negative Urine Blood Trace H 03/04/23 03/04/23 10:25 10:25 WBC Hgb Hct Plt Count Sodium Potassium Creatinine Estimated GFR Fasting Glucose Calcium AST 21 ALT 24 Triglycerides Cholesterol LDL Cholesterol, Calc HDL Cholesterol 25-OH Vitamin D Total TSH Ur Specific Spring Urine Protein Urine Glucose (UA) Urine Blood Assessment and Plan Assessment & Plan (1) Palpitations: Code(s): R00.2 - Palpitations Plan: Work ups done last year, including echocardiogram, labs and Holter monitor (showed frequent PVCs and occasional PACs), were all unrevealing She is now seeing cardiology and more recently, have recommended she try switching up her Metoprolol to 50 mg in AM and 25 mg in PM - states that she did this recently and feels that her palpitations seem better controlled on this regimen (2) Pure hypercholesterolemia: Code(s): E78.00 - Pure hypercholesterolemia, unspecified Plan: Results of her labs done a few days ago reviewed and discussed with patient Reinforced low cholesterol diet Continue Atorvastatin 80 mg QD and Ezetimibe 10 mg QD Will recheck her labs and fasting lipids in 3 months for follow up (3) Benign essential hypertension: Code(s): I10 - Essential (primary) hypertension Plan: Reinforced low sodium diet - goal is systolic BP of at least 130 mm or less Continue Metoprolol 50 mg in AM and 25 mg in PM (4) DEEP (obstructive sleep apnea): Code(s): G47.33 - Obstructive sleep apnea (adult) (pediatric) Plan: Was recently diagnosed with DEEP on sleep study Recommend APAP of 6 to 16 cm of water and Dr[address] Marroquin is currently trying to get patient approved for a nasal CPAP device Follow up with Sleep Medicine as scheduled (5) Osteoarthritis of left hip: Code(s): M16.12 - Unilateral primary osteoarthritis, left hip Qualifiers: Osteoarthritis type: primary Qualified Code(s): M16.12 - Unilateral primary osteoarthritis, left hip Plan: S/P total left hip arthroplasty with Dr. Pulido last month on 06/16/2021 - is currently doing well with significant improvement of symptoms Follow up with orthopedics as scheduled (6) Malignant neoplasm of left breast: Code(s): C50.912 - Malignant neoplasm of unspecified site of left female breast Qualifiers: Breast location: unspecified site of breast Estrogen receptor status: positive Patient sex: female Qualified Code(s): C50.912 - Malignant neoplasm of unspecified site of left female breast; Z17.0 - Estrogen receptor positive status [ER+] Plan: Had invasive ductal carcinoma of the left breast, S/P lumpectomy and axillary node dissection on 04/05/2018. Stage IIA. Pathology: Grade 2, 3.6 cm with associated DCIS nuclear grade 2 with necrosis. Metastatic carcinoma seen in 6/16 lymph nodes. Margins negative, ER/ME positive, HER-2 negative Patient completed adjuvant chemotherapy with Taxoterene and Cytoxan - 1st cycle was administered on 05/17/2018, every 3 weeks and last cycle was given on 07/19/2018 Continue on Anastrozole 1 mg QD Follow-up with Oncology as scheduled (7) Secondary and unspecified malignant neoplasm of axilla and upper limb lymph nodes: Code(s): C77.3 - Secondary and unspecified malignant neoplasm of axilla and upper limb lymph nodes Plan: S/P lymph node dissection Follow-up with Oncology as scheduled for continuing surveillance (8) Lymphedema of left arm: Code(s): I89.0 - Lymphedema, not elsewhere classified Plan: Patient currently has a lymphedema sleeve on - is reminded to wear her sleeve as needed to help keep her left arm swelling down and more manageable (9) Anemia: Code(s): D64.9 - Anemia, unspecified Qualifiers: Anemia type: unspecified type Qualified Code(s): D64.9 - Anemia, unspecified Plan: Improved/corrected - was most likely related to her chemotherapy Will continue to monitor her CBC regularly (10) Memory impairment: Code(s): R41.3 - Other amnesia Plan: Per request, will refer her to neurology for further evaluation and management (11) Urinary incontinence: Code(s): R32 - Unspecified urinary incontinence Qualifiers: Urinary Incontinence type: unspecified incontinence Qualified Code(s): R32 - Unspecified urinary incontinence Plan: Follow up with urology as scheduled (12) Depression: Code(s): F32.9 - Major depressive disorder, single episode, unspecified Qualifiers: Depression Type: unspecified Qualified Code(s): F32.9 - Major depressive disorder, single episode, unspecified Plan: Is currently on Fluoxetine 40 mg QD - she lowered her dose previously to 10 mg QD but eventually went back up to 60 mg daily on her ownwhen she started having trouble sleeping at night, thinking that it might help her sleep - states that she has not noticed any difference so far Is advised to try going back down to Fluoxetine 20 mg QD and at that time, if she still has trouble sleeping, we can start her on a trial of Mirtazapine 7.5 mg Q HS Discussed that Mirtazapine can help with sleep - patient will call for Rx when needed in a few weeks (13) Obesity (BMI 30-39.9): Code(s): E66.9 - Obesity, unspecified Plan: Reinforced diet/exercise as tolerated/lose weight Plan Follow up in 3 months Orders: Referrals Neurology Referral R41.3 - Other amnesia Coding Level of Care Code Est Pt Level 4 (14924) Diagnoses Palpitations R00.2 Pure hypercholesterolemia E78.00 Benign essential hypertension I10 DEEP (obstructive sleep apnea) G47.33 Primary osteoarthritis of left hip M16.12 Osteoarthritis type: primary Malignant neoplasm of left breast in female, estrogen receptor positive, unspecified site of breast C50.912; Z17.0 Breast location: unspecified site of breast Estrogen receptor status: positive Patient sex: female Secondary and unspecified malignant neoplasm of axilla and upper limb lymph nodes C77.3 Lymphedema of left arm I89.0 Anemia, unspecified type D64.9 Anemia type: unspecified type Memory impairment R41.3 Urinary incontinence, unspecified type R32 Urinary Incontinence type: unspecified incontinence Depression, unspecified depression type F32.9 Depression Type: unspecified Obesity (BMI 30-39.9) E66.9 Additional Codes FITZ-7 Assessment Billing - FITZ-7 Assessment Tool: FITZ-7 Assessment [id number] ([id number])
== END 2023-03-08 15:08 | disposition home or self-care (01) ==
PROVIDERS: PCP Internal Medicine; Visit Provider Internal Medicine
DX: E78.00 Pure hypercholesterolemia, unspecified (principal); I10 Essential (primary) hypertension; I89.0 Lymphedema, not elsewhere classified; D64.9 Anemia, unspecified
CPT/HCPCS: 99214

== ENCOUNTER 2023-03-10 10:58 | Outpatient (REF) | payer OTHER, MEDICAID, SELFPAY ==
[2023-03-10 14:31] LABS: Vitamin B12 839 pg/mL (200-900)
== END 2023-03-10 10:59 | disposition home or self-care (01) ==
LOC: HO.LAB 10:58
PROVIDERS: PCP Internal Medicine; Visit Provider Psychiatry & Neurology Neurology
DX: G31.84 Mild cognitive impairment of uncertain or unknown etiology (principal)
CPT/HCPCS: 36415; 82607

== ENCOUNTER 2023-04-11 12:30 | Outpatient (REF) | payer OTHER, MEDICAID, SELFPAY ==
--- NOTE | ~2023-04-11 | MM_ITS ---
EXAMINATION: MM SCREENING DIGITAL BREAST TOMOSYNTHESIS, BILATERAL CLINICAL INFORMATION: Screening. Asymptomatic. The patient is status post left breast surgery for a history of cancer. COMPARISON: Mammography: This study is compared with prior exams dating back to 2018. TECHNIQUE: Digital breast tomosynthesis is performed in both the craniocaudal and mediolateral oblique views along with computer-aided detection (CAD). Synthesized 2D images are generated from the tomosynthesis. FINDINGS: There are scattered areas of fibroglandular density (ACR BI-RADS breast composition Category b). There are no significant masses, abnormal calcifications, or other abnormalities. Post surgical changes are present in the upper-outer quadrant of the left breast from prior cancer surgery. MM/MM tomosynthesis screening BI IMPRESSION: No mammographic evidence of malignancy. ASSESSMENT: BI-RADS BI-RADS 2 - Benign Findings RECOMMENDATION: Routine annual mammography screening. 1 year F/U This examination should not preclude the clinical evaluation of a suspicious palpable abnormality. This patient's information was entered into a reminder system with a target due date for their next mammogram.
== END 2023-04-11 12:31 | disposition home or self-care (01) ==
LOC: HO.MAMMO 12:30
PROVIDERS: PCP Internal Medicine; Visit Provider Internal Medicine
DX: Z12.31 Encounter for screening mammogram for malignant neoplasm of breast (principal)
CPT/HCPCS: 77063; 77067

== ENCOUNTER → 2023-04-11 12:30 | Outpatient (BNV) | payer OTHER, MEDICAID, SELFPAY | PROVIDERS: PCP Internal Medicine; Visit Provider Radiology Diagnostic Radiology | DX: Z12.31 Encounter for screening mammogram for malignant neoplasm of breast (principal) | CPT/HCPCS: 77063; 77067 ==

== ENCOUNTER 2023-05-03 13:29 | Outpatient (AMB) | payer OTHER, MEDICAID, SELFPAY ==
--- NOTE | 2023-05-03 13:30 | A.OFFVIS_ITS ---
Intake Vital Signs 05/03/23 13:47 Height 5 ft 4 in Weight 226 lb BMI 38.8 BP 160/74 H Blood Pressure Location Lt brachial Position Sitting Pulse 67 Intake Visit Reasons: 6 mth breast exam Intake Note: Patient is seen in office for 6 month follow up visit, breast exam. 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 Required: No Accompanied by: Self / Same As Patient Allergies Penicillins [PENICILLINS] Allergy (Unknown, Verified 05/03/23 13:47) CHILDHOOD RXN transparent dressing [Tegaderm] Allergy (Verified 05/03/23 13:47) Rash codeine [CODEINE] Adverse Reaction (Intermediate, Verified 05/03/23 13:47) NAUSEA & VOMITING morphine [MORPHINE] Adverse Reaction (Intermediate, Verified 05/03/23 13:47) Bad headache, N/V oxycodone [From PERCOCET] Adverse Reaction (Intermediate, Verified 05/03/23 13:47) NAUSEA & VOMITING Medication List - Last Reconciled 05/03/23 by Don Campbell MD anastrozole 1 mg PO DAILY atorvastatin 80 mg PO DAILY compression sleeve and gauntlet (LympheDiva Arm Sleeve with Gauntlet) As Directed doxycycline hyclate 100 mg PO DAILY 1 day ezetimibe (Zetia) 10 mg PO DAILY ferrous sulfate (Iron (ferrous sulfate)) 325 mg PO DAILY fluoxetine 40 mg PO DAILY metoprolol tartrate 50 mg PO DAILY multivitamin 1 tab PO DAILY HPI HPI Comments History of Present Illness Details 58-year-old female returning for follow- up breast examination with a personal history of left breast cancer. 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 Pathology revealed invasive ductal carcinoma with ductal carcinoma in situ, 6 of 16 lymph nodes with metastatic disease (P T2 N2 a). She subsequently was evaluated by Dr. Harris and underwent chemotherapy with Taxotere and Cytoxan x 4 cycles completed on 07/19/2018 followed by radiation therapy. She continues to report soreness in the left arm when reaching overhead and left arm lymphedema. She continues to wear compression sleeve for the left arm which helps. She is currently on anastrozole and is tolerating this well. Her last mammogram dated 04/11/2023 revealed no mammographic evidence of malignancy and routine annual screening is recommended (BI-RADS 2). She was evaluated by Dr. Bhatt for repair of the complex abdominal wall hernia. She recommended losing 30 lb which she is having difficulty achieving. She denies any new breast symptoms. [facility] Medical History Urinary incontinence Low back pain Anxiety Osteoarthritis of left hip Impacted cerumen of both ears Arthritis Numbness of fingers of both hands Hx of cardiac murmur PONV (postoperative nausea and vomiting) Osteoarthritis of right hip Right hip pain Insomnia Chronic osteoarthritis Obesity (BMI 30-39.9) Depression Secondary and unspecified malignant neoplasm of axilla and upper limb lymph nodes Anemia Malignant neoplasm of left breast Pure hypercholesterolemia Benign essential hypertension Surgical History History of total left hip replacement History of left hip replacement History of total right hip replacement Hx of colonoscopy History of axillary surgery History of left mastectomy History of left breast biopsy History of hernia surgery Family History Father Diabetes Bladder cancer Mother Chronic mental illness Brain cancer Lung cancer Maternal Grandmother Stomach cancer Maternal Grandfather Lung cancer Other Mental health problem Substance abuse Household Members: None Housing: House Are you a primary patient care manager to a significant other at home: No Do you presently have visiting nurse or other home services: No Alcohol intake: current Alcohol intake frequency: holidays/special occasions only Alcohol type: wine Patient Tobacco Use Status: Never used Tobacco e-Cigarette/Vaping Use: Never Used Second Hand Smoke Exposure: Yes Advance Directives Date on File: 12/22/20 service: No Current occupational status: disabled Gender identity: Female Cognitive needs: No Hearing needs: No Vision needs: Yes Review of Systems Const Denies chills, Denies fever(s), Denies headache(s) and Denies poor appetite ENT Denies dizziness and Denies headache(s) Card Denies chest pain, Denies rapid heart rate, Denies palpitations and Denies slow heart rate Resp Denies chest congestion, Denies cough, Denies pain on inspiration and Denies wheezing GI Denies abdominal pain, Denies bloating, Denies change in stool character, Denies constipation, Denies diarrhea, Denies nausea, Denies vomiting and Denies hematemesis Musc Denies back pain, Denies arthralgias, Denies joint swelling and Denies numbness Skin/Breast Details: Denies breast mass, skin change, nipple discharge, enlarged lymph nodes in either breast Denies change in pigmentation, Denies erythema and Denies rash Neuro Denies confusion, Denies dizziness, Denies headache(s) and Denies numbness Psych Denies anxiety, Denies confusion and Denies depression Endo Denies palpitations Janak/Lymph Denies easy bleeding, Denies easy bruising and Denies lymphadenopathy Aller/Immun Denies wheezing Physical Exam Const General: No confusion Nutritional Appearance: well nourished Orientation/consciousness: No confusion Eyes Sclerae: sclerae normal EOM: EOMs intact bilaterally Neck Neck: Yes normal visual inspection Chest Other: Left breast with a well-healed incision in the upper inner quadrant with no palpable mass, skin change, nipple discharge or enlarged lymph nodes. Left arm lymphedema unchanged. Right breast with no skin change, nipple discharge, palpable mass, or enlarged lymph nodes. Resp Effort & Inspection: normal respiratory effort, no cough and no respiratory dis tress Cardio Jugular venous distension: no JVD GI Inspection: Yes normal to inspection Skin General skin exam: dry skin Rashes: no rashes Neuro General: No confusion Extrem Other: Left arm lymphedema, sleeve in place. No edema right arm Assessment & Plan Assessment & Plan (1) Invasive ductal carcinoma of left breast: Code(s): C50.912 - Malignant neoplasm of unspecified site of left female breast Plan: Patient is doing well with no evidence of recurrent disease at this time. Her most recent mammogram 04/11/2023 reveals no suspicious findings (BI-RADS 2). She should follow up in 6 months and continue her follow-up with Dr. Harris. She is welcome to call sooner for any new concerns. (2) Lymphedema of left arm: Code(s): I89.0 - Lymphedema, not elsewhere classified Medications: Changed From metoprolol tartrate 25mg in the morning 50mg at night. 50 mg PO BID 180 tabs 1RF I10 - Essential (primary) hypertension To metoprolol tartrate 50mg in the morning 25mg at night. 50 mg PO DAILY I10 - Essential (primary) hypertension Coding Level of Care Code Est Pt Level 3 (69476) Diagnoses Invasive ductal carcinoma of left breast C50.912 Lymphedema of left arm I89.0
[2023-05-03 13:47] VITALS: BP 160/74; PULSE 67; BMI 38.8
== END 2023-05-03 13:50 | disposition home or self-care (01) ==
PROVIDERS: PCP Internal Medicine; Visit Provider Surgery
DX: C50.912 Malignant neoplasm of unspecified site of left female breast (principal); I89.0 Lymphedema, not elsewhere classified
CPT/HCPCS: 99213

== ENCOUNTER → 2023-05-03 13:29 | Outpatient (BNVA) | payer OTHER, MEDICAID, SELFPAY | PROVIDERS: PCP Internal Medicine; Visit Provider Surgery ==

== ENCOUNTER 2023-06-02 13:17 | Outpatient (AMB) | payer OTHER, MEDICAID, SELFPAY ==
[2023-06-02 13:20] VITALS: BP 119/77; PULSE 70; O2SAT 95; BMI 39.2
--- NOTE | 2023-06-02 13:20 | MHC.OFFVIS ---
Intake Vital Signs 06/02/23 13:20 Height 5 ft 4 in Weight 228 lb 2.855 oz BMI 39.2 BP 119/77 Blood Pressure Location Rt brachial Position Sitting Pulse 70 Pulse Source Doppler Pulse Oximetry (%) 95 Oxygen Delivery Method Room Air Intake Visit Reasons: Obstructive sleep apnea Allergies Penicillins [PENICILLINS] Allergy (Unknown, Verified 06/02/23 13:24) CHILDHOOD RXN transparent dressing [Tegaderm] Allergy (Verified 06/02/23 13:24) Rash codeine [CODEINE] Adverse Reaction (Intermediate, Verified 06/02/23 13:24) NAUSEA & VOMITING morphine [MORPHINE] Adverse Reaction (Intermediate, Verified 06/02/23 13:24) Bad headache, N/V oxycodone [From PERCOCET] Adverse Reaction (Intermediate, Verified 06/02/23 13:24) NAUSEA & VOMITING HPI Obstructive sleep apnea HPI Details 58-year-old lady followed for underlying [id number] obstructive sleep apnea, now on CPAP therapy. Patient has been using her CPAP with good control of her sleep apnea symptoms until she has developed sinusitis/otitis and she has had to stop using her CPAP machine until her symptoms improved. Patient was treated with a course of azithromycin with partial of her symptoms. [facility] Medical History Urinary incontinence Low back pain Anxiety Osteoarthritis of left hip Impacted cerumen of both ears Arthritis Numbness of fingers of both hands Hx of cardiac murmur PONV (postoperative nausea and vomiting) Osteoarthritis of right hip Right hip pain Insomnia Chronic osteoarthritis Obesity (BMI 30-39.9) Depression Secondary and unspecified malignant neoplasm of axilla and upper limb lymph nodes Anemia Malignant neoplasm of left breast Pure hypercholesterolemia Benign essential hypertension Surgical History History of total left hip replacement History of left hip replacement History of total right hip replacement Hx of colonoscopy History of axillary surgery History of left mastectomy History of left breast biopsy History of hernia surgery Family History Father Diabetes Bladder cancer Mother Chronic mental illness Brain cancer Lung cancer Maternal Grandmother Stomach cancer Maternal Grandfather Lung cancer Other Mental health problem Substance abuse Social History Household Members: None Housing: House Are you a primary ambulatory care to a significant other at home: No Do you presently have visiting nurse or other home services: No Alcohol intake: current Alcohol intake frequency: holidays/special occasions only Alcohol type: wine Comment: aware of trip hazard Patient Tobacco Use Status: Never used Tobacco e-Cigarette/Vaping Use: Never Used Second Hand Smoke Exposure: Yes Advance Directives Date on File: 12/22/20 service: No Current occupational status: disabled Gender identity: Female Cognitive needs: No Hearing needs: No Vision needs: Yes Review of Systems Const Denies daytime sleepiness, Denies excessive sweating, Denies fatigue, Denies fever(s), Denies lethargy, Denies malaise, Denies night sweats, Denies snoring and Denies weight loss Eyes Denies blurry vision and Denies itchy eyes ENT Reports nasal congestion, Reports post nasal drip, Denies sinus pain, Denies sinus pressure and Denies other ( Thrush) Card Denies chest pain, Denies pedal edema, Denies dyspnea, Denies orthopnea and Denies paroxysmal nocturnal dyspnea Resp Denies cough, Denies hemoptysis, Denies excessive phlegm production, Denies dyspnea, Denies snoring and Denies wheezing GI Denies abdominal pain and Denies heartburn Musc Denies myalgias, Denies arthralgias and Denies joint swelling Skin/Breast Denies rash Neuro Denies memory loss and Denies seizure-like activity Psych Denies abnormal sleep pattern, Denies anxiety and Denies memory loss Endo Denies excessive sweating, Denies fatigue and Denies heat intolerance Janak/Lymph Denies easy bruising Aller/Immun Denies itchy eyes, Denies seasonal rhinorrhea and Denies wheezing Physical Exam Vital Signs: Last Vital Signs Pulse 70 06/02/23 13:20 BP 119/77 06/02/23 13:20 Pulse Ox 95 06/02/23 13:20 Oxygen Delivery Method Room Air 06/02/23 13:20 BMI result Body Mass Index 39.2 Const General: no acute distress and alert Nutritional Appearance: not obese Orientation/consciousness: Other orientation findings ( oriented) HEENT Head: Yes atraumatic Eyes General: appearance normal, both eyes and all related structures Sclerae: sclerae normal EOM: EOMs intact bilaterally Neck Neck: Yes supple Lymphatic: no lymphadenopathy noted Resp Effort & Inspection: normal respiratory effort and no use of accessory muscles Auscultation: clear to auscultation bilaterally Cardio Rate: regular rate Rhythm: regular rhythm Heart sounds: no gallops, no murmurs and no rubs Skin General skin exam: other ( warm) Extrem General: No clubbing, No cyanosis and No edema Assessment & Plan Assessment & Plan (1) DEEP (obstructive sleep apnea): Code(s): G47.33 - Obstructive sleep apnea (adult) (pediatric) Plan: Previously well controlled on CPAP, recently patient had to stop using CPAP secondary to development of sinusitis/otitis. Patient to restart CPAP after resolution of her current symptoms. (2) Otitis: Code(s): H66.90 - Otitis media, unspecified, unspecified ear Plan: Partially treated with a course of azithromycin, will treat with a course of doxycycline. Medications: New doxycycline monohydrate 100 mg PO BID 14 caps 0RF Discontinued doxycycline hyclate dental prophylaxis-take 1 tab 1hr prior to dental exam Discontinued Reason: Doctor's Order 100 mg PO DAILY 1 tab 6RF 1 day Coding Level of Care Code Est Pt Level 4 (32860) Diagnoses DEEP (obstructive sleep apnea) G47.33 Otitis H66.90
== END 2023-06-02 13:48 | disposition home or self-care (01) ==
PROVIDERS: PCP Internal Medicine; Visit Provider Internal Medicine Pulmonary Disease
DX: G47.33 Obstructive sleep apnea (adult) (pediatric) (principal); H66.90 Otitis media, unspecified, unspecified ear
CPT/HCPCS: 99214

== ENCOUNTER → 2023-06-02 13:17 | Outpatient (BNVA) | payer OTHER, MEDICAID, SELFPAY | PROVIDERS: PCP Internal Medicine; Visit Provider Internal Medicine Pulmonary Disease | DX: G47.33 Obstructive sleep apnea (adult) (pediatric) (principal) ==

== ENCOUNTER 2023-06-16 14:20 | Outpatient (REF) | payer OTHER, MEDICAID, SELFPAY | END 2023-06-16 14:21 | disposition home or self-care (01) | LOC: HO.MAMMO 14:20 | PROVIDERS: PCP Internal Medicine; Visit Provider Internal Medicine | DX: Z13.820 Encounter for screening for osteoporosis (principal); M85.80 Other specified disorders of bone density and structure, unspecified site; Z78.0 Asymptomatic menopausal state; Z85.3 Personal history of malignant neoplasm of breast | CPT/HCPCS: 77080 ==

== ENCOUNTER 2023-07-04 12:45 | Outpatient (REF) | payer OTHER, MEDICAID, SELFPAY ==
[2023-07-04 12:59] LABS: MANUAL DIFF FLAG NO
[2023-07-04 14:19] LABS: Basophils Percent Auto 0.5 % (0-2); Eosinophils Absolute Auto 0.2 X10*3/uL (0.0-0.4); Eosinophils Percent Auto 3.4 % (0-4); Hematocrit 40.4 % (37.0-47.0); Hemoglobin 13.3 g/dl (12.0-16.0); Imm Gran Abs Auto 0.01 X10*3/uL (0.00-0.03); Imm Gran Pct Auto 0.2 % (0.0-0.4); Lymphocytes Absolute Auto 1.5 X10*3/uL (1.2-4.9); Mean Corpuscular HGB Conc 32.9 g/dl (31.0-35.0); Mean Corpuscular Hemoglobin 31.5 pg (27.0-33.0); Mean Corpuscular Volume 95.7 fL (80.0-98.0); Mean Platelet Volume 10.9 fL (9.4-12.3); Monocytes Absolute Auto 0.4 X10*3/uL (0.1-1.2); Monocytes Percent Auto 6.8 % (2-11); Neutrophils Percent Auto 65.1 % (45-73); Platelet Count 224 X10*3/uL (160-400); Red Blood Count 4.22 X10*6/uL (4.20-5.50); Red Cell Distribution Width 12.7 % (11.0-16.0); White Blood Count 6.2 X10*3/uL (4.8-10.8)
[2023-07-04 15:35] LABS: Appearance Urine Clear; Color Urine Yellow; Glucose Urine UA Negative (Negative); Leukocyte Esterase Urine Negative (Negative); Nitrite Urine Negative (Negative); Specific Gravity - Urine 1.015 (1.005-1.025); UMIC TRIGGER UACC YES; Urine Blood Small (1+) (Negative); Urine Ketones Negative (Negative); Urine Protein Negative (Neg-Trace)
[2023-07-04 15:47] LABS: Bacteria Urine None Seen (None Seen); Hyaline Casts Urine 0-2 /LPF (0-2); RBC Urine 0-2 /HPF (0-2); Squamous Epithelial Cell Urine 0-2 /HPF (0-2); WBC Urine 0-5 /HPF (0-5)
[2023-07-04 15:49] LABS: Alanine Aminotransferase 23 U/L (0-31); Albumin Level 4.3 g/dL (3.5-5.0); Alkaline Phosphatase 74 U/L (39-117); Anion Gap 13 (12-20); Aspartate Amino Transferase 17 U/L (5-31); Bilirubin Total 0.6 mg/dL (0.0-1.0); Blood Urea Nitrogen 21 mg/dL (9-16); Calcium 9.8 mg/dL (8.4-10.2); Carbon Dioxide 30 mmol/L (22-29); Chloride 102 mmol/L (96-108); Cholesterol 182 mg/dL (<200); Estimated Glomerular Filt Rate > 60; Glucose Fasting 86 mg/dL (60-99); HDL Cholesterol 75 mg/dL (>40); LDL Cholesterol Calculated 88 mg/dL (<100); Potassium 4.6 mmol/L (3.3-5.1); Sodium 140 mmol/L (135-145); Total Protein 7.1 g/dL (6.5-8.0); Triglycerides 98 mg/dL (<150)
[2023-07-04 15:51] LABS: TSH reflex Free T4 0.97 uIU/mL (0.32-4.0); Vitamin D 25-OH Total 39.7 ng/mL (>30)
[2023-07-04 16:02] LABS: Folate 13.6 ng/mL (> or = 4.0); Vitamin B12 694 pg/mL (200-900)
== END 2023-07-04 12:46 | disposition home or self-care (01) ==
LOC: HO.LAB 12:45
PROVIDERS: PCP Internal Medicine; Visit Provider Internal Medicine
DX: D64.9 Anemia, unspecified (principal); E78.00 Pure hypercholesterolemia, unspecified; E53.8 Deficiency of other specified B group vitamins; E55.9 Vitamin D deficiency, unspecified
CPT/HCPCS: 36415; 80053; 80061; 81001; 82306; 82607; 82746; 84443; 85025

== ENCOUNTER 2023-07-07 11:56 | Outpatient (AMB) | payer OTHER, MEDICAID, SELFPAY ==
[2023-07-07 11:57] VITALS: BP 114/80; PULSE 62; O2SAT 93; BMI 38.7
--- NOTE | 2023-07-07 11:57 | MHC.PC.OV ---
Vital Signs 07/07/23 11:57 Height 5 ft 4 in Weight 225 lb 6 oz BMI 38.7 BP 114/80 Blood Pressure Location Lt brachial Position Sitting Pulse 62 Pulse Source Pulse Oximeter Pulse Oximetry (%) 93 Oxygen Delivery Method Room Air Intake Visit Reasons: hyperlipidemia, DEEP, palpitations, anemia Ocular Care Technician Required: No Accompanied by: Self / Same As Patient Allergies Penicillins [PENICILLINS] Allergy (Unknown, Verified 07/07/23 12:29) CHILDHOOD RXN transparent dressing [Tegaderm] Allergy (Verified 07/07/23 12:29) Rash codeine [CODEINE] Adverse Reaction (Intermediate, Verified 07/07/23 12:29) NAUSEA & VOMITING morphine [MORPHINE] Adverse Reaction (Intermediate, Verified 07/07/23 12:29) Bad headache, N/V oxycodone [From PERCOCET] Adverse Reaction (Intermediate, Verified 07/07/23 12:29) NAUSEA & VOMITING Medication List - Last Reconciled 07/07/23 by Brijesh Pineda MD anastrozole 1 mg PO DAILY atorvastatin 80 mg PO DAILY compression sleeve and gauntlet (LympheDiva Arm Sleeve with Gauntlet) As Directed ezetimibe (Zetia) 10 mg PO DAILY ferrous sulfate (Iron (ferrous sulfate)) 325 mg PO DAILY fluoxetine 40 mg PO DAILY metoprolol tartrate 50 mg PO DAILY multivitamin 1 tab PO DAILY Tobacco use date assessed: 07/07/23 Dental Screening Dental Screen Date: 07/07/23 Did you have a dental visit in the last 12 months?: Yes Did you have a dental problem in the last 6 months where you did not have access to dental care?: No Was dental information given to patient?: Patient has dentist HPI hyperlipidemia, DEEP, palpitations, anemia HPI Details Patient comes in today for her follow-up visit States that she feels okay She denies any headaches or dizziness Denies any chest pains, no increased shortness of breath; states that she still has occasional palpitations but they occur infrequently No nausea / vomiting, no abdominal pain No change in bowel habits noted Needs a few of her Rx refilled Had her follow-up labs done a few days ago - to discuss her results States that she has some vague allergies to some medications that she is not sure if they are accurate or not and would like to get a referral to get allergy testing to verify these Would also like to get a referral to [facility] as she has not had her pap smear and gynecologic exam done in a few years now; states that she try calling [facility] to schedule an appointment and was advised that she will need a referral from her PCP as she has not been seen in a while [facility] Medical History Urinary incontinence Low back pain Anxiety Osteoarthritis of left hip Impacted cerumen of both ears Arthritis Numbness of fingers of both hands Hx of cardiac murmur PONV (postoperative nausea and vomiting) Osteoarthritis of right hip Right hip pain Insomnia Chronic osteoarthritis Obesity (BMI 30-39.9) Depression Secondary and unspecified malignant neoplasm of axilla and upper limb lymph nodes Anemia Malignant neoplasm of left breast Pure hypercholesterolemia Benign essential hypertension Surgical History History of total left hip replacement History of left hip replacement History of total right hip replacement Hx of colonoscopy History of axillary surgery History of left mastectomy History of left breast biopsy History of hernia surgery Family History Father Diabetes Bladder cancer Mother Chronic mental illness Brain cancer Lung cancer Maternal Grandmother Stomach cancer Maternal Grandfather Lung cancer Other Mental health problem Substance abuse Social History Household Members: None Housing: House Are you a primary progressive care nurse to a significant other at home: No Do you presently have visiting nurse or other home services: No Alcohol intake: current Alcohol intake frequency: holidays/special occasions only Alcohol type: wine Comment: aware of trip hazard Patient Tobacco Use Status: Never used Tobacco e-Cigarette/Vaping Use: Never Used Second Hand Smoke Exposure: Yes Advance Directives Date on File: 12/22/20 service: No Current occupational status: disabled Current occupational exposures/hazards: No Gender identity: Female Cognitive needs: No Hearing needs: No Vision needs: Yes Questionnaire PHQ-9 Over the last 2 weeks, how often have you been bothered by any of the following problems? 1. Little interest or pleasure in doing things: not at all 2. Feeling down, depressed, or hopeless: not at all 3. Trouble falling or staying asleep, or sleeping too much: not at all 4. Feeling tired or having little energy: not at all 5. Poor appetite or overeating: not at all 6. Feeling bad about yourself - or that you are a failure or have let yourself or your family down: not at all 7. Trouble concentrating on things, such as reading the newspaper or watching television: not at all 8. Moving or speaking so slowly that other people could have noticed. Or the opposite - being so fidgety or restless that you have been moving around a lot more than usual: not at all 9. Thoughts that you would be better off or of hurting yourself in some way: not at all Total score: 0 Depression Screening Interpretation: Negative Depression Screening Done: Yes 19098 - PHQ-9 Billing: Yes Source: Developed by Drs. Jez Villagran, Daina Agustin, Quirino Hough and colleagues, with an educational fallon from [employer]. Thrive Questionnaire Date Thrive assessed: 07/07/23 I am a: Patient What is your living situation today?: I have a steady place to live Within the past 12 months, did the food you bought not last and you didn't have the money to get more?: Never true Within the past 12 months, did you worry whether your food would run out before you got money to buy more?: Never true Do you have trouble paying for medicines?: No Do you have trouble getting transportation to medical appointments?: No Do you have trouble paying your heating and electricity bill?: No Do you have trouble taking care of your child, family member or friend?: No Do you have trouble with day-to-day activities such as bathing, preparing meals, shopping, managing finances, etc.?: No Are you currently unemployed and looking for a job?: No Are you interested in more education?: No Please select the resources that you would like help with: None Currently or been in a relationship where the following occur: no concerns reported THRIVE Score: 0 AUDIT C Alcohol Use Questionnaire (AUDIT-C) 1. How often do you have a drink containing alcohol?: Monthly or less 2. How many drinks containing alcohol do you have on a typical day when you are drinking?: 3 or 4 3. How often do you have six or more drinks on one occasion?: Never Total Score: 2 Score Reviewed/Action Taken: Yes FITZ-7 AMB Questionnaire FITZ-7 Date FITZ - 7 assessed: 07/07/23 Feeling nervous, anxious, or on edge: 0 = Not at all Not being able to stop or control worryin = Not at all Worrying too much about different things: 0 = Not at all Trouble relaxin = Not at all Being so restless that it is hard to sit still: 0 = Not at all Becoming easily annoyed or irritable: 0 = Not at all Feeling afraid as if something awful might happen: 0 = Not at all Total FITZ-7 score (0-4 normal; 5-9 mild; 10-14 moderate; 15-21 severe): 0 Source: Developed by Drs. Jez Villagran, Daina Agustin, Quirino Hough and colleagues, with an educational fallon from [employer]. FITZ-7 Assessment Billing FITZ-7 Assessment Tool: FITZ-7 Assessment 74789 Review of Systems Const Denies chills, Denies fatigue, Denies fever(s) and Denies headache(s) ENT Denies dysphagia, Denies dizziness, Denies otalgia, Denies headache(s), Denies neck pain, Denies odynophagia and Denies sore throat Card Denies chest pain, Denies rapid heart rate, Reports palpitations (intermittent) and Denies dyspnea Resp Denies chest congestion, Denies cough and Denies dyspnea GI Denies abdominal pain, Denies constipation, Denies dysphagia, Denies heartburn, Denies diarrhea, Denies nausea, Denies odynophagia and Denies vomiting Denies difficulty voiding, Denies nocturia, Denies dysuria, Reports urinary incontinence and Reports urinary urgency Musc Reports arthralgias (left knee, left shoulder) and Denies neck pain Neuro Denies dizziness, Denies headache(s) and Reports memory loss Psych Reports memory loss Endo Denies fatigue and Reports palpitations (intermittent) Janak/Lymph Details: (+) chronic swelling of the entire left upper extremity Physical exam (Primary Care) Vital Signs: Last Vital Signs Pulse 62 07/07/23 11:57 BP 114/80 07/07/23 11:57 Pulse Ox 93 07/07/23 11:57 Oxygen Delivery Method Room Air 07/07/23 11:57 BMI result Body Mass Index 38.7 Tobacco/Smoking Status: Tobacco use Status Tobacco use date assessed 07/07/23 07/07/23 11:59 Patient Tobacco Use Status Never used Tobacco 07/07/23 11:59 e-Cigarette/Vaping Use Never Used 07/07/23 11:59 PHQ-9: PHQ-9 Score PHQ-9: Total score 0 07/07/23 12:30 Depression Screening Interpretation: Negative Thrive Assessment: Date of Thrive Assessment Date Thrive assessed 07/07/23 07/07/23 11:59 Currently or been in a relationship where the following occur: no concerns reported Const General: no acute distress and alert HENMT Ears: TM's normal bilaterally and EAC's normal Throat: Yes posterior oropharynx normal and Yes tonsils normal (no TP congestion noted) Neck Neck: Yes no lymphadenopathy and Yes supple Resp Auscultation: no rales, rhonchi (occasional) and no wheezes Cardio Rate: regular rate Rhythm: regular rhythm Heart sounds: no murmurs GI Palpation (GI): Soft to palpation and nontender Auscultation: normal bowel sounds Skin Rashes: no rashes Extrem Other: (+) lymphedema of the left arm and hand General: Yes no clubbing, cyanosis or edema Left lower extremity: hip/thigh Details: tenderness Location: of the hip Results Reviewed Results Reviewed: Laboratory Tests 07/04/23 07/04/23 07/04/23 12:56 12:58 12:58 WBC 6.2 Hgb 13.3 Hct 40.4 Plt Count 224 Sodium 140 Potassium 4.6 Creatinine 0.79 Estimated GFR > 60 Fasting Glucose 86 Calcium 9.8 AST 17 ALT 23 Triglycerides 98 Cholesterol 182 LDL Cholesterol, Calc 88 HDL Cholesterol 75 Vitamin B12 694 25-OH Vitamin D Total 39.7 TSH 0.97 Ur Specific [place] 1.015 Urine Protein Negative Urine Glucose (UA) Negative Urine Blood Small (1+) H Urine Nitrite Negative Ur Leukocyte Esterase Negative Assessment and Plan Assessment & Plan (1) Palpitations: Code(s): R00.2 - Palpitations Plan: Work ups done a couple of years ago, including echocardiogram, labs and Holter monitor were all unrevealing aside from frequent PVCs and occasional PACs on her monitoring and evaluation advisor Continue Metoprolol 50 mg in AM and 25 mg in PM Follow up with cardiology as scheduled (2) Pure hypercholesterolemia: Code(s): E78.00 - Pure hypercholesterolemia, unspecified Plan: Results of her labs done a few days ago reviewed and discussed with patient Reinforced low cholesterol diet Continue Atorvastatin 80 mg QD and Ezetimibe 10 mg QD Will recheck her labs and fasting lipids in 3 months for follow up (3) Benign essential hypertension: Code(s): I10 - Essential (primary) hypertension Plan: Reinforced low sodium diet - goal is systolic BP of at least 130 mm or less Continue Metoprolol 50 mg in AM and 25 mg in PM (4) DEEP (obstructive sleep apnea): Code(s): G47.33 - Obstructive sleep apnea (adult) (pediatric) Plan: Continue using her nasal CPAP device when sleeping at night, with setting of APAP of 6 to 16 cm of water Follow up with Sleep Medicine as scheduled (5) Osteoarthritis of left hip: Code(s): M16.12 - Unilateral primary osteoarthritis, left hip Qualifiers: Osteoarthritis type: primary Qualified Code(s): M16.12 - Unilateral primary osteoarthritis, left hip Plan: S/P total left hip arthroplasty with Dr. Pulido on 06/16/2021 - is currently doing well with (+) significant improvement of symptoms following her surgery Follow up with orthopedics as scheduled (6) Malignant neoplasm of left breast: Code(s): C50.912 - Malignant neoplasm of unspecified site of left female breast Qualifiers: Breast location: unspecified site of breast Estrogen receptor status: positive Patient sex: female Qualified Code(s): C50.912 - Malignant neoplasm of unspecified site of left female breast; Z17.0 - Estrogen receptor positive status [ER+] Plan: Had invasive ductal carcinoma of the left breast, S/P lumpectomy and axillary node dissection on 04/05/2018. Stage IIA. Pathology: Grade 2, 3.6 cm with associated DCIS nuclear grade 2 with necrosis. Metastatic carcinoma seen in /16 lymph nodes. Margins negative, ER/[place] positive, HER-2 negative Patient completed adjuvant chemotherapy with Taxoterene and Cytoxan - 1st cycle was administered on 05/17/2018, every 3 weeks and last cycle was given on 07/19/2018 Continue aromatase inhibitor therapy with Anastrozole 1 mg QD Follow-up with Oncology as scheduled (7) Secondary and unspecified malignant neoplasm of axilla and upper limb lymph nodes: Code(s): C77.3 - Secondary and unspecified malignant neoplasm of axilla and upper limb lymph nodes Plan: S/P lymph node dissection Follow-up with Oncology as scheduled for continuing surveillance (8) Lymphedema of left arm: Code(s): I89.0 - Lymphedema, not elsewhere classified Plan: Patient currently has a lymphedema sleeve on - is reminded to wear her sleeve as needed to help keep her left arm swelling down and more manageable (9) Anemia: Code(s): D64.9 - Anemia, unspecified Qualifiers: Anemia type: unspecified type Qualified Code(s): D64.9 - Anemia, unspecified Plan: Improved/corrected - was most likely related to her chemotherapy Will continue to monitor her CBC regularly (10) Memory impairment: Code(s): R41.3 - Other amnesia Plan: She was referred to and seen by Neurology last year - was diagnosed with mild cognitive impairment (11) Multiple allergies: Code(s): Z88.9 - Allergy status to unspecified drugs, medicaments and biological substances Plan: Per request, will refer her for allergy testing (12) Urinary incontinence: Code(s): R32 - Unspecified urinary incontinence Qualifiers: Urinary Incontinence type: unspecified incontinence Qualified Code(s): R32 - Unspecified urinary incontinence Plan: Follow up with urology as scheduled (13) Depression: Code(s): F32.9 - Major depressive disorder, single episode, unspecified Qualifiers: Depression Type: unspecified Qualified Code(s): F32.9 - Major depressive disorder, single episode, unspecified Plan: Continue Fluoxetine 20 mg QD (14) Obesity (BMI 30-39.9): Code(s): E66.9 - Obesity, unspecified Plan: Reinforced diet; exercise and weight loss are unrealistic given patient's multiple comorbidities (15) Cervical cancer screening: Code(s): Z12.4 - Encounter for screening for malignant neoplasm of cervix Plan: Per request, will refer her to [facility] for her annual pap smear and marketing database analyst exam Plan Follow up in 4 months Orders: Orders Lipid Panel 4 Months E78.00 - Pure hypercholesterolemia, unspecified TSH reflex Free T4 4 Months E78.00 - Pure hypercholesterolemia, unspecified Complete Blood Count Auto Diff 4 Months D64.9 - Anemia, unspecified Comprehensive [place]. Panel Fast 4 Months E78.00 - Pure hypercholesterolemia, unspecified UA CC w/rflx Micro + Cult 4 Months R30.0 - Dysuria Referrals Allergy & Immunology Referral Z88.9 - Allergy status to unspecified drugs, medicaments and biological substances ERP IMPLEMENTATION CONSULTANT Referral Z12.4 - Encounter for screening for malignant neoplasm of cervix Medications: New metoprolol tartrate 50 mg in the morning and 25 mg at night orally daily 135 tabs 1RF I10 - Essential (primary) hypertension Changed From atorvastatin 80 mg PO DAILY 30 tabs 11RF To atorvastatin 80 mg PO DAILY 90 days 90 tabs 1RF From fluoxetine 40 mg PO DAILY 90 caps 0RF To fluoxetine 20 mg PO DAILY 90 days 90 caps 1RF Refilled ezetimibe (Zetia) 10 mg PO DAILY 90 tabs 1RF anastrozole 1 mg PO DAILY 90 tabs 1RF Coding Level of Care Code Est Pt Level 4 (00560) Diagnoses Palpitations R00.2 Pure hypercholesterolemia E78.00 Benign essential hypertension I10 DEEP (obstructive sleep apnea) G47.33 Primary osteoarthritis of left hip M16.12 Osteoarthritis type: primary Malignant neoplasm of left breast in female, estrogen receptor positive, unspecified site of breast C50.912; Z17.0 Breast location: unspecified site of breast Estrogen receptor status: positive Patient sex: female Secondary and unspecified malignant neoplasm of axilla and upper limb lymph nodes C77.3 Lymphedema of left arm I89.0 Anemia, unspecified type D64.9 Anemia type: unspecified type Memory impairment R41.3 Multiple allergies Z88.9 Urinary incontinence, unspecified type R32 Urinary Incontinence type: unspecified incontinence Depression, unspecified depression type F32.9 Depression Type: unspecified Obesity (BMI 30-39.9) E66.9 Cervical cancer screening Z12.4 Additional Codes FITZ-7 Assessment Billing - FITZ-7 Assessment Tool: FITZ-7 Assessment [id number] ([id number])
== END 2023-07-07 12:43 | disposition home or self-care (01) ==
PROVIDERS: PCP Internal Medicine; Visit Provider Internal Medicine
DX: R00.2 Palpitations (principal); C50.912 Malignant neoplasm of unspecified site of left female breast; C77.3 Secondary and unspecified malignant neoplasm of axilla and upper limb lymph nodes; E78.00 Pure hypercholesterolemia, unspecified; I10 Essential (primary) hypertension; G47.33 Obstructive sleep apnea (adult) (pediatric); M16.12 Unilateral primary osteoarthritis, left hip; Z17.0 Estrogen receptor positive status [ER+]; I89.0 Lymphedema, not elsewhere classified; D64.9 Anemia, unspecified; R41.3 Other amnesia; Z88.9 Allergy status to unspecified drugs, medicaments and biological substances
CPT/HCPCS: 99214

== ENCOUNTER 2023-07-18 15:20 | Outpatient (AMB) | payer OTHER, MEDICAID, SELFPAY ==
--- NOTE | 2023-07-18 15:24 | MHC.OFFVIS ---
Intake Intake Visit Reasons: 9m/Monitory UA and LUTS Intake Note: New Patient presents for sensation of pressure in baldder area and microscopic hematuria Urology Medications: none Blood Thinner: none PVR: 0ml's Animal Care Giver Required: No Accompanied by: Self / Same As Patient Allergies Penicillins [PENICILLINS] Allergy (Unknown, Verified 07/18/23 20:30) CHILDHOOD RXN transparent dressing [Tegaderm] Allergy (Verified 07/18/23 20:30) Rash codeine [CODEINE] Adverse Reaction (Intermediate, Verified 07/18/23 20:30) NAUSEA & VOMITING morphine [MORPHINE] Adverse Reaction (Intermediate, Verified 07/18/23 20:30) Bad headache, N/V oxycodone [From PERCOCET] Adverse Reaction (Intermediate, Verified 07/18/23 20:30) NAUSEA & VOMITING Medication List - Last Reconciled 07/18/23 by SHIRA Villanueva- anastrozole 1 mg PO DAILY atorvastatin 80 mg PO DAILY 90 days compression sleeve and gauntlet (LympheDiva Arm Sleeve with Gauntlet) As Directed ezetimibe (Zetia) 10 mg PO DAILY ferrous sulfate (Iron (ferrous sulfate)) 325 mg PO DAILY fluoxetine 20 mg PO DAILY 90 days metoprolol tartrate 50 mg in the morning and 25 mg at night orally daily multivitamin 1 tab PO DAILY HPI HPI Comments History of Present Illness Details Keyana is a pleasant 58-year-old female patient. She has a past medical history of anxiety, osteoarthritis, cardiac murmur, insomnia, obesity, depression, anemia, hypercholesteremia, malignant neoplasm of left breast, and hypertension. She presents to the office today for follow-up. Of note, patient was seen approximately [address] Alphonso cordero at which time she underwent an office cystoscopy for her longstanding history of microscopic hematuria. Cystoscopy findings with bladder wall thickening. Previous workup has included urine cytologies that have been negative for malignant cells and retroperitoneal ultrasound noting kidneys: WNL, no renal calculi visualized. Prevoid bladder volume is 607 mL. Postvoid bladder volume is 43.1 mL. During last office visit discussion regarding bladder wall thickening was reviewed. And discussed considering alpha-wes to allow for relaxation of bladder outlet if necessary. In discussion with the patient today she reports noting improvement in urinary frequency and bladder pressure she had been experiencing. She currently denies any bothersome urinary issues or concerns. She reports to be happy with current voiding parameters. In office urinalysis results reviewed with the patient today trace microscopic hematuria. PVR 0ml's. [facility] Medical History Urinary incontinence Low back pain Anxiety Osteoarthritis of left hip Impacted cerumen of both ears Arthritis Numbness of fingers of both hands Hx of cardiac murmur PONV (postoperative nausea and vomiting) Osteoarthritis of right hip Right hip pain Insomnia Chronic osteoarthritis Obesity (BMI 30-39.9) Depression Secondary and unspecified malignant neoplasm of axilla and upper limb lymph nodes Anemia Malignant neoplasm of left breast Pure hypercholesterolemia Benign essential hypertension Surgical History History of total left hip replacement History of left hip replacement History of total right hip replacement Hx of colonoscopy History of axillary surgery History of left mastectomy History of left breast biopsy History of hernia surgery Family History Father Diabetes Bladder cancer Mother Chronic mental illness Brain cancer Lung cancer Maternal Grandmother Stomach cancer Maternal Grandfather Lung cancer Other Mental health problem Substance abuse Social History Household Members: None Housing: House Are you a primary animal daycare provider to a significant other at home: No Do you presently have visiting nurse or other home services: No Alcohol intake: current Alcohol intake frequency: holidays/special occasions only Alcohol type: wine Comment: aware of trip hazard Patient Tobacco Use Status: Never used Tobacco e-Cigarette/Vaping Use: Never Used Second Hand Smoke Exposure: Yes Advance Directives Date on File: 12/22/20 service: No Current occupational status: disabled Current occupational exposures/hazards: No Gender identity: Female Cognitive needs: No Hearing needs: No Vision needs: Yes Review of Systems Const Reports no additional complaints Eyes Reports no additional complaints ENT Reports no additional complaints Card Reports as per HPI Resp Reports no additional complaints GI Reports no additional complaints Reports as per HPI Musc Reports as per HPI Skin/Breast Reports as per HPI Neuro Reports no additional complaints Psych Reports as per HPI Endo Reports no additional complaints Janak/Lymph Reports no additional complaints Aller/Immun Reports no additional complaints Office Procedures Post Void Residual Post Residual Void Post Void Residual (PVR): 0 [id number] Void Residual by ultrasound Results AMB Urinalysis, Automated UA Leukoctes 0 Domenic/uL Last Edit by Yulisa Leiva on 07/18/23 15:42 UA Nitrite Negative Last Edit by Yulisa Leiva on 07/18/23 15:42 UA Urobilinogen 0.2 mg/dL Last Edit by Yulisa Leiva on 07/18/23 15:42 UA Protein 0 mg/dL Last Edit by Yulisa Leiva on 07/18/23 15:42 UA pH 7.0 Last Edit by Yulisa Leiva on 07/18/23 15:42 UA Blood 10 Ger/uL Last Edit by Yulisa Leiva on 07/18/23 15:42 UA Specific [place] 1.010 Last Edit by Yulisa Leiva on 07/18/23 15:42 UA Ketone Negative Last Edit by Yulisa Leiva on 07/18/23 15:42 UA Bilirubin 0 mg/dL Last Edit by Yulisa Leiva on 07/18/23 15:42 UA Glucose 0 mg/dL Last Edit by Yulisa Leiva on 07/18/23 15:42 Results Reviewed Results Reviewed: Laboratory Last Values Urine pH (Auto) 7.0 07/18/23 15:41 Specific [place] (Auto) 1.010 07/18/23 15:41 Urine Protein (Auto) 0 mg/dL 07/18/23 15:41 Glucose (UA)(Auto) 0 mg/dL 07/18/23 15:41 Urine Ketones (Auto) Negative 07/18/23 15:41 Urine Blood (Auto) 10 Ger/uL 07/18/23 15:41 Urine Nitrite (Auto) Negative 07/18/23 15:41 Urine Bilirubin (Auto) 0 mg/dL 07/18/23 15:41 Urine Urobilinogen (Auto) 0.2 mg/dL 07/18/23 15:41 Leukocyte Esterase (Auto) 0 Domenic/uL 07/18/23 15:41 Assessment & Plan Assessment & Plan (1) Microhematuria: Code(s): R31.29 - Other microscopic hematuria (2) Bladder wall thickening: Code(s): N32.89 - Other specified disorders of bladder (3) Sensation of pressure in bladder area: Code(s): R39.89 - Other symptoms and signs involving the genitourinary system Plan In office urinalysis results reviewed with the patient today; as noted above; will send for urine cytology. PVR 0ml's. Discussed at length potential causes for lower urinary tract symptoms patient has been experiencing. She currently denies any bothersome urinary issues or concerns. She reports be happy with current voiding parameters. Discussed, educated, and stressed the importance of continuing to drink plenty of water daily. Discussed at length potential causes for microscopic hematuria; discussed further workup with surveillance monitoring Follow-up in 1 year; or sooner with any issues, concerns, and or questions. Orders: Orders Urine Cytology Today R31.29 - Other microscopic hematuria AMB Urinalysis Automated Today Z13.9 - Encounter for screening, unspecified AMB Post Void Residual by ultrasound Today R32 - Unspecified urinary incontinence Patient Instructions: The patient had an opportunity to ask questions regarding the treatment plan. All questions were answered. Physical exam, labs, and imaging were discussed and reviewed in detail. As well as risks, benefits, and discussion of treatment choices. No major barriers to understanding were identified. The patient expressed understanding and agreement with the above treatment plan. The patient was made aware they should contact our office by phone for worsening of their current condition, the appearance of new symptoms, or with any questions or concerns. Compliance is encouraged with any medications and follow up testing that is ordered. It is a privilege to be allowed the opportunity to participate in? your urological care.? Again, if you have any questions or concerns If you have any questions or concerns please do not hesitate to contact me. The office is [phone]. This note is constructed using voice recognition software. While every effort has been made to ensure accuracy laboratory helper errors may have been included. Yours sincerely, SHIRA Villanueva-ROSSANA Coding Level of Care Code Est Pt Level 3 (38583) Diagnoses Microhematuria R31.29 Bladder wall thickening N32.89 Sensation of pressure in bladder area R39.89 CPT Codes Post Residual Void - PVR CPT Code: 63400-Sudp Void Residual by ultrasound ([id number])
== END 2023-07-18 16:22 | disposition home or self-care (01) ==
PROVIDERS: PCP Internal Medicine; Visit Provider Nurse Practitioner Family
DX: R31.29 Other microscopic hematuria (principal); N32.89 Other specified disorders of bladder; R39.89 Other symptoms and signs involving the genitourinary system
CPT/HCPCS: 99213

== ENCOUNTER 2023-07-18 15:20 | Outpatient (REF) | payer OTHER, MEDICAID, SELFPAY ==
[2023-07-18 19:42] LABS: Urine Cytology See Pathology rpt
== END 2023-07-18 15:21 | disposition home or self-care (01) ==
LOC: HO.LNP 15:20
PROVIDERS: Visit Provider Nurse Practitioner Family
DX: R31.29 Other microscopic hematuria (principal); N32.89 Other specified disorders of bladder; R39.89 Other symptoms and signs involving the genitourinary system
CPT/HCPCS: 51798; 81003; 88112

== ENCOUNTER 2023-09-12 14:14 | Outpatient (AMB) | payer OTHER, MEDICAID, SELFPAY ==
--- NOTE | 2023-09-12 14:15 | MHC.OFFVIS ---
Intake Vital Signs 09/12/23 14:16 Height 5 ft 4 in Weight 231 lb 7.766 oz BMI 39.7 BP 130/70 Blood Pressure Location Lt brachial Position Sitting Pulse 63 Intake Visit Reasons: 6 mth f/up Intake Note: 6 month follow up Resin Painter Required: No Accompanied by: Self / Same As Patient Allergies Penicillins [PENICILLINS] Allergy (Unknown, Verified 09/12/23 14:18) CHILDHOOD RXN transparent dressing [Tegaderm] Allergy (Verified 09/12/23 14:18) Rash codeine [CODEINE] Adverse Reaction (Intermediate, Verified 09/12/23 14:18) NAUSEA & VOMITING morphine [MORPHINE] Adverse Reaction (Intermediate, Verified 09/12/23 14:18) Bad headache, N/V oxycodone [From PERCOCET] Adverse Reaction (Intermediate, Verified 09/12/23 14:18) NAUSEA & VOMITING Medication List - Last Reconciled 09/12/23 by Alonso Verdugo MD anastrozole 1 mg PO DAILY atorvastatin 80 mg PO DAILY 90 days compression sleeve and gauntlet (LympheDiva Arm Sleeve with Gauntlet) As Directed ezetimibe (Zetia) 10 mg PO DAILY ferrous sulfate (Iron (ferrous sulfate)) 325 mg PO DAILY fluoxetine 20 mg PO DAILY 90 days metoprolol tartrate 50 mg in the morning and 25 mg at night orally daily multivitamin 1 tab PO DAILY HPI HPI Comments History of Present Illness Details Keyana returns for follow-up. In the past, she was seen for palpitations. Workup at shown ventricular ectopy. She remains on beta-blockers. Overall, feels just about the same. Palpitations slightly better. She is overweight. She also has obstructive sleep apnea and using CPAP. No known coronary disease or myocardial infarction or cardiomyopathy. [facility] Medical History Urinary incontinence Low back pain Anxiety Osteoarthritis of left hip Impacted cerumen of both ears Arthritis Numbness of fingers of both hands Hx of cardiac murmur PONV (postoperative nausea and vomiting) Osteoarthritis of right hip Right hip pain Insomnia Chronic osteoarthritis Obesity (BMI 30-39.9) Depression Secondary and unspecified malignant neoplasm of axilla and upper limb lymph nodes Anemia Malignant neoplasm of left breast Pure hypercholesterolemia Benign essential hypertension Surgical History History of total left hip replacement History of left hip replacement History of total right hip replacement Hx of colonoscopy History of axillary surgery History of left mastectomy History of left breast biopsy History of hernia surgery Family History Father Diabetes Bladder cancer Mother Chronic mental illness Brain cancer Lung cancer Maternal Grandmother Stomach cancer Maternal Grandfather Lung cancer Other Mental health problem Substance abuse Social History Household Members: None Housing: House Are you a primary patient care representative to a significant other at home: No Do you presently have visiting nurse or other home services: No Alcohol intake: current Alcohol intake frequency: holidays/special occasions only Alcohol type: wine Comment: aware of trip hazard Patient Tobacco Use Status: Never used Tobacco e-Cigarette/Vaping Use: Never Used Second Hand Smoke Exposure: Yes Advance Directives Date on File: 12/22/20 service: No Current occupational status: disabled Current occupational exposures/hazards: No Gender identity: Female Cognitive needs: No Hearing needs: No Vision needs: Yes Review of Systems Const Denies weakness ENT Denies dizziness Card Denies chest pain, Denies chest pain with activity, Denies syncope, Denies pedal edema, Denies edema, Denies leg edema, Denies lightheadedness, Denies palpitations, Denies dyspnea, Denies dyspnea on exertion and Denies orthopnea Resp Denies cough, Denies dyspnea and Denies dyspnea on exertion GI Denies hematochezia and Denies change in stool character Musc Denies abnormal gait, Denies muscle cramps, Denies muscle weakness, Denies numbness, Denies radiating pain into limb and Denies tingling Neuro Denies abnormal gait, Denies dizziness, Denies syncope, Denies numbness, Denies tingling and Denies weakness Endo Denies palpitations Physical Exam Vital Signs: Last Vital Signs Pulse 63 09/12/23 14:16 BP 130/70 09/12/23 14:16 BMI result Body Mass Index 39.7 Const General: comfortable and no acute distress Orientation/consciousness: patient oriented x3 HEENT Other: Unremarkable Head: Yes normal to inspection Neck Neck: Yes normal visual inspection Chest Chest palpation & inspection: normal inspection of the chest Resp Auscultation: clear to auscultation bilaterally Cardio Palpation: normal PMI Heart sounds: S1 normal heart sound present, S2 normal heart sound present, no gallops, no murmurs and no rubs GI Palpation (GI): Soft to palpation Back/Spine/Pelvis Other: unremarkable Skin General skin exam: no rashes or lesions noted Neuro General: patient oriented x3 Extrem General: Yes normal to inspection Psych Mental Status: mental status grossly normal Assessment & Plan Assessment & Plan (1) PVC (premature ventricular contraction): Code(s): I49.3 - Ventricular premature depolarization (2) Obesity (BMI 30-39.9): Code(s): E66.9 - Obesity, unspecified (3) DEEP (obstructive sleep apnea): Code(s): G47.33 - Obstructive sleep apnea (adult) (pediatric) Plan Cardiac studies- Holter with underlying sinus rhythm and a PVC burden of 3.1%. Echocardiogram with LVEF of 60%. Septal hypertrophy. Otherwise unremarkable. Home sleep study shows mild DEEP. On CPAP. We discussed about pathophysiology of PVCs and relationship to weight and obstructive sleep apnea. Strongly recommend weight loss, as that should help immensely. Would likely diminish the PVC burden. Referred to bariatrics. Otherwise, we will follow-up in 1 year with another echocardiogram/Holter. She will call us with any interim concerns. Orders: Orders CA echo transthoracic complete 1 Year I49.3 - Ventricular premature depolarization ECG 3 day holter monitor 1 Year I49.3 - Ventricular premature depolarization, R00.2 - Palpitations Referrals Bariatric Surgery Referral E66.01 - Morbid (severe) obesity due to excess calories Coding Level of Care Code Est Pt Level 3 (81816) Diagnoses PVC (premature ventricular contraction) I49.3 Obesity (BMI 30-39.9) E66.9 DEEP (obstructive sleep apnea) G47.33
[2023-09-12 14:16] VITALS: BP 130/70; PULSE 63; BMI 39.7
== END 2023-09-12 15:00 | disposition home or self-care (01) ==
PROVIDERS: PCP Internal Medicine; Visit Provider Internal Medicine
DX: I49.3 Ventricular premature depolarization (principal); E66.9 Obesity, unspecified; G47.33 Obstructive sleep apnea (adult) (pediatric)
CPT/HCPCS: 99213

== ENCOUNTER → 2023-09-12 14:14 | Outpatient (BNVA) | payer OTHER, MEDICAID, SELFPAY | PROVIDERS: PCP Internal Medicine; Visit Provider Internal Medicine ==

== ENCOUNTER 2023-10-25 13:12 | Outpatient (AMB) | payer OTHER, MEDICAID, SELFPAY ==
--- NOTE | 2023-10-25 13:13 | MHC.OFFVIS ---
Vital Signs 10/25/23 13:22 Height 5 ft 4 in Weight 233 lb BMI 40.0 BP 143/74 H Blood Pressure Location Rt brachial Position Sitting Pulse 66 Intake Visit Reasons: 6 mth breast exam Intake Note: Patient is seen in office for 6 month follow up visit, breast exam. Patient c/o: reports occasional left breast pain at surgical site. mm:04/11/23 Gas Operation Manager Required: No Accompanied by: Self / Same As Patient Allergies Penicillins [PENICILLINS] Allergy (Unknown, Verified 10/25/23 13:19) CHILDHOOD RXN transparent dressing [Tegaderm] Allergy (Verified 10/25/23 13:19) Rash codeine [CODEINE] Adverse Reaction (Intermediate, Verified 10/25/23 13:19) NAUSEA & VOMITING morphine [MORPHINE] Adverse Reaction (Intermediate, Verified 10/25/23 13:19) Bad headache, N/V oxycodone [From PERCOCET] Adverse Reaction (Intermediate, Verified 10/25/23 13:19) NAUSEA & VOMITING HPI Comments Details: 58-year-old female returning for follow-up breast examination with a personal history of left breast cancer. 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 Pathology revealed invasive ductal carcinoma with ductal carcinoma in situ, 6 of 16 lymph nodes with metastatic disease (P T2 N2 a). She subsequently was evaluated by Dr. Harris and underwent chemotherapy with Taxotere and Cytoxan x 4 cycles completed on 07/19/2018 followed by radiation therapy. She continues to report soreness in the left arm when reaching overhead and left arm lymphedema. She continues to wear compression sleeve for the left arm which helps. She is currently on anastrozole and is tolerating this well. Her last mammogram dated 04/11/2023 revealed no mammographic evidence of malignancy and routine annual screening is recommended (BI-RADS 2). She was evaluated by Dr. Bhatt for repair of the complex abdominal wall hernia. She recommended losing 30 lb which she is having difficulty achieving. She denies any new breast symptoms. [facility] Medical History Urinary incontinence Low back pain Anxiety Osteoarthritis of left hip Impacted cerumen of both ears Arthritis Numbness of fingers of both hands Hx of cardiac murmur PONV (postoperative nausea and vomiting) Osteoarthritis of right hip Right hip pain Insomnia Chronic osteoarthritis Obesity (BMI 30-39.9) Depression Secondary and unspecified malignant neoplasm of axilla and upper limb lymph nodes Anemia Malignant neoplasm of left breast Pure hypercholesterolemia Benign essential hypertension Surgical History History of total left hip replacement History of left hip replacement History of total right hip replacement Hx of colonoscopy History of axillary surgery History of left mastectomy History of left breast biopsy History of hernia surgery Family History Father Diabetes Bladder cancer Mother Chronic mental illness Brain cancer Lung cancer Maternal Grandmother Stomach cancer Maternal Grandfather Lung cancer Other Mental health problem Substance abuse Social History Household Members: None Housing: House Are you a primary managed care liaison to a significant other at home: No Do you presently have visiting nurse or other home services: No Alcohol intake: current Alcohol intake frequency: holidays/special occasions only Alcohol type: wine Comment: aware of trip hazard Patient Tobacco Use Status: Never used Tobacco e-Cigarette/Vaping Use: Never Used Second Hand Smoke Exposure: Yes Advance Directives Date on File: 12/22/20 service: No Current occupational status: disabled Current occupational exposures/hazards: No Gender identity: Female Cognitive needs: No Hearing needs: No Vision needs: Yes Review of Systems Const Denies chills, Denies fever(s), Denies headache(s) and Denies poor appetite ENT Denies dizziness and Denies headache(s) Card Denies chest pain, Denies rapid heart rate, Denies palpitations and Denies slow heart rate Resp Denies chest congestion, Denies cough, Denies pain on inspiration and Denies wheezing GI Denies abdominal pain, Denies bloating, Denies change in stool character, Denies constipation, Denies diarrhea, Denies nausea, Denies vomiting and Denies hematemesis Musc Denies back pain, Denies arthralgias, Denies joint swelling and Denies numbness Skin/Breast Details: Denies breast mass, skin change, nipple discharge, enlarged lymph nodes in either breast Denies change in pigmentation, Denies erythema and Denies rash Neuro Denies confusion, Denies dizziness, Denies headache(s) and Denies numbness Psych Denies anxiety, Denies confusion and Denies depression Endo Denies palpitations Janak/Lymph Denies easy bleeding, Denies easy bruising and Denies lymphadenopathy Aller/Immun Denies wheezing Physical Exam Const General: No confusion Nutritional Appearance: well nourished Orientation/consciousness: No confusion Eyes Sclerae: sclerae normal EOM: EOMs intact bilaterally Neck Neck: Yes normal visual inspection Chest Other: Left breast with a well-healed incision in the upper inner quadrant with no palpable mass, skin change, nipple discharge or enlarged lymph nodes. Left arm lymphedema unchanged. Right breast with no skin change, nipple discharge, palpable mass, or enlarged lymph nodes. Resp Effort & Inspection: normal respiratory effort, no cough and no respiratory distress Cardio Jugular venous distension: no JVD GI Inspection: Yes normal to inspection Skin General skin exam: dry skin Rashes: no rashes Neuro General: No confusion Extrem Other: Left arm lymphedema, sleeve in place. No edema right arm Assessment & Plan Assessment & Plan (1) Invasive ductal carcinoma of left breast: Code(s): C50.912 - Malignant neoplasm of unspecified site of left female breast Category: Medical (2) Lymphedema of left arm: Code(s): I89.0 - Lymphedema, not elsewhere classified Category: Medical Plan Patient is doing well with no evidence of recurrent disease at this time. Her most recent mammogram 04/11/2023 reveals no suspicious findings (BI-RADS 2). She should follow up in 1 year and continue her follow-up with Dr. Harris. She is welcome to call sooner for any new concerns. Coding Level of Care Code Est Pt Level 3 (77046) Diagnoses Invasive ductal carcinoma of left breast C50.912 Lymphedema of left arm I89.0
[2023-10-25 13:22] VITALS: BP 143/74; PULSE 66; BMI 40.0
== END 2023-10-25 13:34 | disposition home or self-care (01) ==
PROVIDERS: PCP Internal Medicine; Visit Provider Surgery
DX: C50.912 Malignant neoplasm of unspecified site of left female breast (principal); I89.0 Lymphedema, not elsewhere classified
CPT/HCPCS: 99213

== ENCOUNTER → 2023-10-25 13:12 | Outpatient (BNVA) | payer OTHER, MEDICAID, SELFPAY | PROVIDERS: PCP Internal Medicine; Visit Provider Surgery | DX: I10 Essential (primary) hypertension (principal) ==

== ENCOUNTER 2023-11-08 11:58 | Outpatient (REF) | payer OTHER, MEDICAID, SELFPAY ==
[2023-11-08 12:16] LABS: MANUAL DIFF FLAG NO
[2023-11-08 12:29] LABS: Basophils Percent Auto 0.7 % (0-2); Eosinophils Absolute Auto 0.2 X10*3/uL (0.0-0.4); Eosinophils Percent Auto 4.1 % (0-4); Hematocrit 39.8 % (37.0-47.0); Hemoglobin 13.1 g/dl (12.0-16.0); Imm Gran Abs Auto 0.01 X10*3/uL (0.00-0.03); Imm Gran Pct Auto 0.2 % (0.0-0.4); Lymphocytes Absolute Auto 1.3 X10*3/uL (1.2-4.9); Lymphocytes Percent Auto 28.9 % (20-40); Mean Corpuscular HGB Conc 32.9 g/dl (31.0-35.0); Mean Corpuscular Hemoglobin 31.2 pg (27.0-33.0); Mean Corpuscular Volume 94.8 fL (80.0-98.0); Mean Platelet Volume 10.5 fL (9.4-12.3); Monocytes Absolute Auto 0.7 X10*3/uL (0.1-1.2); Monocytes Percent Auto 15.2 % (2-11); Neutrophils Absolute Auto 2.2 x10*3/uL (2.0-8.3); Neutrophils Percent Auto 50.9 % (45-73); Platelet Count 204 X10*3/uL (160-400); Red Cell Distribution Width 12.9 % (11.0-16.0); White Blood Count 4.4 X10*3/uL (4.8-10.8)
[2023-11-08 12:47] LABS: Appearance Urine Clear; Color Urine Yellow; Glucose Urine UA Negative (Negative); Leukocyte Esterase Urine Negative (Negative); Nitrite Urine Negative (Negative); Specific Gravity - Urine 1.015 (1.005-1.025); UMIC TRIGGER UACC YES; Urine Blood Trace (Negative); Urine Ketones Negative (Negative); Urine Protein Negative (Neg-Trace)
[2023-11-08 12:50] LABS: Bacteria Urine None Seen (None Seen); Hyaline Casts Urine 0-2 /LPF (0-2); Squamous Epithelial Cell Urine 0-2 /HPF (0-2); WBC Urine 0-5 /HPF (0-5)
[2023-11-08 13:03] LABS: Alanine Aminotransferase 28 U/L (0-31); Albumin Level 4.2 g/dL (3.5-5.0); Alkaline Phosphatase 88 U/L (39-117); Anion Gap 14 (12-20); Aspartate Amino Transferase 26 U/L (5-31); Bilirubin Total 0.4 mg/dL (0.0-1.0); Blood Urea Nitrogen 21 mg/dL (9-16); Calcium 9.5 mg/dL (8.4-10.2); Carbon Dioxide 28 mmol/L (22-29); Chloride 104 mmol/L (96-108); Cholesterol 174 mg/dL (<200); Estimated Glomerular Filt Rate > 60; Glucose Fasting 98 mg/dL (60-99); HDL Cholesterol 68 mg/dL (>40); LDL Cholesterol Calculated 85 mg/dL (<100); Potassium 4.6 mmol/L (3.3-5.1); Sodium 141 mmol/L (135-145); Total Protein 6.9 g/dL (6.5-8.0); Triglycerides 107 mg/dL (<150)
== END 2023-11-08 11:59 | disposition home or self-care (01) ==
LOC: HO.LAB 11:58
PROVIDERS: PCP Internal Medicine; Visit Provider Internal Medicine
DX: D64.9 Anemia, unspecified (principal); E78.00 Pure hypercholesterolemia, unspecified
CPT/HCPCS: 36415; 80053; 80061; 81001; 84443; 85025

== ENCOUNTER 2023-11-11 13:28 | Outpatient (AMB) | payer OTHER, MEDICAID, SELFPAY ==
[2023-11-11 13:30] VITALS: BP 124/80; PULSE 86; O2SAT 98; BMI 39.3
--- NOTE | 2023-11-11 13:30 | A.OFFPC_ITS ---
Vital Signs 11/11/23 13:30 Height 5 ft 4 in Weight 229 lb BMI 39.3 BP 124/80 Blood Pressure Location Rt brachial Position Sitting Pulse 86 Pulse Source Pulse Oximeter Pulse Oximetry (%) 98 Oxygen Delivery Method Room Air Intake Visit Reasons: 4mt f/u Analytics Senior Manager Required: No Director Of Capital Giving: Not Required per policy Accompanied by: Self / Same As Patient Allergies Penicillins [PENICILLINS] Allergy (Unknown, Verified 11/11/23 14:03) CHILDHOOD RXN transparent dressing [Tegaderm] Allergy (Verified 11/11/23 14:03) Rash codeine [CODEINE] Adverse Reaction (Intermediate, Verified 11/11/23 14:03) NAUSEA & VOMITING morphine [MORPHINE] Adverse Reaction (Intermediate, Verified 11/11/23 14:03) Bad headache, N/V oxycodone [From PERCOCET] Adverse Reaction (Intermediate, Verified 11/11/23 14:03) NAUSEA & VOMITING Medication List - Last Reconciled 11/11/23 by Brijesh Pineda MD anastrozole 1 mg PO DAILY atorvastatin 80 mg PO DAILY 90 days compression sleeve and gauntlet (LympheDiva Arm Sleeve with Gauntlet) As Directed ezetimibe (Zetia) 10 mg PO DAILY ferrous sulfate (Iron (ferrous sulfate)) 325 mg PO DAILY fluoxetine 20 mg PO DAILY 90 days loratadine (Claritin) 10 mg PO DAILY metoprolol tartrate 50 mg in the morning and 25 mg at night orally daily multivitamin 1 tab PO DAILY Tobacco use date assessed: 07/07/23 Dental Screening Dental Screen Date: 07/07/23 [facility] H[facility] Details Patient comes in today for her follow up visit States that she feels okay She denies any headaches or dizziness Denies any chest pains, no SOB No nausea/vomiting, no abdominal pain No change in bowel habits noted Patient is also requesting for a referral to see weight management as she has not been able to lose any weight on her own - states that she does not want to go for bariatric surgery Is also wondering if she can try taking some of the newer injectable weight loss meds that she has been hearing a lot about in the media nowadays She had her follow up labs done a few days ago - to discuss her results [facility] Medical History Urinary incontinence Low back pain Anxiety Osteoarthritis of left hip Impacted cerumen of both ears Arthritis Numbness of fingers of both hands Hx of cardiac murmur PONV (postoperative nausea and vomiting) Osteoarthritis of right hip Right hip pain Insomnia Chronic osteoarthritis Obesity (BMI 30-39.9) Depression Secondary and unspecified malignant neoplasm of axilla and upper limb lymph nodes Anemia Malignant neoplasm of left breast Pure hypercholesterolemia Benign essential hypertension Surgical History History of total left hip replacement History of left hip replacement History of total right hip replacement Hx of colonoscopy History of axillary surgery History of left mastectomy History of left breast biopsy History of hernia surgery Family History Father Diabetes Bladder cancer Mother Chronic mental illness Brain cancer Lung cancer Maternal Grandmother Stomach cancer Maternal Grandfather Lung cancer Other Mental health problem Substance abuse Social History Household Members: None Housing: House Are you a primary multi care technician to a significant other at home: No Do you presently have visiting nurse or other home services: No Alcohol intake: current Alcohol intake frequency: holidays/special occasions only Alcohol type: wine Comment: aware of trip hazard Patient Tobacco Use Status: Never used Tobacco e-Cigarette/Vaping Use: Never Used Second Hand Smoke Exposure: Yes Advance Directives Date on File: 12/22/20 service: No Current occupational status: disabled Current occupational exposures/hazards: No Gender identity: Female Cognitive needs: No Hearing needs: No Vision needs: Yes Questionnaire Thrive Questionnaire Date Thrive assessed: 07/07/23 FITZ-7 AMB Questionnaire FITZ-7 Date FITZ - 7 assessed: 07/07/23 Source: Developed by Drs. Jez Villagran, Daina Agustin, Quirino Hough and colleagues, with an educational fallon from [employer]. Review of Systems Const Denies chills, Denies fatigue, Denies fever(s) and Denies headache(s) ENT Denies dysphagia, Denies dizziness, Denies otalgia, Denies headache(s), Denies neck pain, Denies odynophagia and Denies sore throat Card Denies chest pain, Denies rapid heart rate, Reports palpitations (occasionally) and Denies dyspnea Resp Denies chest congestion, Denies cough and Denies dyspnea GI Denies abdominal pain, Denies constipation, Denies dysphagia, Denies heartburn, Denies diarrhea, Denies nausea, Denies odynophagia and Denies vomiting Denies difficulty voiding, Denies nocturia, Denies dysuria, Reports urinary incontinence and Reports urinary urgency Musc Reports arthralgias (left knee, left shoulder) and Denies neck pain Skin/Breast Denies rash Neuro Denies dizziness, Denies headache(s) and Reports memory loss Psych Reports memory loss Endo Denies fatigue and Reports palpitations (occasionally) Janak/Lymph Details: (+) chronic swelling of the entire left upper extremity Physical exam (Primary Care) Vital Signs: Last Vital Signs Pulse 86 11/11/23 13:30 BP 124/80 11/11/23 13:30 Pulse Ox 98 11/11/23 13:30 Oxygen Delivery Method Room Air 11/11/23 13:30 BMI result Body Mass Index 39.3 Tobacco/Smoking Status: Tobacco use Status Tobacco use date assessed 07/07/23 11/11/23 13:36 Patient Tobacco Use Status Never used Tobacco 11/11/23 13:36 e-Cigarette/Vaping Use Never Used 11/11/23 13:36 Thrive Assessment: Date of Thrive Assessment Date Thrive assessed 07/07/23 11/11/23 13:36 Const General: no acute distress and alert HENMT Ears: TM's normal bilaterally and EAC's normal Throat: Yes posterior oropharynx normal and Yes tonsils normal (no TP congestion noted) Neck Neck: Yes no lymphadenopathy and Yes supple Thyroid: Thyroid normal Resp Auscultation: clear to auscultation bilaterally, no rales and no wheezes Cardio Rate: regular rate Rhythm: regular rhythm Heart sounds: no murmurs GI Palpation (GI): Soft to palpation and nontender Auscultation: normal bowel sounds General: Yes no CVA tenderness Back/Spine/Pelvis Back: no CVA tenderness Thoracic/Lumbar Spine: No lumbar spinal tenderness Skin Rashes: no rashes Extrem Other: (+) lymphedema of the left arm and hand General: Yes no clubbing, cyanosis or edema Left lower extremity: hip/thigh Details: tenderness Location: of the hip Results Reviewed Results Reviewed: Laboratory Tests 11/08/23 11/08/23 12:10 12:15 WBC 4.4 L Hgb 13.1 Hct 39.8 Plt Count 204 Sodium 141 Potassium 4.6 Creatinine 0.73 Estimated GFR > 60 Fasting Glucose 98 Calcium 9.5 AST 26 ALT 28 Triglycerides 107 Cholesterol 174 LDL Cholesterol, Calc 85 HDL Cholesterol 68 TSH 1.20 Ur Specific [place] 1.015 Urine Protein Negative Urine Glucose (UA) Negative Urine Blood Trace H Urine Nitrite Negative Ur Leukocyte Esterase Negative Assessment and Plan Assessment & Plan (1) Palpitations: Code(s): R00.2 - Palpitations Plan: Aside from frequent PVCs and 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, work ups done a couple of years ago, including echocardiogram, labs and Holter monitor, were all unrevealing Continue Metoprolol 50 mg in AM and 25 mg in PM Follow up with cardiology as scheduled (2) Benign essential hypertension: Code(s): I10 - Essential (primary) hypertension Plan: Reinforced low sodium diet - goal is systolic BP of at least 130 mm or less Continue Metoprolol 50 mg in AM and 25 mg in PM (3) Pure hypercholesterolemia: Code(s): E78.00 - Pure hypercholesterolemia, unspecified Plan: Results of her labs done a few days ago reviewed and discussed with patient Reinforced low cholesterol diet Continue Atorvastatin 80 mg QD and Ezetimibe 10 mg QD Will recheck her labs and fasting lipids in 4 months for follow up (4) DEEP (obstructive sleep apnea): Code(s): G47.33 - Obstructive sleep apnea (adult) (pediatric) Plan: Continue using her nasal CPAP device when sleeping at night, with setting of APAP of 6 to 16 cm of water Follow up with Sleep Medicine as scheduled (5) Osteoarthritis of left hip: Code(s): M16.12 - Unilateral primary osteoarthritis, left hip Qualifiers: Osteoarthritis type: primary Qualified Code(s): M16.12 - Unilateral primary osteoarthritis, left hip Plan: S/P total left hip arthroplasty with Dr. Pulido on 06/16/2021 - is currently doing well with (+) significant improvement of symptoms following her surgery Follow up with orthopedics as scheduled (6) Malignant neoplasm of left breast: Code(s): C50.912 - Malignant neoplasm of unspecified site of left female breast Qualifiers: Breast location: unspecified site of breast Estrogen receptor status: positive Patient sex: female Qualified Code(s): C50.912 - Malignant neoplasm of unspecified site of left female breast; Z17.0 - Estrogen receptor positive status [ER+] Plan: Patient had invasive ductal carcinoma of the left breast, and is S/P lumpectomy and axillary node dissection on 04/05/2018. Stage IIA. Pathology: Grade 2, 3.6 cm with associated DCIS nuclear grade 2 with necrosis. Metastatic carcinoma seen in 6/16 lymph nodes. Margins negative, ER/PA positive, HER-2 negative She completed adjuvant chemotherapy with Taxoterene and Cytoxan - 1st cycle was administered on 05/17/2018, every 3 weeks and last cycle was given on 07/19/2018 Continue aromatase inhibitor therapy with Anastrozole 1 mg QD to help lower her risk of breast cancer recurrence Follow-up with Oncology as scheduled for continuing surveillance (7) Secondary and unspecified malignant neoplasm of axilla and upper limb lymph nodes: Code(s): C77.3 - Secondary and unspecified malignant neoplasm of axilla and upper limb lymph nodes Plan: S/P lymph node dissection Follow-up with Oncology as scheduled for continuing surveillance (8) Lymphedema of left arm: Code(s): I89.0 - Lymphedema, not elsewhere classified Plan: Patient currently has a lymphedema sleeve on - is reminded to wear her sleeve as needed to help keep her left arm swelling down and more manageable (9) Anemia: Code(s): D64.9 - Anemia, unspecified Qualifiers: Anemia type: unspecified type Qualified Code(s): D64.9 - Anemia, unspecified Plan: Improved/corrected - was most likely related to her chemotherapy Will continue to monitor her CBC regularly (10) Memory impairment: Code(s): R41.3 - Other amnesia Plan: She was referred to and seen by Neurology last year - was diagnosed with mild cognitive impairment (11) Urinary incontinence: Code(s): R32 - Unspecified urinary incontinence Qualifiers: Urinary Incontinence type: unspecified incontinence Qualified Code(s): R32 - Unspecified urinary incontinence Plan: Follow up with urology as scheduled (12) Depression: Code(s): F32.9 - Major depressive disorder, single episode, unspecified Qualifiers: Depression Type: unspecified Qualified Code(s): F32.9 - Major depressive disorder, single episode, unspecified Plan: Continue Fluoxetine 20 mg QD (13) Obesity (BMI 30-39.9): Code(s): E66.9 - Obesity, unspecified Plan: Reinforced diet; exercise and weight loss are unrealistic given patient's multiple comorbidities Per request, she is being referred to weight management at [facility] - patient specified that she would like to go to the medical aspect of weight management and does not wish to pursue bariatric surgery Per request, will also try starting her on Wegovy to help her lose weight but advised that her insurance may not approve this Rx Plan Follow up in 4 months Orders: Orders Lipid Panel 4 Months E78.00 - Pure hypercholesterolemia, unspecified Comprehensive [place]. Panel Fast 4 Months E78.00 - Pure hypercholesterolemia, unspecified Complete Blood Count Auto Diff 4 Months D64.9 - Anemia, unspecified Referrals Medical Weight Management Referral E66.9 - Obesity, unspecified Medications: New semaglutide (weight loss) (Wegovy) administer weeks 1 through 4 of therapy 0.25 mg (0.5 mL) subcut QWEEK 4 weeks 2 mL 1RF Coding Level of Care Code Est Pt Level 4 (70508) Complex EM visit Add On G2211 Diagnoses Palpitations R00.2 Benign essential hypertension I10 Pure hypercholesterolemia E78.00 DEEP (obstructive sleep apnea) G47.33 Primary osteoarthritis of left hip M16.12 Osteoarthritis type: primary Malignant neoplasm of left breast in female, estrogen receptor positive, unspecified site of breast C50.912; Z17.0 Breast location: unspecified site of breast Estrogen receptor status: positive Patient sex: female Secondary and unspecified malignant neoplasm of axilla and upper limb lymph nodes C77.3 Lymphedema of left arm I89.0 Anemia, unspecified type D64.9 Anemia type: unspecified type Memory impairment R41.3 Urinary incontinence, unspecified type R32 Urinary Incontinence type: unspecified incontinence Depression, unspecified depression type F32.9 Depression Type: unspecified Obesity (BMI 30-39.9) E66.9
== END 2023-11-11 14:16 | disposition home or self-care (01) ==
PROVIDERS: PCP Internal Medicine; Visit Provider Internal Medicine
DX: R00.2 Palpitations (principal); C50.912 Malignant neoplasm of unspecified site of left female breast; I10 Essential (primary) hypertension; C77.3 Secondary and unspecified malignant neoplasm of axilla and upper limb lymph nodes; E78.00 Pure hypercholesterolemia, unspecified; G47.33 Obstructive sleep apnea (adult) (pediatric); M16.12 Unilateral primary osteoarthritis, left hip; Z17.0 Estrogen receptor positive status [ER+]; I89.0 Lymphedema, not elsewhere classified; D64.9 Anemia, unspecified; R41.3 Other amnesia
CPT/HCPCS: 99214; G2211

== ENCOUNTER 2023-11-22 13:18 | Outpatient (AMB) | payer OTHER, MEDICAID, SELFPAY ==
[2023-11-22 13:26] VITALS: BP 144/82; PULSE 65; O2SAT 96; BMI 39.7
--- NOTE | 2023-11-22 13:26 | MHC.OFFVIS ---
Vital Signs 11/22/23 13:26 Height 5 ft 4 in Weight 231 lb 7.766 oz BMI 39.7 BP 144/82 H Blood Pressure Location Rt brachial Position Sitting Pulse 65 Pulse Source Pulse Oximeter Pulse Oximetry (%) 96 Oxygen Delivery Method Room Air Intake Visit Reasons: Obstructive sleep apnea Allergies Penicillins [PENICILLINS] Allergy (Unknown, Verified 11/22/23 13:29) CHILDHOOD RXN transparent dressing [Tegaderm] Allergy (Verified 11/22/23 13:29) Rash codeine [CODEINE] Adverse Reaction (Intermediate, Verified 11/22/23 13:29) NAUSEA & VOMITING morphine [MORPHINE] Adverse Reaction (Intermediate, Verified 11/22/23 13:29) Bad headache, N/V oxycodone [From PERCOCET] Adverse Reaction (Intermediate, Verified 11/22/23 13:29) NAUSEA & VOMITING HPI HPI Obstructive sleep apnea: Details: 58-year-old lady followed for underlying [id number] obstructive sleep apnea, now on CPAP therapy. Patient has been using her CPAP with good control of her sleep apnea symptoms. Patient does complain of recurrent sinusitis that limits how much she can use her CPAP. [facility] Medical History Urinary incontinence Low back pain Anxiety Osteoarthritis of left hip Impacted cerumen of both ears Arthritis Numbness of fingers of both hands Hx of cardiac murmur PONV (postoperative nausea and vomiting) Osteoarthritis of right hip Right hip pain Insomnia Chronic osteoarthritis Obesity (BMI 30-39.9) Depression Secondary and unspecified malignant neoplasm of axilla and upper limb lymph nodes Anemia Malignant neoplasm of left breast Pure hypercholesterolemia Benign essential hypertension Surgical History History of total left hip replacement History of left hip replacement History of total right hip replacement Hx of colonoscopy History of axillary surgery History of left mastectomy History of left breast biopsy History of hernia surgery Family History Father Diabetes Bladder cancer Mother Chronic mental illness Brain cancer Lung cancer Maternal Grandmother Stomach cancer Maternal Grandfather Lung cancer Other Mental health problem Substance abuse Social History Household Members: None Housing: House Are you a primary acute care surgeon to a significant other at home: No Do you presently have visiting nurse or other home services: No Alcohol intake: current Alcohol intake frequency: holidays/special occasions only Alcohol type: wine Comment: aware of trip hazard Patient Tobacco Use Status: Never used Tobacco e-Cigarette/Vaping Use: Never Used Second Hand Smoke Exposure: Yes Advance Directives Date on File: 12/22/20 service: No Current occupational status: disabled Current occupational exposures/hazards: No Gender identity: Female Cognitive needs: No Hearing needs: No Vision needs: Yes Review of Systems Const Denies daytime sleepiness, Denies excessive sweating, Denies fatigue, Denies fever(s), Denies lethargy, Denies malaise, Denies night sweats, Denies snoring and Denies weight loss Eyes Denies blurry vision and Denies itchy eyes ENT Denies nasal congestion, Reports post nasal drip, Denies sinus pain, Reports sinus pressure and Denies other ( Thrush) Card Denies chest pain, Denies pedal edema, Denies dyspnea, Denies orthopnea and Denies paroxysmal nocturnal dyspnea Resp Denies cough, Denies hemoptysis, Denies excessive phlegm production, Denies dyspnea, Denies snoring and Denies wheezing GI Denies abdominal pain and Denies heartburn Musc Denies myalgias, Denies arthralgias and Denies joint swelling Skin/Breast Denies rash Neuro Denies memory loss and Denies seizure-like activity Psych Denies abnormal sleep pattern, Denies anxiety and Denies memory loss Endo Denies excessive sweating, Denies fatigue and Denies heat intolerance Janak/Lymph Denies easy bruising Aller/Immun Denies itchy eyes, Denies seasonal rhinorrhea and Denies wheezing Physical Exam Vital Signs: Last Vital Signs Pulse 65 11/22/23 13:26 BP 144/82 H 11/22/23 13:26 Pulse Ox 96 11/22/23 13:26 Oxygen Delivery Method Room Air 11/22/23 13:26 BMI result Body Mass Index 39.7 Const General: no acute distress and alert Nutritional Appearance: obese Orientation/consciousness: Other orientation findings ( oriented) HEENT Head: Yes atraumatic Eyes General: appearance normal, both eyes and all related structures Sclerae: sclerae normal EOM: EOMs intact bilaterally Neck Neck: Yes supple Lymphatic: no lymphadenopathy noted Resp Effort & Inspection: normal respiratory effort and no use of accessory muscles Auscultation: clear to auscultation bilaterally Cardio Rate: regular rate Rhythm: regular rhythm Heart sounds: no gallops, no murmurs and no rubs Skin General skin exam: other ( warm) Extrem General: No clubbing, No cyanosis and No edema Assessment & Plan Assessment & Plan (1) DEEP (obstructive sleep apnea): Code(s): G47.33 - Obstructive sleep apnea (adult) (pediatric) Category: Medical Plan: reasonable control of therapy. Continue current CPAP therapy. Patient has been advised on adjusting humidity/temperature settings. (2) Sinus congestion: Code(s): R09.81 - Nasal congestion Category: Medical Plan: Appears to be allergic/inflammatory and non infectious. Will treat with empiric nasal ipratropium. Medications: New ipratropium bromide administer into each nostril 2 sprays intranasal TID-QID PRN 15 mL 2RF allergy symptoms Coding Level of Care Code Est Pt Level 4 (59210) Diagnoses DEEP (obstructive sleep apnea) G47.33 Sinus congestion R09.81
== END 2023-11-22 13:47 | disposition home or self-care (01) ==
PROVIDERS: PCP Internal Medicine; Visit Provider Internal Medicine Pulmonary Disease
DX: G47.33 Obstructive sleep apnea (adult) (pediatric) (principal); R09.81 Nasal congestion
CPT/HCPCS: 99214

== ENCOUNTER → 2023-11-22 13:18 | Outpatient (BNVA) | payer OTHER, MEDICAID, SELFPAY | PROVIDERS: PCP Internal Medicine; Visit Provider Internal Medicine Pulmonary Disease | DX: G47.33 Obstructive sleep apnea (adult) (pediatric) (principal) ==

== ENCOUNTER 2024-03-13 12:45 | Outpatient (REF) | payer OTHER, MEDICAID, SELFPAY ==
[2024-03-13 13:17] LABS: MANUAL DIFF FLAG NO
[2024-03-13 13:25] LABS: Basophils Percent Auto 0.5 % (0-2); Eosinophils Absolute Auto 0.1 X10*3/uL (0.0-0.4); Eosinophils Percent Auto 2.2 % (0-4); Hemoglobin 13.2 g/dl (12.0-16.0); Imm Gran Abs Auto 0.01 X10*3/uL (0.00-0.03); Imm Gran Pct Auto 0.2 % (0.0-0.4); Lymphocytes Absolute Auto 1.5 X10*3/uL (1.2-4.9); Lymphocytes Percent Auto 24.1 % (20-40); Mean Corpuscular HGB Conc 33.8 g/dl (31.0-35.0); Mean Corpuscular Hemoglobin 31.7 pg (27.0-33.0); Mean Corpuscular Volume 93.5 fL (80.0-98.0); Mean Platelet Volume 10.2 fL (9.4-12.3); Monocytes Absolute Auto 0.5 X10*3/uL (0.1-1.2); Monocytes Percent Auto 7.3 % (2-11); Neutrophils Absolute Auto 4.1 x10*3/uL (2.0-8.3); Neutrophils Percent Auto 65.7 % (45-73); Platelet Count 202 X10*3/uL (160-400); Red Blood Count 4.17 X10*6/uL (4.20-5.50); Red Cell Distribution Width 12.7 % (11.0-16.0); White Blood Count 6.3 X10*3/uL (4.8-10.8)
[2024-03-13 14:04] LABS: Alanine Aminotransferase 28 U/L (0-31); Albumin Level 4.3 g/dL (3.5-5.0); Alkaline Phosphatase 75 U/L (39-117); Anion Gap 12 (12-20); Aspartate Amino Transferase 21 U/L (5-31); Bilirubin Total 0.7 mg/dL (0.0-1.0); Blood Urea Nitrogen 16 mg/dL (9-16); Calcium 9.6 mg/dL (8.4-10.2); Carbon Dioxide 27 mmol/L (22-29); Chloride 104 mmol/L (96-108); Cholesterol 180 mg/dL (<200); Estimated Glomerular Filt Rate > 60; Glucose Fasting 100 mg/dL (60-99); HDL Cholesterol 68 mg/dL (>40); LDL Cholesterol Calculated 92 mg/dL (<100); Potassium 4.3 mmol/L (3.3-5.1); Sodium 139 mmol/L (135-145); Triglycerides 102 mg/dL (<150)
[2024-03-13 14:05] LABS: Appearance Urine Clear; Color Urine Yellow; Glucose Urine UA Negative (Negative); Leukocyte Esterase Urine Trace (Negative); Nitrite Urine Negative (Negative); UMIC TRIGGER UACC YES; Urine Blood Trace (Negative); Urine Ketones Negative (Negative); Urine Protein Negative (Neg-Trace)
[2024-03-13 14:09] LABS: Bacteria Urine None Seen (None Seen); Hyaline Casts Urine 0-2 /LPF (0-2); RBC Urine 0-2 /HPF (0-2); Squamous Epithelial Cell Urine 0-2 /HPF (0-2); WBC Urine 0-5 /HPF (0-5)
== END 2024-03-13 12:46 | disposition home or self-care (01) ==
LOC: HO.LAB 12:45
PROVIDERS: PCP Internal Medicine; Visit Provider Internal Medicine
DX: D64.9 Anemia, unspecified (principal); E78.00 Pure hypercholesterolemia, unspecified
CPT/HCPCS: 36415; 80053; 80061; 81001; 81003; 85025

== ENCOUNTER 2024-03-16 13:21 | Outpatient (AMB) | payer OTHER, MEDICAID, SELFPAY ==
--- NOTE | 2024-03-16 13:26 | MHC.PC.OV ---
Vital Signs 03/16/24 13:27 Height 5 ft 4 in Weight 231 lb 2 oz BMI 39.7 BP 130/70 Blood Pressure Location Rt brachial Position Sitting Pulse 72 Pulse Source Pulse Oximeter Pulse Oximetry (%) 97 Oxygen Delivery Method Room Air Intake Visit Reasons: 4mth f/u Intake Note: Patient is here to follow up on DEEP, HTN, Hypercholesterolemia . Pt decline flu shot today. Yeast Supervisor Required: No Materials And Processes Manager: Not Required per policy Accompanied by: Self / Same As Patient Allergies Penicillins [PENICILLINS] Allergy (Unknown, Verified 03/16/24 13:42) CHILDHOOD RXN transparent dressing [Tegaderm] Allergy (Verified 03/16/24 13:42) Rash codeine [CODEINE] Adverse Reaction (Intermediate, Verified 03/16/24 13:42) NAUSEA & VOMITING morphine [MORPHINE] Adverse Reaction (Intermediate, Verified 03/16/24 13:42) Bad headache, N/V oxycodone [From PERCOCET] Adverse Reaction (Intermediate, Verified 03/16/24 13:42) NAUSEA & VOMITING Medication List - Last Reconciled 03/16/24 by Brijesh Pineda MD anastrozole 1 mg PO DAILY atorvastatin 80 mg PO DAILY 90 days cetirizine 10 mg PO DAILY compression sleeve and gauntlet (LympheDiva Arm Sleeve with Gauntlet) As Directed doxycycline hyclate 100 mg PO DAILY 1 day ezetimibe (Zetia) 10 mg PO DAILY ferrous sulfate (Iron (ferrous sulfate)) 325 mg PO DAILY fluoxetine 20 mg PO DAILY 90 days ipratropium bromide 2 sprays intranasal TID-QID PRN loratadine (Claritin) 10 mg PO DAILY metoprolol tartrate 50 mg in the morning and 25 mg at night orally daily multivitamin 1 tab PO DAILY semaglutide (weight loss) (Wegovy) 0.25 mg (0.5 mL) subcut QWEEK 4 weeks Tobacco use date assessed: 03/16/24 Dental Screening Dental Screen Date: 07/07/23 HPI 4mth f/u HPI Details Patient comes in today for her follow up visit States that she feels okay She denies any headaches or dizziness Denies any chest pains, no SOB States that she still has occasional brief sensations of palpitations/reapid heart rate but these have not been associated with any other symptoms No nausea/vomiting, no abdominal pain No change in bowel habits noted She had her follow up labs done a few days ago - to discuss her results [facility] Medical History Urinary incontinence Low back pain Anxiety Osteoarthritis of left hip Impacted cerumen of both ears Arthritis Numbness of fingers of both hands Hx of cardiac murmur PONV (postoperative nausea and vomiting) Osteoarthritis of right hip Right hip pain Insomnia Chronic osteoarthritis Obesity (BMI 30-39.9) Depression Secondary and unspecified malignant neoplasm of axilla and upper limb lymph nodes Anemia Malignant neoplasm of left breast Pure hypercholesterolemia Benign essential hypertension Surgical History History of total left hip replacement History of left hip replacement History of total right hip replacement Hx of colonoscopy History of axillary surgery History of left mastectomy History of left breast biopsy History of hernia surgery Family History Father Diabetes Bladder cancer Mother Chronic mental illness Brain cancer Lung cancer Maternal Grandmother Stomach cancer Maternal Grandfather Lung cancer Other Mental health problem Substance abuse Social History Household Members: None Housing: House Are you a primary child care worker to a significant other at home: No Do you presently have visiting nurse or other home services: No Alcohol intake: current Alcohol intake frequency: holidays/special occasions only Alcohol type: wine Comment: aware of trip hazard Patient Tobacco Use Status: Never used Tobacco e-Cigarette/Vaping Use: Never Used Second Hand Smoke Exposure: Yes Advance Directives Date on File: 12/22/20 service: No Current occupational status: disabled Current occupational exposures/hazards: No Gender identity: Female Cognitive needs: No Hearing needs: No Vision needs: Yes Questionnaire Thrive Questionnaire Date Thrive assessed: 07/07/23 Are you currently unemployed and looking for a job?: I choose not to answer this question FITZ-7 AMB Questionnaire FITZ-7 Date FITZ - 7 assessed: 07/07/23 Source: Developed by Drs. Jez Villagran, Daina Agustin, Quirino Hough and colleagues, with an educational fallon from [employer]. Review of Systems Const Denies chills, Denies fatigue, Denies fever(s) and Denies headache(s) ENT Denies dysphagia, Denies dizziness, Denies otalgia, Denies headache(s), Denies neck pain, Denies odynophagia and Denies sore throat Card Denies chest pain, Denies rapid heart rate, Reports palpitations (occasionally) and Denies dyspnea Resp Denies chest congestion, Denies cough and Denies dyspnea GI Denies abdominal pain, Denies constipation, Denies dysphagia, Denies heartburn, Denies diarrhea, Denies nausea, Denies odynophagia and Denies vomiting Denies difficulty voiding, Denies nocturia, Denies dysuria, Reports urinary incontinence and Reports urinary urgency Musc Denies back pain, Reports arthralgias (left knee, left shoulder) and Denies neck pain Skin/Breast Denies rash Neuro Denies dizziness, Denies headache(s) and Reports memory loss Psych Reports memory loss Endo Denies fatigue and Reports palpitations (occasionally) Janak/Lymph Details: (+) chronic swelling of the entire left upper extremity Physical exam (Primary Care) Vital Signs: Last Vital Signs Pulse 72 03/16/24 13:27 BP 130/70 03/16/24 13:27 Pulse Ox 97 03/16/24 13:27 Oxygen Delivery Method Room Air 03/16/24 13:27 BMI result Body Mass Index 39.7 Tobacco/Smoking Status: Tobacco use Status Tobacco use date assessed 03/16/24 03/16/24 13:32 Patient Tobacco Use Status Never used Tobacco 03/16/24 13:32 e-Cigarette/Vaping Use Never Used 03/16/24 13:32 Thrive Assessment: Date of Thrive Assessment Date Thrive assessed 07/07/23 03/16/24 13:32 Const General: no acute distress and alert HENMT Ears: TM's normal bilaterally and EAC's normal Throat: Yes posterior oropharynx normal and Yes tonsils normal (no TP congestion noted) Neck Neck: Yes no lymphadenopathy and Yes supple Thyroid: Thyroid normal Resp Auscultation: clear to auscultation bilaterally, no rales and no wheezes Cardio Rate: regular rate Rhythm: regular rhythm Heart sounds: no murmurs GI Palpation (GI): Soft to palpation and nontender Auscultation: normal bowel sounds General: Yes no CVA tenderness Back/Spine/Pelvis Back: no CVA tenderness Thoracic/Lumbar Spine: No lumbar spinal tenderness Skin Rashes: no rashes Extrem Other: (+) lymphedema of the left arm and hand General: Yes no clubbing, cyanosis or edema Left lower extremity: hip/thigh Details: tenderness Location: of the hip Results Reviewed Results Reviewed: Laboratory Tests 03/13/24 03/13/24 13:07 13:09 WBC 6.3 Hgb 13.2 Hct 39.0 Plt Count 202 Sodium 139 Potassium 4.3 Creatinine 0.76 Estimated GFR > 60 Fasting Glucose 100 H Calcium 9.6 AST 21 ALT 28 Triglycerides 102 Cholesterol 180 LDL Cholesterol, Calc 92 HDL Cholesterol 68 Ur Specific [place] 1.010 Urine Protein Negative Urine Glucose (UA) Negative Urine Blood Trace H Urine Nitrite Negative Ur Leukocyte Esterase Trace H Coding Level of Care Code Est Pt Level 4 (07820) Diagnoses Palpitations R00.2 Pure hypercholesterolemia E78.00 Benign essential hypertension I10 DEEP (obstructive sleep apnea) G47.33 Malignant neoplasm of left breast in female, estrogen receptor positive, unspecified site of breast C50.912; Z17.0 Breast location: unspecified site of breast Estrogen receptor status: positive Patient sex: female Secondary and unspecified malignant neoplasm of axilla and upper limb lymph nodes C77.3 Lymphedema of left arm I89.0 Anemia, unspecified type D64.9 Anemia type: unspecified type Memory impairment R41.3 Urinary incontinence, unspecified type R32 Urinary Incontinence type: unspecified incontinence Depression, unspecified depression type F32.9 Depression Type: unspecified Obesity (BMI 30-39.9) E66.9 Assessment & Plan Assessment & Plan (1) Palpitations: Code(s): R00.2 - Palpitations Category: Medical Plan: Cardiac work ups done a few years ago, including echocardiogram, labs and Holter monitor, were all unrevealing and only showed (+) frequent PVCs and 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 Continue Metoprolol 50 mg in AM and 25 mg in PM Follow up with cardiology as scheduled Was advised that cardiology will consider repeating some work ups if she continues to experience recurrent symptoms (2) Pure hypercholesterolemia: Code(s): E78.00 - Pure hypercholesterolemia, unspecified Category: Medical Plan: Results of her labs done a few days ago reviewed and discussed with patient Reinforced low cholesterol diet Continue Atorvastatin 80 mg QD and Ezetimibe 10 mg QD Will recheck her labs and fasting lipids in 4 months for follow up (3) Benign essential hypertension: Code(s): I10 - Essential (primary) hypertension Category: Medical Plan: Reinforced low sodium diet - goal is systolic BP of at least 130 mm or less Continue Metoprolol 50 mg in AM and 25 mg in PM (4) DEEP (obstructive sleep apnea): Code(s): G47.33 - Obstructive sleep apnea (adult) (pediatric) Category: Medical Plan: Continue using her nasal CPAP device when sleeping at night, with setting of APAP of 6 to 16 cm of water Follow up with Sleep Medicine as scheduled (5) Malignant neoplasm of left breast: Code(s): C50.912 - Malignant neoplasm of unspecified site of left female breast Category: Medical Qualifiers: Breast location: unspecified site of breast Estrogen receptor status: positive Patient sex: female Qualified Code(s): C50.912 - Malignant neoplasm of unspecified site of left female breast; Z17.0 - Estrogen receptor positive status [ER+] Plan: Patient had invasive ductal carcinoma of the left breast, and is S/P lumpectomy and axillary node dissection on 04/05/2018. Stage IIA. Pathology: Grade 2, 3.6 cm with associated DCIS nuclear grade 2 with necrosis. Metastatic carcinoma seen in 6/16 lymph nodes. Margins negative, ER/OH positive, HER-2 negative She completed adjuvant chemotherapy with Taxoterene and Cytoxan - 1st cycle was administered on 05/17/2018, every 3 weeks and last cycle was given on 07/19/2018 Continue aromatase inhibitor therapy with Anastrozole 1 mg QD to help lower her risk of breast cancer recurrence Follow-up with Oncology as scheduled for continuing surveillance (6) Secondary and unspecified malignant neoplasm of axilla and upper limb lymph nodes: Code(s): C77.3 - Secondary and unspecified malignant neoplasm of axilla and upper limb lymph nodes Category: Medical Plan: S/P lymph node dissection Follow-up with Oncology as scheduled for continuing surveillance (7) Lymphedema of left arm: Code(s): I89.0 - Lymphedema, not elsewhere classified Category: Medical Plan: Patient currently has a lymphedema sleeve on - she is reminded to wear her sleeve as needed to help keep her left arm swelling down and more manageable (8) Anemia: Code(s): D64.9 - Anemia, unspecified Category: Medical Qualifiers: Anemia type: unspecified type Qualified Code(s): D64.9 - Anemia, unspecified Plan: Improved/corrected - was most likely related to her chemotherapy Will continue to monitor her CBC regularly (9) Memory impairment: Code(s): R41.3 - Other amnesia Category: Medical Plan: She was referred to and seen by Neurology last year - was diagnosed with mild cognitive impairment (10) Urinary incontinence: Code(s): R32 - Unspecified urinary incontinence Category: Medical Qualifiers: Urinary Incontinence type: unspecified incontinence Qualified Code(s): R32 - Unspecified urinary incontinence Plan: Follow up with urology as scheduled (11) Depression: Code(s): F32.9 - Major depressive disorder, single episode, unspecified Category: Medical Qualifiers: Depression Type: unspecified Qualified Code(s): F32.9 - Major depressive disorder, single episode, unspecified Plan: Continue Fluoxetine 20 mg QD (12) Obesity (BMI 30-39.9): Code(s): E66.9 - Obesity, unspecified Category: Medical Plan: Reinforced diet; exercise and weight loss are unrealistic given patient's multiple comorbidities Per request, she was referred to [place] [facility] [place] patient specified that she would like to go to the medical aspect of weight management and does not wish to pursue bariatric surgery - but was advised that the program here is currently full Per request, we tried starting her on Wegovy to help her lose weight but for unclear reasons, she has not yet gotten this from her insurance company - Rx resent Plan Follow up in 4 months Orders: Orders Complete Blood Count Auto Diff 4 Months D64.9 - Anemia, unspecified Lipid Panel 4 Months E78.00 - Pure hypercholesterolemia, unspecified UA CC w/rflx Micro + Cult 4 Months R30.0 - Dysuria Vitamin D 25-OH Total 4 Months E55.9 - Vitamin D deficiency, unspecified Comprehensive [place]. Panel Fast 4 Months E78.00 - Pure hypercholesterolemia, unspecified Medications: Refilled semaglutide (weight loss) (Wegovy) administer weeks 1 through 4 of therapy 0.25 mg (0.5 mL) subcut QWEEK 4 weeks 2 mL 1RF
[2024-03-16 13:27] VITALS: BP 130/70; PULSE 72; O2SAT 97; BMI 39.7
== END 2024-03-16 13:54 | disposition home or self-care (01) ==
PROVIDERS: PCP Internal Medicine; Visit Provider Internal Medicine
DX: R00.2 Palpitations (principal); C50.912 Malignant neoplasm of unspecified site of left female breast; C77.3 Secondary and unspecified malignant neoplasm of axilla and upper limb lymph nodes; E78.00 Pure hypercholesterolemia, unspecified; I10 Essential (primary) hypertension; G47.33 Obstructive sleep apnea (adult) (pediatric); Z17.0 Estrogen receptor positive status [ER+]; I89.0 Lymphedema, not elsewhere classified; D64.9 Anemia, unspecified; R41.3 Other amnesia; R32 Unspecified urinary incontinence; F32.9 Major depressive disorder, single episode, unspecified

== ENCOUNTER → 2024-03-16 13:21 | Outpatient (BNVA) | payer OTHER, MEDICAID, SELFPAY | PROVIDERS: PCP Internal Medicine; Visit Provider Internal Medicine ==

== ENCOUNTER 2024-04-16 12:55 | Outpatient (REF) | payer OTHER, MEDICAID, SELFPAY ==
--- NOTE | ~2024-04-16 | MM_ITS ---
EXAMINATION: MM SCREENING DIGITAL BREAST TOMOSYNTHESIS, BILATERAL CLINICAL INFORMATION: Screening. Asymptomatic. COMPARISON: Mammography: Comparison is made with available priors TECHNIQUE: Digital breast mammography with tomosynthesis is performed in both the craniocaudal and mediolateral oblique views along with computer-aided detection (CAD). FINDINGS: There are scattered areas of fibroglandular density (ACR BI-RADS breast composition Category b). Post lumpectomy changes on the left breast are stable. There are no significant masses, abnormal calcifications, or other abnormalities. MM/MM tomosynthesis screening BI IMPRESSION: No mammographic evidence of malignancy. ASSESSMENT: BI-RADS BI-RADS 2 - Benign Findings RECOMMENDATION: Routine annual mammography screening. 1 year F/U This examination should not preclude the clinical evaluation of a suspicious palpable abnormality. This patient's information was entered into a reminder system with a target due date for their next mammogram. Electronically signed by: Christal Smalls DO 04/20/2024 10:26 AM GUERITA
== END 2024-04-16 12:56 | disposition home or self-care (01) ==
LOC: HO.MAMMO 12:55
PROVIDERS: PCP Internal Medicine; Visit Provider Internal Medicine
DX: Z12.31 Encounter for screening mammogram for malignant neoplasm of breast (principal)
CPT/HCPCS: 77063; 77067

== ENCOUNTER → 2024-04-16 13:00 | Outpatient (BNV) | payer OTHER, MEDICAID, SELFPAY | PROVIDERS: PCP Internal Medicine; Visit Provider Internal Medicine | DX: Z12.31 Encounter for screening mammogram for malignant neoplasm of breast (principal) | CPT/HCPCS: 77063; 77067 ==

== ENCOUNTER 2024-05-25 13:27 | Outpatient (AMB) | payer OTHER, MEDICAID, SELFPAY ==
[2024-05-25 13:28] VITALS: BP 128/82; PULSE 78; O2SAT 97; BMI 39.5
--- NOTE | 2024-05-25 13:28 | MHC.OFFVIS ---
Vital Signs 05/25/24 13:28 Height 5 ft 4 in Weight 230 lb 6.129 oz BMI 39.5 BP 128/82 Blood Pressure Location Rt brachial Position Sitting Pulse 78 Pulse Source Doppler Pulse Oximetry (%) 97 Oxygen Delivery Method Room Air Intake Visit Reasons: Obstructive sleep apnea Allergies Penicillins [PENICILLINS] Allergy (Unknown, Verified 05/25/24 13:32) CHILDHOOD RXN transparent dressing [Tegaderm] Allergy (Verified 05/25/24 13:32) Rash codeine [CODEINE] Adverse Reaction (Intermediate, Verified 05/25/24 13:32) NAUSEA & VOMITING morphine [MORPHINE] Adverse Reaction (Intermediate, Verified 05/25/24 13:32) Bad headache, N/V oxycodone [From PERCOCET] Adverse Reaction (Intermediate, Verified 05/25/24 13:32) NAUSEA & VOMITING HPI HPI Obstructive sleep apnea: Details: 59-year-old lady followed for underlying [id number] obstructive sleep apnea, now on CPAP therapy. Patient has been using her CPAP with good control of her sleep apnea symptoms. At the last office visit she has been started on nasal ipratropium with improvement in her allergic rhinitis. [facility] Medical History Urinary incontinence Low back pain Anxiety Osteoarthritis of left hip Impacted cerumen of both ears Arthritis Numbness of fingers of both hands Hx of cardiac murmur PONV (postoperative nausea and vomiting) Osteoarthritis of right hip Right hip pain Insomnia Chronic osteoarthritis Obesity (BMI 30-39.9) Depression Secondary and unspecified malignant neoplasm of axilla and upper limb lymph nodes Anemia Malignant neoplasm of left breast Pure hypercholesterolemia Benign essential hypertension Surgical History History of total left hip replacement History of left hip replacement History of total right hip replacement Hx of colonoscopy History of axillary surgery History of left mastectomy History of left breast biopsy History of hernia surgery Family History Father Diabetes Bladder cancer Mother Chronic mental illness Brain cancer Lung cancer Maternal Grandmother Stomach cancer Maternal Grandfather Lung cancer Other Mental health problem Substance abuse Social History Household Members: None Housing: House Are you a primary lawn care technician to a significant other at home: No Do you presently have visiting nurse or other home services: No Alcohol intake: current Alcohol intake frequency: holidays/special occasions only Alcohol type: wine Comment: aware of trip hazard Patient Tobacco Use Status: Never used Tobacco e-Cigarette/Vaping Use: Never Used Second Hand Smoke Exposure: Yes Advance Directives Date on File: 12/22/20 service: No Current occupational status: disabled Current occupational exposures/hazards: No Gender identity: Female Cognitive needs: No Hearing needs: No Vision needs: Yes Review of Systems Const Denies daytime sleepiness, Denies excessive sweating, Denies fatigue, Denies fever(s), Denies lethargy, Denies malaise, Denies night sweats, Denies snoring and Denies weight loss Eyes Denies blurry vision and Denies itchy eyes ENT Denies nasal congestion, Denies post nasal drip, Denies sinus pain, Denies sinus pressure and Denies other ( Thrush) Card Denies chest pain, Denies pedal edema, Denies dyspnea, Denies orthopnea and Denies paroxysmal nocturnal dyspnea Resp Denies cough, Denies hemoptysis, Denies excessive phlegm production, Denies dyspnea, Denies snoring and Denies wheezing GI Denies abdominal pain and Denies heartburn Musc Denies myalgias, Denies arthralgias and Denies joint swelling Skin/Breast Denies rash Neuro Denies memory loss and Denies seizure-like activity Psych Denies abnormal sleep pattern, Denies anxiety and Denies memory loss Endo Denies excessive sweating, Denies fatigue and Denies heat intolerance Janak/Lymph Denies easy bruising Aller/Immun Denies itchy eyes, Denies seasonal rhinorrhea and Denies wheezing Physical Exam Vital Signs: Last Vital Signs Pulse 78 05/25/24 13:28 BP 128/82 05/25/24 13:28 Pulse Ox 97 05/25/24 13:28 Oxygen Delivery Method Room Air 05/25/24 13:28 BMI result Body Mass Index 39.5 Const General: no acute distress and alert Nutritional Appearance: obese Orientation/consciousness: Other orientation findings ( oriented) HEENT Head: Yes atraumatic Eyes General: appearance normal, both eyes and all related structures Sclerae: sclerae normal EOM: EOMs intact bilaterally Neck Neck: Yes supple Lymphatic: no lymphadenopathy noted Resp Effort & Inspection: normal respiratory effort and no use of accessory muscles Auscultation: clear to auscultation bilaterally Cardio Rate: regular rate Rhythm: regular rhythm Heart sounds: no gallops, no murmurs and no rubs Skin General skin exam: other ( warm) Extrem General: No clubbing, No cyanosis and No edema Assessment & Plan Assessment & Plan (1) DEEP (obstructive sleep apnea): Code(s): G47.33 - Obstructive sleep apnea (adult) (pediatric) Category: Medical Plan: Well controlled on current CPAP therapy. Continue CPAP therapy. (2) Allergic rhinitis: Code(s): J30.9 - Allergic rhinitis, unspecified Category: Medical Plan: Significantly improved control on nasal ipratropium. Continue current regimen. Coding Level of Care Code Est Pt Level 4 (23611) Diagnoses DEEP (obstructive sleep apnea) G47.33 Allergic rhinitis J30.9
== END 2024-05-25 13:51 | disposition home or self-care (01) ==
PROVIDERS: PCP Internal Medicine; Visit Provider Internal Medicine Pulmonary Disease
DX: G47.33 Obstructive sleep apnea (adult) (pediatric) (principal); J30.9 Allergic rhinitis, unspecified
CPT/HCPCS: 99214

== ENCOUNTER → 2024-05-25 13:27 | Outpatient (BNVA) | payer OTHER, MEDICAID, SELFPAY | PROVIDERS: PCP Internal Medicine; Visit Provider Internal Medicine Pulmonary Disease | DX: G47.33 Obstructive sleep apnea (adult) (pediatric) (principal) ==

== ENCOUNTER 2024-07-13 11:34 | Outpatient (REF) | payer OTHER, MEDICAID, SELFPAY ==
[2024-07-13 11:50] LABS: MANUAL DIFF FLAG NO
[2024-07-13 11:59] LABS: Basophils Absolute Auto 0.1 X10*3/uL (0.0-0.2); Basophils Percent Auto 0.6 % (0-2); Eosinophils Absolute Auto 0.3 X10*3/uL (0.0-0.4); Eosinophils Percent Auto 3.6 % (0-4); Hematocrit 39.9 % (37.0-47.0); Hemoglobin 13.4 g/dl (12.0-16.0); Imm Gran Abs Auto 0.02 X10*3/uL (0.00-0.03); Imm Gran Pct Auto 0.3 % (0.0-0.4); Lymphocytes Absolute Auto 1.6 X10*3/uL (1.2-4.9); Lymphocytes Percent Auto 20.1 % (20-40); Mean Corpuscular HGB Conc 33.6 g/dl (31.0-35.0); Mean Corpuscular Hemoglobin 31.2 pg (27.0-33.0); Mean Corpuscular Volume 92.8 fL (80.0-98.0); Mean Platelet Volume 10.2 fL (9.4-12.3); Monocytes Absolute Auto 0.5 X10*3/uL (0.1-1.2); Monocytes Percent Auto 6.6 % (2-11); Neutrophils Absolute Auto 5.5 x10*3/uL (2.0-8.3); Neutrophils Percent Auto 68.8 % (45-73); Platelet Count 218 X10*3/uL (160-400); Red Cell Distribution Width 12.5 % (11.0-16.0)
[2024-07-13 12:56] LABS: Appearance Urine Clear; Color Urine Yellow; Glucose Urine UA Negative (Negative); Leukocyte Esterase Urine Negative (Negative); Nitrite Urine Negative (Negative); Specific Gravity - Urine 1.015 (1.005-1.025); UMIC TRIGGER UACC YES; Urine Blood Small (1+) (Negative); Urine Ketones Negative (Negative); Urine Protein Negative (Neg-Trace)
[2024-07-13 13:04] LABS: Bacteria Urine None Seen (None Seen); Hyaline Casts Urine 0-2 /LPF (0-2); Squamous Epithelial Cell Urine 0-2 /HPF (0-2); WBC Urine 0-5 /HPF (0-5)
[2024-07-13 13:10] LABS: Alanine Aminotransferase 32 U/L (0-31); Albumin Level 4.2 g/dL (3.5-5.0); Alkaline Phosphatase 85 U/L (39-117); Anion Gap 12 (12-20); Aspartate Amino Transferase 22 U/L (5-31); Bilirubin Total 0.6 mg/dL (0.0-1.0); Blood Urea Nitrogen 25 mg/dL (9-16); Calcium 9.9 mg/dL (8.4-10.2); Carbon Dioxide 28 mmol/L (22-29); Chloride 105 mmol/L (96-108); Cholesterol 166 mg/dL (<200); Estimated Glomerular Filt Rate > 60; Glucose Fasting 91 mg/dL (60-99); HDL Cholesterol 60 mg/dL (>40); LDL Cholesterol Calculated 84 mg/dL (<100); Potassium 4.7 mmol/L (3.3-5.1); Sodium 140 mmol/L (135-145); Total Protein 7.4 g/dL (6.5-8.0); Triglycerides 113 mg/dL (<150)
== END 2024-07-13 11:35 | disposition home or self-care (01) ==
LOC: HO.LAB 11:34
PROVIDERS: PCP Internal Medicine; Visit Provider Internal Medicine
DX: D64.9 Anemia, unspecified (principal); E55.9 Vitamin D deficiency, unspecified; E78.00 Pure hypercholesterolemia, unspecified
CPT/HCPCS: 36415; 80053; 80061; 81001; 82306; 85025

== ENCOUNTER 2024-07-17 13:10 | Outpatient (AMB) | payer OTHER, MEDICAID, SELFPAY ==
[2024-07-17 13:11] VITALS: BP 128/82; PULSE 78; O2SAT 98; BMI 39.2
--- NOTE | 2024-07-17 13:11 | MHC.PC.OV ---
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 Accompanied by: Self / Same As Patient Allergies Penicillins [PENICILLINS] Allergy (Unknown, Verified 07/17/24 13:39) CHILDHOOD RXN transparent dressing [Tegaderm] Allergy (Verified 07/17/24 13:39) Rash codeine [CODEINE] Adverse Reaction (Intermediate, Verified 07/17/24 13:39) NAUSEA & VOMITING morphine [MORPHINE] Adverse Reaction (Intermediate, Verified 07/17/24 13:39) Bad headache, N/V oxycodone [From PERCOCET] Adverse Reaction (Intermediate, Verified 07/17/24 13:39) NAUSEA & VOMITING Medication List - Last Reconciled 07/17/24 by Brijesh Pineda MD anastrozole 1 mg PO DAILY atorvastatin 80 mg PO DAILY 90 days cetirizine 10 mg PO DAILY compression sleeve and gauntlet (LympheDiva Arm Sleeve with Gauntlet) As Directed doxycycline hyclate 100 mg PO DAILY 1 day ezetimibe (Zetia) 10 mg PO DAILY ferrous sulfate (Iron (ferrous sulfate)) 325 mg PO DAILY fluoxetine 20 mg PO DAILY 90 days ipratropium bromide 2 sprays intranasal TID-QID PRN metoprolol tartrate 50 mg in the morning and 25 mg at night orally daily multivitamin 1 tab PO DAILY semaglutide (weight loss) 1 mg (0.5 mL) subcut QWEEK 4 weeks Tobacco use date assessed: 07/17/24 Dental Screening Dental Screen Date: 07/17/24 Did you have a dental visit in the last 12 months?: Yes Did you have a dental problem in the last 6 months where you did not have access to dental care?: No Was dental information given to patient?: Patient has dentist HPI 4mth f/u HPI Details Patient comes in today for her follow up visit States that she feels okay She denies any headaches or dizziness Denies any chest pains, no SOB States that she still has occasional brief sensations of palpitations but they have been very rare No nausea/vomiting, no abdominal pain No change in bowel habits noted She is also now using a CPAP device when sleeping at night and states that she feels a lot better and more alert/less forgetful since she started Tx for her DEEP She had her follow up labs done a few days ago - to discuss her results [facility] Medical History Urinary incontinence Low back pain Anxiety Osteoarthritis of left hip Impacted cerumen of both ears Arthritis Numbness of fingers of both hands Hx of cardiac murmur PONV (postoperative nausea and vomiting) Osteoarthritis of right hip Right hip pain Insomnia Chronic osteoarthritis Obesity (BMI 30-39.9) Depression Secondary and unspecified malignant neoplasm of axilla and upper limb lymph nodes Anemia Malignant neoplasm of left breast Pure hypercholesterolemia Benign essential hypertension Surgical History History of total left hip replacement History of left hip replacement History of total right hip replacement Hx of colonoscopy History of axillary surgery History of left mastectomy History of left breast biopsy History of hernia surgery Family History Father Diabetes Bladder cancer Mother Chronic mental illness Brain cancer Lung cancer Maternal Grandmother Stomach cancer Maternal Grandfather Lung cancer Other Mental health problem Substance abuse Social History Household Members: None Housing: House Are you a primary care transitions nurse to a significant other at home: No Do you presently have visiting nurse or other home services: No Alcohol intake: current Alcohol intake frequency: holidays/special occasions only Alcohol type: wine Comment: aware of trip hazard Patient Tobacco Use Status: Never used Tobacco e-Cigarette/Vaping Use: Never Used Second Hand Smoke Exposure: Yes Advance Directives Date on File: 12/22/20 service: No Current occupational status: disabled Current occupational exposures/hazards: No Gender identity: Female Cognitive needs: No Hearing needs: No Vision needs: Yes Questionnaire PHQ-9 Over the last 2 weeks, how often have you been bothered by any of the following problems? 1. Little interest or pleasure in doing things: not at all 2. Feeling down, depressed, or hopeless: not at all 3. Trouble falling or staying asleep, or sleeping too much: not at all 4. Feeling tired or having little energy: not at all 5. Poor appetite or overeating: not at all 6. Feeling bad about yourself - or that you are a failure or have let yourself or your family down: not at all 7. Trouble concentrating on things, such as reading the newspaper or watching television: not at all 8. Moving or speaking so slowly that other people could have noticed. Or the opposite - being so fidgety or restless that you have been moving around a lot more than usual: not at all 9. Thoughts that you would be better off or of hurting yourself in some way: not at all Total score: 0 Depression Screening Interpretation: Negative Depression Screening Done: Yes 79466 - PHQ-9 Billing: Yes Source: Developed by Drs. Jez Villagran, Daina Agustin, Quirino Hough and colleagues, with an educational fallon from [employer]. Thrive Questionnaire Date Thrive assessed: 07/17/24 I am a: Patient What is your living situation today?: I have a steady place to live Within the past 12 months, did the food you bought not last and you didn't have the money to get more?: Never true Within the past 12 months, did you worry whether your food would run out before you got money to buy more?: Never true Do you have trouble paying for medicines?: No Do you have trouble getting transportation to medical appointments?: No Do you have trouble paying your heating and electricity bill?: No Do you have trouble taking care of your child, family member or friend?: No Do you have trouble with day-to-day activities such as bathing, preparing meals, shopping, managing finances, etc.?: No Are you currently unemployed and looking for a job?: I choose not to answer this question Are you interested in more education?: No Please select the resources that you would like help with: None Currently or been in a relationship where the following occur: No concerns reported THRIVE Score: 0 AUDIT C Alcohol Use Questionnaire (AUDIT-C) 1. How often do you have a drink containing alcohol?: Monthly or less 2. How many drinks containing alcohol do you have on a typical day when you are drinking?: 3 or 4 3. How often do you have six or more drinks on one occasion?: Never Total Score: 2 Score Reviewed/Action Taken: Yes FITZ-7 AMB Questionnaire FITZ-7 Date FITZ - 7 assessed: 07/17/24 Feeling nervous, anxious, or on edge: 0 = Not at all Not being able to stop or control worryin = Not at all Worrying too much about different things: 0 = Not at all Trouble relaxin = Not at all Being so restless that it is hard to sit still: 0 = Not at all Becoming easily annoyed or irritable: 0 = Not at all Feeling afraid as if something awful might happen: 0 = Not at all Total FITZ-7 score (0-4 normal; 5-9 mild; 10-14 moderate; 15-21 severe): 0 Source: Developed by Drs. Jez Villagran, Daina Agustin, Quirino Hough and colleagues, with an educational fallon from [employer]. Review of Systems Const Denies chills, Denies daytime sleepiness, Denies fatigue, Denies fever(s) and Denies headache(s) ENT Denies dysphagia, Denies dizziness, Denies otalgia, Denies headache(s), Denies neck pain, Denies odynophagia and Denies sore throat Card Denies chest pain, Denies rapid heart rate, Reports palpitations (rarely) and Denies dyspnea Resp Denies chest congestion, Denies cough and Denies dyspnea GI Denies abdominal pain, Denies constipation, Denies dysphagia, Denies heartburn, Denies diarrhea, Denies nausea, Denies odynophagia and Denies vomiting Denies difficulty voiding, Denies nocturia, Denies dysuria, Reports urinary incontinence and Denies urinary urgency Musc Denies back pain, Reports arthralgias (left knee, left shoulder) and Denies neck pain Skin/Breast Denies rash Neuro Denies dizziness, Denies headache(s) and Denies memory loss Psych Denies memory loss Endo Denies fatigue and Reports palpitations (rarely) Janak/Lymph Details: (+) chronic swelling of the entire left upper extremity Physical exam (Primary Care) Vital Signs: Last Vital Signs Pulse 78 07/17/24 13:11 BP 128/82 07/17/24 13:11 Pulse Ox 98 07/17/24 13:11 Oxygen Delivery Method Room Air 07/17/24 13:11 BMI result Body Mass Index 39.2 Tobacco/Smoking Status: Tobacco use Status Tobacco use date assessed 07/17/24 07/17/24 13:19 Patient Tobacco Use Status Never used Tobacco 07/17/24 13:19 e-Cigarette/Vaping Use Never Used 07/17/24 13:19 PHQ-9: PHQ-9 Score PHQ-9: Total score 0 07/17/24 13:19 Depression Screening Interpretation: Negative Thrive Assessment: Date of Thrive Assessment Date Thrive assessed 07/17/24 07/17/24 13:19 Currently or been in a relationship where the following occur: No concerns reported Const General: no acute distress and alert HENMT Ears: TM's normal bilaterally and EAC's normal Throat: Yes posterior oropharynx normal and Yes tonsils normal (no TP congestion noted) Neck Neck: Yes supple and No lymphadenopathy Thyroid: Thyroid normal Resp Auscultation: clear to auscultation bilaterally, no rales and no wheezes Cardio Rate: regular rate Rhythm: regular rhythm Heart sounds: no murmurs GI Palpation (GI): Soft to palpation and nontender Auscultation: normal bowel sounds General: Yes no CVA tenderness Back/Spine/Pelvis Back: no CVA tenderness Thoracic/Lumbar Spine: No lumbar spinal tenderness Skin Rashes: no rashes Extrem Other: (+) lymphedema of the left arm and hand General: Yes no clubbing, cyanosis or edema Left lower extremity: hip/thigh Details: tenderness Location: of the hip Results Reviewed Results Reviewed: Laboratory Tests 07/13/24 07/13/24 11:43 11:48 WBC 8.0 Hgb 13.4 Hct 39.9 Plt Count 218 Sodium 140 Potassium 4.7 Creatinine 0.76 Estimated GFR > 60 Fasting Glucose 91 Calcium 9.9 AST 22 ALT 32 H Triglycerides 113 Cholesterol 166 LDL Cholesterol, Calc 84 HDL Cholesterol 60 25-OH Vitamin D Total 43.0 Ur Specific [place] 1.015 Urine Protein Negative Urine Glucose (UA) Negative Urine Blood Small (1+) H Urine Nitrite Negative Ur Leukocyte Esterase Negative Coding Level of Care Code Est Pt Level 4 (48537) Diagnoses Pure hypercholesterolemia E78.00 DEEP (obstructive sleep apnea) G47.33 Palpitations R00.2 Benign essential hypertension I10 Malignant neoplasm of left breast in female, estrogen receptor positive, unspecified site of breast C50.912; Z17.0 Breast location: unspecified site of breast Estrogen receptor status: positive Patient sex: female Secondary and unspecified malignant neoplasm of axilla and upper limb lymph nodes C77.3 Lymphedema of left arm I89.0 Anemia, unspecified type D64.9 Anemia type: unspecified type Memory impairment R41.3 Urinary incontinence, unspecified type R32 Urinary Incontinence type: unspecified incontinence Depression, unspecified depression type F32.9 Depression Type: unspecified Obesity (BMI 30-39.9) E66.9 Additional Codes PHQ-9 - 64678 - PHQ-9 Billing: Yes ([id number]) Assessment & Plan Assessment & Plan (1) Pure hypercholesterolemia: Code(s): E78.00 - Pure hypercholesterolemia, unspecified Category: Medical Plan: Results of her labs done a few days ago reviewed and discussed with patient Reinforced low cholesterol diet Continue Atorvastatin 80 mg QD and Ezetimibe 10 mg QD Will recheck her labs and fasting lipids in 4 months for follow up (2) DEEP (obstructive sleep apnea): Code(s): G47.33 - Obstructive sleep apnea (adult) (pediatric) Category: Medical Plan: Continue using her nasal CPAP device when sleeping at night, with setting of APAP of 6 to 16 cm of water Patient states that she feels much better with CPAP Tx and feels that her Tx has benefitted her a lot Follow up with Sleep Medicine as scheduled (3) Palpitations: Code(s): R00.2 - Palpitations Category: Medical Plan: Cardiac work ups done a few years ago, including echocardiogram, labs and Holter monitor, were all unrevealing and only showed (+) frequent 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 Continue Metoprolol 50 mg in AM and 25 mg in PM Follow up with cardiology as scheduled Was advised that cardiology will consider repeating some work ups if she continues to experience recurrent symptoms although patient has noticed that these seem to be occurring much less frequently since she started Tx for her DEEP (4) Benign essential hypertension: Code(s): I10 - Essential (primary) hypertension Category: Medical Plan: Reinforced low sodium diet - goal is systolic BP of at least 130 mm or less Continue Metoprolol 50 mg in AM and 25 mg in PM (5) Malignant neoplasm of left breast: Code(s): C50.912 - Malignant neoplasm of unspecified site of left female breast Category: Medical Qualifiers: Breast location: unspecified site of breast Estrogen receptor status: positive Patient sex: female Qualified Code(s): C50.912 - Malignant neoplasm of unspecified site of left female breast; Z17.0 - Estrogen receptor positive status [ER+] Plan: Patient had invasive ductal carcinoma of the left breast, and is S/P lumpectomy and axillary node dissection on 04/05/2018. Stage IIA. Pathology: Grade 2, 3.6 cm with associated DCIS nuclear grade 2 with necrosis. Metastatic carcinoma seen in 6/16 lymph nodes. Margins negative, ER/MO positive, HER-2 negative She completed adjuvant chemotherapy with Taxoterene and Cytoxan - 1st cycle was administered on 05/17/2018, every 3 weeks and last cycle was given on 07/19/2018 Continue aromatase inhibitor therapy with Anastrozole 1 mg QD to help lower her risk of breast cancer recurrence Follow-up with Oncology as scheduled for continuing surveillance (6) Secondary and unspecified malignant neoplasm of axilla and upper limb lymph nodes: Code(s): C77.3 - Secondary and unspecified malignant neoplasm of axilla and upper limb lymph nodes Category: Medical Plan: S/P lymph node dissection Follow-up with Oncology as scheduled for continuing surveillance (7) Lymphedema of left arm: Code(s): I89.0 - Lymphedema, not elsewhere classified Category: Medical Plan: Patient currently has a lymphedema sleeve to use when needed - she is reminded to wear her sleeve as needed to help keep her left arm swelling down and more manageable (8) Anemia: Code(s): D64.9 - Anemia, unspecified Category: Medical Qualifiers: Anemia type: unspecified type Qualified Code(s): D64.9 - Anemia, unspecified Plan: Improved/corrected (H/H were normal on her recent labs) - was most likely related to her chemotherapy Will continue to monitor her CBC regularly (9) Memory impairment: Code(s): R41.3 - Other amnesia Category: Medical Plan: She was referred to and seen by Neurology last year - was diagnosed with mild cognitive impairment Patient feels that this has improved with her CPAP Tx (10) Urinary incontinence: Code(s): R32 - Unspecified urinary incontinence Category: Medical Qualifiers: Urinary Incontinence type: unspecified incontinence Qualified Code(s): R32 - Unspecified urinary incontinence Plan: Follow up with urology as scheduled (11) Depression: Code(s): F32.9 - Major depressive disorder, single episode, unspecified Category: Medical Qualifiers: Depression Type: unspecified Qualified Code(s): F32.9 - Major depressive disorder, single episode, unspecified Plan: Continue Fluoxetine 20 mg QD (12) Obesity (BMI 30-39.9): Code(s): E66.9 - Obesity, unspecified Category: Medical Plan: Reinforced diet; exercise and weight loss are unrealistic given patient's multiple comorbidities Per request, she was referred to weight management at [facility] [place] - patient specified that she would like to go to the medical aspect of weight management and does not wish to pursue bariatric surgery - but was advised that the program here is currently full She is currently on Wegovy, now at 1 mg once a week, to help with weight loss - she appears to have lost only about 3 pounds since her last visit though Plan Follow up in 4 months Orders: Orders Lipid Panel 4 Months E78.00 - Pure hypercholesterolemia, unspecified TSH reflex Free T4 4 Months E78.00 - Pure hypercholesterolemia, unspecified Vitamin D 25-OH Total 4 Months E55.9 - Vitamin D deficiency, unspecified Comprehensive [facility]. Panel Fast 4 Months E78.00 - Pure hypercholesterolemia, unspecified Complete Blood Count Auto Diff 4 Months D64.9 - Anemia, unspecified UA CC w/rflx Micro + Cult 4 Months R30.0 - Dysuria Vitamin B12 and Folate 4 Months E53.8 - Deficiency of other specified B group vitamins
== END 2024-07-17 13:49 | disposition home or self-care (01) ==
PROVIDERS: PCP Internal Medicine; Visit Provider Internal Medicine
DX: E78.00 Pure hypercholesterolemia, unspecified (principal); C50.912 Malignant neoplasm of unspecified site of left female breast; C77.3 Secondary and unspecified malignant neoplasm of axilla and upper limb lymph nodes; E66.9 Obesity, unspecified; Z68.39 Body mass index [BMI] 39.0-39.9, adult; G47.33 Obstructive sleep apnea (adult) (pediatric); R00.2 Palpitations; I10 Essential (primary) hypertension; Z17.0 Estrogen receptor positive status [ER+]; I89.0 Lymphedema, not elsewhere classified; D64.9 Anemia, unspecified; R41.3 Other amnesia

== ENCOUNTER → 2024-07-17 13:10 | Outpatient (BNVA) | payer OTHER, MEDICAID, SELFPAY | PROVIDERS: PCP Internal Medicine; Visit Provider Internal Medicine | DX: E78.00 Pure hypercholesterolemia, unspecified (principal); G47.33 Obstructive sleep apnea (adult) (pediatric); R00.2 Palpitations; I10 Essential (primary) hypertension; C50.912 Malignant neoplasm of unspecified site of left female breast; Z79.811 Long term (current) use of aromatase inhibitors; Z17.0 Estrogen receptor positive status [ER+]; I89.0 Lymphedema, not elsewhere classified; D64.9 Anemia, unspecified; R41.3 Other amnesia; R32 Unspecified urinary incontinence; F32.9 Major depressive disorder, single episode, unspecified; E66.9 Obesity, unspecified; Z68.39 Body mass index [BMI] 39.0-39.9, adult; Z79.899 Other long term (current) drug therapy; Z99.89 Dependence on other enabling machines and devices | CPT/HCPCS: 96127 ==

== ENCOUNTER 2024-07-18 13:43 | Outpatient (REF) | payer OTHER, MEDICAID, SELFPAY ==
[2024-07-18 17:10] LABS: Urine Cytology See Pathology rpt
== END 2024-07-18 13:44 | disposition home or self-care (01) ==
LOC: HO.LNP 13:43
PROVIDERS: PCP Internal Medicine; Visit Provider Nurse Practitioner Family
DX: R31.29 Other microscopic hematuria (principal); N32.89 Other specified disorders of bladder
CPT/HCPCS: 51798; 81003; 88112

== ENCOUNTER → 2024-09-03 13:04 | Outpatient (REF) | payer OTHER, MEDICAID, SELFPAY ==
--- NOTE | 2024-09-03 13:08 | CA_ITS ---
Transthoracic Echocardiogram Patient (Last, First, Middle): Keyana De Jesus, Gender: Female Date of : 1965 Age: 59 Procedure Date: 09/03/2024 Procedure Type: Transthoracic Echocardiogram Location: OP Height: 162. cm Weight: 104.33 kg BSA: 2.07 m2 Heart Rate: 81 bpm BP: 145 / 80 mmHg Mold Stripper: BEE Mays MD: Alonso Verdugo MD Regional Trainer: José Miguel Lozano MD Symptoms: I49.3 - Ventricular premature depolarization Study Quality: Fair ECG Rhythm: Sinus Conclusions: - 1. Normal LV ejection fraction 55-60% with grade 1 diastolic dysfunction 2. Normal cardiac valvular Dopplers 3. No gross pericardial effusion Findings Left Ventricle Normal left ventricular size, thickness, and systolic function. The visually estimated ejection fraction is between 55-60%. Spectral Doppler is indicative of an impaired relaxation filling pattern. E/E prime ratio is <8, consistent with normal filling pressures. Evidence suggests grade I (mild) diastolic dysfunction. There is mild septal asymmetric hypertrophy. Right Ventricle Normal right ventricular cavity size and systolic function. Atria Both atria are normal in size. There is lipomatous hypertrophy of the interatrial septum. There is no evidence of interatrial shunt. Aortic Valve Normal aortic valve structure and function. There is no aortic valve stenosis. There is mild aortic valve regurgitation. Mitral Valve Normal mitral valve structure and function. There is trace mitral valve regurgitation. There is no mitral valve stenosis. Pulmonic Valve The pulmonic valve was not well visualized. Tricuspid Valve Likely normal tricuspid valve structure and function. Tricuspid regurgitation envelope is inadequate for calculation of right ventricular systolic pressure. Normal right atrial pressure. Great Vessels All visible segments of the aorta are normal in size. The pulmonary artery was not well visualized. There is no dilatation of the ascending aorta measuring 3.20 cm. Venous The inferior vena cava is normal in size and collapses greater than 50% with inspiration. Pericardium/Pleural There is no evidence of pericardial effusion. echolucent lesion noted in the liver consistent with a cyst. Consider dedicated imaging Prior Study Comparison No significant change compared to prior study dated: 09/08/2021. Measurements 2D Linear Measurements IVSd: 1.01 0.6-0.9/0.6-1.0 cm LVIDd: 4.95 3.9-5.3/4.2-5.9 cm LVIDd Index: 2.39 2.4-3.2/2.2-3.1 cm/m2 LVIDs: 2.63 2.0-3.6 cm LVPWd: 1.06 0.7-1.1 cm LA Diam: 3.20 2.7-3.8/3.0-4.0 cm LAIDs Index: 1.55 1.5-2.3 cm/m2 LV Mass: 233.65 67-162/88-224 g LV Mass Index: 112.87 43-95/49-115 g/m2 LVOT Diam: 2.00 3.0+(-)1.3 cm 2D Systolic Function EF 4C: 55.10 >55% EF 2C: 58.90 >55% EF BiP: 55.60 >55% Mitral Valve MV Pk E: 0.55 MV PK A: 0.83 MV Decel Time: 214.00 E/A: 0.70 E'Lateral: 6.31 E'Medial: 6.20 E/E' Med: 8.90 E/E' Lat: 8.80 PHT: 63.00 MVA PHT: 3.49 Decel Pacific: 2.58 Aortic Valve AoV Pk David: 1.23 AoV Mn David: 0.89 AoV VTI: 0.26 AoV Pk Grad: 6.00 Aov Mn Grad: 4.00 GENO Cont.VTI: 2.22 LVOT LVOT Pk David: 0.89 LVOT Mn David: 0.62 LVOT VTI: 0.19 LVOT Pk Grad: 3.00 LVOT Mn Grad: 2.00 LVOT Diam: 2.00 LVOT Area: 3.14 Diastolic Function MV Pk E: 0.55 MV Pk A: 0.83 E/A: 0.70 E'Medial: 6.20 E/E' Med: 8.90 E' Laterial: 6.31 E/E' Lat: 8.80 Right Ventricle TAPSE (mm): 21.30 TVS' David: 10.10 Tricuspid Valve RA Press: 3.00 Great Vessels Aorta Sinus of Valsalva: 2.90 2.0-3.5 cm Ao Asc: 3.20 2.1-3.4 cm Ao Arch: 2.60 Pulmonary Valve PV Pk David: 1.15 Peak PV Grad: 5.00 Updated in Other Vendor System with Status of Final José Miguel Lozano MD electronically signed on 09/04/2024 3:53:32 PM with status of Final
== END ==
LOC: HO.CARD 13:04
PROVIDERS: PCP Internal Medicine; Visit Provider Internal Medicine
DX: R00.2 Palpitations (principal); I49.3 Ventricular premature depolarization
CPT/HCPCS: 93242; 93306

== ENCOUNTER → 2024-09-03 13:08 | Outpatient (BNV) | payer OTHER, MEDICAID, SELFPAY | PROVIDERS: PCP Internal Medicine; Visit Provider Internal Medicine Cardiovascular Disease | DX: I42.2 Other hypertrophic cardiomyopathy (principal) | CPT/HCPCS: 93306 ==

== ENCOUNTER 2024-09-20 12:39 | Outpatient (AMB) | payer OTHER, MEDICAID, SELFPAY ==
[2024-09-20 12:44] VITALS: BP 130/76; PULSE 81; BMI 38.7
--- NOTE | 2024-09-20 12:44 | MHC.OFFVIS ---
Vital Signs 09/20/24 12:44 Height 5 ft 4 in Weight 225 lb 12.054 oz BMI 38.7 BP 130/76 Blood Pressure Location Lt brachial Position Sitting Pulse 81 Pulse Source Monitor Intake Visit Reasons: 1 yr f/up [employer] Required: No Accompanied by: Self / Same As Patient Allergies Penicillins [PENICILLINS] Allergy (Unknown, Verified 07/18/24 14:34) CHILDHOOD RXN transparent dressing [Tegaderm] Allergy (Verified 07/18/24 14:34) Rash codeine [CODEINE] Adverse Reaction (Intermediate, Verified 07/18/24 14:34) NAUSEA & VOMITING morphine [MORPHINE] Adverse Reaction (Intermediate, Verified 07/18/24 14:34) Bad headache, N/V oxycodone [From PERCOCET] Adverse Reaction (Intermediate, Verified 07/18/24 14:34) NAUSEA & VOMITING Medication List - Last Reconciled 09/20/24 by Alonso Verdugo MD anastrozole 1 mg PO DAILY atorvastatin 80 mg PO DAILY 90 days cetirizine 10 mg PO DAILY compression sleeve and gauntlet (LympheDiva Arm Sleeve with Gauntlet) As Directed doxycycline hyclate 100 mg PO DAILY 1 day ezetimibe (Zetia) 10 mg PO DAILY ferrous sulfate (Iron (ferrous sulfate)) 325 mg PO DAILY fluoxetine 20 mg PO DAILY 90 days ipratropium bromide 2 sprays intranasal TID-QID PRN metoprolol tartrate 50 mg in the morning and 25 mg at night orally daily multivitamin 1 tab PO DAILY HPI Comments Details: Keyana returns for follow-up. In the past, she was seen for palpitations. Workup had shown ventricular ectopy. She remains on beta-blockers. Overall, she feels just about the same as before. On and off palpitations, but mostly controlled. She is overweight. Has obstructive sleep apnea and using CPAP. No documented coronary disease, myocardial infarction or cardiomyopathy. No other complaints like exertional angina. [facility] Medical History Urinary incontinence Low back pain Anxiety Osteoarthritis of left hip Impacted cerumen of both ears Arthritis Numbness of fingers of both hands Hx of cardiac murmur PONV (postoperative nausea and vomiting) Osteoarthritis of right hip Right hip pain Insomnia Chronic osteoarthritis Obesity (BMI 30-39.9) Depression Secondary and unspecified malignant neoplasm of axilla and upper limb lymph nodes Anemia Malignant neoplasm of left breast Pure hypercholesterolemia Benign essential hypertension Surgical History History of total left hip replacement History of left hip replacement History of total right hip replacement Hx of colonoscopy History of axillary surgery History of left mastectomy History of left breast biopsy History of hernia surgery Family History Father Diabetes Bladder cancer Mother Chronic mental illness Brain cancer Lung cancer Maternal Grandmother Stomach cancer Maternal Grandfather Lung cancer Other Mental health problem Substance abuse Social History Household Members: None Housing: House Are you a primary college and career counselor to a significant other at home: No Do you presently have visiting nurse or other home services: No Alcohol intake: current Alcohol intake frequency: holidays/special occasions only Alcohol type: wine Comment: aware of trip hazard Patient Tobacco Use Status: Never used Tobacco e-Cigarette/Vaping Use: Never Used Second Hand Smoke Exposure: Yes Advance Directives Date on File: 12/22/20 service: No Current occupational status: disabled Current occupational exposures/hazards: No Gender identity: Female Cognitive needs: No Hearing needs: No Vision needs: Yes Review of Systems Const Denies chills, Denies fatigue, Denies fever(s), Denies frequent falls, Denies weakness, Denies weight gain and Denies weight loss ENT Denies dizziness Card Denies chest pain, Denies leg edema, Denies lightheadedness, Denies palpitations, Denies dyspnea and Denies dyspnea on exertion Resp Denies cough, Denies dyspnea and Denies dyspnea on exertion GI Denies hematochezia Musc Denies abnormal gait, Denies muscle weakness, Denies numbness, Denies radiating pain into limb and Denies tingling Neuro Denies abnormal gait, Denies dizziness, Denies frequent falls, Denies numbness, Denies tingling and Denies weakness Endo Denies fatigue and Denies palpitations Physical Exam Vital Signs: Last Vital Signs Pulse 81 09/20/24 12:44 BP 130/76 09/20/24 12:44 BMI result Body Mass Index 38.7 Const General: comfortable and no acute distress Orientation/consciousness: patient oriented x3 HEENT Other: Unremarkable Head: Yes normal to inspection Neck Neck: Yes normal visual inspection Chest Chest palpation & inspection: normal inspection of the chest Resp Auscultation: clear to auscultation bilaterally Cardio Palpation: normal PMI Heart sounds: S1 normal heart sound present, S2 normal heart sound present, no gallops, no murmurs and no rubs GI Palpation (GI): Soft to palpation Back/Spine/Pelvis Other: unremarkable Skin General skin exam: no rashes or lesions noted Neuro General: patient oriented x3 Extrem General: Yes normal to inspection Psych Mental Status: mental status grossly normal Office Procedures EKG Details: EKG with underlying sinus rhythm at 81/Min; cannot exclude old anterior infarct but more likely from body habitus; [place] [id number], Complete Assessment & Plan Assessment & Plan (1) PVC (premature ventricular contraction): Code(s): I49.3 - Ventricular premature depolarization Category: Medical (2) PAC (premature atrial contraction): Code(s): I49.1 - Atrial premature depolarization Category: Medical (3) Obesity (BMI 30-39.9): Code(s): E66.9 - Obesity, unspecified Category: Medical (4) DEEP (obstructive sleep apnea): Code(s): G47.33 - Obstructive sleep apnea (adult) (pediatric) Category: Medical Plan Cardiac studies- In the recent Holter monitor, underlying rhythm is sinus. Frequent supraventricular ectopy with a burden of 2.4%. Rare ventricular ectopy. In the previous Holter from 2021, PVC burden was rather 3.1%. Hence it seems that PVCs have gone down and PACs have gone up. In the echocardiogram, LVEF is 55-60%. Mild septal hypertrophy. Otherwise unremarkable. Home sleep study shows mild DEEP. On CPAP. Management focuses on the current prescription of metoprolol, adjusting the dosage according to symptom severity. Emphasis is placed on reducing stress on the heart through weight management and controlling sleep apnea to prevent exacerbations. The possible progression to atrial fibrillation remains under surveillance, and the patient is advised to recognize and report prolonged palpitations. Annual follow-up and further evaluation with EKG are planned if necessary. Patient was informed and verbally consented to the use of an ambient scribe for clinic note documentation during this visit. Patient Instructions: - Continue taking metoprolol as prescribed, with an extra dose on particularly symptomatic days. - Use CPAP mask consistently to manage sleep apnea. - Engage in regular physical activity, such as walking, to aid in weight reduction. - Monitor for prolonged or worsening palpitations and report these immediately. - Schedule annual evaluations and symptom management check-ups. Coding Level of Care Code Est Pt Level 4 (75867) Complex EM visit Add On G2211 Diagnoses PVC (premature ventricular contraction) I49.3 PAC (premature atrial contraction) I49.1 Obesity (BMI 30-39.9) E66.9 DEEP (obstructive sleep apnea) G47.33 CPT Codes EKG - CPT: 60301-[id number], Complete ([id number])
== END 2024-09-20 13:03 | disposition home or self-care (01) ==
LOC: HO.HCS 12:40
PROVIDERS: PCP Internal Medicine; Visit Provider Internal Medicine
DX: I49.3 Ventricular premature depolarization (principal); I49.1 Atrial premature depolarization; E66.9 Obesity, unspecified; G47.33 Obstructive sleep apnea (adult) (pediatric)
CPT/HCPCS: 93010; 99214; G2211

== ENCOUNTER → 2024-09-20 12:39 | Outpatient (BNVA) | payer OTHER, MEDICAID, SELFPAY | PROVIDERS: PCP Internal Medicine; Visit Provider Internal Medicine | DX: I49.3 Ventricular premature depolarization (principal); I49.1 Atrial premature depolarization; E66.9 Obesity, unspecified; G47.33 Obstructive sleep apnea (adult) (pediatric); Z68.38 Body mass index [BMI] 38.0-38.9, adult; R94.31 Abnormal electrocardiogram [ECG] [EKG] | CPT/HCPCS: 93005 ==

== ENCOUNTER 2024-10-10 10:26 | Outpatient (REF) | payer OTHER, MEDICAID, SELFPAY ==
--- NOTE | ~2024-10-10 | US_ITS ---
CLINICAL HISTORY: K76.89 - Other specified diseases of liver --- Additional Notes or Special Instruct ions: liver cyst US abdomen limited Comparison: None Findings: The visualized pancreas is normal. The aorta and inferior vena cava are normal caliber. The appearance of the liver suggests fatty infiltration. There is a left lobe possible benign incidental 3.9 x 3.7 x 3.7 cm cyst. There is no intrahepatic bile duct dilatation. The common duct is 5.2 mm in diameter. The gallbladder is normal. There is no sonographic Plascencia sign. The main portal vein is antegrade. The right kidney is 11.1 cm in length. No ascites. IMPRESSION: Hepatic steatosis. This document has been electronically signed by: Fish Noonan MD on 10/12/2024 08:26:43
== END 2024-10-10 10:27 | disposition home or self-care (01) ==
LOC: HO.US 10:26
PROVIDERS: PCP Internal Medicine; Visit Provider Internal Medicine
DX: K76.89 Other specified diseases of liver (principal)
CPT/HCPCS: 76705

== ENCOUNTER → 2024-10-10 10:27 | Outpatient (BNV) | payer OTHER, MEDICAID, SELFPAY | PROVIDERS: PCP Internal Medicine; Visit Provider Specialist | DX: K76.0 Fatty (change of) liver, not elsewhere classified (principal); K76.89 Other specified diseases of liver | CPT/HCPCS: 76705 ==

== ENCOUNTER 2024-11-07 10:37 | Outpatient (REF) | payer OTHER, MEDICAID, SELFPAY ==
[2024-11-07 11:02] LABS: MANUAL DIFF FLAG NO
[2024-11-07 11:53] LABS: Basophils Percent Auto 0.5 % (0-2); Eosinophils Absolute Auto 0.1 X10*3/uL (0.0-0.4); Eosinophils Percent Auto 1.5 % (0-4); Hematocrit 38.7 % (37.0-47.0); Hemoglobin 12.6 g/dl (12.0-16.0); Imm Gran Abs Auto 0.02 X10*3/uL (0.00-0.03); Imm Gran Pct Auto 0.3 % (0.0-0.4); Lymphocytes Absolute Auto 1.6 X10*3/uL (1.2-4.9); Lymphocytes Percent Auto 27.2 % (20-40); Mean Corpuscular HGB Conc 32.6 g/dl (31.0-35.0); Mean Corpuscular Volume 95.3 fL (80.0-98.0); Mean Platelet Volume 11.2 fL (9.4-12.3); Monocytes Absolute Auto 0.5 X10*3/uL (0.1-1.2); Monocytes Percent Auto 8.1 % (2-11); Neutrophils Absolute Auto 3.7 x10*3/uL (2.0-8.3); Neutrophils Percent Auto 62.4 % (45-73); Platelet Count 218 X10*3/uL (160-400); Red Blood Count 4.06 X10*6/uL (4.20-5.50); Red Cell Distribution Width 13.2 % (11.0-16.0); White Blood Count 5.9 X10*3/uL (4.8-10.8)
[2024-11-07 12:25] LABS: Appearance Urine Clear; Color Urine Yellow; Glucose Urine UA Negative (Negative); Leukocyte Esterase Urine Negative (Negative); Nitrite Urine Negative (Negative); UMIC TRIGGER UACC YES; Urine Blood Trace (Negative); Urine Ketones Negative (Negative); Urine Protein Negative (Neg-Trace)
[2024-11-07 13:06] LABS: Alanine Aminotransferase 23 U/L (0-31); Albumin Level 4.3 g/dL (3.5-5.0); Alkaline Phosphatase 80 U/L (39-117); Anion Gap 11 (12-20); Aspartate Amino Transferase 22 U/L (5-31); Bilirubin Total 0.5 mg/dL (0.0-1.0); Blood Urea Nitrogen 19 mg/dL (9-16); Calcium 9.2 mg/dL (8.4-10.2); Carbon Dioxide 28 mmol/L (22-29); Chloride 104 mmol/L (96-108); Cholesterol 181 mg/dL (<200); Estimated Glomerular Filt Rate > 60; Glucose Fasting 99 mg/dL (60-99); HDL Cholesterol 70 mg/dL (>40); LDL Cholesterol Calculated 85 mg/dL (<100); Potassium 4.2 mmol/L (3.3-5.1); Sodium 139 mmol/L (135-145); Total Protein 6.9 g/dL (6.5-8.0); Triglycerides 133 mg/dL (<150)
[2024-11-07 13:10] LABS: Bacteria Urine None Seen (None Seen); Hyaline Casts Urine 0-2 /LPF (0-2); RBC Urine 0-2 /HPF (0-2); Squamous Epithelial Cell Urine 0-2 /HPF (0-2); WBC Urine 0-5 /HPF (0-5)
[2024-11-07 13:27] LABS: Folate 13.1 ng/mL (> or = 4.0); TSH reflex Free T4 1.19 uIU/mL (0.32-4.0); Vitamin B12 590 pg/mL (200-900)
== END 2024-11-07 10:38 | disposition home or self-care (01) ==
LOC: HO.LAB 10:37
PROVIDERS: PCP Internal Medicine; Visit Provider Internal Medicine
DX: E78.00 Pure hypercholesterolemia, unspecified (principal); E55.9 Vitamin D deficiency, unspecified; D64.9 Anemia, unspecified; E53.8 Deficiency of other specified B group vitamins
CPT/HCPCS: 36415; 80053; 80061; 81001; 81003; 82306; 82607; 82746; 84443; 85025

== ENCOUNTER 2024-11-12 13:34 | Outpatient (AMB) | payer OTHER, MEDICAID, SELFPAY ==
--- NOTE | 2024-11-12 13:43 | MHC.PC.OV ---
Vital Signs 11/12/24 13:44 Height 5 ft 4 in Weight 226 lb 8 oz BMI 38.9 BP 110/76 Blood Pressure Location Lt brachial Position Sitting Pulse 63 Pulse Source Pulse Oximeter Pulse Oximetry (%) 94 Oxygen Delivery Method Room Air Intake Visit Reasons: 4 Months f/u Gas Maker Helper Required: No Accompanied by: Self / Same As Patient Allergies Penicillins [PENICILLINS] Allergy (Unknown, Verified 11/12/24 13:58) CHILDHOOD RXN transparent dressing [Tegaderm] Allergy (Verified 11/12/24 13:58) Rash codeine [CODEINE] Adverse Reaction (Intermediate, Verified 11/12/24 13:58) NAUSEA & VOMITING morphine [MORPHINE] Adverse Reaction (Intermediate, Verified 11/12/24 13:58) Bad headache, N/V oxycodone [From PERCOCET] Adverse Reaction (Intermediate, Verified 11/12/24 13:58) NAUSEA & VOMITING Medication List - Last Reconciled 11/12/24 by Brijesh Pineda MD anastrozole 1 mg PO DAILY atorvastatin 80 mg PO DAILY 90 days cetirizine 10 mg PO DAILY compression sleeve and gauntlet (LympheDiva Arm Sleeve with Gauntlet) As Directed doxycycline hyclate 100 mg PO DAILY 1 day ezetimibe (Zetia) 10 mg PO DAILY ferrous sulfate (Iron (ferrous sulfate)) 325 mg PO DAILY fluoxetine 20 mg PO DAILY 90 days ipratropium bromide 2 sprays intranasal TID-QID PRN metoprolol tartrate 50 mg in the morning and 25 mg at night orally daily multivitamin 1 tab PO DAILY Tobacco use date assessed: 11/12/24 Dental Screening Dental Screen Date: 11/12/24 Did you have a dental visit in the last 12 months?: Yes Did you have a dental problem in the last 6 months where you did not have access to dental care?: No Was dental information given to patient?: Patient has dentist HPI 4 Months f/u HPI Details Patient comes in today for her follow up visit States that she feels okay She denies any headaches or dizziness Denies any chest pains, no increased SOB Relates that she still has occasional, brief sensations of palpitations but these have been occurring very rarely nowadays No nausea/vomiting, no abdominal pain No change in bowel habits noted She continues to use her CPAP device when sleeping at night and states that she was feeling a lot better and more alert/less forgetful since she started using it for her DEEP but has noticed that she does not seem to feel as rested when she wakes up in the morning - is wondering if she should call the company that provided her with her CPAP device or not She had her follow up labs done a few days ago - to discuss her results [facility] Medical History Urinary incontinence Low back pain Anxiety Osteoarthritis of left hip Impacted cerumen of both ears Arthritis Numbness of fingers of both hands Hx of cardiac murmur PONV (postoperative nausea and vomiting) Osteoarthritis of right hip Right hip pain Insomnia Chronic osteoarthritis Obesity (BMI 30-39.9) Depression Secondary and unspecified malignant neoplasm of axilla and upper limb lymph nodes Anemia Malignant neoplasm of left breast Pure hypercholesterolemia Benign essential hypertension Surgical History History of total left hip replacement History of left hip replacement History of total right hip replacement Hx of colonoscopy History of axillary surgery History of left mastectomy History of left breast biopsy History of hernia surgery Family History Father Diabetes Bladder cancer Mother Chronic mental illness Brain cancer Lung cancer Maternal Grandmother Stomach cancer Maternal Grandfather Lung cancer Other Mental health problem Substance abuse Social History Household Members: None Housing: House Are you a primary childcare center administrator to a significant other at home: No Do you presently have visiting nurse or other home services: No Alcohol intake: current Alcohol intake frequency: holidays/special occasions only Alcohol type: wine Comment: aware of trip hazard Patient Tobacco Use Status: Never used Tobacco e-Cigarette/Vaping Use: Never Used Second Hand Smoke Exposure: Yes Advance Directives Date on File: 12/22/20 service: No Current occupational status: disabled Current occupational exposures/hazards: No Gender identity: Female Cognitive needs: No Hearing needs: No Vision needs: Yes Questionnaire PHQ-9 Over the last 2 weeks, how often have you been bothered by any of the following problems? 1. Little interest or pleasure in doing things: not at all 2. Feeling down, depressed, or hopeless: not at all 3. Trouble falling or staying asleep, or sleeping too much: not at all 4. Feeling tired or having little energy: not at all 5. Poor appetite or overeating: not at all 6. Feeling bad about yourself - or that you are a failure or have let yourself or your family down: not at all 7. Trouble concentrating on things, such as reading the newspaper or watching television: not at all 8. Moving or speaking so slowly that other people could have noticed. Or the opposite - being so fidgety or restless that you have been moving around a lot more than usual: not at all 9. Thoughts that you would be better off or of hurting yourself in some way: not at all Total score: 0 Depression Screening Interpretation: Negative Depression Screening Done: Yes 46057 - PHQ-9 Billing: Yes Source: Developed by Drs. Jez Villagran, Daina Agustin, Quirino Hough and colleagues, with an educational fallon from [employer]. Thrive Questionnaire Date Thrive assessed: 11/12/24 I am a: Patient What is your living situation today?: I have a steady place to live Within the past 12 months, did the food you bought not last and you didn't have the money to get more?: Often true Within the past 12 months, did you worry whether your food would run out before you got money to buy more?: Never true Do you have trouble paying for medicines?: No Do you have trouble getting transportation to medical appointments?: No Do you have trouble paying your heating and electricity bill?: No Do you have trouble taking care of your child, family member or friend?: No Do you have trouble with day-to-day activities such as bathing, preparing meals, shopping, managing finances, etc.?: No Are you currently unemployed and looking for a job?: No Are you interested in more education?: No Please select the resources that you would like help with: None Currently or been in a relationship where the following occur: I choose not to answer THRIVE Score: 1 AUDIT C Alcohol Use Questionnaire (AUDIT-C) 1. How often do you have a drink containing alcohol?: Monthly or less 2. How many drinks containing alcohol do you have on a typical day when you are drinking?: 1 or 2 3. How often do you have six or more drinks on one occasion?: Never Total Score: 1 Score Reviewed/Action Taken: Yes FITZ-7 AMB Questionnaire FITZ-7 Date FITZ - 7 assessed: 11/12/24 Feeling nervous, anxious, or on edge: 0 = Not at all Not being able to stop or control worryin = Not at all Worrying too much about different things: 0 = Not at all Trouble relaxin = Not at all Being so restless that it is hard to sit still: 0 = Not at all Becoming easily annoyed or irritable: 0 = Not at all Feeling afraid as if something awful might happen: 0 = Not at all Total FITZ-7 score (0-4 normal; 5-9 mild; 10-14 moderate; 15-21 severe): 0 Source: Developed by Drs. Jez Villagran, Daina Agustin, Quirino Hough and colleagues, with an educational fallon from [employer]. Review of Systems Const Denies chills, Denies daytime sleepiness, Reports fatigue (recently - see HPI for details), Denies fever(s) and Denies headache(s) ENT Denies dysphagia, Denies dizziness, Denies otalgia, Denies headache(s), Denies neck pain, Denies odynophagia and Denies sore throat Card Denies chest pain, Denies rapid heart rate, Reports palpitations (rarely) and Denies dyspnea Resp Denies chest congestion, Denies cough and Denies dyspnea GI Denies abdominal pain, Denies constipation, Denies dysphagia, Denies heartburn, Denies diarrhea, Denies nausea, Denies odynophagia and Denies vomiting Denies difficulty voiding, Denies nocturia, Denies dysuria, Reports urinary incontinence and Denies urinary urgency Musc Denies back pain, Reports arthralgias (left knee, left shoulder) and Denies neck pain Skin/Breast Denies rash Neuro Denies dizziness, Denies headache(s) and Denies memory loss Psych Denies memory loss Endo Reports fatigue (recently - see HPI for details) and Reports palpitations (rarely) Janak/Lymph Details: (+) chronic swelling of the entire left upper extremity Physical exam (Primary Care) Vital Signs: Last Vital Signs Pulse 63 11/12/24 13:44 BP 110/76 11/12/24 13:44 Pulse Ox 94 11/12/24 13:44 Oxygen Delivery Method Room Air 11/12/24 13:44 BMI result Body Mass Index 38.9 Tobacco/Smoking Status: Tobacco use Status Tobacco use date assessed 11/12/24 11/12/24 13:49 Patient Tobacco Use Status Never used Tobacco 11/12/24 13:49 e-Cigarette/Vaping Use Never Used 11/12/24 13:49 PHQ-9: PHQ-9 Score PHQ-9: Total score 0 11/12/24 13:49 Depression Screening Interpretation: Negative Thrive Assessment: Date of Thrive Assessment Date Thrive assessed 11/12/24 11/12/24 13:49 Currently or been in a relationship where the following occur: I choose not to answer Const General: no acute distress and alert HENMT Ears: TM's normal bilaterally and EAC's normal Throat: Yes posterior oropharynx normal and Yes tonsils normal (no TP congestion noted) Neck Neck: Yes supple and No lymphadenopathy Thyroid: Thyroid normal Resp Auscultation: clear to auscultation bilaterally, no rales and no wheezes Cardio Rate: regular rate Rhythm: regular rhythm Heart sounds: no murmurs GI Palpation (GI): Soft to palpation and nontender Auscultation: normal bowel sounds General: Yes no CVA tenderness Back/Spine/Pelvis Back: no CVA tenderness Thoracic/Lumbar Spine: No lumbar spinal tenderness Skin Rashes: no rashes Extrem Other: (+) lymphedema of the left arm and hand General: Yes no clubbing, cyanosis or edema Left lower extremity: hip/thigh Details: tenderness Location: of the hip Results Reviewed Results Reviewed: Laboratory Tests 11/07/24 11/07/24 10:56 10:58 WBC 5.9 Hgb 12.6 Hct 38.7 Plt Count 218 Sodium 139 Potassium 4.2 Creatinine 0.73 Estimated GFR > 60 Fasting Glucose 99 Calcium 9.2 D AST 22 ALT 23 Triglycerides 133 Cholesterol 181 LDL Cholesterol, Calc 85 HDL Cholesterol 70 Vitamin B12 590 25-OH Vitamin D Total 36.0 TSH 1.19 Ur Specific [place] 1.010 Urine Protein Negative Urine Glucose (UA) Negative Urine Blood Trace H Urine Nitrite Negative Ur Leukocyte Esterase Negative Coding Level of Care Code Est Pt Level 4 (95478) Complex EM visit Add On G2211 Diagnoses Pure hypercholesterolemia E78.00 Benign essential hypertension I10 DEEP (obstructive sleep apnea) G47.33 Palpitations R00.2 Malignant neoplasm of left breast in female, estrogen receptor positive, unspecified site of breast C50.912; Z17.0 Breast location: unspecified site of breast Estrogen receptor status: positive Patient sex: female Secondary and unspecified malignant neoplasm of axilla and upper limb lymph nodes C77.3 Lymphedema of left arm I89.0 Anemia, unspecified type D64.9 Anemia type: unspecified type Memory impairment R41.3 Urinary incontinence, unspecified type R32 Urinary Incontinence type: unspecified incontinence Depression, unspecified depression type F32.9 Depression Type: unspecified Obesity (BMI 30-39.9) E66.9 Additional Codes PHQ-9 - 64045 - PHQ-9 Billing: Yes ([id number]) Assessment & Plan Assessment & Plan (1) Pure hypercholesterolemia: Code(s): E78.00 - Pure hypercholesterolemia, unspecified Category: Medical Plan: Results of her labs done a few days ago reviewed and discussed with patient Reinforced low cholesterol diet Continue Atorvastatin 80 mg QD and Ezetimibe 10 mg QD Will recheck her labs and fasting lipids in 4 months for follow up (2) Benign essential hypertension: Code(s): I10 - Essential (primary) hypertension Category: Medical Plan: Reinforced low sodium diet - goal is systolic BP of at least 130 mm or less Continue Metoprolol 50 mg in AM and 25 mg in PM (3) DEEP (obstructive sleep apnea): Code(s): G47.33 - Obstructive sleep apnea (adult) (pediatric) Category: Medical Plan: Continue using her nasal CPAP device when sleeping at night, with setting of APAP of 6 to 16 cm of water Patient states that she was feeling much better with CPAP Tx and feels that her Tx has helped her a lot although she has reportedly noticed that she is not sleeping/resting as effectively as she used to Follow up with Sleep Medicine as scheduled - have advised her to reach out to her sleep medicine specialist about her recent issues as she may need to have her CPAP device settings reassessed as her requirements may have changed (4) Palpitations: Code(s): R00.2 - Palpitations Category: Medical Plan: Cardiac work ups done a few years ago, including echocardiogram, labs and Holter monitor, were all unrevealing and only showed (+) frequent PVCs and occasional PACs on her monitoring and evaluation advisor Continue Metoprolol 50 mg in AM and 25 mg in PM Follow up with cardiology as scheduled She was advised that cardiology will consider repeating some work ups if she continues to experience recurrent symptoms although patient has noticed that these seem to be occurring much less frequently since she started Tx for her DEEP (5) Malignant neoplasm of left breast: Code(s): C50.912 - Malignant neoplasm of unspecified site of left female breast Category: Medical Qualifiers: Breast location: unspecified site of breast Estrogen receptor status: positive Patient sex: female Qualified Code(s): C50.912 - Malignant neoplasm of unspecified site of left female breast; Z17.0 - Estrogen receptor positive status [ER+] Plan: Patient had invasive ductal carcinoma of the left breast, and is S/P lumpectomy and axillary node dissection on 04/05/2018. Stage IIA. Pathology: Grade 2, 3.6 cm with associated DCIS nuclear grade 2 with necrosis. Metastatic carcinoma seen in 6/16 lymph nodes. Margins negative, ER/MO positive, HER-2 negative She completed adjuvant chemotherapy with Taxoterene and Cytoxan - 1st cycle was administered on 05/17/2018, every 3 weeks and last cycle was given on 07/19/2018 Continue aromatase inhibitor therapy with Anastrozole 1 mg QD to help lower her risk of breast cancer recurrence Follow-up with Oncology as scheduled for continuing surveillance (6) Secondary and unspecified malignant neoplasm of axilla and upper limb lymph nodes: Code(s): C77.3 - Secondary and unspecified malignant neoplasm of axilla and upper limb lymph nodes Category: Medical Plan: S/P lymph node dissection Follow-up with Oncology as scheduled for continuing surveillance (7) Lymphedema of left arm: Code(s): I89.0 - Lymphedema, not elsewhere classified Category: Medical Plan: Patient currently has a lymphedema sleeve to use when needed - she is reminded to wear her sleeve as needed to help keep her left arm swelling down and more manageable (8) Anemia: Code(s): D64.9 - Anemia, unspecified Category: Medical Qualifiers: Anemia type: unspecified type Qualified Code(s): D64.9 - Anemia, unspecified Plan: Improved/corrected (H/H were normal on her recent labs) - was most likely related to her chemotherapy Will continue to monitor her CBC regularly (9) Memory impairment: Code(s): R41.3 - Other amnesia Category: Medical Plan: She was referred to and seen by Neurology last year - was diagnosed with mild cognitive impairment Patient feels that this has improved with her CPAP Tx (10) Urinary incontinence: Code(s): R32 - Unspecified urinary incontinence Category: Medical Qualifiers: Urinary Incontinence type: unspecified incontinence Qualified Code(s): R32 - Unspecified urinary incontinence Plan: Follow up with urology as scheduled (11) Depression: Code(s): F32.9 - Major depressive disorder, single episode, unspecified Category: Medical Qualifiers: Depression Type: unspecified Qualified Code(s): F32.9 - Major depressive disorder, single episode, unspecified Plan: Continue Fluoxetine 20 mg QD (12) Obesity (BMI 30-39.9): Code(s): E66.9 - Obesity, unspecified Category: Medical Plan: Reinforced diet; exercise and weight loss are unrealistic given patient's multiple comorbidities Per request, she was referred to weight management at [facility] [place] - patient specified that she would like to go to the medical aspect of weight management and does not wish to pursue bariatric surgery - but was advised that the program here is currently full She is currently on Wegovy, now at 1 mg once a week, to help with weight loss Plan Follow up in 4 months Orders: Orders Complete Blood Count Auto Diff 4 Months D64.9 - Anemia, unspecified Comprehensive [place]. Panel Fast 4 Months E78.00 - Pure hypercholesterolemia, unspecified TSH reflex Free T4 4 Months E78.00 - Pure hypercholesterolemia, unspecified UA CC w/rflx Micro + Cult 4 Months R30.0 - Dysuria Lipid Panel 4 Months E78.00 - Pure hypercholesterolemia, unspecified Vitamin D 25-OH Total 4 Months E55.9 - Vitamin D deficiency, unspecified Vitamin B12 and Folate 4 Months E53.8 - Deficiency of other specified B group vitamins
[2024-11-12 13:44] VITALS: BP 110/76; PULSE 63; O2SAT 94; BMI 38.9
== END 2024-11-12 14:09 | disposition home or self-care (01) ==
LOC: HO.HMCH 13:34
PROVIDERS: PCP Internal Medicine; Visit Provider Internal Medicine
DX: E78.00 Pure hypercholesterolemia, unspecified (principal); C50.912 Malignant neoplasm of unspecified site of left female breast; C77.3 Secondary and unspecified malignant neoplasm of axilla and upper limb lymph nodes; I10 Essential (primary) hypertension; G47.33 Obstructive sleep apnea (adult) (pediatric); R00.2 Palpitations; Z17.0 Estrogen receptor positive status [ER+]; I89.0 Lymphedema, not elsewhere classified; D64.9 Anemia, unspecified; R41.3 Other amnesia; R32 Unspecified urinary incontinence; F32.9 Major depressive disorder, single episode, unspecified

== ENCOUNTER → 2024-11-12 13:34 | Outpatient (BNVA) | payer OTHER, MEDICAID, SELFPAY | PROVIDERS: PCP Internal Medicine; Visit Provider Internal Medicine | DX: G47.33 Obstructive sleep apnea (adult) (pediatric) (principal); E78.00 Pure hypercholesterolemia, unspecified; I10 Essential (primary) hypertension; C50.912 Malignant neoplasm of unspecified site of left female breast; C77.3 Secondary and unspecified malignant neoplasm of axilla and upper limb lymph nodes; I89.0 Lymphedema, not elsewhere classified; D64.9 Anemia, unspecified; R41.3 Other amnesia; R32 Unspecified urinary incontinence; F32.9 Major depressive disorder, single episode, unspecified; E66.9 Obesity, unspecified; R30.0 Dysuria; E55.9 Vitamin D deficiency, unspecified; E53.8 Deficiency of other specified B group vitamins; Z17.0 Estrogen receptor positive status [ER+]; Z99.89 Dependence on other enabling machines and devices; Z68.38 Body mass index [BMI] 38.0-38.9, adult | CPT/HCPCS: 96127 ==

== ENCOUNTER 2024-11-13 12:57 | Outpatient (AMB) | payer OTHER, MEDICAID, SELFPAY ==
--- NOTE | 2024-11-13 13:08 | MHC.OFFVIS ---
Vital Signs 11/13/24 13:12 Height 5 ft 4 in Weight 226 lb 6 oz BMI 38.9 BP 128/71 Blood Pressure Location Lt brachial Position Sitting Pulse 67 Intake Visit Reasons: Yearly breast exam Intake Note: Patient is seen in office for 6 month follow up visit, breast exam. Patient c/o: minimal pain in the left breast mm:04/16/24 [employer] Required: No Ceiling Insulation Blower: Ceiling Insulation Blower Present Accompanied by: Self / Same As Patient Allergies Penicillins [PENICILLINS] Allergy (Unknown, Verified 11/13/24 13:12) CHILDHOOD RXN transparent dressing [Tegaderm] Allergy (Verified 11/13/24 13:12) Rash codeine [CODEINE] Adverse Reaction (Intermediate, Verified 11/13/24 13:12) NAUSEA & VOMITING morphine [MORPHINE] Adverse Reaction (Intermediate, Verified 11/13/24 13:12) Bad headache, N/V oxycodone [From PERCOCET] Adverse Reaction (Intermediate, Verified 11/13/24 13:12) NAUSEA & VOMITING Medication List - Last Reconciled 11/13/24 by Don Campbell MD anastrozole 1 mg PO DAILY atorvastatin 80 mg PO DAILY 90 days cetirizine 10 mg PO DAILY compression sleeve and gauntlet (LympheDiva Arm Sleeve with Gauntlet) As Directed doxycycline hyclate 100 mg PO DAILY 1 day ezetimibe (Zetia) 10 mg PO DAILY ferrous sulfate (Iron (ferrous sulfate)) 325 mg PO DAILY fluoxetine 20 mg PO DAILY 90 days ipratropium bromide 2 sprays intranasal TID-QID PRN metoprolol tartrate 50 mg in the morning and 25 mg at night orally daily multivitamin 1 tab PO DAILY HPI Comments Details: 59-year-old female returning for follow-up breast examination with a personal history of left breast cancer. 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 Pathology revealed invasive ductal carcinoma with ductal carcinoma in situ, 6 of 16 lymph nodes with metastatic disease (P T2 N2 a). She subsequently was evaluated by Dr. Harris and underwent chemotherapy with Taxotere and Cytoxan x 4 cycles completed on 07/19/2018 followed by radiation therapy. She continues to report soreness in the left arm when reaching overhead and left arm lymphedema. She continues to wear compression sleeve for the left arm which helps. She is also using a compression device daily. She is currently on anastrozole and is tolerating this well. Her last mammogram dated 04/16/2024 revealed no mammographic evidence of malignancy (BI-RADS 2). She is scheduled for a follow-up mammogram in 1 year. She denies any new breast symptoms. [facility] Medical History Urinary incontinence Low back pain Anxiety Osteoarthritis of left hip Impacted cerumen of both ears Arthritis Numbness of fingers of both hands Hx of cardiac murmur PONV (postoperative nausea and vomiting) Osteoarthritis of right hip Right hip pain Insomnia Chronic osteoarthritis Obesity (BMI 30-39.9) Depression Secondary and unspecified malignant neoplasm of axilla and upper limb lymph nodes Anemia Malignant neoplasm of left breast Pure hypercholesterolemia Benign essential hypertension Surgical History History of total left hip replacement History of left hip replacement History of total right hip replacement Hx of colonoscopy History of axillary surgery History of left mastectomy History of left breast biopsy History of hernia surgery Family History Father Diabetes Bladder cancer Mother Chronic mental illness Brain cancer Lung cancer Maternal Grandmother Stomach cancer Maternal Grandfather Lung cancer Other Mental health problem Substance abuse Social History Household Members: None Housing: House Are you a primary infant caregiver to a significant other at home: No Do you presently have visiting nurse or other home services: No Alcohol intake: current Alcohol intake frequency: holidays/special occasions only Alcohol type: wine Comment: aware of trip hazard Patient Tobacco Use Status: Never used Tobacco e-Cigarette/Vaping Use: Never Used Second Hand Smoke Exposure: Yes Advance Directives Date on File: 12/22/20 service: No Current occupational status: disabled Current occupational exposures/hazards: No Gender identity: Female Cognitive needs: No Hearing needs: No Vision needs: Yes Review of Systems Const Denies chills, Denies fever(s), Denies headache(s) and Denies poor appetite ENT Denies dizziness and Denies headache(s) Card Denies chest pain, Denies rapid heart rate, Denies palpitations and Denies slow heart rate Resp Denies chest congestion, Denies cough, Denies pain on inspiration and Denies wheezing GI Denies abdominal pain, Denies bloating, Denies change in stool character, Denies constipation, Denies diarrhea, Denies nausea, Denies vomiting and Denies hematemesis Musc Denies back pain, Denies arthralgias, Denies joint swelling and Denies numbness Skin/Breast Details: Denies breast mass, skin change, nipple discharge, enlarged lymph nodes in either breast Denies change in pigmentation, Denies erythema and Denies rash Neuro Denies confusion, Denies dizziness, Denies headache(s) and Denies numbness Psych Denies anxiety, Denies confusion and Denies depression Endo Denies palpitations Janak/Lymph Denies easy bleeding, Denies easy bruising and Denies lymphadenopathy Aller/Immun Denies wheezing Physical Exam Vital Signs: Last Vital Signs Pulse 67 11/13/24 13:12 BP 128/71 11/13/24 13:12 BMI result Body Mass Index 38.9 Const General: No confusion Nutritional Appearance: well nourished Orientation/consciousness: No confusion Eyes Sclerae: sclerae normal EOM: EOMs intact bilaterally Neck Neck: Yes normal visual inspection Chest Other: Left breast with a well-healed incision in the upper inner quadrant with no palpable mass, skin change, nipple discharge or enlarged lymph nodes. Left arm lymphedema unchanged. Right breast with no skin change, nipple discharge, palpable mass, or enlarged lymph nodes. Resp Effort & Inspection: normal respiratory effort, no cough and no respiratory distress Cardio Jugular venous distension: no JVD GI Inspection: Yes normal to inspection Skin General skin exam: dry skin Rashes: no rashes Neuro Other: Mobility Assessment: 1. 3 meter assessment time (seconds):5 2. Gait observations: Normal balance and gait General: No confusion Extrem Other: Left arm lymphedema, sleeve in place. No edema right arm Assessment & Plan Assessment & Plan (1) Invasive ductal carcinoma of left breast: Code(s): C50.912 - Malignant neoplasm of unspecified site of left female breast Category: Medical (2) Lymphedema of left arm: Code(s): I89.0 - Lymphedema, not elsewhere classified Category: Medical Plan 59-year-old female patient returning for a breast cancer follow-up appointment. She denies any new breast symptoms and continues to use the present sleeve for left arm lymphedema. Her most recent mammogram of 04/16/2024 revealed no mammographic evidence of malignancy (BI-RADS 2). One year follow-up is recommended. Examination today revealed no suspicious findings in either breast with normal postoperative changes and postradiation changes to the left breast. I recommended a follow-up examination in 1 year, sooner PRN. Coding Level of Care Code Est Pt Level 3 (87566) Complex EM visit Add On G2211 Diagnoses Invasive ductal carcinoma of left breast C50.912 Lymphedema of left arm I89.0
[2024-11-13 13:12] VITALS: BP 128/71; PULSE 67; BMI 38.9
== END 2024-11-13 13:28 | disposition home or self-care (01) ==
LOC: HO.HGS 12:58
PROVIDERS: PCP Internal Medicine; Visit Provider Surgery
DX: C50.912 Malignant neoplasm of unspecified site of left female breast (principal); I89.0 Lymphedema, not elsewhere classified
CPT/HCPCS: 99213; G2211

== ENCOUNTER → 2024-11-13 12:57 | Outpatient (BNVA) | payer OTHER, MEDICAID, SELFPAY | PROVIDERS: PCP Internal Medicine; Visit Provider Surgery ==

== ENCOUNTER 2024-12-05 13:25 | Outpatient (AMB) | payer OTHER, MEDICAID, SELFPAY ==
--- NOTE | 2024-12-05 13:30 | MHC.OFFVIS ---
Vital Signs 12/05/24 13:31 Height 5 ft 4 in Weight 228 lb BMI 39.1 BP 137/67 Blood Pressure Location Rt brachial Position Sitting Pulse 65 Pulse Source Pulse Oximeter Pulse Oximetry (%) 95 Oxygen Delivery Method Room Air Intake Visit Reasons: Obstructive sleep apnea Allergies Penicillins (PENICILLINS) Allergy (Unknown, Verified 12/05/24 13:34) CHILDHOOD RXN transparent dressing (Tegaderm) Allergy (Verified 12/05/24 13:34) Rash codeine (CODEINE) Adverse Reaction (Intermediate, Verified 12/05/24 13:34) NAUSEA & VOMITING morphine (MORPHINE) Adverse Reaction (Intermediate, Verified 12/05/24 13:34) Bad headache, N/V oxycodone (From PERCOCET) Adverse Reaction (Intermediate, Verified 12/05/24 13:34) NAUSEA & VOMITING HPI HPI Obstructive sleep apnea: Details: 59-year-old lady followed for underlying [id number] obstructive sleep apnea, now on CPAP therapy. Patient has been using her CPAP with good control of her sleep apnea symptoms. She continues on nasal ipratropium with good control of her allergy symptoms. [facility] Medical History Urinary incontinence Low back pain Anxiety Osteoarthritis of left hip Impacted cerumen of both ears Arthritis Numbness of fingers of both hands Hx of cardiac murmur PONV (postoperative nausea and vomiting) Osteoarthritis of right hip Right hip pain Insomnia Chronic osteoarthritis Obesity (BMI 30-39.9) Depression Secondary and unspecified malignant neoplasm of axilla and upper limb lymph nodes Anemia Malignant neoplasm of left breast Pure hypercholesterolemia Benign essential hypertension Surgical History History of total left hip replacement History of left hip replacement History of total right hip replacement Hx of colonoscopy History of axillary surgery History of left mastectomy History of left breast biopsy History of hernia surgery Family History Father Diabetes Bladder cancer Mother Chronic mental illness Brain cancer Lung cancer Maternal Grandmother Stomach cancer Maternal Grandfather Lung cancer Other Mental health problem Substance abuse Social History Household Members: None Housing: House Are you a primary healthcare science specialist to a significant other at home: No Do you presently have visiting nurse or other home services: No Alcohol intake: current Alcohol intake frequency: holidays/special occasions only Alcohol type: wine Comment: aware of trip hazard Patient Tobacco Use Status: Never used Tobacco e-Cigarette/Vaping Use: Never Used Second Hand Smoke Exposure: Yes Advance Directives Date on File: 12/22/20 service: No Current occupational status: disabled Current occupational exposures/hazards: No Gender identity: Female Cognitive needs: No Hearing needs: No Vision needs: Yes Review of Systems Const Denies daytime sleepiness, Denies excessive sweating, Denies fatigue, Denies fever(s), Denies lethargy, Denies malaise, Denies night sweats, Denies snoring and Denies weight loss Eyes Denies blurry vision and Denies itchy eyes ENT Denies nasal congestion, Denies post nasal drip, Denies sinus pain, Denies sinus pressure and Denies other ( Thrush) Card Denies chest pain, Denies pedal edema, Denies dyspnea, Denies orthopnea and Denies paroxysmal nocturnal dyspnea Resp Denies cough, Denies hemoptysis, Denies excessive phlegm production, Denies dyspnea, Denies snoring and Denies wheezing GI Denies abdominal pain and Denies heartburn Musc Denies myalgias, Denies arthralgias and Denies joint swelling Skin/Breast Denies rash Neuro Denies memory loss and Denies seizure-like activity Psych Denies abnormal sleep pattern, Denies anxiety and Denies memory loss Endo Denies excessive sweating, Denies fatigue and Denies heat intolerance Janak/Lymph Denies easy bruising Aller/Immun Denies itchy eyes, Denies seasonal rhinorrhea and Denies wheezing Physical Exam Vital Signs: Last Vital Signs Pulse 65 12/05/24 13:31 BP 137/67 12/05/24 13:31 Pulse Ox 95 12/05/24 13:31 Oxygen Delivery Method Room Air 12/05/24 13:31 BMI result Body Mass Index 39.1 Const General: no acute distress and alert Nutritional Appearance: obese Orientation/consciousness: Other orientation findings ( oriented) HEENT Head: Yes atraumatic Eyes General: appearance normal, both eyes and all related structures Sclerae: sclerae normal EOM: EOMs intact bilaterally Neck Neck: Yes supple Lymphatic: no lymphadenopathy noted Resp Effort & Inspection: normal respiratory effort and no use of accessory muscles Auscultation: clear to auscultation bilaterally Cardio Rate: regular rate Rhythm: regular rhythm Heart sounds: no gallops, no murmurs and no rubs Skin General skin exam: other ( warm) Extrem General: No clubbing, No cyanosis and No edema Assessment & Plan Assessment & Plan (1) DEEP (obstructive sleep apnea): Code(s): G47.33 - Obstructive sleep apnea (adult) (pediatric) Category: Medical Plan: Therapy and compliance report reviewed - patient is benefitting from and is compliant with noninvasive positive pressure ventilation treatment, using it greater than 70% of the time, more than 4 hours per night. Obstructive sleep apnea well controlled on current CPAP therapy. Continue CPAP therapy. (2) Multiple allergies: Code(s): Z88.9 - Allergy status to unspecified drugs, medicaments and biological substances Category: Medical Plan: Well controlled on nasal ipratropium and as needed Zyrtec. Continue current regimen. Coding Level of Care Code Est Pt Level 4 (04302) Diagnoses DEEP (obstructive sleep apnea) G47.33 Multiple allergies Z88.9
[2024-12-05 13:31] VITALS: BP 137/67; PULSE 65; O2SAT 95; BMI 39.1
--- OUTSIDE RECORDS SUMMARY | 2024-12-05 15:48 | XMS_ITS ---
Author Name [facility] Organization Unknown Care Team Organization Name Specialty Phone Email Start Date End Da te [employer] 11/23/2024 11/28/2024
== END 2024-12-05 13:46 | disposition home or self-care (01) ==
LOC: HO.HPS 13:25
PROVIDERS: PCP Internal Medicine; Visit Provider Internal Medicine Pulmonary Disease
DX: G47.33 Obstructive sleep apnea (adult) (pediatric) (principal); Z88.9 Allergy status to unspecified drugs, medicaments and biological substances
CPT/HCPCS: 99214

== ENCOUNTER 2025-03-22 11:41 | Outpatient (REF) | payer OTHER, MEDICAID, SELFPAY ==
[2025-03-22 12:00] LABS: MANUAL DIFF FLAG NO
[2025-03-22 12:29] LABS: Hematocrit 39.5 % (37.0-47.0); Hemoglobin 12.9 g/dl (12.0-16.0); Imm Gran Abs Auto 0.05 X10*3/uL (0.00-0.03); Imm Gran Pct Auto 0.8 % (0.0-0.4); Lymphocytes Absolute Auto 1.6 X10*3/uL (1.2-4.9); Mean Corpuscular HGB Conc 32.7 g/dl (31.0-35.0); Mean Corpuscular Hemoglobin 30.4 pg (27.0-33.0); Mean Corpuscular Volume 93.2 fL (80.0-98.0); NRBC Abs Auto 0.000 X10*3/uL (0.0-0.012); NRBC Pct Auto 0.0 /100WBC (0.0-0.2); Platelet Count 217 X10*3/uL (160-400); Red Blood Count 4.24 X10*6/uL (4.20-5.50); White Blood Count 5.9 X10*3/uL (4.8-10.8)
[2025-03-22 12:36] LABS: Appearance Urine Clear; Glucose Urine UA Negative (Negative); PH 6.0 (5.0-9.0); Specific Gravity - Urine 1.015 (1.005-1.025); UMIC TRIGGER UACC YES
[2025-03-22 13:15] LABS: Alanine Aminotransferase 31 U/L (0-31); Albumin Level 4.5 g/dL (3.5-5.0); Alkaline Phosphatase 89 U/L (39-117); Anion Gap 11 (12-20); Aspartate Amino Transferase 26 U/L (5-31); Blood Urea Nitrogen 16 mg/dL (9-16); Calcium 9.7 mg/dL (8.4-10.2); Carbon Dioxide 30 mmol/L (22-29); Chloride 104 mmol/L (96-108); Cholesterol 199 mg/dL (<200); Estimated Glomerular Filt Rate > 60; HDL Cholesterol 71 mg/dL (>40); Potassium 4.6 mmol/L (3.3-5.1); Sodium 140 mmol/L (135-145); Total Protein 7.0 g/dL (6.5-8.0); Triglycerides 134 mg/dL (<150)
[2025-03-22 14:30] LABS: Folate 13.5 ng/mL (> or = 4.0); Vitamin B12 668 pg/mL (200-900)
== END 2025-03-22 11:42 | disposition home or self-care (01) ==
LOC: HO.LAB 11:41
PROVIDERS: PCP Internal Medicine; Visit Provider Internal Medicine
DX: E53.8 Deficiency of other specified B group vitamins (principal); E78.00 Pure hypercholesterolemia, unspecified; D64.9 Anemia, unspecified; E55.9 Vitamin D deficiency, unspecified
CPT/HCPCS: 36415; 80053; 80061; 81001; 82306; 82607; 82746; 84443; 85025

== ENCOUNTER 2025-03-25 13:25 | Outpatient (AMB) | payer OTHER, MEDICAID, SELFPAY ==
[2025-03-25 13:27] VITALS: BP 130/84; PULSE 77; O2SAT 97; BMI 39.0
--- NOTE | 2025-03-25 13:27 | A.OFFPC_ITS ---
Vital Signs 03/25/25 13:27 Height 5 ft 4 in Weight 227 lb 6 oz BMI 39.0 BP 130/84 Blood Pressure Location Rt brachial Position Sitting Pulse 77 Pulse Source Pulse Oximeter Pulse Oximetry (%) 97 Oxygen Delivery Method Room Air Intake Visit Reasons: hyperlipidemia, DEEP Lens Marker Required: No Accompanied by: Self / Same As Patient Allergies Penicillins (PENICILLINS) Allergy (Unknown, Verified 03/25/25 13:52) CHILDHOOD RXN transparent dressing (Tegaderm) Allergy (Verified 03/25/25 13:52) Rash codeine (CODEINE) Adverse Reaction (Intermediate, Verified 03/25/25 13:52) NAUSEA & VOMITING morphine (MORPHINE) Adverse Reaction (Intermediate, Verified 03/25/25 13:52) Bad headache, N/V oxycodone (From PERCOCET) Adverse Reaction (Intermediate, Verified 03/25/25 13:52) NAUSEA & VOMITING Medication List - Last Reconciled 03/25/25 by Brijesh Pineda MD anastrozole 1 mg PO DAILY atorvastatin 80 mg PO DAILY 90 days cetirizine 10 mg PO DAILY compression sleeve and gauntlet (LympheDiva Arm Sleeve with Gauntlet) As Directed doxycycline hyclate 100 mg PO ONCE 1 day ezetimibe (Zetia) 10 mg PO DAILY ferrous sulfate (Iron (ferrous sulfate)) 325 mg PO DAILY fluoxetine 20 mg PO DAILY 90 days ipratropium bromide 2 sprays intranasal TID-QID PRN metoprolol tartrate 50 mg in the morning and 25 mg at night orally daily multivitamin 1 tab PO DAILY Tobacco use date assessed: 03/25/25 Dental Screening Dental Screen Date: 03/25/25 HPI hyperlipidemia, DEEP HPI Details Patient comes in today for her follow up visit States that she feels okay except for some issues with her sinuses States that she's had recurrent nasal and sinus congestion for the past month, with recurrent non-productive cough Patient also thinks that her symptoms may be related to her CPAP use She denies any sore throat or fever; denies any headaches or dizziness Denies any chest pains, no increased SOB Relates that she still has occasional, brief sensations of palpitations but these have been occurring very rarely lately No nausea/vomiting, no abdominal pain No change in bowel habits noted She had her follow up labs done a few days ago - to discuss her results [facility] Medical History Urinary incontinence Low back pain Anxiety Osteoarthritis of left hip Impacted cerumen of both ears Arthritis Numbness of fingers of both hands Hx of cardiac murmur PONV (postoperative nausea and vomiting) Osteoarthritis of right hip Right hip pain Insomnia Chronic osteoarthritis Obesity (BMI 30-39.9) Depression Secondary and unspecified malignant neoplasm of axilla and upper limb lymph nodes Anemia Malignant neoplasm of left breast Pure hypercholesterolemia Benign essential hypertension Surgical History History of total left hip replacement History of left hip replacement History of total right hip replacement Hx of colonoscopy History of axillary surgery History of left mastectomy History of left breast biopsy History of hernia surgery Family History Father Diabetes Bladder cancer Mother Chronic mental illness Brain cancer Lung cancer Maternal Grandmother Stomach cancer Maternal Grandfather Lung cancer Other Mental health problem Substance abuse Social History Household Members: None Housing: House Are you a primary animal caretaker to a significant other at home: No Do you presently have visiting nurse or other home services: No Alcohol intake: current Alcohol intake frequency: holidays/special occasions only Alcohol type: wine Comment: aware of trip hazard Patient Tobacco Use Status: Never used Tobacco e-Cigarette/Vaping Use: Never Used Second Hand Smoke Exposure: Yes Advance Directives Date on File: 12/22/20 service: No Current occupational status: disabled Current occupational exposures/hazards: No Gender identity: Female Cognitive needs: No Hearing needs: No Vision needs: Yes Questionnaire PHQ-9 Over the last 2 weeks, how often have you been bothered by any of the following problems? Depression Screening Interpretation: Negative Depression Screening Done: Yes Source: Developed by Drs. Jez Villagran, Daina Agustin, Quirino Hough and colleagues, with an educational fallon from [employer]. Thrive Questionnaire Date Thrive assessed: 11/12/24 I am a: Patient What is your living situation today?: I have a steady place to live Within the past 12 months, did the food you bought not last and you didn't have the money to get more?: Often true Within the past 12 months, did you worry whether your food would run out before you got money to buy more?: Never true Do you have trouble paying for medicines?: No Do you have trouble getting transportation to medical appointments?: No Do you have trouble paying your heating and electricity bill?: No Do you have trouble taking care of your child, family member or friend?: No Do you have trouble with day-to-day activities such as bathing, preparing meals, shopping, managing finances, etc.?: No Are you currently unemployed and looking for a job?: No Are you interested in more education?: No Please select the resources that you would like help with: None Currently or been in a relationship where the following occur: I choose not to answer THRIVE Score: 1 AUDIT C Alcohol Use Questionnaire (AUDIT-C) 1. How often do you have a drink containing alcohol?: Monthly or less 2. How many drinks containing alcohol do you have on a typical day when you are drinking?: 1 or 2 3. How often do you have six or more drinks on one occasion?: Never Total Score: 1 Score Reviewed/Action Taken: Yes FITZ-7 AMB Questionnaire FITZ-7 Date FITZ - 7 assessed: 11/12/24 Feeling nervous, anxious, or on edge: 0 = Not at all Not being able to stop or control worryin = Not at all Worrying too much about different things: 0 = Not at all Trouble relaxin = Not at all Being so restless that it is hard to sit still: 0 = Not at all Becoming easily annoyed or irritable: 0 = Not at all Feeling afraid as if something awful might happen: 0 = Not at all Total FITZ-7 score (0-4 normal; 5-9 mild; 10-14 moderate; 15-21 severe): 0 Source: Developed by Drs. Jez Villagran, Daina Agustin, Quirino Hough and colleagues, with an educational fallon from [employer]. Review of Systems Const Denies chills, Denies fatigue, Denies fever(s) and Denies headache(s) ENT Denies dysphagia, Denies dizziness, Denies otalgia, Denies headache(s), Denies neck pain, Denies odynophagia and Denies sore throat Card Denies chest pain, Denies rapid heart rate, Reports palpitations (rarely) and Denies dyspnea Resp Denies chest congestion, Denies cough and Denies dyspnea GI Denies abdominal pain, Denies constipation, Denies dysphagia, Denies heartburn, Denies diarrhea, Denies nausea, Denies odynophagia and Denies vomiting Denies difficulty voiding, Denies nocturia, Denies dysuria, Reports urinary incontinence and Denies urinary urgency Musc Denies back pain, Reports arthralgias (left knee, left shoulder) and Denies neck pain Skin/Breast Denies rash Neuro Denies dizziness, Denies headache(s) and Denies memory loss Psych Denies memory loss Endo Denies fatigue and Reports palpitations (rarely) Janak/Lymph Details: (+) chronic swelling of the entire left upper extremity Physical exam (Primary Care) Vital Signs: Last Vital Signs Pulse 77 03/25/25 13:27 BP 130/84 03/25/25 13:27 Pulse Ox 97 03/25/25 13:27 Oxygen Delivery Method Room Air 03/25/25 13:27 BMI result Body Mass Index 39.0 Tobacco/Smoking Status: Tobacco use Status Tobacco use date assessed 03/25/25 03/25/25 13:33 Patient Tobacco Use Status Never used Tobacco 03/25/25 13:33 e-Cigarette/Vaping Use Never Used 03/25/25 13:33 Depression Screening Interpretation: Negative Thrive Assessment: Date of Thrive Assessment Date Thrive assessed 11/12/24 03/25/25 13:33 Currently or been in a relationship where the following occur: I choose not to answer Const General: no acute distress and alert HENMT Ears: TM's normal bilaterally and EAC's normal Throat: Yes posterior oropharynx normal and Yes tonsils normal (no TP congestion noted) Neck Neck: Yes supple and No lymphadenopathy Thyroid: Thyroid normal Resp Auscultation: no crackles, no rales, rhonchi (occasional) throughout and no wheezes Cardio Rate: regular rate Rhythm: regular rhythm Heart sounds: no murmurs GI Palpation (GI): Soft to palpation and nontender Auscultation: normal bowel sounds General: Yes no CVA tenderness Back/Spine/Pelvis Back: no CVA tenderness Thoracic/Lumbar Spine: No lumbar spinal tenderness Skin Rashes: no rashes Extrem Other: (+) lymphedema of the left arm and hand General: Yes no clubbing, cyanosis or edema Left lower extremity: hip/thigh Details: tenderness Location: of the hip Results Reviewed Results Reviewed: Laboratory Tests 03/22/25 03/22/25 03/22/25 11:50 11:58 11:59 WBC 5.9 Hgb 12.9 Hct 39.5 Plt Count 217 Sodium 140 Potassium 4.6 Creatinine 0.70 Estimated GFR > 60 Fasting Glucose 95 Calcium 9.7 AST 26 ALT 31 Triglycerides 134 Cholesterol 199 LDL Cholesterol, Calc 102 H HDL Cholesterol 71 Vitamin B12 668 25-OH Vitamin D Total 39.4 TSH 1.54 Ur Specific [place] 1.015 Urine Protein Negative Urine Glucose (UA) Negative Urine Blood Small (1+) H Urine Nitrite Negative Ur Leukocyte Esterase Trace H Coding Level of Care Code Est Pt Level 4 (04760) Diagnoses Pure hypercholesterolemia E78.00 Benign essential hypertension I10 Palpitations R00.2 DEEP (obstructive sleep apnea) G47.33 Upper respiratory tract infection, unspecified type J06.9 URI type: unspecified URI Malignant neoplasm of left breast in female, estrogen receptor positive, unspecified site of breast C50.912; Z17.0 Breast location: unspecified site of breast Estrogen receptor status: positive Patient sex: female Secondary and unspecified malignant neoplasm of axilla and upper limb lymph nodes C77.3 Lymphedema of left arm I89.0 Anemia, unspecified type D64.9 Anemia type: unspecified type Memory impairment R41.3 Urinary incontinence, unspecified type R32 Urinary Incontinence type: unspecified incontinence Depression, unspecified depression type F32.9 Depression Type: unspecified Obesity (BMI 30-39.9) E66.9 Assessment & Plan Assessment & Plan (1) Pure hypercholesterolemia: Code(s): E78.00 - Pure hypercholesterolemia, unspecified Category: Medical Plan: Results of her labs done a few days ago reviewed and discussed with patient - she is cautioned that her cholesterol levels have increased from previous Patient states that this is mostly because she has not been walking much over the summer because it was too hot to do so Reinforced low cholesterol diet Continue Atorvastatin 80 mg QD and Ezetimibe 10 mg QD Will recheck her labs and fasting lipids in 4 months for follow up (2) Benign essential hypertension: Code(s): I10 - Essential (primary) hypertension Category: Medical Plan: Reinforced low sodium diet - goal is systolic BP of at least 130 mm or less Continue Metoprolol 50 mg in AM and 25 mg in PM (3) Palpitations: Code(s): R00.2 - Palpitations Category: Medical Plan: Cardiac work ups done a few years ago, including echocardiogram, labs and Holter monitor, were all unrevealing and only showed (+) frequent PVCs and occasional 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 Continue Metoprolol 50 mg in AM and 25 mg in PM Follow up with cardiology as scheduled She was advised that cardiology will consider repeating some work ups if she continues to experience recurrent symptoms although patient has noticed that these seem to be occurring much less frequently since she started Tx for her DEEP (4) DEEP (obstructive sleep apnea): Code(s): G47.33 - Obstructive sleep apnea (adult) (pediatric) Category: Medical Plan: Continue using her nasal CPAP device when sleeping at night, with setting of APAP of 6 to 16 cm of water Patient states that she was feeling much better with CPAP Tx and feels that her Tx has helped her a lot although she has reportedly noticed that she is not sleeping/resting as effectively as she used to Follow up with Sleep Medicine as scheduled (5) Upper respiratory tract infection: Code(s): J06.9 - Acute upper respiratory infection, unspecified Category: Medical Qualifiers: URI type: unspecified URI Qualified Code(s): J06.9 - Acute upper respiratory infection, unspecified Plan: She appears to be having a URI. likely brought about by the change in season or her CPAP device use Will start patient empirically for now on Azithromycin QD x 5 days Patient is instructed to call if her symptoms persist or worsen over the next week or two despite Abx Tx (6) Malignant neoplasm of left breast: Code(s): C50.912 - Malignant neoplasm of unspecified site of left female breast Category: Medical Qualifiers: Breast location: unspecified site of breast Estrogen receptor status: positive Patient sex: female Qualified Code(s): C50.912 - Malignant neoplasm of unspecified site of left female breast; Z17.0 - Estrogen receptor positive status [ER+] Plan: Patient had invasive ductal carcinoma of the left breast, and is S/P lumpectomy and axillary node dissection on 04/05/2018. Stage IIA. Pathology: Grade 2, 3.6 cm with associated DCIS nuclear grade 2 with necrosis. Metastatic carcinoma seen in 6/16 lymph nodes. Margins negative, ER/VT positive, HER-2 negative She completed adjuvant chemotherapy with Taxoterene and Cytoxan - 1st cycle was administered on 05/17/2018, every 3 weeks and last cycle was given on 07/19/2018 Continue aromatase inhibitor therapy with Anastrozole 1 mg QD to help lower her risk of breast cancer recurrence Follow-up with Oncology as scheduled for continuing surveillance (7) Secondary and unspecified malignant neoplasm of axilla and upper limb lymph nodes: Code(s): C77.3 - Secondary and unspecified malignant neoplasm of axilla and upper limb lymph nodes Category: Medical Plan: S/P lymph node dissection Follow-up with Oncology as scheduled for continuing surveillance (8) Lymphedema of left arm: Code(s): I89.0 - Lymphedema, not elsewhere classified Category: Medical Plan: Patient currently has a lymphedema sleeve to use when needed - she is reminded to wear her sleeve as needed to help keep her left arm swelling down and more manageable (9) Anemia: Code(s): D64.9 - Anemia, unspecified Category: Medical Qualifiers: Anemia type: unspecified type Qualified Code(s): D64.9 - Anemia, unspecified Plan: Improved/corrected (H/H were normal on her recent labs) - was most likely related to her chemotherapy Will continue to monitor her CBC regularly (10) Memory impairment: Code(s): R41.3 - Other amnesia Category: Medical Plan: She was referred to and seen by Neurology last year - was diagnosed with mild cognitive impairment Patient feels that this has improved with her CPAP Tx (11) Urinary incontinence: Code(s): R32 - Unspecified urinary incontinence Category: Medical Qualifiers: Urinary Incontinence type: unspecified incontinence Qualified Code(s): R32 - Unspecified urinary incontinence Plan: Follow up with urology as scheduled (12) Depression: Code(s): F32.9 - Major depressive disorder, single episode, unspecified Category: Medical Qualifiers: Depression Type: unspecified Qualified Code(s): F32.9 - Major depres sive disorder, single episode, unspecified Plan: Continue Fluoxetine 20 mg QD (13) Obesity (BMI 30-39.9): Code(s): E66.9 - Obesity, unspecified Category: Medical Plan: Reinforced diet; exercise and weight loss are unrealistic given patient's multiple comorbidities Per request, she [place] [facility] [place] patient specified that she would like to go to the medical aspect of weight management and does not wish to pursue bariatric surgery - but was advised that the program here is currently full She was on Wegovy 1 mg once a week previously to help with weight loss but she stopped taking it a few weeks ago when it started bothering her stomach Plan Follow up in 4 months Orders: Orders Comprehensive [place]. Panel Fast 4 Months E78.00 - Pure hypercholesterolemia, unspecified Lipid Panel 4 Months E78.00 - Pure hypercholesterolemia, unspecified TSH reflex Free T4 4 Months E78.00 - Pure hypercholesterolemia, unspecified Vitamin D 25-OH Total 4 Months E55.9 - Vitamin D deficiency, unspecified Complete Blood Count Auto Diff 4 Months D64.9 - Anemia, unspecified UA CC w/rflx Micro + Cult 4 Months R30.0 - Dysuria Vitamin B12 and Folate 4 Months E53.8 - Deficiency of other specified B group vitamins Medications: New azithromycin take 500 mg today (day 1), then 250 mg for 4 days (days 2-5) PO 6 tabs 0RF Discontinued doxycycline hyclate Discontinued Reason: Patient Completed Course 100 mg PO ONCE 1 day 1 tab 6RF
== END 2025-03-25 14:02 | disposition home or self-care (01) ==
LOC: HO.HMCH 13:26
PROVIDERS: PCP Internal Medicine; Visit Provider Internal Medicine
DX: E78.00 Pure hypercholesterolemia, unspecified (principal); I10 Essential (primary) hypertension; R00.2 Palpitations; G47.33 Obstructive sleep apnea (adult) (pediatric); J06.9 Acute upper respiratory infection, unspecified; C50.912 Malignant neoplasm of unspecified site of left female breast; Z17.0 Estrogen receptor positive status [ER+]; C77.3 Secondary and unspecified malignant neoplasm of axilla and upper limb lymph nodes; I89.0 Lymphedema, not elsewhere classified; D64.9 Anemia, unspecified; R41.3 Other amnesia; R32 Unspecified urinary incontinence; F32.9 Major depressive disorder, single episode, unspecified; E66.9 Obesity, unspecified

== ENCOUNTER 2025-04-29 14:41 | Outpatient (REF) | payer OTHER, MEDICAID, SELFPAY ==
--- NOTE | ~2025-04-29 | MM_ITS ---
EXAMINATION: MM SCREENING DIGITAL BREAST TOMOSYNTHESIS, BILATERAL CLINICAL INFORMATION: Screening. Asymptomatic. COMPARISON: Mammography: Comparison is made with available priors TECHNIQUE: Digital breast mammography with tomosynthesis is performed in both the craniocaudal and mediolateral oblique views along with computer-aided detection (CAD). FINDINGS: There are scattered areas of fibroglandular density. Left post lumpectomy changes are stable. There are no significant masses, abnormal calcifications, or other abnormalities. MM/MM tomosynthesis screening BI IMPRESSION: No mammographic evidence of malignancy. ASSESSMENT: BI-RADS Category 2: Benign RECOMMENDATION: Routine annual mammography screening. 1 year F/U This examination should not preclude the clinical evaluation of a suspicious palpable abnormality. This patient's information was entered into a reminder system with a target due date for their next mammogram. Electronically signed by: Christal Smalls DO 04/29/2025 04:36 PM [facility]ER[facility]
--- OUTSIDE RECORDS SUMMARY | 2025-04-30 04:58 | XMS_ITS | Encounter Summary ---
Author Organization [facility] Address [address] [place] [address] Phone Care Team Providers Care Fishing Line Winding Machine Operator Name Role Phone Brijesh Pineda MD Primary Care Provider [phone] Encounter Details Date Type Department Care Team (Late st Contact Info) Description 08/18/2018 Telephone [facility] Rad Onc [address] [place] [address] Vanesa Hall MD [address] [place] [address] [email or web address] Social History Tobacco Use Types Packs/Day Years Used Date Smoking Tobacco: Never Smokeless Tobacco: Never Alcohol Use Standard Drinks/Week Comments Yes 0 (1 standard drink = 0.6 oz pur e alcohol) rare Comments No Sex and Gender Information Value Date Recorded Sex Assigned at Not on file Legal Sex Female 11:55 AM EST Gender Identity Not on file Sexual Orientation Not on file documented as of this encounter Plan of Treatment Not on file documented as of this encounter Visit Diagnoses Not on filedocumented in this encounter Care Teams Fishing Line Winding Machine Operator Relationship Specialty Start Date End Date Brijesh Pineda MD [address] [place] [address] [place] [address] PCP - General 07/21/18 documented as of this encounter Additional Source Comments The information contained in this document represents components of the legal health record. It is not the complete legal health record.[facility]
--- OUTSIDE RECORDS SUMMARY | 2025-04-30 04:58 | XMS_ITS | Encounter Summary ---
Author Organization [facility] Address [address] [place] [phone] Phone Care Team Providers Care Cracker And Cookie Machine Operator Name Role Phone Brijesh iPneda MD Primary Care Provider [phone] Encounter Details Date Type Department Care Team (Late st Contact Info) Description 07/25/2018 Ancillary Orders [facility],Outside Imaging [address] [place] [address] System, Provider Not In, [place] [address] Social History Tobacco Use Types Packs/Day Years Used Date Smoking Tobacco: Never Assessed Comments Unknown Sex and Gender Information Value Date Recorded Sex Assigned at Not on file Legal Sex Female 11:55 AM EST Gender Identity Not on file Sexual Orientation Not on file documented as of this encounter Plan of Treatment Not on file documented as of this encounter Results * Mammogram Outside (No Interpretation) (03/16/2018 12:00 AM EDT) Narrative SYSTEMGENERATED, DOCUMENTATION - 07/25/2018 11:23 AM EST This study is for PACS storage only and not for interpretation. us Provider Not In System PhD IMG OUTSIDE IMAGING W /OUT INTERPRETATION Final Result documented in this encounter Visit Diagnoses Not on filedocumented in this encounter Care Teams Cracker And Cookie Machine Operator Relationship Specialty Start Date End Date Brijesh Pineda MD [address] [place] [address] [place] [address] PCP - General 07/21/18 documented as of this encounter Additional Source Comments The information contained in this document represents components of the legal health record. It is not the complete legal health record.[facility]
--- OUTSIDE RECORDS SUMMARY | 2025-04-30 04:59 | XMS_ITS | Clinical Summary ---
Author Organization [facility] Address [address] [address] Phone Care Team Providers Care Donor Relations Coordinator Name Role Phone Brijesh Pineda MD Primary Care Provider [phone] Allergies Active Allergy Reactions Criticality Noted Date Comments Codeine Nausea and/or Vomiting 08/11/2018 Morphine Headaches 08/11/2018 Penicillins 08/11/2018 Oxycodone-Acetaminophen Nausea and/or Vomiting 08/11/2018 Medications FLUoxetine (PROZAC) 40 MG capsule Take 40 mg by mouth daily. Active atorvastatin (LIPITOR) 40 MG tabletIndications :hypercholesterol emia Take 40 mg by mouth daily. Active metoprolol succinate (TOPROL-XL) 50 MG 24 hr tabletIndications :hypertension Take 50 mg by mouth daily. Active ibuprofen (ADVIL,MOTRIN) 200 MG tablet Take 600 mg by mouth every 6 (six) hours as needed for pain (specific location in comments). Active multivitamins with minerals-iron (THERA-VM) Tab Take 1 tablet by mouth daily. Active silver sulfADIAZINE (SILVADENE) 1 % cream Apply to affected area daily 4x day 50 g 1 9 Active letrozole (FEMARA) 2.5 mg tablet Take 2.5 mg by mouth daily. Active Active Problems Problem Noted Date Diagnosed Date Malignant neoplasm of upper- outer quadrant of left breast in female, estrogen receptor positive 08/29/2018 Family History Medical History Relation Comments Cancer Father Cancer Mother Relation Status Comments Father Mother Social History Tobacco Use Types Packs/Day Years Used Date Smoking Tobacco: Never Smokeless Tobacco: Never Alcohol Use Standard Drinks/Week Comments Yes 0 (1 standard drink = 0.6 oz pur e alcohol) rare Education Answer Date Recorded Are you interested in more education? Not on elba e 10/08/2022 Are you concerned about learning? Not on file 10/08/2022 No 10/08/2022 No 10/08/2022 Digital Access Answer Date Recorded No 11/06/2022 No 11/06/2022 No 11/06/2022 Reliable internet access at home? Not on file 11/06/2022 Device with a working camera? Not on file Comments No Sex and Gender Information Value Date Recorded Sex Assigned at Not on file Legal Sex Female 11:55 AM EST Gender Identity Not on file Sexual Orientation Not on file Last Filed Vital Signs Vital Sign Reading Time Taken Comments Blood Pressure 134/82 11/28/2018 1:32 PM EDT Pulse 67 11/28/2018 1:32 PM EDT Temperature 36.6 C (97.9 F) 10/02/2018 12:12 PM EDT Respiratory Rate - - Oxygen Saturation 97% 11/28/2018 1:32 PM EDT Inhaled Oxygen Concentration - - Weight 91.1 kg (200 lb 14.4 oz) 11/28/2018 1:32 PM EDT Height - - Body Mass Index - - Plan of Treatment Health Maintenance Due Date Last Done Comments LIPID PANEL 1964 DEPRESSION SCREENING 1976 HEPATITIS C SCREENING 02/15/1982 HIV ONE-TIME SCREENING (18-6 5 YEARS) 02/15/1982 PNEUMOCOCCAL VACCINES (50+ years) (1 of 2 - PCV) 02/15/1983 ZOSTER VACCINES (1 of 2) 02/15/1983 PAP SMEAR 02/15/1985 COLOGUARD 02/15/2009 COLONOSCOPY 02/15/2009 COLORECTAL CANCER SCREENING 02/15/2009 FIT TEST 02/15/2009 FOBT 02/15/2009 SIGMOIDOSCOPY 02/15/2009 VIRTUAL COLONOSCOPY 02/15/2009 MAMMOGRAM 04/05/2020 04/05/2018, 03/16/2018 INFLUENZA VACCINE (#1) 2025 COVID-19 VACCINE (3 - 2024-2 6 season) 2025 11/28/2020, 10/31/2020 Adult Td,Tdap Booster 08/13/2026 08/13/2016 RSV VACCINE (1 - 1-dose 75+ series) 02/15/2039 SMOKING STATUS SCREENING (On ce After 26 Yrs) Completed 08/11/2018 HEPATITIS A VACCINES Aged Out No long er eligible based on patient's age to complete this topic HIB VACCINES Aged Out No longer eligi ble based on patient's age to complete this topic IPV VACCINES Aged Out No longer eligi ble based on patient's age to complete this topic MENINGOCOCCAL VACCINES (ACWY) Aged Out No longer eligible based on patient's age to complete this topic MENINGOCOCCAL VACCINES (B) Aged Out N o longer eligible based on patient's age to complete this topic Medical Devices Not on file Procedures Procedure Name Priority Date/Time Associated Diagnosis Comments BI MAMMOGRAM OUTSIDE (NO INTERPRETATION) Routine 04/05/2018 12:00 AM EDT from Last 3 Months or Most Recently Relevant to Health Maintenance Results * Mammogram Outside (No Interpretation) (04/05/2018 12:00 AM EDT) Narrative SYSTEMGENERATED, DOCUMENTATION - 07/25/2018 11:22 AM EST This study is for PACS storage only and not for interpretation. us Provider Not In System PhD IMG OUTSIDE IMAGING W /OUT INTERPRETATION Final Result from Last 3 Months or Most Recently Relevant to Health Maintenance Insurance [facility] Care Teams Donor Relations Coordinator Relationship Specialty Start Date End Date Brijesh Pineda MD [address] [place] [address] [place] [address] PCP - General 07/21/18 Additional Source Comments The information contained in this document represents components of the legal health record. It is not the complete legal health record.[facility]
--- OUTSIDE RECORDS SUMMARY | 2025-04-30 04:59 | XMS_ITS | Encounter Summary ---
Author Organization [facility] Address [address] [place] [address] Phone Care Team Providers Care Block Bolter Mule Operator Name Role Phone Brijesh Pineda MD Primary Care Provider [phone] Encounter Details Date Type Department Care Team (Late st Contact Info) Description 07/25/2018 Ancillary Orders [facility],Outside Imaging [address] [place] [address] System, Provider Not In, [place] [address] Social History Tobacco Use Types Packs/Day Years [...] encounter Results * Mammogram Outside (No Interpretation) (04/05/2018 12:00 AM EDT) Narrative SYSTEMGENERATED, DOCUMENTATION - 07/25/2018 11:22 AM EST This study is for PACS storage only and not for interpretation. us Provider Not In System PhD IMG OUTSIDE IMAGING W /OUT INTERPRETATION Final Result documented in this encounter Visit Diagnoses Not on filedocumented in this encounter Care Teams Block Bolter Mule Operator Relationship Specialty Start Date End Date Brijesh Pineda MD [address] [place] [address] [place] [address] PCP - General 07/21/18 documented as of this encounter Additional Source Comments The information contained in this document represents components of the legal health record. It is not the complete legal health record.[facility]
== END 2025-04-29 14:42 | disposition home or self-care (01) ==
LOC: HO.MAMMO 14:41
PROVIDERS: PCP Internal Medicine; Visit Provider Internal Medicine
DX: Z12.31 Encounter for screening mammogram for malignant neoplasm of breast (principal)
CPT/HCPCS: 77063; 77067

== ENCOUNTER → 2025-04-29 14:45 | Outpatient (BNV) | payer OTHER, MEDICAID, SELFPAY | PROVIDERS: PCP Internal Medicine; Visit Provider Internal Medicine | DX: Z12.31 Encounter for screening mammogram for malignant neoplasm of breast (principal) | CPT/HCPCS: 77063; 77067 ==